=== PATIENT | male | born 1950 | race Caucasian/White ===

== ENCOUNTER 2019-06-27 20:15 | Observation (INO) ==
--- OUTSIDE RECORDS SUMMARY | 2019-06-27 20:16 | External Medical Summary | Continuity of Care Document ---
:1950 Author Name Vance Sotelo Address Unavailable Unavailable , Care Team Providers Name Role Phone Unavailable Unavailable Unavailable Liz Sotelo Unavailable [email or web address] Juice REYNOLDS Unavailable Unavailable Unavailable Unavailable Unavailable Problems COPD, moderate (496) (J44.9) Chronic coronary artery disease (414.00) (I25.10) Pulmonary nodules (793.19) (R91.8) Dyspnea on effort (786.09) (R06.09) Dyslipidemia (272.4) (E78.5) Vitamin D deficiency (268.9) (E55.9) Allergies and Adverse Reactions Iodinated Contrast Media (Allergy) lisinopril (Allergy) Medications Calcium 600+D 600-400 MG-UNIT Oral Tablet; Take 1 tablet twi ce daily , M.D. Refills: 0 Aspirin 81 MG TABS; TAKE 1 TABLET DAILY. , M.D. Refills: 0 Vitamin D 400 UNIT TABS; Take 1 tablet daily , M.D. Refills: 0 One-A-Day Mens Oral Tablet; TAKE 1 TABLET DAILY. , M.D. Refills: 0 Vikas Back & Body Pain Ex St 500-32.5 MG Oral Tablet; Take a s needed , M.D. Refills: 0 Nitrostat 0.4 MG Sublingual Tablet Sublingual , M.D. Refills: 0 Zetia 10 MG Oral Tablet; TAKE 1 TABLET DAILY. , M.D. Refills: 0 Losartan Potassium 50 MG Oral Tablet; TAKE 1 TABLET DAILY. , M.D. Refills: 0 Crestor 40 MG Oral Tablet; TAKE 1 TABLET DAILY. , M.D. Refills: 0 predniSONE 20 MG Oral Tablet; TAKE 2 TABLETS NEEDED , M.D . Refills: 0 Symbicort 160-4.5 MCG/ACT Inhalation Aer osol; INHALE 2 PUFFS TWICE DAILY. RINSE MOUTH AFTER USE. Deepak Hill Start: 24-Feb-2016 Quantity: 1 10.2 GM Inhaler Refills: 3 Metoprolol Succinate ER 50 MG Oral Table t Extended Release 24 Hour; TAKE 1 TABLET DAILY. , M.D. Refills: 0 ProAir HFA 108 (90 Base) MCG/ACT Inhalat ion Aerosol Solution; INHALE 2 PUFFS EVERY 4 HOURS NEEDED , M.D. Refills: 0 Fluticasone Propionate 50 MCG/ACT Nasal Suspension; INSTILL 2 SPRAYS INTO NOSTRIL DAILY , M.D. Refills: 0 Omeprazole 20 MG Oral Capsule Delayed Release; TAKE 1 CAPSUL E Daily , M.D. Refills: 0 EpiPen 0.3 MG/0.3ML FER , M.D. Refills: 0 Benadryl Allergy 25 MG Oral Tablet; TAKE 1 TABLET EVER Y 4 TO 6 HOURS NEEDED. , M.D. Refills: 0 Procedures Procedures not documented Immunizations Immunizations not documented Family History Unknown Family Member Family history of malignant neoplasm of Status: Active Comments: Family History prostate (V16.42) (Z80.42) Father Family history of malignant neoplasm of prostate (V16. 42) (Z80.42) Status: Active Grandfather Family history of malignant neoplasm of prostate (V16. 42) (Z80.42) Status: Active Social History - Smoking Status Former smoker Plan of Treatment Planned Observations Planned Goals not documented Results No Known Results Results not documented
--- OUTSIDE RECORDS SUMMARY | 2019-06-27 20:17 | External Medical Summary | Continuity of Care Document ---
:1950 Author Name Vance Sotelo Address Unavailable Unavailable , Care Team Providers Name Role Phone Unavailable Unavailable Unavailable Liz Sotelo Unavailable [email or web address] Juice REYNOLDS Unavailable Unavailable Unavailable Unavailable Unavailable Problems Vitamin D deficiency (268.9) (E55.9) Dyslipidemia (272.4) (E78.5) Dyspnea on effort (786.09) (R06.09) Pulmonary nodules (793.19) (R91.8) Chronic coronary artery disease (414.00) (I25.10) COPD, moderate (496) (J44.9) Allergies and Adverse Reactions Iodinated Contrast Media (Allergy) lisinopril (Allergy) Medications Metoprolol Succinate ER 50 MG Oral Table [...] 6 HOURS NEEDED. , M.D. Refills: 0 predniSONE 20 MG Oral Tablet; TAKE 2 TABLETS NEEDED , M.D . Refills: 0 Crestor 40 MG Oral Tablet; TAKE 1 TABLET DAILY. , M.D. Refills: 0 Losartan Potassium 50 MG Oral Tablet; TAKE 1 TABLET DAILY. , M.D. Refills: 0 Zetia 10 MG Oral Tablet; TAKE 1 TABLET DAILY. , M.D. Refills: 0 Nitrostat 0.4 MG Sublingual Tablet Sublingual , M.D. Refills: 0 Vikas Back & Body Pain Ex St 500-32.5 MG Oral Tablet; Take a s needed , M.D. Refills: 0 One-A-Day Mens Oral Tablet; TAKE 1 TABLET DAILY. , M.D. Refills: 0 Vitamin D 400 UNIT TABS; Take 1 tablet daily , M.D. Refills: 0 Aspirin 81 MG TABS; TAKE 1 TABLET DAILY. , M.D. Refills: 0 Calcium 600+D 600-400 MG-UNIT Oral Tablet; Take 1 tablet twi ce daily , M.D. Refills: 0 Symbicort 160-4.5 MCG/ACT Inhalation Aer osol; INHALE 2 PUFFS TWICE DAILY. RINSE MOUTH AFTER USE. Deepak Hill Start: 24-Feb-2016 Quantity: 1 10.2 GM Inhaler Refills: 3 Procedures Procedures not documented Immunizations Immunizations not [...]
[2019-06-27] MEDS ORDERED: ALBUT/IPRATROP 3MG/0.5MG NEB 3 ML VIAL INH STA (20:49)
[2019-06-27] MEDS ORDERED: methylPREDNISolone 125 MG/2 ML VIAL IV STA (20:49)
[2019-06-27] MEDS ORDERED: OXYCODONE HCL IR 5 MG TAB (IMMEDIATE RELEASE) PO STA (20:49)
[2019-06-27] MEDS ORDERED: SODIUM CHLORIDE 0.9% 500 ML IV SCH (21:00)
--- NOTE | 2019-06-27 21:04 | Emergency Department Note ---
Entered by Florence Sim acting as a scribe for History of Present Illness General Chief complaint: Shortness of Breath/Dyspnea Stated complaint: COUGH,BACK PAIN,SOB Time Seen by Provider: 06/27/19 20:25 Source: patient and family () History of Present Illness Onset (ago): week(s) 1 Location: chest (SOB/dyspnea) Severity: similar to prior episodes (last year) Pain Consistency: + constant Maximum Pain Intensity: 8 Exacerbated By: + other (laying down) Associated symptoms: + denies other symptoms (leg pain, hemoptysis), + cough (productive with clear sputum), + shortness of breath (dyspnea) and + other (rhinorrhea, bilateral hip pain, lower back pain) The patient is a 69 year old male on Metoprolol with a history of COPD, DE, angio-edema, HTN, and herniated disks who presents to the Emergency Room with complaints of shortness of breath/dyspnea. The patient states that 1 week ago he began to experience a productive cough with clear sputum associated with shortness of breath. He was seen by his PCP for his symptoms and placed on doxycycline, prednisone, and an albuterol inhaler. Since onset, his SOB has worsened and the patient is now experiencing dyspnea. He states that laying flat exacerbates his SOB but he admits that he does not experience difficulty breathing when walking up stairs. The patient reports that his cough worsened last night and is associated with rhinorrhea. He has been taking OTC Mucinex DM for relief. He includes that he experienced similar symptoms last year. His notes that she is not experiencing similar symptoms and that the patient has not experienced a fever since last week. The patient also complains of bilateral hip pain and lower back pain. However, he did not take any OTC medications for r elief. Of note, the patient is not on oxygen at home and does not have a history of having low O2 sats. He denies leg pain, hemoptysis, and offers no further concerns at this time. Home Medications Home Medications Medication Instructions Recorded Confirmed Type Ergocalciferol (Vitamin D) 400 inter.unit PO BID #0 tab 09/06/15 History Ezetimibe (Zetia) 10 mg PO QAM #0 tab 09/06/15 History ROSUVASTATIN CALCIUM (CRESTOR) 40 mg PO QAM #0 tab 09/06/15 History ASPIRIN (ASPIRIN EC) 81 mg PO QAM #0 03/30/16 History Fluticasone Propionate (Nasal) 2 spray ISAIAS BID PRN #0 03/30/16 History (Flonase Allergy Relief) LOSARTAN POTASSIUM (COZAAR) 50 mg PO PRN #0 tab 03/30/16 History Metoprolol Succ (Toprol Xl) 50 mg PO QAM #30 tab 03/30/16 History (Toprol-Xl) Multivitamin 1 tab PO QAM #0 tab 03/30/16 History Nitroglycerin (Nitrostat) 0.4 mg UT PRN #0 btl 03/30/16 History OMEPRAZOLE (PRILOSEC) 20 mg PO QAM #0 cap 03/30/16 History Prednisone 2 tab PO PRN #5 tab 03/30/16 History Allergies Allergy/AdvReac Type Severity Reaction Status Date / Time Iodinated Contrast Media Allergy Unknown HIVES WITH Verified 06/27/19 23:20 IV DYE FOR CARDIAC CATH lisinopril Allergy Unknown ANGIOEDEMA Verified 06/27/19 23:20 Past Med/Surg History Medical History COPD (chronic obstructive pulmonary disease) Herniated disc Myocardial infarction Surgical History No pertinent past surgical history Social History Feels Safe at Home: Yes Smoking Status: Former smoker Review of Systems See HPI for pertinent positives & negatives. and A total of 10 systems reviewed and were otherwise negative Physical Exam Vital Signs Vital Signs - 24 hr 06/27/19 20:19 06/27/19 20:31 06/27/19 20:34 Temperature 37.3 C Temperature Source Oral Pulse Rate 95 H 87 Pulse Rate [Apical] Pulse Rate from SpO2 Sensor 87 Pulse Rhythm Respiratory Rate 18 19 Respiratory Effort / Characteristics Non-Labored Spontaneous Non-Labored Spontaneous Respiratory Depth Normal Normal Blood Pressure 129/79 151/120 H Blood Pressure Mean 95 139 Pulse Oximetry 88 L 95 94 Oxygen Delivery Method Room Air Nasal Cannula Nasal Cannula Oxygen Flow Rate 2 2 Sepsis Recent Fever Within 48 Hours No Sepsis Action Taken by Nursing No Action Required 06/27/19 20:55 06/27/19 21:00 06/27/19 21:03 Temperature Temperature Source Pulse Rate 95 H 82 Pulse Rate [Apical] 92 H Pulse Rate from SpO2 Sensor 83 Pulse Rhythm Regular Respiratory Rate 18 26 H 18 Respiratory Effort / Characteristics Non-Labored Spontaneous Respiratory Depth Blood Pressure 142/78 H Blood Pressure Mean 91 Pulse Oximetry 95 94 95 Oxygen Delivery Method Room Air Nasal Cannula Nasal Cannula Oxygen Flow Rate 2 2 2 Sepsis Recent Fever Within 48 Hours Sepsis Action Taken by Nursing 06/27/19 21:30 06/27/19 22:00 06/27/19 22:30 Temperature Temperature Source Pulse Rate 80 79 77 Pulse Rate [Apical] Pulse Rate from SpO2 Sensor 79 79 77 Pulse Rhythm Respiratory Rate 13 17 23 Respiratory Effort / Characteristics Respiratory Depth Blood Pressure 115/54 L 96/37 L 123/78 Blood Pressure Mean 69 66 91 Pulse Oximetry 96 94 93 Oxygen Delivery Method Nasal Cannula Nasal Cannula Nasal Cannula Oxygen Flow Rate 2 2 2 Sepsis Recent Fever Within 48 Hours Sepsis Action Taken by Nursing GENERAL: The patient is awake and alert. He is somewhat anxious appearing but overall comfortable. EYES: The conjunctivae are clear. The pupils are round and reactive. EARS, NOSE, MOUTH AND THROAT: The nose is without any evidence of any deformity. Mucous membranes are moist. Tongue is midline. NECK: The neck is nontender and supple. RESPIRATORY: Shallow respirations are noted. There is expiratory wheezing noted in both upper lung childs. There is no tachypnea or conversational dyspnea. CARDIOVASCULAR: Regular rate and rhythm noted there no murmurs rubs or gallops normal S1 normal S2. GASTROINTESTINAL: The abdomen is soft. Abdomen is nontender. BACK: Low midline tenderness was noted in the lumbar spine. Range of motion ap pears intact. There is significant muscle spasm noted. MUSCULOSKELETAL/EXTREMITIES: There is no evidence of gross deformity full range of motion is noted in the hips and shoulders. SKIN: There is no obvious evidence of any rash. There are no petechiae, pallor or cyanosis noted. NEUROLOGIC: Patient is awake alert and oriented x3 strength is symmetric patellar reflexes are 2+ bilaterally Course Course 2042: Past medical records reviewed. The patient was evaluated in room C05. A complete history and physical exam was performed. 0: I checked on the patient and updated him on test results. 3: [facility] who will further evaluate the patient. Administered Medications Ioversol (Optiray 320 125ml) 120 ml IV ONCE PRN PRN Reason: Interaction Checking Stop: 07/01/19 22:38 Last Admin: 06/27/19 22:41 Dose: 120 ml Documented by: [id number] Discontinued Medications Albuterol (Duoneb) 3 ml INH NOW STA Stop: 06/27/19 20:50 Last Admin: 06/27/19 21:07 Dose: 3 ml Documented by: [id number] Diphenhydramine HCl (Benadryl) 25 mg IV NOW STA Stop: 06/27/19 22:17 Last Admin: 06/27/19 22:30 Dose: 25 mg Documented by: [id number] Sodium Chloride (Nss) 500 mls @ 999 mls/hr IV .Q31M CHERYL Stop: 06/27/19 21:30 Last Infusion: 06/27/19 21:58 Dose: 0 mls/hr Documented by: [id number] Admin: 06/27/19 21:12 Dose: 999 mls/hr Documented by: [id number] Magnesium Sulfate/Dextrose (Magnesium Sulfate / D5w) 1 gm in 100 mls @ 100 mls/hr IV ONE ONE Stop: 06/27/19 22:37 Last Admin: 06/27/19 22:09 Dose: 100 mls/hr Documented by: [id number] Sodium Chloride (Nss 1000ml) 1,000 mls @ 999 mls/hr IV .Q1H1M ONE Stop: 06/27/19 23:16 Last Admin: 06/27/19 22:30 Dose: 999 mls/hr Documented by: [id number] Famotidine (Pepcid 20mg Iv Push) 20 mg in 5 mls @ 2.5 mls/min IV NOW STA Stop: 06/27/19 22:17 Last Admin: 06/27/19 22:30 Dose: 2.5 mls/min Documented by: [id number] Methylprednisolone (Solumedrol) 125 mg IV NOW STA Stop: 06/27/19 20:50 Last Admin: 06/27/19 21:10 Dose: 125 mg Documented by: [id number] Oseltamivir Phosphate (Tamiflu) 75 mg PO NOW STA; Protocol Stop: 06/27/19 22:00 Last Admin: 06/27/19 22:10 Dose: 75 mg Documented by: [id number] Oxycodone HCl (Roxicodone Immediate Rel) 5 mg PO NOW STA Stop: 06/27/19 20:50 Last Admin: 06/27/19 21:09 Dose: 5 mg Documented by: [id number] Medical Decision Making Differential Diagnosis Differential diagnoses includes but is not limited to pneumonia, bronchitis, COPD/Asthma exacerbation, pneumothorax, pulmonary embolism, congestive heart failure, acute coronary syndrome Medical Records Attestation: I reviewed the patient's medical records. Home Medications Current Medication List: was personally reviewed by me Laboratory Data Attestation: I reviewed the patient's lab results. Result diagrams: 06/27/19 21:07 06/27/19 21:07 Lab Results 06/27/19 06/27/19 06/27/19 Range/Units 21:00 21:06 21:07 WBC 6.38 (4.8-10.8) K/uL RBC 4.53 L (4.7-6.1) M/uL Hgb 14.4 (14.0-18.0) g/dL Hct 42.3 (42-52) % MCV 93.4 (80-100) fL MCH 31.8 (25-34) pg MCHC 34.0 (32-36) g/dL RDW Std Deviation 48.6 H (36.4-46.3) fL RDW Coeff of [place] 14.1 (11.5-14.5) % Plt Count 119 L (130-400) K/uL MPV 9.2 (7.4-10.4) fL Immature Gran % (Auto) 0.5 % Neut % (Auto) 69.6 % Lymph % (Auto) 9.6 % [place] % (Auto) 17.1 % Eos % (Auto) 3.0 % Baso % (Auto) 0.2 % Immature Gran # (Auto) 0.03 H (0.00-0.02) K/uL Neut # (Auto) 4.45 (1.4-6.5) K/uL Lymph # (Auto) 0.61 L (1.2-3.4) K/uL [place] # (Auto) 1.09 H (0.11-0.59) K/uL Eos # (Auto) 0.19 (0-0.5) K/uL Baso # (Auto) 0.01 (0-0.2) K/uL PT (9.0-12.0) Seconds INR (0.9-1.1) APTT (21.0-31.0) Seconds PTT Ratio D-Dimer (0-500) ug/L FEU VBG pH 7.53 H (7.36-7.41) VBG pCO2 29 L (38-50) mmHg VBG pO2 54 mmHg VBG HCO3 23 mmol/L VBG O2 Saturation 91.8 % VBG Base Excess 1.8 mEq/L Barometric Pressure 738.2 mm/Hg Sodium (136-145) mmol/L Potassium (3.5-5.1) mmol/L Chloride (98-107) mmol/L Carbon Dioxide (21-32) mmol/L Anion Gap (3-11) BUN (7-18) mg/dl Creatinine (0.6-1.4) mg/dl Est Cr Clr Drug Dosing ml/min Est GFR ( Amer) Est GFR (Non-Af Amer) BUN/Creatinine Ratio (10-20) Glucose (70-99) mg/dl Calcium (8.5-10.1) mg/dl Magnesium (1.8-2.4) mg/dl Total Bilirubin (0.2-1) mg/dl AST (15-37) U/L ALT (12-78) U/L Alkaline Phosphatase (45-117) U/L Troponin I (0-0.045) ng/ml Total Protein (6.4-8.2) gm/dl Albumin (3.4-5.0) gm/dl Globulin (2.5-4.0) gm/dl Albumin/Globulin Ratio (0.9-2) Influenza Type A (PCR) Pos for Influ A A* (Neg) Influenza Type B (PCR) Neg for Influ B (Neg) 06/27/19 06/27/19 06/27/19 Range/Units 21:07 21:07 21:07 WBC (4.8-10.8) K/uL RBC (4.7-6.1) M/uL Hgb (14.0-18.0) g/dL Hct (42-52) % MCV (80-100) fL MCH (25-34) pg MCHC (32-36) g/dL RDW Std Deviation (36.4-46.3) fL RDW Coeff of [place] (11.5-14.5) % Plt Count (130-400) K/uL MPV (7.4-10.4) fL Immature Gran % (Auto) % Neut % (Auto) % Lymph % (Auto) % [place] % (Auto) % Eos % (Auto) % Baso % (Auto) % Immature Gran # (Auto) (0.00-0.02) K/uL Neut # (Auto) (1.4-6.5) K/uL Lymph # (Auto) (1.2-3.4) K/uL [place] # (Auto) (0.11-0.59) K/uL Eos # (Auto) (0-0.5) K/uL Baso # (Auto) (0-0.2) K/uL PT 11.4 (9.0-12.0) Seconds INR 1.1 (0.9-1.1) APTT 24.5 (21.0-31.0) Seconds PTT Ratio 0.9 D-Dimer 760 H* (0-500) ug/L FEU VBG pH (7.36-7.41) VBG pCO2 (38-50) mmHg VBG pO2 mmHg VBG HCO3 mmol/L VBG O2 Saturation % VBG Base Excess mEq/L Barometric Pressure mm/Hg Sodium 135 L (136-145) mmol/L Potassium 4.1 (3.5-5.1) mmol/L Chloride 104 (98-107) mmol/L Carbon Dioxide 24 (21-32) mmol/L Anion Gap 7.0 (3-11) BUN 15 (7-18) mg/dl Creatinine 0.99 (0.6-1.4) mg/dl Est Cr Clr Drug Dosing 86.9 ml/min Est GFR ( Amer) 91.0 Est GFR (Non-Af Amer) 78.5 BUN/Creatinine Ratio 15.1 (10-20) Glucose 96 (70-99) mg/dl Calcium 8.8 (8.5-10.1) mg/dl Magnesium 1.7 L (1.8-2.4) mg/dl Total Bilirubin 1.1 H (0.2-1) mg/dl AST 32 (15-37) U/L ALT 66 (12-78) U/L Alkaline Phosphatase 44 L (45-117) U/L Troponin I < 0.015 (0-0.045) ng/ml Total Protein 6.6 (6.4-8.2) gm/dl Albumin 3.3 L (3.4-5.0) gm/dl Globulin 3.3 (2.5-4.0) gm/dl Albumin/Globulin Ratio 1.0 (0.9-2) Influenza Type A (PCR) (Neg) Influenza Type B (PCR) (Neg) Imaging Data Radiologist's Impression: Radiology results as stated below per my review and the radiologist's interpretation: XR chest 1V portable CLINICAL HISTORY: 69 years-old Male presenting with Dyspnea. TECHNIQUE: Portable upright AP view of the chest was obtained. COMPARISON: 09/06/2015. FINDINGS: Atherosclerosis of the aortic arch. Cardiac silhouette normal in size. Minimal bibasilar opacities. No large effusion or pneumothorax. Osseous structures normal. Upper abdomen normal. IMPRESSION: 1. Minimal basilar opacities likely atelectasis or scarring. No convincing evidence of acute cardiopulmonary disease. ACT 112: Negative or not required by law. Electronically signed by: Rosalio Madrid M.D. 06/27/2019 9:[address] angio chest PE protocol CLINICAL HISTORY: 69 years-old Male presenting with shortness of breath, cough, clinical concern for pulmonary embolus. TECHNIQUE: Multidetector CT angiography of the chest was performed after administration of intravenous contrast. 3-D volumetric and/or maximum intensity projection (MIP) images were subsequently reconstructed for review. IV contrast: 120 mL of Optiray 320. One or more dose lowering techniques were used consistent with the principles of ALARA (as low as reasonably achievable), including automatic exposure control, mA or kV adjustment to individual patient size, and/or use of iterative reconstruction. COMPARISON: Chest x-ray from earlier today. CT DOSE (mGy.cm): The estimated cumulative dose is 682.00 mGy.cm. 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 Pulmonary vasculature: The study is suboptimal for the assessment of the pulmonary vascular tree secondary to timing of the contrast bolus. No filling defect within the pulmonary arteries to suggest embolus. Main pulmonary artery is not enlarged. No flattening of the interventricular septum. No intracardiac filling defect. No reflux of contrast into the hepatic veins. Remaining chest: Soft tissues: Normal thyroid and thoracic inlet. No axillary, supraclavicular, mediastinal, or hilar lymphadenopathy. Atherosclerosis of the aorta. Normal heart size. Coronary artery and aortic valve calcification. No pericardial or pleural effusion. Upper abdomen normal. Lungs and airways: No pneumothorax. Diffuse bronchial wall thickening with a lower lobe predominance. Central airways patent. Pulmonary arteries are not significantly enlarged relative to adjacent bronchi. No interlobular septal thickening. Trace centrilobular emphysema. Minimal bibasilar opacities likely atelectasis. Musculoskeletal: Degenerative changes of the spine. Solid polygonal 6 mm nodule in the medial segment of the right middle lobe (series 4 image 74). Solid peripheral 5 mm nodule in the anterior segment of the right upper lobe (series 4 image 155). No other focal nodule or infiltrate. IMPRESSION: 1. No evidence of pulmonary embolus. No acute intrathoracic pathology. 2. 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 3. Multiple solid pulmonary nodules measuring up to 6 mm. Follow-up per Fleischner Society 2017 criteria below. Summary of Fleischner Society 2017 Recommendations (H Leroy et al. Guidelines for management of incidental pulmonary nodules detected on CT images: From the Fleischner Society 2017. Radiology 2017; 284: 228-243.) SOLID NODULES Single nodule; size < 6 mm * Low risk patients: No routine follow-up * High risk patients: Optional CT at 12 months Single nodule; size 6-8 mm * Low risk patients: CT at 6-12 months, then consider CT at 18-24 months * High risk patients: CT at 6-12 months, then at 18-24 months Single nodule; size > 8 mm * Either low or high risk patients: Consider CT at 3 months, PET/CT, or tissue sampling Multiple nodules; size < 6 mm * Low risk patients: No routine follow up * High risk patients: Optional CT at 12 months Multiple nodules; size 6-8 mm * Low risk patients: CT at 3-6 months, then consider CT at 18-24 months * High risk patients: CT at 3-6 months, then at 18-24 months Multiple nodules; size > 8 mm * Low risk patients: CT at 3-6 months, then consider at 18-24 months * High risk patients: CT at 3-6 months, then at 18-24 months SUBSOLID NODULES Single ground-glass nodule * Nodule size < 6 mm: No routine follow-up * Nodule size > or = 6 mm: CT at 6-12 months to confirm persistence, then CT every 2 years until 5 years Single part-solid nodule * Nodule size < 6 mm: No routine follow-up * Nodules size > or = 6 mm: CT at 3-6 months to confirm persistence. If unchanged and solid component remains < 6 mm, annual CT should be performed for 5 years Multiple nodules * Nodule size < 6 mm: CT at 3-6 months. If stable, consider CT at 2 and 4 years. * Nodules size > or = 6 mm: CT at 3-6 months. Subsequent management based on the most suspicious nodule(s) NOTE: 1) These guidelines apply to incidental nodules. These guidelines do NOT apply to patients younger than 35 years, immunocompromised patients, or patients with cancer. 2) Risk categories: * Low risk patients: Minimal or absent history of smoking and/or other known risk factors * High risk patients: History of smoking, exposure to other carcinogens, emphysema, fibrosis, upper lobe location, family history of lung cancer, etc. 3) If a nodule up to 8 mm is partly solid or is ground glass, further follow-up is required after 24 months to exclude possible slow growing adenocarcinoma. ACT 112: Negative or not required by law. Electronically signed by: Rosalio Madrid M.D. 06/27/2019 10:57 PM ECG Data Attestation: I personally reviewed and interpreted this ECG as follows: Indication: + SOB/dyspnea Rate (beats per minute): 89 Rhythm: + normal sinus ECG Findings: + Other (no acute ST segments); no PACs and no PVCs Comparison ECG Date: from (09/06/15) Change: no significant change Blood Pressure Blood Pressure Findings: Normal blood pressure Blood Pressure Disposition: further management by hospitalist ITALO Orellana The patient is a 69-year-old male who presented to the emergency department for an evaluation of shortness of breath. The patient has a history of COPD. He was seen by his primary care physician about a week ago for similar complaints. At that time he was started on doxycycline as well as a steroid. The patient continues to have very severe symptoms which became worse over the last 24 hours. The patient was found to have hypoxia but he was placed on supplemental oxygen with significant improvement in his oxygen saturation. I discussed the patient's laboratory and radiographic studies with him. He was also treated with IV magnesium replacement. He was treated with IV steroids. He was given bronchodilator therapy. The patient was somewhat improved on reevaluation but still had an oxygen requirement. For this reason I discussed his case with the on-call [facility] hospitalist group. They have agreed to evaluate the patient in the emergency department for further management and disposition. Impression & Plan COPD exacerbation, Hypoxia, Influenza A, Hypomagnesemia Discharge Plan Visit Data Chief Complaint: Shortness of Breath/Dyspnea Stated Complaint: COUGH,BACK PAIN,SOB ED Provider: Kevin Mcarthur Discharge Problem: COPD exacerbation, Hypoxia, Influenza A, Hypomagnesemia Patient Disposition: Being Evaluated by Hospitalist Forms Stand Alone Forms: My [facility] Prescriptions Prescriptions: No Action Ergocalciferol (Vitamin D) 400 INTER.UNIT tablet 400 inter.unit PO BID Qty: 0 RF: 0 Ezetimibe (Zetia) 10 MG tablet 10 mg PO QAM Qty: 0 RF: 0 ROSUVASTATIN CALCIUM (CRESTOR) 40 MG tablet 40 mg PO QAM Qty: 0 RF: 0 Fluticasone Propionate (Nasal) (Flonase Allergy Relief) 50 MCG/ACT SPR 2 spray ISAIAS BID PRN (Reason: RN) Qty: 0 RF: 0 Metoprolol Succ (Toprol Xl) (Toprol-Xl) 50 MG [id number]-[id number]-AOP 50 mg PO QAM Qty: 30 RF: 0 OMEPRAZOLE (PRILOSEC) 20 MG CONTR REL CAP 20 mg PO QAM Qty: 0 RF: 0 LOSARTAN POTASSIUM (COZAAR) 50 MG tablet 50 mg PO PRN (Reason: AM) Qty: 0 RF: 0 Prednisone 20 MG tablet 2 tab PO PRN Qty: 5 RF: 0 ASPIRIN (ASPIRIN EC) 81 MG tablet 81 mg PO QAM Qty: 0 RF: 0 Multivitamin tablet 1 tab PO QAM Qty: 0 RF: 0 Nitroglycerin (Nitrostat) 0.4 MG tablet 0.4 mg UT PRN Qty: 0 RF: 0 Referrals Referrals: Fabiola Briscoe DO [Primary Care Provider] - The scribe's documentation has been prepared under my direction and personally reviewed by me in its entirety. I confirm that the note above accurately reflects all work, treatment, procedures, and medical decision making performed by me.
[2019-06-27 21:16] LABS: Basophils # (auto) 0.01 K/uL (0-0.2); Basophils % (auto) 0.2 %; Eosinophils # (auto) 0.19 K/uL (0-0.5); Hematocrit (blood only) 42.3 % (42-52); Hemoglobin 14.4 g/dL (14.0-18.0); Immature Granulocytes # (auto) 0.03 K/uL (0.00-0.02); Immature Granulocytes % (auto) 0.5 %; Lymphocytes # (auto) 0.61 K/uL (1.2-3.4); Lymphocytes % (auto) 9.6 %; Mean Corpuscular Hemoglobin 31.8 pg (25-34); Mean Corpuscular Volume 93.4 fL (80-100); Mean Platelet Volume 9.2 fL (7.4-10.4); Monocytes # (auto) 1.09 K/uL (0.11-0.59); Monocytes % (auto) 17.1 %; Neutrophils # (auto) 4.45 K/uL (1.4-6.5); Neutrophils % (auto) 69.6 %; Platelet Count 119 K/uL (130-400); RDW Coefficient of Variation 14.1 % (11.5-14.5); RDW Standard Deviation 48.6 fL (36.4-46.3); Red Blood Count 4.53 M/uL (4.7-6.1); White Blood Count 6.38 K/uL (4.8-10.8)
[2019-06-27 21:24] LABS: Base Excess VBG 1.8 mEq/L; Oxygen Saturation VBG 91.8 %; pH VBG 7.53 (7.36-7.41)
--- NOTE | 2019-06-27 21:27 | XRay Report ---
XR chest 1V portable CLINICAL HISTORY: 69 years-old Male presenting with Dyspnea. TECHNIQUE: Portable upright AP view of the chest was obtained. COMPARISON: 09/06/2015. FINDINGS: Atherosclerosis of the aortic arch. Cardiac silhouette normal in size. Minimal bibasilar opacities. N o large effusion or pneumothorax. Osseous structures normal. Upper abdomen normal. IMPRESSION: 1. Minimal basilar opacities likely atelectasis or scarring. No convincing evidence of acute cardiop ulmonary disease. ACT 112: Negative or not required by law. Electronically signed by: Rosalio Madrid M.D. 06/27/2019 9:26 PM
[2019-06-27 21:31] LABS: INR 1.1 (0.9-1.1); Partial Thromboplastin Ratio 0.9; Partial Thromboplastin Time 24.5 Seconds (21.0-31.0); Prothrombin Time 11.4 Seconds (9.0-12.0)
[2019-06-27 21:33] LABS: Alanine Aminotransferase 66 U/L (12-78); Albumin Level 3.3 gm/dl (3.4-5.0); Aspartate Aminotransferase 32 U/L (15-37); BUN Creatinine Ratio 15.1 (10-20); Blood Urea Nitrogen 15 mg/dl (7-18); Calcium 8.8 mg/dl (8.5-10.1); Carbon Dioxide 24 mmol/L (21-32); Chloride 104 mmol/L (98-107); Creatinine Clr Calc Pharmacy 86.9 ml/min; Est GFR (Non-African American) 78.5; Glucose 96 mg/dl (70-99); Magnesium 1.7 mg/dl (1.8-2.4); Potassium 4.1 mmol/L (3.5-5.1); Sodium 135 mmol/L (136-145)
[2019-06-27 21:37] LABS: Alkaline Phosphatase 44 U/L (45-117); Bilirubin,Total 1.1 mg/dl (0.2-1); Globulin 3.3 gm/dl (2.5-4.0); Total Protein 6.6 gm/dl (6.4-8.2); Troponin I < 0.015 ng/ml (0-0.045)
[2019-06-27] MEDS ORDERED: MAGNESIUM SULFATE / D5W 1 GM/100 ML BAG IV ONE (21:38)
[2019-06-27 21:41] LABS: Influenza B virus by PCR Neg for Influ B (Neg)
[2019-06-27] MEDS ORDERED: OSELTAMIVIR PHOSPHATE 75 MG CAP PO STA (21:59)
[2019-06-27 22:14] LABS: D Dimer 760 ug/L FEU (0-500)
[2019-06-27] MEDS ORDERED: SODIUM CHLORIDE 0.9% 1000ML 1,000 ML IV ONE (22:16)
[2019-06-27] MEDS ORDERED: FAMOTIDINE 20MG IV PUSH 20 MG/5 ML SYR IV STA (22:16)
[2019-06-27] MEDS ORDERED: DiphenhydrAMINE HCL 50 MG/ML VIAL IV STA (22:16)
[2019-06-27] MEDS ORDERED: OPTIRAY 320 125ml IV PRN (22:39)
--- NOTE | 2019-06-27 22:58 | CT Scan Report ---
CT angio chest PE protocol CLINICAL HISTORY: 69 years-old Male presenting with shortness of breath, cough, clinical concern for pulmonary embolus. TECHNIQUE: Multidetector CT angiography of the chest was performed after administration of intravenou s contrast. 3-D volumetric and/or maximum intensity projection (MIP) images were subsequently reconst ructed for review. IV contrast: 120 mL of Optiray 320. One or more dose lowering techniques were used consistent with the principles of ALARA (as low as reasonably achievable), including automatic expos ure control, mA or kV adjustment to individual patient size, and/or use of iterative reconstruction. COMPARISON: Chest x-ray from earlier today. CT DOSE (mGy.cm): The estimated cumulative dose is 682.00 mGy.cm. FINDINGS: Assignment Manager topogram: Unremarkable. Pulmonary vasculature: The study is suboptimal for the assessment of the pulmonary vascular tree secondary to timing of the contrast bolus. No filling defect within the pulmonary arteries to suggest embolus. Main pulmonary ar joseluis is not enlarged. No flattening of the interventricular septum. No intracardiac filling defect. N o reflux of contrast into the hepatic veins. Remaining chest: Soft tissues: Normal thyroid and thoracic inlet. No axillary, supraclavicular, mediastinal, or hilar lymphadenopathy. Atherosclerosis of the aorta. Normal heart size. Coronary artery and aortic valve ca lcification. No pericardial or pleural effusion. Upper abdomen normal. Lungs and airways: No pneumothorax. Diffuse bronchial wall thickening with a lower lobe predominance. Central airways patent. Pulmonary arteries are not significantly enlarged relative to adjacent bronc hi. No interlobular septal thickening. Trace centrilobular emphysema. Minimal bibasilar opacities lik marlo atelectasis. Musculoskeletal: Degenerative changes of the spine. Solid polygonal 6 mm nodule in the medial segment of the right middle lobe (series 4 image 74). Solid peripheral 5 mm nodule in the anterior segment o f the right upper lobe (series 4 image 155). No other focal nodule or infiltrate. IMPRESSION: 1. No evidence of pulmonary embolus. No acute intrathoracic pathology. 2. 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 3. Multiple solid pulmonary nodules measuring up to 6 mm. Follow-up per Fleischner Society 2017 crit eria below. Summary of Fleischner Society 2017 Recommendations (H Leroy et al. Guidelines for management of i ncidental pulmonary nodules detected on CT images: From the Fleischner Society 2017. Radiology 2017; 284: 228-243.) SOLID NODULES Single nodule; size < 6 mm * Low risk patients: No routine follow-up * High risk patients: Optional CT at 12 months Single nodule; size 6-8 mm * Low risk patients: CT at 6-12 months, then consider CT at 18-24 months * High risk patients: CT at 6-12 months, then at 18-24 months Single nodule; size > 8 mm * Either low or high risk patients: Consider CT at 3 months, PET/CT, or tissue sampling Multiple nodules; size < 6 mm * Low risk patients: No routine follow up * High risk patients: Optional CT at 12 months Multiple nodules; size 6-8 mm * Low risk patients: CT at 3-6 months, then consider CT at 18-24 months * High risk patients: CT at 3-6 months, then at 18-24 months Multiple nodules; size > 8 mm * Low risk patients: CT at 3-6 months, then consider at 18-24 months * High risk patients: CT at 3-6 months, then at 18-24 months SUBSOLID NODULES Single ground-glass nodule * Nodule size < 6 mm: No routine follow-up * Nodule size > or = 6 mm: CT at 6-12 months to confirm persistence, then CT every 2 years until 5 y ears Single part-solid nodule * Nodule size < 6 mm: No routine follow-up * Nodules size > or = 6 mm: CT at 3-6 months to confirm persistence. If unchanged and solid componen t remains < 6 mm, annual CT should be performed for 5 years Multiple nodules * Nodule size < 6 mm: CT at 3-6 months. If stable, consider CT at 2 and 4 years. * Nodules size > or = 6 mm: CT at 3-6 months. Subsequent management based on the most suspicious nod ule(s) NOTE: 1) These guidelines apply to incidental nodules. These guidelines do NOT apply to patients younger th an 35 years, immunocompromised patients, or patients with cancer. 2) Risk categories: * Low risk patients: Minimal or absent history of smoking and/or other known risk factors * High risk patients: History of smoking, exposure to other carcinogens, emphysema, fibrosis, upper lobe location, family history of lung cancer, etc. 3) If a nodule up to 8 mm is partly solid or is ground glass, further follow-up is required after 24 months to exclude possible slow growing adenocarcinoma. ACT 112: Negative or not required by law. Electronically signed by: Rosalio Madrid M.D. 06/27/2019 10:57 PM
[2019-06-28] MEDS ORDERED: ONDANSETRON INJ 2 MG/ML 2 ML VIAL IV PRN (02:21)
[2019-06-28] MEDS ORDERED: ACETAMINOPHEN 325 MG TAB PO PRN (02:21)
[2019-06-28] MEDS ORDERED: POLYETHYLENE (MIRALAX) 17 GM PACK PO PRN (02:21)
[2019-06-28] MEDS ORDERED: NITROGLYCERIN SL 0.4 MG/TAB TAB SL PRN (02:21)
--- NOTE | 2019-06-28 03:02 | History and Physical Report ---
DATE OF ADMISSION: 06/28/2019 CHIEF COMPLAINT: Shortness of breath and cough. HISTORY OF PRESENT ILLNESS: This is a 69-year-old male with past medical history significant for hyperlipidemia, COPD, central lung nodule, history of [place], hypertension, history of lumbar disc disease with myelopathy, history of angioedema, who lives with , ambulates fine. Comes with cough going for 1 week. He saw PCP and was prescribed doxycycline, prednisone taper on 06/19/2019 for 10-day course. Initially seemed to be improved, but again his cough got worse last night, bringing whitish phlegm sometimes, and has low-grade fever. He has COPD and he also has some shortness of breath, but he can walk 1 mile without stopping and his shortness of breath seems same, but because his cough got worse and he has low-grade fever, he came to the ER and tested positive for influenza A. Oxygen sats 88% on room air in ER. D-dimer was slightly elevated, but CT chest shows no PE, no obvious infiltrates. Received steroids and nebs in the ER. Currently, resting comfortably and hemodynamically stable. Denies any chest pain, no nausea, no vomiting, no diarrhea, no constipation, no blood in stools or black stools. No burning micturition or hematuria. Normal bladder movements. No rash. Has some headaches and has some dizziness, some blurred visions, no earache. Has some runny nose, no sore throat. Appetite is okay. ALLERGIES: IODINATED DIAGNOSTIC AGENTS, LISINOPRIL. PAST MEDICAL HISTORY: As mentioned above. PAST SURGICAL HISTORY: Cardiac catheterization, left laryngoscopy, colonoscopy. MEDICATIONS: The patient is on doxycycline 100 mg p.o. b.i.d. started on 06/19/2019 for 10-day course, prednisone tapering course, Zetia 10 mg p.o. daily, losartan 50 mg p.o. daily, Toprol-XL 50 mg p.o. daily, Crestor 40 mg p.o. daily, omeprazole 20 mg p.o. daily, nitroglycerin 0.4 mg sublingual p.r.n., albuterol 2 puffs every 4 hours p.r.n., Advair Diskus 250/50 mcg 1 puff b.i.d., Benadryl p.r.n., vitamin E 400 units daily, aspirin 81 mg p.o. daily, calcium 600 plus D 1 tablet b.i.d. FAMILY HISTORY: Significant for father had arthritis, prostate cancer, musculoskeletal disorder. Mother had multiple sclerosis, had cancer. Paternal grandfather had prostate cancer. SOCIAL HISTORY: and lives with his . Former smoker, quit in 2014, prior to that smoked 1.5 pack a day for 50 years. Alcohol, 1 glass daily as per records. No drug use. REVIEW OF SYSTEMS: As per HPI. Rest of the review of systems negative. PHYSICAL EXAMINATION: GENERAL: The patient is of moderate build, not in acute distress. VITAL SIGNS: Temperature 37.3, pulse 68, respiratory rate 18, blood pressure 126/69, oxygen 96% on room air. HEENT: No pallor, no icterus. Pupils equal, round, and reactive to light. NECK: No JVD, no neck masses, no carotid bruits. CARDIOVASCULAR: S1, S2 heard, regular rate and rhythm, no murmur, no gallop. RESPIRATORY SYSTEM: Normal AP diameter. No accessory muscle use. No wheezing, no crackles. ABDOMEN: Soft, bowel sounds present, nontender. No distention. CENTRAL NERVOUS SYSTEM: Cranial nerves II-XII grossly intact, nonfocal. EXTREMITIES: Trace pedal edema, no erythema seen. LABORATORY DATA: WBC 6.3, hemoglobin 14.4, hematocrit 42.3, platelets 119. PT 11.4, INR 1.1, APTT 24.5. D-dimer 760. Venous blood gas, pH of 7.53, pCO2 of 29, pO2 of 54, bicarbonate 23, oxygen 91%. Sodium 135, potassium 4.1, chloride 104, CO2 of 24, BUN 15, creatinine 0.9, serum glucose 96, calcium 8.8, magnesium 1.7, total bilirubin 1.1, AST 32, ALT 66, alkaline phosphatase 44. Troponin I less than 0.015. Influenza A PCR positive. IMAGING DATA: Chest x-ray, no evidence of acute cardiopulmonary disease. CTA of the chest, no PE, pulmonary nodule measuring up to 6 mm, emphysema. EKG: Normal sinus rhythm at rate of 89, no significant change was found. ASSESSMENT AND PLAN: This is a 69-year-old male who presents with ongoing cough and shortness of breath and found to be influenza A positive. 1. Hypoxia. Oxygen 88% on room air. Cough going on for more than about a week. Started on doxycycline on 06/19/2019 with prednisone taper. Initially improved but then again cough increased last night. In the ER, he was saturating 88% on room air. CTA of the chest, no PE, no infiltrates, flu A positive. We will treat with Tamiflu, IV fluids, and monitor the response. 2. Chronic obstructive pulmonary disease. There is no wheezing on exam, but the patient received DuoNebs and Solu-Medrol in the ER and also prednisone taper at home. Will complete the doxycycline course and because of his influenza A, will continue with prednisone 40 mg and taper it down quickly. Nebs around the clock and p.r.n., home Advair Diskus inhaler p.r.n. 3. History of coronary artery disease with inferior ST elevated [place] and bare metal stent x2 to RCA in 2008, currently stable on aspirin, Zetia, Toprol-XL, and Crestor. 4. Hyperlipidemia, on Zetia and Crestor. 5. Hypertension. Toprol-XL, losartan. We will monitor the blood pressure. 6. Gastroesophageal reflux disease, On PPI. 7. Pulmonary nodules, needs followup . 8. Deep venous thrombosis prophylaxis, sequential compression devices for now. 9. Disposition: Admit to medical floor. Expect to discharge home and follow with family doctor. Level 1 full code. MTDD
[2019-06-28] MEDS ORDERED: INFLUENZA Vaccine HIGH DOSE 65+yrs 0.5 mL Syr IM ONE (04:00)
--- NOTE | 2019-06-28 07:19 | Hospitalist Progress Note ---
Date of Service June 28, 2019 Assessment & Plan (1) COPD exacerbation: (2) Hypoxia: (3) Influenza A: (4) Hypomagnesemia: ASSESSMENT AND PLAN: This is a 69-year-old male who presents with ongoing cough and subjective shortness of breath and found to be influenza A positive. 1. Hypoxia. Oxygen 88% on room air. Cough going on for more than about a week. Started on doxycycline on 06/19/2019 with prednisone taper. In the ER, he was saturating 88% on room air. CT of the chest, no PE, no infiltrates, flu A positive. We will treat with Tamiflu, IV fluids, and monitor the response. 2. Chronic obstructive pulmonary disease. There is no wheezing on exam, but the patient received DuoNebs and Solu-Medrol in the ER and also prednisone taper at home. Will complete the doxycycline course and because of his influenza A, will continue with prednisone 40 mg and taper it down quickly. Nebs around the clock and p.r.n., home Advair Diskus inhaler p.r.n. 3. History of coronary artery disease with inferior ST elevated [place] and bare metal stent x2 to RCA in 2008, currently stable on aspirin, Zetia, Toprol-XL, and Crestor. 4. Hyperlipidemia, on Zetia and Crestor. 5. Hypertension. Toprol-XL, losartan. We will monitor the blood pressure. 6. Gastroesophageal reflux disease, On PPI. 7. Pulmonary nodules. 8. Deep venous thrombosis prophylaxis, sequential compression devices for now. Labs checked Home when O2 weaned off ROS-No Headache, No Visual Changes, No Nausea, No Vomiting, No Fever, No Chills, No Neck Pain or Stiffness, No Chest Pain, No Palpitations, + SOB, No ELIZABETH, + Cough, No Sputum, + Wheezing, No Abdominal Pain, No Diarrhea, No Hematemesis, No Hemoptysis, No Unexpected Weight Loss, No Flank pain, No Melena, No Hematochezia, No Frequency, No Urgency, No Burning, No Hematuria, No Rashes, No Diaphoresis. Appetite is Normal Physical Exam Gen-AAO x 3, NAD, Afebrile Head-NCAT, EOMI, PERRLA, Anicteric Sclera, No Posterior Pharyngeal Erythema Neck-Supple, No JVD, No Thyromegaly, No Masses, No LAD, No Bruits Lungs-Clear to Auscultation Bilaterally, No Rales, No Rhonchi, No Wheezing, No Crepitus Chest-No S4, +S1, +S2, No S3, No Murmurs, No Rubs, No Gallops, No Ectopy Abdomen-Soft, Bowel Sounds Present, Non Tender, Non Distended, No Hepatomegaly, No Splenomegaly, No Palpable Masses, No Rebound, No Rigidity, No Guarding Musculoskeletal-Full Range of Motion Bilaterally, No CVAT Extremities-No Cyanosis, No Clubbing, No Edema Nuero-Cranial Nerves II-XII grossly intact, Motor WNL, DTRs WNL, Strength WNL, Non Focal Psych-Normal Mood Results & Data ([facility]) Vital Signs (Past 12 Hours) Vital Signs Temp Pulse Pulse Resp BP BP Pulse Ox 06/28/19 02:15 36.7 C 74 20 141/78 H 93 06/28/19 01:35 66 18 143/91 H 96 06/27/19 23:36 68 18 126/69 96 06/27/19 22:30 77 23 123/78 93 06/27/19 22:00 79 17 96/37 L 94 06/27/19 21:30 80 13 115/54 L 96 06/27/19 21:03 92 H 18 95 06/27/19 21:00 82 26 H 142/78 H 94 06/27/19 20:55 95 H 18 95 06/27/19 20:34 87 19 151/120 H 94 06/27/19 20:31 95 06/27/19 20:19 37.3 C 95 H 18 129/79 88 L
[2019-06-28] MEDS: IPRATROPIUM BROMIDE NEB SOLN 0.02% 2.5 ML VIAL INH SCH ×3 (07:22→19:22)
[2019-06-28] MEDS: LEVALBUTEROL 1.25MG/0.5ML NEB INH SCH ×3 (07:22→19:22)
[2019-06-28] MEDS: PANTOprazole 40 MG TAB PO SCH (07:50)
[2019-06-28] MEDS: ASPIRIN 81 MG ECTAB PO SCH (07:50)
[2019-06-28] MEDS: DOXYCYCLINE HYCLATE 100 MG CAP PO SCH ×2 (07:50→20:04)
[2019-06-28] MEDS: MULTIVITAMIN TAB PO SCH (07:50)
[2019-06-28] MEDS: predniSONE 20 MG TAB PO SCH (07:50)
[2019-06-28] MEDS: OSELTAMIVIR PHOSPHATE 75 MG CAP PO SCH ×2 (07:50→20:03)
[2019-06-28] MEDS: FLUTICASONE PROPIONATE NA SPR 16 GM BTL SCH (07:50)
[2019-06-28] MEDS: EZETIMIBE 10 MG TABLET PO SCH (07:50)
[2019-06-28] MEDS: LOSARTAN POTASSIUM 50 MG TAB PO SCH (07:50)
[2019-06-28] MEDS: CHOLECALCIFEROL (VITAMIN D) 400 UNITS TABLET PO SCH (07:50)
[2019-06-28] MEDS: ROSUVASTATIN CALCIUM 20 MG TAB PO SCH (07:50)
[2019-06-28] MEDS: METOPROLOL SUCC 50MG EXT REL TAB PO SCH (07:50)
--- NOTE | 2019-06-28 08:01 | Electrocardiogram Report ---
Test Reason : Blood Pressure : / mmHG Vent. Rate : 089 BPM Atrial Rate : 089 BPM P-R Int : 160 ms QRS Dur : 092 ms QT Int : 358 ms P-R-T Axes : 048 016 060 degrees QTc Int : 435 ms Normal sinus rhythm Normal ECG When compared with ECG of 06-SEP-2015 14:54, No significant change was found Confirmed by Beni Dickey ([id number]) on 06/28/2019 8:00:40 AM Referred By: REFERRED SELF Confirmed By:Beni Dickey
[2019-06-28] MEDS ORDERED: XOPENEX/ATROVENT 1.25mg/0.5MG NEB COMBO NEB SCH (09:00)
[2019-06-29 06:12] LABS: Eosinophils # (auto) 0.01 K/uL (0-0.5); Eosinophils % (auto) 0.1 %; Hematocrit (blood only) 43.4 % (42-52); Immature Granulocytes # (auto) 0.01 K/uL (0.00-0.02); Immature Granulocytes % (auto) 0.1 %; Lymphocytes # (auto) 0.78 K/uL (1.2-3.4); Lymphocytes % (auto) 10.8 %; Mean Corpuscular Hemoglobin 32.3 pg (25-34); Mean Corpuscular Hgb Conc 34.6 g/dL (32-36); Mean Corpuscular Volume 93.5 fL (80-100); Monocytes # (auto) 1.31 K/uL (0.11-0.59); Monocytes % (auto) 18.2 %; Neutrophils % (auto) 70.8 %; Platelet Count 144 K/uL (130-400); RDW Coefficient of Variation 14.4 % (11.5-14.5); Red Blood Count 4.64 M/uL (4.7-6.1); White Blood Count 7.21 K/uL (4.8-10.8)
[2019-06-29 06:39] LABS: BUN Creatinine Ratio 20.5 (10-20); Creatinine Clr Calc Pharmacy 78.2 ml/min; Est GFR (African American) 79.2; Est GFR (Non-African American) 68.3; Magnesium 2.4 mg/dl (1.8-2.4); Potassium 4.1 mmol/L (3.5-5.1)
[2019-06-29] MEDS: LEVALBUTEROL 1.25MG/0.5ML NEB INH SCH (07:22)
[2019-06-29] MEDS: IPRATROPIUM BROMIDE NEB SOLN 0.02% 2.5 ML VIAL INH SCH (07:22)
--- NOTE | 2019-06-29 07:28 | Discharge Summary ---
Date of Service June 29, 2019 Admission HPI Per Admitting Provider This is a 69-year-old male with past medical history significant for hyperlipidemia, COPD, central lung nodule, history of [place], hypertension, history of lumbar disc disease with myelopathy, history of angioedema, who lives with , ambulates fine. Comes with cough going for 1 week. He saw PCP and was prescribed doxycycline, prednisone taper on 06/19/2019 for 10-day course. Initially seemed to be improved, but again his cough got worse last night, bringing whitish phlegm sometimes, and has low-grade fever. He has COPD and he also has some shortness of breath, but he can walk 1 mile without stopping and his shortness of breath seems same, but because his cough got worse and he has low-grade fever, he came to the ER and tested positive for influenza A. Oxygen sats 88% on room air in ER. D-dimer was slightly elevated, but CT chest shows no PE, no obvious infiltrates. Received steroids and nebs in the ER. Currently, resting comfortably and hemodynamically stable. Denies any chest pain, no nausea, no vomiting, no diarrhea, no constipation, no blood in stools or black stools. No burning micturition or hematuria. Normal bladder movements. No rash. Has some headaches and has some dizziness, some blurred visions, no earache. Has some runny nose, no sore throat. Appetite is okay. Admission Exam Per Admitting Provider GENERAL: The patient is of moderate build, not in acute distress. VITAL SIGNS: Temperature 37.3, pulse 68, respiratory rate 18, blood pressure 126/69, oxygen 96% on room air. HEENT: No pallor, no icterus. Pupils equal, round, and reactive to light. NECK: No JVD, no neck masses, no carotid bruits. CARDIOVASCULAR: S1, S2 heard, regular rate and rhythm, no murmur, no gallop. RESPIRATORY SYSTEM: Normal AP diameter. No accessory muscle use. No wheezing, no crackles. ABDOMEN: Soft, bowel sounds present, nontender. No distention. CENTRAL NERVOUS SYSTEM: Cranial nerves II-XII grossly intact, nonfocal. EXTREMITIES: Trace pedal edema, no erythema seen. Principal Diagnosis Influenza Hypoxia COPD Discharge Exam Physical Exam Gen-AAO x 3, NAD, Afebrile Head-NCAT, EOMI, PERRLA, Anicteric Sclera, No Posterior Pharyngeal Erythema Neck-Supple, No JVD, No Thyromegaly, No Masses, No LAD, No Bruits Lungs-Scattered Wheezing, No Rales, No Rhonchi, No Crepitus Chest-No S4, +S1, +S2, No S3, No Murmurs, No Rubs, No Gallops, No Ectopy Abdomen-Soft, Bowel Sounds Present, Non Tender, Non Distended, No Hepatomegaly, No Splenomegaly, No Palpable Masses, No Rebound, No Rigidity, No Guarding Musculoskeletal-Full Range of Motion Bilaterally, No CVAT Extremities-No Cyanosis, No Clubbing, No Edema Nuero-Cranial Nerves II-XII grossly intact, Motor WNL, DTRs WNL, Strength WNL, Non Focal Psych-Normal Mood Discharge Data Allergies Allergy/AdvReac Type Severity Reaction Status Date / Time Iodinated Contrast Media Allergy Unknown HIVES WITH Verified 06/27/19 23:20 IV DYE FOR CARDIAC CATH lisinopril Allergy Unknown ANGIOEDEMA Verified 06/27/19 23:20 Consultations 06/27/19 23:12 ED Decision to Admit Stat 06/28/19 02:21 Consult Case Management - Discharge Planning Routine Ordered Studies 06/27/19 22:16 CT angio chest PE protocol Stat Current Diagnoses Hypomagnesemia (06/28/19) Influenza due to other identified influenza virus with other respiratory manifestations (06/28/19) Chronic obstructive pulmonary disease with (acute) exacerbation (06/28/19) Hypoxemia (06/28/19) Allergies Iodinated Contrast Media Allergy (Unknown, Verified 06/27/19 23:20) HIVES WITH IV DYE FOR CARDIAC CATH lisinopril Allergy (Unknown, Verified 06/27/19 23:20) ANGIOEDEMA Height/Weight/Isolation Height 5 ft 9 in Weight 108.1 kg Isolation Type Droplet Precautions Chemistry 06/27/19 06/29/19 21:07 05:48 Sodium 135 L 139 Potassium 4.1 4.1 Chloride 104 107 Carbon Dioxide 24 27 Anion Gap 7.0 5.0 BUN 15 23 H D Creatinine 0.99 1.11 Glucose 96 95 Hospital Course (1) COPD exacerbation: (2) Hypoxia: (3) Influenza A: (4) Hypomagnesemia: ASSESSMENT AND PLAN: This is a 69-year-old male who presents with ongoing cough and subjective shortness of breath and found to be influenza A positive. 1. Hypoxia. Oxygen 88% on room air. Cough going on for more than about a week. Started on doxycycline on 06/19/2019 with prednisone taper. In the ER, he was saturating 88% on room air. CT of the chest, no PE, no infiltrates, flu A positive. We will treat with Tamiflu, IV fluids, and monitor the response. 2. Chronic obstructive pulmonary disease. There is no wheezing on exam, but the patient received DuoNebs and Solu-Medrol in the ER and also prednisone taper at home. Will complete the doxycycline course and because of his influenza A, will continue with prednisone 40 mg and taper it down quickly. Nebs around the clock and p.r.n., home Advair Diskus inhaler p.r.n. 3. History of coronary artery disease with inferior ST elevated [place] and bare metal stent x2 to RCA in 2008, currently stable on aspirin, Zetia, Toprol-XL, and Crestor. 4. Hyperlipidemia, on Zetia and Crestor. 5. Hypertension. Toprol-XL, losartan. We will monitor the blood pressure. 6. Gastroesophageal reflux disease, On PPI. 7. Pulmonary nodules. 8. Deep venous thrombosis prophylaxis, sequential compression devices for now. Labs checked Home today if passes 2 step else tomorrow. Tamiflu, Mucinex, INH, and steroids on DC ROS-No Headache, No Visual Changes, No Nausea, No Vomiting, No Fever, No Chills, No Neck Pain or Stiffness, No Chest Pain, No Palpitations, Less SOB, No ELIZABETH, + Cough, No Sputum, Less Wheezing, No Abdominal Pain, No Diarrhea, No Hematemesis, No Hemoptysis, No Unexpected Weight Loss, No Flank pain, No Melena, No [place] tochezia, No Frequency, No Urgency, No Burning, No Hematuria, No Rashes, No Diaphoresis. Appetite is Normal Physical Exam Gen-AAO x 3, NAD, Afebrile, Obese Head-NCAT, EOMI, PERRLA, Anicteric Sclera, No Posterior Pharyngeal Erythema Neck-Supple, No JVD, No Thyromegaly, No Masses, No LAD, No Bruits Lungs-Clear to Auscultation Bilaterally, No Rales, No Rhonchi, No Wheezing, No Crepitus Chest-No S4, +S1, +S2, No S3, No Murmurs, No Rubs, No Gallops, No Ectopy Abdomen-Soft, Bowel Sounds Present, Non Tender, Non Distended, No Hepatomegaly, No Splenomegaly, No Palpable Masses, No Rebound, No Rigidity, No Guarding Musculoskeletal-Full Range of Motion Bilaterally, No CVAT Extremities-No Cyanosis, No Clubbing, No Edema Nuero-Cranial Nerves II-XII grossly intact, Motor WNL, DTRs WNL, Strength WNL, Non Focal Psych-Normal Mood Total Time Total Time Spent Total Time Spent (In Minutes): 45 mins Total Time Includes: Examination of the Patient, Discharge Planning and Medication Reconciliation Discharge Plan Discharge Items Patient Disposition: Home - Self-Care Reason For Visit: SOB / COUGH Discharge Diagnosis: Influenza Hypoxia COPD Condition on Discharge: Good Activity: Resume your previous activity Lifting: Gradually increase as tolerated Bathing: No limitations Sexual Activity: When tolerated Driving/Machine Use: No limitations Weightbearing: Full weightbearing Non-emergency contact: Primary Care Provider Call non-emergency contact if: you have any medication questions Follow-up/Referrals: Fabiola Briscoe DO [Primary Care Provider] - Diet: Heart Healthy Addtl Attending Provider Instructions: None Pending Studies at Discharge: Yes Studies:: 2 step, if no Home O2 required, can DC home Stand-Alone Forms: My [facility] Enpirion, Smoking Cessation Medications and DC Order Prescriptions: New acetaminophen [Mapap (acetaminophen)] 325 mg Tablet 650 mg PO Q4H PRN (Reason: fever or pain) Qty: 30 RF: 0 prednisone 20 mg Tablet 40 mg PO DAILY Qty: 5 RF: 0 oseltamivir [Tamiflu] 75 mg Capsule 75 mg PO BID Qty: 6 RF: 0 dextromethorphan-guaifenesin [Mucinex DM] 60-1,200 mg tablet extended release 12 hr 1 tab PO HS PRN (Reason: cold symptoms) Qty: 10 RF: 0 pseudoephedrine-guaifenesin [Mucinex D] 60-600 mg tablet extended release 12 hr 1 tab PO QAM Qty: 10 RF: 0 Continued losartan 50 mg tablet 50 mg PO DAILY RF: 0 ezetimibe 10 mg tablet 10 mg PO DAILY RF: 0 rosuvastatin 40 mg tablet 40 mg PO DAILY RF: 0 multivitamin Tablet 1 tab PO DAILY RF: 0 prednisone 10 mg tablet 10 mg PO UD RF: 0 metoprolol succinate 50 mg tablet extended release 24 hr 50 mg PO DAILY RF: 0 aspirin 81 mg Tablet,Delayed Release (Dr/Ec) 81 mg PO DAILY RF: 0 nitroglycerin 0.4 mg tablet, sublingual 0.4 mg sublingual UD PRN (Reason: Chest Pain) RF: 0 omeprazole 20 mg capsule,delayed release(DR/EC) 20 mg PO DAILY RF: 0 fluticasone propionate [Flonase Allergy Relief] 50 mcg/actuation [place],Suspension 2 spray INTRANASAL DAILY RF: 0 cholecalciferol (vitamin D3) [Vitamin D3] 400 unit Capsule 400 unit PO DAILY RF: 0 fluticasone propion-salmeterol [Advair Diskus] 250-50 mcg/dose blister with device 1 ea INHALATION BID RF: 0 albuterol sulfate 90 mcg/actuation HFA aerosol inhaler 2 puff INHALATION Q4H PRN (Reason: Shortness Of Breath Or Wheezing) RF: 0 Discontinued doxycycline hyclate 100 mg capsule 100 mg PO BID RF: 0 Discharge Orders: Discharge Order (Routine); Ordered 06/29/19 Ordered By: Mau Irizarry Admission Data Admit Date/Time: 06/28/19 00:27 Attending Provider: Mau Irizarry Admit Provider: Aleksandar Romero Primary Care Provider: Fabiola Briscoe Other Providers: Aleksandar Romero
[2019-06-29] MEDS: ROSUVASTATIN CALCIUM 20 MG TAB PO SCH (07:39)
[2019-06-29] MEDS: FLUTICASONE PROPIONATE NA SPR 16 GM BTL SCH (07:39)
[2019-06-29] MEDS: ASPIRIN 81 MG ECTAB PO SCH (07:39)
[2019-06-29] MEDS: LOSARTAN POTASSIUM 50 MG TAB PO SCH (07:39)
[2019-06-29] MEDS: METOPROLOL SUCC 50MG EXT REL TAB PO SCH (07:40)
[2019-06-29] MEDS: OSELTAMIVIR PHOSPHATE 75 MG CAP PO SCH (07:40)
[2019-06-29] MEDS: DOXYCYCLINE HYCLATE 100 MG CAP PO SCH (07:40)
[2019-06-29] MEDS: PANTOprazole 40 MG TAB PO SCH (07:40)
[2019-06-29] MEDS: MULTIVITAMIN TAB PO SCH (07:40)
[2019-06-29] MEDS: EZETIMIBE 10 MG TABLET PO SCH (07:40)
[2019-06-29] MEDS: predniSONE 20 MG TAB PO SCH (07:40)
[2019-06-29] MEDS: CHOLECALCIFEROL (VITAMIN D) 400 UNITS TABLET PO SCH (07:41)
== END 2019-06-29 09:08 | disposition home or self-care (01) | DRG 192 ==
LOC: ED 20:15 → INTOOBSV 06-28 00:27 → 4W 06-28 00:27

== ENCOUNTER 2019-09-23 04:00 | Observation (INO) ==
[2019-09-23] MEDS ORDERED: ALBUT/IPRATROP 3MG/0.5MG NEB 3 ML VIAL NEB ONE (04:10)
[2019-09-23] MEDS ORDERED: DEXAMETHASONE **PF** INJ 10 MG/ML VIAL IV ONE (04:10)
--- NOTE | 2019-09-23 04:13 | Emergency Department Note ---
Impression & Plan Acute exacerbation of chronic obstructive pulmonary disease, Failure of outpatient treatment, Syncope, Closed head injury ED Provider Note Name: CLAUDY HULL Age: 69 Sex: M Arrives Via: Ambulance Informant: Patient, EMS ED Provider: Octaviano Cullen MD Chief Complaint: Shortness of breath Impression: Acute exacerbation of chronic obstructive pulmonary disease Failure of outpatient treatment Syncope Medical Decision Makin yr old male with COPD who recently finished zpack and prednisone with n though just a few days later significantly worsening shortness of breath. On exam appearing ill with significant respiratory difficulty and wheezing. Given IV steroids and hour neb. He has had several syncopal events due to being unable to breath over last 12 hours and did strike head with headache/neck pain thus ct imaging head/cspine done. Breathing more comfortably but still diffuse wheezing. No fevers, no infiltrates, and wbc OK thus will just use Doxy IV and defer further management to hospitalist. Given respiratory issues will use airb orne precautions and covid testing was sent. Patient does not have evidence PE/Dissection and this seems less likely acs. There is no evidence sepsis currently. Patient agrees with plan Prior Medical Record and Triage/Nursing Notes reviewed by Me Additional history obtained from Chart Differentials:Reactive airway disease, pneumonia, pneumothorax, COPD, CHF, infections, cardiac ischemia, pulmonary embolism, musculoskeletal, gastrointestinal, as well as other pathologies. Vital Signs: reviewed and remarkable for no significant abnormalities Interventions: saline lock, decadron 10mg IV, duoneb 12ml neb, doxy 100mg IV Labs:Reviewed and remarkable for no significant abnormalities Imaging:X ray results are stated below per my interpretation: Chest: 1 view: No infiltrate, no effusion, normal cardiac border. [facility] Radiologist interpretation reviewed by me: CT head negative. Radiologist interpretation reviewed by me: CT cervical spine negative. CT chest wo con negative. EKG:Per My Interpretation: Indication SHOB: NSR 71 bpm, qtc 434. No Ectopy. No Ischemia. Compared to EKG 06/27/19, no significant changes. Cardiac/Tele Monitoring: Cardiac Monitoring: An Order was placed for continuous cardiac monitoring. The monitor shows a rate of 70 with a normal sinus rhythm. Consults:Dr Flores Plan: Disposition:Hospitalization. Condition: Fair Blood pressure:Normal.No Referral necessary Prescriptions:none History of Present Illness:69 M arrives for evaluation of shortness of breath. History of COPD with admision for influenza 3 months ago along with HTN, CAD, Hypomag. notes 3 weeks ago worsening cough/sob treated with zpack and steroids. Initially improved but over last 5 days rapidly worsening shortness of breath and cough. Feeling weak and chills. No fevers. Notes coughing today worsened. Has passed out several times this evening and admits hitting his head with headache of top of head. Notes neck is sore. No weakness, no paresthesias. Not using any medications at home for this. Nothing makes better nor worse. COVID testing 3 weeks ago reportedly negative. Denies chest pain, fevers, abdominal pain, back pain, leg swelling, calf pain, rashes, nasuea, vomiting, nor other symptoms. ROS: See above HPI for pertinent positives & negatives. A total of 10 systems reviewed and were otherwise negative. Past Medical History:COPD, HTN, CAD, Hypomag Past Surgical History:left knee, cardiac stenting Family History:Non contributory Social History:non smoker, semi retired, lives with , no drugs/tobacco, 1 shot etoh nightly Home Medications:See Below Allergies:iv dye, lisinopril Vitals:Blood Pressure: 114/79, Pulse 77, RR 21, T 36.7C, O2 94% on RA Physical Exam: GENERAL: Patient is unwell appearing appearing and in moderate distress. EYES: No scleral icterus, unremarkable pupils. ENT: Mucous membranes moist, no nasal congestion. NECK: No masses appreciated, nomeningismus, trachea is midline. RESPIRATORY: Dyspnea/tachypnea, diffuse tight lung sounds with diffuse wheezing CARDIOVASCULAR: Regular rate and rhythm.No murmurs, rubs, gallops appreciated. GASTROINTESTINAL: Abdomen soft, non-tender, no peritonitis.Bowel sounds positive.No masses appreciated. BACK: No midline tenderness, no CVA tenderness EXTREMITIES: Normal motion all extremities, no cyanosis, no edema. NEUROLOGIC: Alert and oriented, no acute motor or sensory deficits, no focal weakness, cranial nerves grossly intact. SKIN: No rash, no jaundice, no diaphoresis. PSYCH: Appropriate GCS: 15 ED Course: Times/Reassessments: improved post neb though still with significant wheezing Octaviano Cullen MD Past Med/Surg History Medical History COPD (chronic obstructive pulmonary disease) Heart disease Herniated disc Hypertension Myocardial infarction Surgical History H/O cardiac catheterization Social History (Updated 09/23/19 @ 09:38 by Lolly Rey DO) Preferred Language: Uzbek Communication Ability: Effective Teller Manager Required: No Beliefs That Will Affect Care: None marital status: Current Living Situation: Spouse Feels Safe at Home: Yes Safety Concerns: Feels Safe At This Time Smoking Status: Former smoker Hx Alcohol Use: Yes Alcohol type: hard liquor Alcohol Intake Frequency: Daily Hx Substance Use: No Allergies Allergies Allergy/AdvReac Type Severity Reaction Status Date / Time Iodinated Contrast Media Allergy Unknown HIVES WITH Verified 09/23/19 04:53 IV DYE FOR CARDIAC CATH lisinopril Allergy Unknown ANGIOEDEMA Verified 09/23/19 04:53 Home Meds Home Medications Medication Instructions Recorded Confirmed aspirin 81 mg PO DAILY 06/27/19 09/23/19 cholecalciferol (vitamin D3) 400 unit PO DAILY 06/27/19 09/23/19 [Vitamin D3] ezetimibe 10 mg PO DAILY 06/27/19 09/23/19 losartan 50 mg PO DAILY 06/27/19 09/23/19 metoprolol succinate 50 mg PO DAILY 06/27/19 09/23/19 multivitamin 1 tab PO DAILY 06/27/19 09/23/19 nitroglycerin 0.4 mg SUBLINGUAL UD PRN 06/27/19 09/23/19 omeprazole 20 mg PO DAILY PRN 06/27/19 09/23/19 rosuvastatin 40 mg PO DAILY 06/27/19 09/23/19 albuterol sulfate 2 puff INHALATION Q4H PRN 06/28/19 09/23/19 fluticasone propion-salmeterol 1 ea INHALATION BID PRN 06/28/19 09/23/19 [Advair Diskus] Previous Rx's Medication Instructions Recorded albuterol sulfate 2.5 mg INH Q8H PRN #90 ml 09/24/19 codeine-guaifenesin 10 ml PO Q6H PRN #120 ml 09/24/19 doxycycline hyclate 100 mg PO Q12H #10 cap 09/24/19 prednisone 40 mg PO DAILY #10 tab 09/24/19 Results & Data (ED) Vital Signs Vital Signs - 24 hr 09/23/19 04:14 09/23/19 04:30 09/23/19 04:34 Temperature 36.7 C Temperature Source Oral Pulse Rate 69 75 73 Pulse Rate [Right Finger] Pulse Rate from SpO2 Sensor 69 75 Pulse Rhythm Regular Pulse Strength Normal Respiratory Rate 16 17 20 Respiratory Effort / Characteristics Non-Labored Spontaneous Respiratory Depth Normal Respiratory Pattern Regular Blood Pressure 113/79 128/79 113/79 Blood Pressure Mean 87 93 90 Blood Pressure Position Lying Pulse Oximetry 94 93 94 Oxygen Delivery Method Room Air Sepsis Recent Fever Within 48 Hours No Sepsis New/Unexplained Change in Mental Status No Sepsis Action Taken by Nursing No Action Required 09/23/19 04:43 09/23/19 04:45 09/23/19 05:00 Temperature Temperature Source Pulse Rate 73 66 Pulse Rate [Right Finger] 71 Pulse Rate from SpO2 Sensor 66 Pulse Rhythm Pulse Strength Respiratory Rate 14 20 17 Respiratory Effort / Characteristics Non-Labored Spontaneous Respiratory Depth Respiratory Pattern Blood Pressure 134/91 Blood Pressure Mean 100 Blood Pressure Position Pulse Oximetry 93 93 100 Oxygen Delivery Method Room Air Room Air Sepsis Recent Fever Within 48 Hours Sepsis New/Unexplained Change in Mental Status Sepsis Action Taken by Nursing 09/23/19 05:30 09/23/19 06:22 09/23/19 06:23 Temperature Temperature Source Pulse Rate 71 74 81 Pulse Rate [Right Finger] Pulse Rate from SpO2 Sensor 71 72 82 Pulse Rhythm Pulse Strength Respiratory Rate 20 15 12 Respiratory Effort / Characteristics Respiratory Depth Respiratory Pattern Blood Pressure 134/89 125/72 Blood Pressure Mean 113 82 Blood Pressure Position Pulse Oximetry 100 92 94 Oxygen Delivery Method Sepsis Recent Fever Within 48 Hours Sepsis New/Unexplained Change in Mental Status Sepsis Action Taken by Nursing 09/23/19 06:30 Temperature Temperature Source Pulse Rate 77 Pulse Rate [Right Finger] Pulse Rate from SpO2 Sensor 77 Pulse Rhythm Pulse Strength Respiratory Rate 21 Respiratory Effort / Characteristics Respiratory Depth Respiratory Pattern Blood Pressure 114/79 Blood Pressure Mean 94 Blood Pressure Position Pulse Oximetry 94 Oxygen Delivery Method Sepsis Recent Fever Within 48 Hours Sepsis New/Unexplained Change in Mental Status Sepsis Action Taken by Nursing Laboratory Data Result diagrams: 09/24/19 06:29 09/24/19 06:29 Lab Results 09/23/19 09/23/19 09/23/19 Range/Units 03:40 03:40 03:40 WBC 5.94 (4.8-10.8) K/uL RBC 4.74 (4.7-6.1) M/uL Hgb 15.4 (14.0-18.0) g/dL Hct 44.1 (42-52) % MCV 93.0 (80-100) fL MCH 32.5 (25-34) pg MCHC 34.9 (32-36) g/dL RDW Std Deviation 47.7 H (36.4-46.3) fL RDW Coeff of Jasper 14.0 (11.5-14.5) % Plt Count 183 (130-400) K/uL MPV 9.4 (7.4-10.4) fL Immature Gran % (Auto) 0.2 % Neut % (Auto) 34.6 % Lymph % (Auto) 39.7 % [place] % (Auto) 9.8 % Eos % (Auto) 15.2 % Baso % (Auto) 0.5 % Immature Gran # (Auto) 0.01 (0.00-0.02) K/uL Neut # (Auto) 2.06 (1.4-6.5) K/uL Lymph # (Auto) 2.36 (1.2-3.4) K/uL [place] # (Auto) 0.58 (0.11-0.59) K/uL Eos # (Auto) 0.90 H (0-0.5) K/uL Baso # (Auto) 0.03 (0-0.2) K/uL PT 10.7 (9.0-12.0) Seconds INR 1.0 (0.9-1.1) Sodium 142 (136-145) mmol/L Potassium 3.9 (3.5-5.1) mmol/L Chloride 109 H (98-107) mmol/L Carbon Dioxide 28 (21-32) mmol/L Anion Gap 5.0 (3-11) BUN 12 (7-18) mg/dl Creatinine 1.13 (0.6-1.4) mg/dl Est Cr Clr Drug Dosing 74.9 ml/min Est GFR ( Amer) 77.5 Est GFR (Non-Af Amer) 66.9 BUN/Creatinine Ratio 10.7 (10-20) Glucose 92 (70-99) mg/dl Calcium 9.2 (8.5-10.1) mg/dl Magnesium 2.1 (1.8-2.4) mg/dl Total Bilirubin 0.7 (0.2-1) mg/dl Direct Bilirubin 0.2 (0-0.2) mg/dl AST 23 (15-37) U/L ALT 34 (12-78) U/L Alkaline Phosphatase 54 (45-117) U/L Troponin I < 0.015 (0-0.045) ng/ml Total Protein 7.5 (6.4-8.2) gm/dl Albumin 3.7 (3.4-5.0) gm/dl COVID-19 PCR (Negative) SARS-CoV-2 RNA (RT-PCR) 09/23/19 09/23/19 Range/Units 06:06 06:34 WBC (4.8-10.8) K/uL RBC (4.7-6.1) M/uL Hgb (14.0-18.0) g/dL Hct (42-52) % MCV (80-100) fL MCH (25-34) pg MCHC (32-36) g/dL RDW Std Deviation (36.4-46.3) fL RDW Coeff of Jasper (11.5-14.5) % Plt Count (130-400) K/uL MPV (7.4-10.4) fL Immature Gran % (Auto) % Neut % (Auto) % Lymph % (Auto) % [place] % (Auto) % Eos % (Auto) % Baso % (Auto) % Immature Gran # (Auto) (0.00-0.02) K/uL Neut # (Auto) (1.4-6.5) K/uL Lymph # (Auto) (1.2-3.4) K/uL [place] # (Auto) (0.11-0.59) K/uL Eos # (Auto) (0-0.5) K/uL Baso # (Auto) (0-0.2) K/uL PT (9.0-12.0) Seconds INR (0.9-1.1) Sodium (136-145) mmol/L Potassium (3.5-5.1) mmol/L Chloride (98-107) mmol/L Carbon Dioxide (21-32) mmol/L Anion Gap (3-11) BUN (7-18) mg/dl Creatinine (0.6-1.4) mg/dl Est Cr Clr Drug Dosing ml/min Est GFR ( Amer) Est GFR (Non-Af Amer) BUN/Creatinine Ratio (10-20) Glucose (70-99) mg/dl Calcium (8.5-10.1) mg/dl Magnesium (1.8-2.4) mg/dl Total Bilirubin (0.2-1) mg/dl Direct Bilirubin (0-0.2) mg/dl AST (15-37) U/L ALT (12-78) U/L Alkaline Phosphatase (45-117) U/L Troponin I (0-0.045) ng/ml Total Protein (6.4-8.2) gm/dl Albumin (3.4-5.0) gm/dl COVID-19 PCR NEGATIVE (Negative) SARS-CoV-2 RNA (RT-PCR) Cancelled Administered Medications Discontinued Medications Albuterol (Duoneb) 12 ml NEB ONE ONE Stop: 09/23/19 04:11 Last Admin: 09/23/19 04:41 Dose: 12 ml Documented by: [id number] Albuterol (Duoneb) 3 ml NEB QIDR [facility] Stop: 10/23/19 14:59 Last Admin: 09/24/19 15:07 Dose: 3 ml Documented by: [id number] Admin: 09/24/19 11:38 Dose: 3 ml Documented by: [id number] Admin: 09/24/19 07:49 Dose: 3 ml Documented by: [id number] Admin: 09/23/19 19:15 Dose: 3 ml Documented by: [id number] Admin: 09/23/19 16:13 Dose: 3 ml Documented by: [id number] Aspirin (Ecotrin Ectab) 81 mg PO DAILY@0800 [facility] Stop: 10/24/19 07:59 Last Admin: 09/24/19 08:21 Dose: 81 mg Documented by: [id number] Dexamethasone Sodium Phosphate (Decadron Pf) 10 mg IV NOW ONE Stop: 09/23/19 04:11 Last Admin: 09/23/19 04:31 Dose: 10 mg Documented by: [id number] Doxycycline Hyclate (Vibramycin) 100 mg PO Q12H [facility]; Protocol Stop: 09/30/19 18:59 Last Admin: 09/24/19 08:21 Dose: 100 mg Documented by: [id number] Admin: 09/23/19 20:11 Dose: 100 mg Documented by: [id number] Ezetimibe (Zetia) 10 mg PO DAILY@0800 [facility] Stop: 10/24/19 07:59 Last Admin: 09/24/19 08:21 Dose: 10 mg Documented by: [id number] Enoxaparin Sodium (Lovenox) 40 mg SQ Q24H [facility] Stop: 10/23/19 11:59 Last Admin: 09/24/19 12:30 Dose: 40 mg Documented by: [id number] Admin: 09/23/19 11:28 Dose: 40 mg Documented by: [id number] Guaifenesin/Codeine Phosphate (Robitussin-Ac Sugar Free) 10 ml PO Q6H PRN PRN Reason: Cough Stop: 10/23/19 10:01 Last Admin: 09/24/19 08:28 Dose: 10 ml Documented by: [id number] Admin: 09/24/19 02:10 Dose: 10 ml Documented by: [id number] Admin: 09/23/19 20:10 Dose: 10 ml Documented by: [id number] Admin: 09/23/19 13:16 Dose: 10 ml Documented by: [id number] Doxycycline Hyclate 100 mg/ (Dextrose) 110 mls @ 50 mls/hr IV NOW STA Stop: 09/23/19 08:17 Last Infusion: 09/23/19 08:39 Dose: 0 mls/hr Documented by: [id number] Admin: 09/23/19 06:33 Dose: 50 mls/hr Documented by: [id number] Methylprednisolone 40 mg/ (Syringe) 0.64 mls @ 1.5 mls/min IV Q8H [facility] Stop: 10/23/19 11:59 Last Admin: 09/24/19 12:31 Dose: 1.5 mls/min Documented by: [id number] Admin: 09/24/19 04:49 Dose: 1.5 mls/min Documented by: [id number] Admin: 09/23/19 20:10 Dose: 1.5 mls/min Documented by: [id number] Admin: 09/23/19 13:10 Dose: 1.5 mls/min Documented by: [id number] Losartan Potassium (Cozaar) 50 mg PO DAILY@0800 [facility] Stop: 10/23/19 10:29 Last Admin: 09/24/19 08:20 Dose: 50 mg Documented by: [id number] Admin: 09/23/19 11:27 Dose: 50 mg Documented by: [id number] Menthol (Nice) Confirm Administered Dose 24 dilshad BUCCAL .STK-MED ONE Stop: 09/23/19 13:15 Last Admin: 09/23/19 13:17 Dose: 24 dilshad Documented by: [id number] Metoprolol Succinate (Toprol Xl) 50 mg PO DAILY@0800 [facility] Stop: 10/23/19 10:29 Last Admin: 09/24/19 08:21 Dose: 50 mg Documented by: [id number] Admin: 09/23/19 11:27 Dose: 50 mg Documented by: [id number] Pantoprazole Sodium (Protonix) 40 mg PO DAILY@0800 [facility]; Protocol Stop: 10/24/19 07:59 Last Admin: 09/24/19 08:21 Dose: 40 mg Documented by: [id number] Rosuvastatin Calcium (Crestor) 40 mg PO DAILY [facility] Stop: 10/23/19 10:29 Last Admin: 09/24/19 08:21 Dose: 40 mg Documented by: [id number] Admin: 09/23/19 11:27 Dose: 40 mg Documented by: [id number] Vitamin D (Vitamin D3) 400 units PO DAILY@0800 [facility] Stop: 10/24/19 07:59 Last Admin: 09/24/19 08:21 Dose: 400 units Documented by: [id number] Discharge Plan Visit Data *Final* Discharge Date/Time: 09/23/19 09:30 Chief Complaint: Respiratory Problems Stated Complaint: BREATHING DIFFICULTY ED Provider: Octaviano Cullen Discharge Problem: Acute exacerbation of chronic obstructive pulmonary disease, Failure of outpatient treatment, Syncope, Closed head injury Patient Disposition: Admitted As Inpatient Condition: Good Discharge Instructions Interventions: ED Discharge Assessment Last Done: 09/23/19 09:30 Discharge Problem: Syncope Qualifiers: Syncope type: unspecified Qualified Code(s): R55 - Syncope and collapse Closed head injury Qualifiers: Encounter type: initial encounter Qualified Code(s): S09.90XA - Unspecified injury of head, initial encounter
[2019-09-23 04:35] LABS: Basophils # (auto) 0.03 K/uL (0-0.2); Basophils % (auto) 0.5 %; Eosinophils % (auto) 15.2 %; Hematocrit (blood only) 44.1 % (42-52); Hemoglobin 15.4 g/dL (14.0-18.0); Immature Granulocytes # (auto) 0.01 K/uL (0.00-0.02); Immature Granulocytes % (auto) 0.2 %; Lymphocytes # (auto) 2.36 K/uL (1.2-3.4); Lymphocytes % (auto) 39.7 %; Mean Corpuscular Hemoglobin 32.5 pg (25-34); Mean Corpuscular Hgb Conc 34.9 g/dL (32-36); Mean Platelet Volume 9.4 fL (7.4-10.4); Monocytes # (auto) 0.58 K/uL (0.11-0.59); Monocytes % (auto) 9.8 %; Neutrophils # (auto) 2.06 K/uL (1.4-6.5); Neutrophils % (auto) 34.6 %; Platelet Count 183 K/uL (130-400); RDW Standard Deviation 47.7 fL (36.4-46.3); Red Blood Count 4.74 M/uL (4.7-6.1); White Blood Count 5.94 K/uL (4.8-10.8)
[2019-09-23 04:46] LABS: Prothrombin Time 10.7 Seconds (9.0-12.0)
[2019-09-23 04:53] LABS: Alanine Aminotransferase 34 U/L (12-78); Albumin Level 3.7 gm/dl (3.4-5.0); Aspartate Aminotransferase 23 U/L (15-37); BUN Creatinine Ratio 10.7 (10-20); Bilirubin Direct 0.2 mg/dl (0-0.2); Blood Urea Nitrogen 12 mg/dl (7-18); Calcium 9.2 mg/dl (8.5-10.1); Carbon Dioxide 28 mmol/L (21-32); Chloride 109 mmol/L (98-107); Creatinine Clr Calc Pharmacy 74.9 ml/min; Est GFR (African American) 77.5; Est GFR (Non-African American) 66.9; Glucose 92 mg/dl (70-99); Magnesium 2.1 mg/dl (1.8-2.4); Potassium 3.9 mmol/L (3.5-5.1); Sodium 142 mmol/L (136-145)
[2019-09-23 04:58] LABS: Alkaline Phosphatase 54 U/L (45-117); Bilirubin,Total 0.7 mg/dl (0.2-1); Total Protein 7.5 gm/dl (6.4-8.2); Troponin I < 0.015 ng/ml (0-0.045)
[2019-09-23] MEDS ORDERED: DOXYCYCLINE HYCLATE 100 MG in DEXTROSE 5% 100 ML IV STA (06:06)
--- NOTE | 2019-09-23 07:14 | CT Scan Report ---
CT head/brain wo con CLINICAL HISTORY: 69 years-old Male presenting with syncope, head injury, headache. Covid risks. TECHNIQUE: Multidetector CT imaging of the head was performed without the use of intravenous contrast . IV contrast: None. One or more dose lowering techniques were used consistent with the principles of ALARA (as low as reasonably achievable), including automatic exposure control, mA or kV adjustment t o individual patient size, and/or use of iterative reconstruction. COMPARISON: None. CT DOSE (mGy.cm): The estimated cumulative dose is 729.78 mGycm. FINDINGS: Yeast Culture Developer topogram: Unremarkable. Ventricles and sulci normal in size. No hemorrhage. Brain parenchyma normal in appearance with preser alexandra hsu-white differentiation. No acute territorial infarct. No mass effect or midline shift. No ext ra-axial fluid collection. Paranasal sinuses and mastoid air cells clear. Calvarium intact. IMPRESSION: 1. No acute intracranial abnormality. ACT 112: Negative or not required by law. Electronically signed by: Rosalio Madrid M.D. 09/23/2019 7:12 AM
--- NOTE | 2019-09-23 07:19 | CT Scan Report ---
CT cervical spine wo con CLINICAL HISTORY: 69 years-old Male presenting with fall, head trauma, neck sore. TECHNIQUE: Multidetector CT of the cervical spine was performed without the use of intravenous contra st. IV contrast: None. One or more dose lowering techniques were used consistent with the principles of ALARA (as low as reasonably achievable), including automatic exposure control, mA or kV adjustment to individual patient size, and/or use of iterative reconstruction. COMPARISON: None. CT DOSE (mGy.cm): The estimated cumulative dose is 446.00 mGycm. FINDINGS: Veterinary Medical Officer topogram: Unremarkable. Slight straightening of normal cervical lordosis. Grade 1 anterolisthesis of C7 on T1. Vertebral bodi es otherwise maintain normal height and alignment. Significant intervertebral disc height loss at sev eral levels, severe at C5-6 and C6-7. Disc osteophyte complexes noted to varying degrees throughout t he cervical spine. Overall mild posterior spondylitic spurring at C3-4, C5-6, C6-7. Limited evaluatio n of the soft tissues of the spinal canal for further effacement given image quality. Mild degenerati ve changes of the atlantodental articulation. Incidental note made of a right ponticulus posticus. Mu ltilevel facet arthropathy and uncovertebral hypertrophy results in varying degrees of osseous neural foraminal narrowing. No acute fracture or subluxation. Skull base intact. Paraspinal soft tissues within normal limits. Atherosclerosis. Lung apices clear. IMPRESSION: 1. No acute osseous injury of the cervical spine. 2. Multilevel degenerative changes with multilevel osseous spinal canal and neural foraminal narrowi ng. 3. Grade 1 anterolisthesis of C7 on T1 is presumably degenerative in etiology. ACT 112: Negative or not required by law. Electronically signed by: Rosalio Madrid M.D. 09/23/2019 7:18 AM
--- NOTE | 2019-09-23 07:27 | CT Scan Report ---
CT chest wo con CLINICAL HISTORY: 69 years-old Male presenting with cough, shortness of breath. TECHNIQUE: Multidetector CT imaging of the chest was performed without the use of intravenous contras t. IV contrast: None. One or more dose lowering techniques were used consistent with the principles o f ALARA (as low as reasonably achievable), including automatic exposure control, mA or kV adjustment to individual patient size, and/or use of iterative reconstruction. COMPARISON: CTA chest from 06/27/2019. CT DOSE (mGy.cm): The estimated cumulative dose is 574.94 mGycm. FINDINGS: Seismology Technical Officer topogram: Unremarkable. Soft tissues: Normal thyroid and thoracic inlet. No axillary, supraclavicular, or mediastinal lymphad enopathy. Evaluation of the juan j limited without intravenous contrast. Atherosclerosis of the aorta. Normal heart size. Coronary artery and aortic valve calcification. No pericardial or pleural effusion . Upper abdomen normal. Lungs and airways: No pneumothorax. Central airways patent. Moderate diffuse bronchial wall thickenin g as on prior exam. Mild upper lobe predominant centrilobular and paraseptal emphysema. Pulmonary art eries are not significantly enlarged relative to adjacent bronchi. No interlobular septal thickening. Redemonstration of the few solid pulmonary nodules in the right lung measuring up to 6 mm, which are unchanged and noted in the right upper and middle lobes marked on the images. Limited basilar atelec tasis or scarring in the left lower lobe. No other new nodule or focal consolidation. Musculoskeletal: Degenerative changes of the spine. IMPRESSION: 1. Redemonstration of smoking related lung injury with emphysema and bronchitis. No new focal infilt rate to suggest pneumonia. 2. Stable multiple solid pulmonary nodules measuring up to 6 mm. Please use 06/27/2019 as the initial start date for follow-up as mentioned on prior exam and refer to Fleischner Society 2017 criteria [place]. No new nodule. Summary of Fleischner Society 2017 Recommendations (H Leroy et al. Guidelines for management of i ncidental pulmonary nodules detected on CT images: From the Fleischner Society 2017. Radiology 2017; 284: 228-243.) SOLID NODULES Single nodule; size < 6 mm * Low risk patients: No routine follow-up * High risk patients: Optional CT at 12 months Single nodule; size 6-8 mm * Low risk patients: CT at 6-12 months, then consider CT at 18-24 months * High risk patients: CT at 6-12 months, then at 18-24 months Single nodule; size > 8 mm * Either low or high risk patients: Consider CT at 3 months, PET/CT, or tissue sampling Multiple nodules; size < 6 mm * Low risk patients: No routine follow up * High risk patients: Optional CT at 12 months Multiple nodules; size 6-8 mm * Low risk patients: CT at 3-6 months, then consider CT at 18-24 months * High risk patients: CT at 3-6 months, then at 18-24 months Multiple nodules; size > 8 mm * Low risk patients: CT at 3-6 months, then consider at 18-24 months * High risk patients: CT at 3-6 months, then at 18-24 months SUBSOLID NODULES Single ground-glass nodule * Nodule size < 6 mm: No routine follow-up * Nodule size > or = 6 mm: CT at 6-12 months to confirm persistence, then CT every 2 years until 5 y ears Single part-solid nodule * Nodule size < 6 mm: No routine follow-up * Nodules size > or = 6 mm: CT at 3-6 months to confirm persistence. If unchanged and solid componen t remains < 6 mm, annual CT should be performed for 5 years Multiple nodules * Nodule size < 6 mm: CT at 3-6 months. If stable, consider CT at 2 and 4 years. * Nodules size > or = 6 mm: CT at 3-6 months. Subsequent management based on the most suspicious nod ule(s) NOTE: 1) These guidelines apply to incidental nodules. These guidelines do NOT apply to patients younger th an 35 years, immunocompromised patients, or patients with cancer. 2) Risk categories: * Low risk patients: Minimal or absent history of smoking and/or other known risk factors * High risk patients: History of smoking, exposure to other carcinogens, emphysema, fibrosis, upper lobe location, family history of lung cancer, etc. 3) If a nodule up to 8 mm is partly solid or is ground glass, further follow-up is required after 24 months to exclude possible slow growing adenocarcinoma. ACT 112: Negative or not required by law. Electronically signed by: Rosalio Madrid M.D. 09/23/2019 7:25 AM
--- NOTE | 2019-09-23 07:29 | XRay Report ---
XR chest 1V portable CLINICAL HISTORY: Shortness of breath COMPARISON STUDY: Chest CT June 27, 2019. FINDINGS: Lung volumes are normal. Minimal left basilar opacity favors atelectasis. There is no pneum othorax or pleural effusion. Cardiac size is normal. Mediastinal contours are normal. There is no jose dence for pulmonary edema. There is underlying emphysema. IMPRESSION: No acute cardiopulmonary findings. ACT 112: Negative or not required by law. Electronically signed by: Adis Forrester M.D. 09/23/2019 7:27 AM
--- NOTE | 2019-09-23 08:07 | History & Physical Report ---
Date of Service September 23, 2019 Assessment & Plan (1) Acute exacerbation of chronic obstructive pulmonary disease: worsening dyspnea, increased cough and sputum production. Decadron 10mg IV given in ER. Cont with Solumedrol for now. Scheduled bronchodilators with PRN as needed. Cont with doxycycline (recently had two courses of azithromycin as outpatient). Manpreetitusjohn AC for symptom management. The patient is a prior smoker who quit 5 years ago. No evidence of pneumonia on imaging. COVID-19 screening test performed one month ago and was negative. Pt reports self home quarantine since that time but has a friend who is a physical therapist come to visit. Also goes to the grocery store. not ill. Repeat COVID-19 test pending. Reports at least two COPD exacerbations per year. (2) Syncope: Post-tussive syncope. No concerning findings on EKG. Monitor on telemetry overnight. Check orthostatic vital signs. (3) Hypertension: At goal. Cont home medications. (4) Heart disease: stable, chronic, asymptomatic. Cont medical management per home medications. (5) DVT prophylaxis: Lovenox Full code Dispo-likely to home in next 1-2 days. Lolly Rey DO [facility] Hospitalist Admission and Anticipated Discharge Date Admission Date: 09/23/2019 Anticipated date of discharge: 09/25/19 History of Present Illness Chief Complaint: SOB Primary Care Provider: Fabiola Briscoe DO 69 yo M with COPD presented to the ER with increasing SOB. He was recently a dmitted to the hospital 06/28-06/29/2019 for influenza and was sent home on a course of Tamiflu and prednisone. He was seen in the clinic on 07/19 and reported persistent coughing, so was given a Zpak and benzonatate to treat post-viral coughing. He was seen on 07/24 for followup in the clinic and reportedly felt better. Then on 08/19 he called FP clinic reporting a return of his cough. He was triaged via telephone and given a Zpak and prednisone taper and COVID-19 testing was performed and negative. Since that time he had been feeling well until about one month ago. He started to have a dry cough, which resulting in severe coughing fits followed by dyspnea. He reports dyspnea that has been progressively worse over the past week. Sputum changes present per patient. Driving factor to the ER this morning was a severe coughing fit while in bed that caused him to pass out and fall out of bed onto the floor. He woke up within seconds and was oriented. No loss of bladder or bowel. Witnessed by who assisted patient. Patient ambulated with assistance to ambulance and reported some lightheadedness. Has a h/o CAD and denies any chest pain. Denies abd pain, fevers, chills, nausea, vomiting, changes in stool, hematochezia, urinary symptoms. He did hit his head on the nightstand and has a frontal headache as a result. A small scratch is present on his left forehead that is superficial. There is no raised area or bruising present. He quit smoking 5 years ago. He drinks one shot of bourbon per night. Allergies Allergy/AdvReac Type Severity Reaction Status Date / Time Iodinated Contrast Media Allergy Unknown HIVES WITH Verified 09/23/19 04:53 IV DYE FOR CARDIAC CATH lisinopril Allergy Unknown ANGIOEDEMA Verified 09/23/19 04:53 Home Medications Home Medications Medication Instructions Recorded Confirmed Type aspirin 81 mg PO DAILY 06/27/19 09/23/19 History cholecalciferol (vitamin D3) 400 unit PO DAILY 06/27/19 09/23/19 History [Vitamin D3] ezetimibe 10 mg PO DAILY 06/27/19 09/23/19 History losartan 50 mg PO DAILY 06/27/19 09/23/19 History metoprolol succinate 50 mg PO DAILY 06/27/19 09/23/19 History multivitamin 1 tab PO DAILY 06/27/19 09/23/19 History nitroglycerin 0.4 mg SUBLINGUAL UD PRN 06/27/19 09/23/19 History omeprazole 20 mg PO DAILY PRN 06/27/19 09/23/19 History rosuvastatin 40 mg PO DAILY 06/27/19 09/23/19 History albuterol sulfate 2 puff INHALATION Q4H PRN 06/28/19 09/23/19 History fluticasone propion-salmeterol 1 ea INHALATION BID PRN 06/28/19 09/23/19 History [Advair Diskus] Past Med/Surg History Medical History COPD (chronic obstructive pulmonary disease) Heart disease Herniated disc Hypertension Myocardial infarction Surgical History H/O cardiac catheterization Social History (Updated 09/23/19 @ 09:38 by Lolly Rey DO) Preferred Language: Hebrew Communication Ability: Effective Rn Bsn Required: No Beliefs That Will Affect Care: None marital status: Current Living Situation: Spouse Feels Safe at Home: Yes Safety Concerns: Feels Safe At This Time Smoking Status: Former smoker Hx Alcohol Use: Yes Alcohol type: hard liquor Alcohol Intake Frequency: Daily Hx Substance Use: No Review of Systems Review of Systems: All systems reviewed & are unremarkable except as noted in Subjective Physical Exam Physical Exam: CONSTITUTIONAL: WNWD, vitals as above, generally well-appear ing EYES: EOMI bilaterally, PERRL, normal conjunctivae, no scleral icterus ENT: external ear and nose normal, oropharynx clear, no maxillary or ethmoid sinus tenderness NECK: trachea midline, no lymphadenopathy RESPIRATORY: clear to auscultation bilaterally with diminished breath sounds throughout posterior lung childs, clear to auscultation with improved airflow on anterior lung childs, no crackles, rales or wheezes, normal respiratory effort. Dry cough noted duringn exam. CARDIOVASCULAR: regular rate and rhythm, S1 and 2 heard without murmurs, gallops or rubs, no JVD, no peripheral edema CHEST: inspection of chest was normal GASTROINTESTINAL: normal bowel sounds, soft, nontender, nondistended MUSCULOSKELETAL: strength 5/5 throughout, head is normocephalic, neck supple, normal palpation of chest wall without tenderness SKIN: warm and dry, small scratch on left forehead without raised area or ecchymosis, small scratch on left anterior knee. NEUROLOGIC: No facial palsy, no dysarthria. CN 2-12 grossly intact, no sensory deficit, normal cognition, normal speech, no tremor, no gross focal deficits. PSYCHIATRIC: alert cooperative and oriented to person, place and time. Results & Data Results & Data ([facility]) Vital Signs (Past 12 Hours) Vital Signs Temp Pulse Pulse Resp BP Pulse Ox 09/23/19 06:30 77 21 114/79 94 09/23/19 06:23 81 12 94 09/23/19 06:22 74 15 125/72 92 09/23/19 05:30 71 20 134/89 100 09/23/19 05:00 66 17 134/91 100 09/23/19 04:45 73 20 93 09/23/19 04:43 71 14 93 09/23/19 04:34 36.7 C 73 20 113/79 94 09/23/19 04:30 75 17 128/79 93 09/23/19 04:14 69 16 113/79 94 Laboratory Results Short CBC 09/23/19 Range/Units 03:40 WBC 5.94 (4.8-10.8) K/uL Hgb 15.4 (14.0-18.0) g/dL Hct 44.1 (42-52) % Plt Count 183 (130-400) K/uL BMP 09/23/19 03:40 Sodium 142 Potassium 3.9 Chloride 109 H Carbon Dioxide 28 BUN 12 Creatinine 1.13 Glucose 92 Calcium 9.2 Cardiac Enzymes 09/23/19 Range/Units 03:40 Troponin I < 0.015 (0-0.045) ng/ml Liver Function 09/23/19 Range/Units 03:40 Total Bilirubin 0.7 (0.2-1) mg/dl Direct Bilirubin 0.2 (0-0.2) mg/dl AST 23 (15-37) U/L ALT 34 (12-78) U/L Alkaline Phosphatase 54 (45-117) U/L Albumin 3.7 (3.4-5.0) gm/dl Diagnostic Findings CT chest wo con FINDINGS: Crane Manager topogram: Unremarkable. Soft tissues: Normal thyroid and thoracic inlet. No axillary, supraclavicular, or mediastinal lymphadenopathy. Evaluation of the juan j limited without intravenous contrast. Atherosclerosis of the aorta. Normal heart size. Coronary artery and aortic valve calcification. No pericardial or pleural effusion. Upper abdomen normal. Lungs and airways: No pneumothorax. Central airways patent. Moderate diffuse bronchial wall thickening as on prior exam. Mild upper lobe predominant centrilobular and paraseptal emphysema. Pulmonary arteries are not significantly enlarged relative to adjacent bronchi. No interlobular septal thickening. Redemonstration of the few solid pulmonary nodules in the right lung measuring up to 6 mm, which are unchanged and noted in the right upper and middle lobes marked on the images. Limited basilar atelectasis or scarring in the left lower lobe. No other new nodule or focal consolidation. Musculoskeletal: Degenerative changes of the spine. IMPRESSION: 1. Redemonstration of smoking related lung injury with emphysema and bronchitis. No new focal infiltrate to suggest pneumonia. 2. Stable multiple solid pulmonary nodules measuring up to 6 mm. Please use 06/27/2019 as the initial start date for follow-up as mentioned on prior exam and refer to Fleischner Society 2017 criteria below. No new nodule. CT cervical spine wo con CLINICAL HISTORY: 69 years-old Male presenting with fall, head trauma, neck sore. FINDINGS: Crane Manager topogram: Unremarkable. Slight straightening of normal cervical lordosis. Grade 1 anterolisthesis of C7 on T1. Vertebral bodies otherwise maintain normal height and alignment. Significant intervertebral disc height loss at several levels, severe at C5-6 and C6-7. Disc osteophyte complexes noted to varying degrees throughout the cervical spine. Overall mild posterior spondylitic spurring at C3-4, C5-6, C6-7. Limited evaluation of the soft tissues of the spinal canal for further effacement given image quality. Mild degenerative changes of the atlantodental articulation. Incidental note made of a right ponticulus posticus. Multilevel facet arthropathy and uncovertebral hypertrophy results in varying degrees of osseous neural foraminal narrowing. No acute fracture or subluxation. Skull base intact. Paraspinal soft tissues within normal limits. Atherosclerosis. Lung apices clear. IMPRESSION: 1. No acute osseous injury of the cervical spine. 2. Multilevel degenerative changes with multilevel osseous spinal canal and neural foraminal narrowing. 3. Grade 1 anterolisthesis of C7 on T1 is presumably degenerative in etiology. CT head/brain wo con FINDINGS: Crane Manager topogram: Unremarkable. Ventricles and sulci normal in size. No hemorrhage. Brain parenchyma normal in appearance with preserved hsu-white differentiation. No acute territorial infarct. No mass effect or midline shift. No extra-axial fluid collection. Paranasal sinuses and mastoid air cells clear. Calvarium intact. IMPRESSION: 1. No acute intracranial abnormality. XR chest 1V portable CLINICAL HISTORY: Shortness of breath FINDINGS: Lung volumes are normal. Minimal left basilar opacity favors atelectasis. There is no pneumothorax or pleural effusion. Cardiac size is normal. Mediastinal contours are normal. There is no evidence for pulmonary edema. There is underlying emphysema. IMPRESSION: No acute cardiopulmonary findings. Medications Administered Doxy 100mg IV Decadron 10 IV ECG Additional Comments: SR, Normal QTc Code Status & VTE Plan Code Status FULL CODE VTE Prophylaxis Plan VTE Prophylaxis will be ordered: Yes (1) Syncope Syncope type: unspecified Qualified Code(s): R55 - Syncope and collapse
--- NOTE | 2019-09-23 09:32 | Electrocardiogram Report ---
Test Reason : Blood Pressure : / mmHG Vent. Rate : 071 BPM Atrial Rate : 071 BPM P-R Int : 178 ms QRS Dur : 092 ms QT Int : 400 ms P-R-T Axes : 071 025 064 degrees QTc Int : 434 ms Normal sinus rhythm Normal ECG When compared with ECG of 27-JUN-2019 20:31, No significant change was found Confirmed by Beni Dickey ([id number]) on 09/23/2019 9:32:08 AM Referred By: REFERRED SELF Confirmed By:Beni Dickey
[2019-09-23] MEDS ORDERED: NITROGLYCERIN SL 0.4 MG/TAB TAB SL PRN (09:34)
[2019-09-23] MEDS ORDERED: ALBUTEROL HFA 8 GM INHALER INH PRN ×2 (09:34→11:00)
[2019-09-23] MEDS ORDERED: FLUTICASONE/VILANTEROL 100/25MCG 14 PUFFS/INHALER INH PRN (10:01)
[2019-09-23] MEDS ORDERED: ONDANSETRON INJ 2 MG/ML 2 ML VIAL IV PRN (10:02)
[2019-09-23] MEDS ORDERED: POLYETHYLENE (MIRALAX) 17 GM PACK PO PRN (10:02)
[2019-09-23] MEDS ORDERED: IPRATROPIUM BROMIDE/ALBUTEROL respimat INH INH SCH (10:02)
[2019-09-23] MEDS ORDERED: ACETAMINOPHEN 325 MG TAB PO PRN (10:02)
[2019-09-23] MEDS ORDERED: LOSARTAN POTASSIUM 50 MG TAB PO SCH (10:30)
[2019-09-23] MEDS ORDERED: METOPROLOL SUCC 50MG EXT REL TAB PO SCH (10:30)
[2019-09-23] MEDS ORDERED: IPRATROPIUM BROMIDE HFA INHALER INH SCH (11:00)
[2019-09-23] MEDS ORDERED: IPRATROPIUM BROMIDE HFA INHALER INH PRN (11:00)
[2019-09-23] MEDS: LOSARTAN POTASSIUM 50 MG TAB PO SCH (11:27)
[2019-09-23] MEDS: METOPROLOL SUCC 50MG EXT REL TAB PO SCH (11:27)
[2019-09-23] MEDS: ROSUVASTATIN CALCIUM 20 MG TAB PO SCH (11:27)
[2019-09-23] MEDS: ENOXAPARIN INJ 40 MG/0.4 ML SYR SQ SCH (11:28)
[2019-09-23] MEDS ORDERED: ENOXAPARIN INJ 40 MG/0.4 ML SYR SQ SCH (13:00)
[2019-09-23] MEDS ORDERED: methylPREDNISolone 40 MG in SYRINGE 0 ML IV SCH (13:00)
[2019-09-23] MEDS: methylPREDNISolone 40 MG in SYRINGE 0 ML IV SCH ×2 (13:10→20:10)
[2019-09-23] MEDS ORDERED: COUGH DROP (SUGAR FREE) LOZ 24 LOZ/1 BOX BUCCAL ONE (13:14)
[2019-09-23] MEDS: GUAIFENESIN/CODEINE 200MG/20MG 10ML UDC PO PRN ×2 (13:16→20:10)
[2019-09-23] MEDS: ALBUT/IPRATROP 3MG/0.5MG NEB 3 ML VIAL NEB SCH ×2 (16:13→19:15)
[2019-09-23] MEDS: DOXYCYCLINE HYCLATE 100 MG CAP PO SCH (20:11)
[2019-09-24] MEDS: GUAIFENESIN/CODEINE 200MG/20MG 10ML UDC PO PRN ×2 (02:10→08:28)
[2019-09-24] MEDS: methylPREDNISolone 40 MG in SYRINGE 0 ML IV SCH ×2 (04:49→12:31)
[2019-09-24 06:40] LABS: Hematocrit (blood only) 42.5 % (42-52); Hemoglobin 14.8 g/dL (14.0-18.0); Mean Corpuscular Hemoglobin 32.7 pg (25-34); Mean Corpuscular Hgb Conc 34.8 g/dL (32-36); Platelet Count 191 K/uL (130-400); RDW Standard Deviation 48.6 fL (36.4-46.3); Red Blood Count 4.52 M/uL (4.7-6.1); White Blood Count 10.64 K/uL (4.8-10.8)
[2019-09-24 07:12] LABS: BUN Creatinine Ratio 17.6 (10-20); Calcium 9.3 mg/dl (8.5-10.1); Creatinine Clr Calc Pharmacy 86.9 ml/min; Est GFR (African American) 93.2; Est GFR (Non-African American) 80.5; Potassium 4.8 mmol/L (3.5-5.1)
[2019-09-24] MEDS: ALBUT/IPRATROP 3MG/0.5MG NEB 3 ML VIAL NEB SCH ×3 (07:49→15:07)
[2019-09-24] MEDS ORDERED: ASPIRIN 81 MG ECTAB PO SCH ×2 (08:00→09:00)
[2019-09-24] MEDS ORDERED: CHOLECALCIFEROL (VITAMIN D) 400 UNITS TABLET PO SCH ×2 (08:00→09:00)
[2019-09-24] MEDS ORDERED: PANTOprazole 40 MG TAB PO SCH ×2 (08:00→09:00)
[2019-09-24] MEDS ORDERED: EZETIMIBE 10 MG TABLET PO SCH ×2 (08:00→09:00)
[2019-09-24] MEDS: LOSARTAN POTASSIUM 50 MG TAB PO SCH (08:20)
[2019-09-24] MEDS: DOXYCYCLINE HYCLATE 100 MG CAP PO SCH (08:21)
[2019-09-24] MEDS: METOPROLOL SUCC 50MG EXT REL TAB PO SCH (08:21)
[2019-09-24] MEDS: ROSUVASTATIN CALCIUM 20 MG TAB PO SCH (08:21)
[2019-09-24] MEDS: ENOXAPARIN INJ 40 MG/0.4 ML SYR SQ SCH (12:30)
--- NOTE | 2019-09-24 17:15 | Discharge Summary ---
Date of Service September 24, 2019 Admission HPI Per Admitting Provider 69 yo M with COPD presented to the ER with increasing SOB. He was recently admitted to the hospital 06/28-06/29/2019 for influenza and was sent home on a course of Tamiflu and prednisone. He was seen in the clinic on 07/19 and reported persistent coughing, so was given a Zpak and benzonatate to treat post-viral coughing. He was seen on 07/24 for followup in the clinic and reportedly felt better. Then on 08/19 he called FP clinic reporting a return of his cough. He was triaged via telephone and given a Zpak and prednisone taper and COVID-19 testing was performed and negative. Since that time he had been feeling well until about one month ago. He started to have a dry cough, which resulting in severe coughing fits followed by dyspnea. He reports dyspnea that has been progressively worse over the past week. Sputum changes present per patient. Driving factor to the ER this morning was a severe coughing fit while in bed that caused him to pass out and fall out of bed onto the floor. He woke up within seconds and was oriented. No loss of bladder or bowel. Witnessed by who assisted patient. Patient ambulated with assistance to ambulance and reported some lightheadedness. Has a h/o CAD and denies any chest pain. Denies abd pain, fevers, chills, nausea, vomiting, changes in stool, hematochezia, urinary symptoms. He did hit his head on the nightstand and has a frontal headache as a result. A small scratch is present on his left forehead that is superficial. There is no raised area or bruising present. He quit smoking 5 years ago. He drinks one shot of bourbon per night. Admission Exam Per Admitting Provider CONSTITUTIONAL: WNWD, vitals as above, generally well-appearing EYES: EOMI bilaterally, PERRL, normal conjunctivae, no scleral icterus ENT: external ear and nose normal, oropharynx clear, no maxillary or ethmoid sinus tenderness NECK: trachea midline, no lymphadenopathy RESPIRATORY: clear to auscultation bilaterally with diminished breath sounds throughout posterior lung childs, clear to auscultation with improved airflow on anterior lung childs, no crackles, rales or wheezes, normal respiratory effort. Dry cough noted duringn exam. CARDIOVASCULAR: regular rate and rhythm, S1 and 2 heard without murmurs, gallops or rubs, no JVD, no peripheral edema CHEST: inspection of chest was normal GASTROINTESTINAL: normal bowel sounds, soft, nontender, nondistended MUSCULOSKELETAL: strength 5/5 throughout, head is normocephalic, neck supple, normal palpation of chest wall without tenderness SKIN: warm and dry, small scratch on left forehead without raised area or ecchymosis, small scratch on left anterior knee. NEUROLOGIC: No facial palsy, no dysarthria. CN 2-12 grossly intact, no sensory deficit, normal cognition, normal speech, no tremor, no gross focal deficits. PSYCHIATRIC: alert cooperative and oriented to person, place and time. Principal Diagnosis COPD exacerbation Discharge Exam CONSTITUTIONAL: WNWD, vitals as above, generally well-appearing EYES: normal conjunctivae, no scleral icterus ENT: external ear and nose normal, oropharynx clear NECK: trachea midline RESPIRATORY: clear to auscultation bilaterally good airflow on anterior lung childs, no crackles, rales or wheezes, normal respiratory effort. CARDIOVASCULAR: regular rate and rhythm, S1 and 2 heard without murmurs, gallops or rubs, no JVD, no peripheral edema CHEST: inspection of chest was normal GASTROINTESTINAL: normal bowel sounds, soft, nontender, nondistended MUSCULOSKELETAL: strength 5/5 throughout, head is normocephalic NEUROLOGIC: No facial palsy, no dysarthria. CN 2-12 grossly intact, no sensory deficit, normal cognition, normal speech, no tremor, no gross focal deficits. PSYCHIATRIC: alert cooperative and oriented to person, place and time. Discharge Data Allergies Allergy/AdvReac Type Severity Reaction Status Date / Time Iodinated Contrast Media Allergy Unknown HIVES WITH Verified 09/23/19 04:53 IV DYE FOR CARDIAC CATH lisinopril Allergy Unknown ANGIOEDEMA Verified 09/23/19 04:53 Consultations 09/23/19 07:11 ED Decision to Admit Stat Ordered Studies 09/23/19 04:10 CT head/brain wo con Urgent 09/23/19 04:13 CT cervical spine wo con Urgent 09/23/19 05:56 CT chest wo con Urgent Hospital Course (1) Acute exacerbation of chronic obstructive pulmonary disease: (2) Syncope: (3) Hypertension: (4) Heart disease: 69-year-old man with known COPD presented to the hospital with worsening dyspnea cough and sputum production despite 2 courses of azithromycin as outpatient and one course of a prednisone taper. He was admitted to the telemetry service and given Solu-Medrol intravenously, doxycycline and he was placed on scheduled nebulizer therapy. COVID-19 was ruled out. Robitussin-AC was given for cough suppression. 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 Medical therapy improved him overnight and the following day he felt well enough to go home. Coughing had improved and he denied any further shortness of breath. Close follow-up with primary care doctor was recommended. Patient was given an albuterol nebulizer to use at home as needed. He was discharged in stable condition. Total Time Total Time Spent Total Time Spent (In Minutes): 60 Total Time Includes: Examination of the Patient, Discharge Planning, Medication Reconciliation and Communication With Other Providers Discharge Plan Discharge Items Patient Disposition: Home - Self-Care Reason For Visit: COPD EXACERBATION Discharge Diagnosis: COPD exacerbation Condition on Discharge: Good Activity: Resume your previous activity Non-emergency contact: Primary Care Provider Call non-emergency contact if: you have any medication questions, your symptoms worsen, your pain is not controlled, your pain is worsening, your pain is unusual for you, your pain is concerning for you and you have a fever Follow-up/Referrals: Fabiola Briscoe DO [Primary Care Provider] - Diet: Low Sodium (2gm) Addtl Attending Provider Instructions: Please take all medications as instructed on discharge list below. It is recommended that you follow-up with your primary care doctor within 1 week of discharge. You are being placed on a 5-day course of prednisone to start on 09/25/2019. You are being given albuterol nebulized solution to take as needed for severe shortness of breath or wheezing. You are being given a prescription for a nebulizer machine which can be purchased at any medical supply store or pharmacy. You are being given Robitussin with codeine to use as a cough suppressant, for severe coughing fits. Lastly, you are being given a short course of doxycycline, which is an antibiotic. It was a pleasure taking care of you! Please call if you have any questions or problems. You can reach a [facility] hospitalist on duty at [facility] 24 hours a day by calling [phone]. Take care of yourself. Lolly Rey DO [facility] Hospitalist Pending Studies at Discharge: No Stand-Alone Forms: [facility], Work/School Release (Inpt), Smoking Cessation Medications and DC Order Prescriptions: New doxycycline hyclate 100 mg Capsule 100 mg PO Q12H Qty: 10 RF: 0 albuterol sulfate 2.5 mg /3 mL (0.083 %) solution for nebulization 2.5 mg INH Q8H PRN (Reason: shortness of breath or wheezing) Qty: 90 RF: 1 codeine-guaifenesin 10-100 mg/5 mL Liquid 10 ml PO Q6H PRN (Reason: cough) Qty: 120 RF: 0 prednisone 20 mg tablet 40 mg PO DAILY Qty: 10 RF: 0 Continued losartan 50 mg tablet 50 mg PO DAILY RF: 0 ezetimibe 10 mg tablet 10 mg PO DAILY RF: 0 rosuvastatin 40 mg tablet 40 mg PO DAILY RF: 0 multivitamin Tablet 1 tab PO DAILY RF: 0 metoprolol succinate 50 mg tablet extended release 24 hr 50 mg PO DAILY RF: 0 aspirin 81 mg Tablet,Delayed Release (Dr/Ec) 81 mg PO DAILY RF: 0 nitroglycerin 0.4 mg tablet, sublingual 0.4 mg sublingual UD PRN (Reason: Chest Pain) RF: 0 omeprazole 20 mg capsule,delayed release(DR/EC) 20 mg PO DAILY PRN (Reason: Heartburn) RF: 0 cholecalciferol (vitamin D3) [Vitamin D3] 400 unit Capsule 400 unit PO DAILY RF: 0 fluticasone propion-salmeterol [Advair Diskus] 250-50 mcg/dose blister with device 1 ea INHALATION BID PRN (Reason: Shortness Of Breath) RF: 0 albuterol sulfate 90 mcg/actuation HFA aerosol inhaler 2 puff INHALATION Q4H PRN (Reason: Shortness Of Breath Or Wheezing) RF: 0 Discharge Orders: Discharge Order (Routine); Ordered 09/24/19 Ordered By: Lolly Rey Admission Data Admit Date/Time: 09/23/19 08:03 Attending Provider: Lolly Rey Admit Provider: Lolly Rey Primary Care Provider: Fabiola Briscoe Other Providers: Aleksandar Romero
== END 2019-09-24 19:40 | disposition home or self-care (01) ==
LOC: ED 04:00 → 2S 08:03 → INTOOBSV 08:03 → 2S 09:30 → 2W 11:49

== ENCOUNTER 2022-10-05 05:02 | Observation (INO) ==
--- NOTE | 2022-08-28 11:57 | PAT Medication Instructions ---
Medication Instructions Date of Service August 28, 2022 Home Medications Medication Instructions Recorded albuterol sulfate 2.5 mg/3 mL 2.5 mg (3 mL) inhalation Q8H PRN 09/24/19 (0.083 %) solution for nebulization shortness of breath or wheezing #90 mL aspirin 81 mg tablet,delayed release 81 mg PO QAM ezetimibe 10 mg tablet 10 mg PO QAM losartan 50 mg tablet 50 mg PO QAM nitroglycerin 0.4 mg sublingual tablet 0.4 mg sublingual UD PRN Chest Pain omeprazole 20 mg capsule,delayed release 20 mg PO Q OTHER DAY rosuvastatin 40 mg tablet 40 mg PO QAM albuterol sulfate 90 mcg/actuation aerosol inhaler 2 puff inhalation Q4H PRN Shortness Of Breath Or Wheezing albuterol sulfate 2.5 mg/3 mL (0.083 %) solution for nebulization 2.5 mg (3 mL) inhalation Q8H PRN shortness of breath or wheezing diphenhydramine HCl 25 mg tablet 25 mg PO Q4H PRN Angioedema Prevagen 1 tab PO QAM fluticasone fur. 100 mcg-umeclid 62.5 mcg-vilant 25 mcg inhalat.powder (Trelegy Ellipta) 1 inh inhalation QAM geriatric multivitamin-min 1 tab PO QAM metoprolol succinate 25 mg tablet,extended release 24 hr 25 mg PO QAM Continue as directed nitroglycerin 0.4 mg sublingual tablet 0.4 mg sublingual UD PRN Chest Pain (if needed) omeprazole 20 mg capsule,delayed release 20 mg PO Q OTHER DAY diphenhydramine HCl 25 mg tablet 25 mg PO Q4H PRN Angioedema (if needed) STOP taking 2 weeks before surgery Prevagen 1 tab PO QAM DO NOT take the morning of surgery losartan 50 mg tablet 50 mg PO QAM geriatric multivitamin-min 1 tab PO QAM Take morning of surgery With a small sip of water, OTHERWISE NOTHING TO EAT OR DRINK AFTER MIDNIGHT: aspirin 81 mg tablet,delayed release 81 mg PO QAM (unless surgeon directed otherwise) ezetimibe 10 mg tablet 10 mg PO QAM rosuvastatin 40 mg tablet 40 mg PO QAM albuterol sulfate 90 mcg/actuation aerosol inhaler 2 puff inhalation Q4H PRN Shortness Of Breath Or Wheezing (use if needed; please bring with you to hospital day of surgery if possible) albuterol sulfate 2.5 mg/3 mL (0.083 %) solution for nebulization 2.5 mg (3 mL) inhalation Q8H PRN shortness of breath or wheezing (if needed) fluticasone fur. 100 mcg-umeclid 62.5 mcg-vilant 25 mcg inhalat.powder (Trelegy Ellipta) 1 inh inhalation QAM metoprolol succinate 25 mg tablet,extended release 24 hr 25 mg PO QAM Take evening before surgery albuterol sulfate 90 mcg/actuation aerosol inhaler 2 puff inhalation Q4H PRN Shortness Of Breath Or Wheezing (if needed) albuterol sulfate 2.5 mg/3 mL (0.083 %) solution for nebulization 2.5 mg (3 mL) inhalation Q8H PRN shortness of breath or wheezing (if needed) Other Notes If you have any questions please call us at [phone] or [phone] or [phone] or [phone]
--- NOTE | 2022-08-28 11:59 | PAT Medication Instructions ---
Medication Instructions Date of Service August 28, 2022 Home Medications Medication Instructions Recorded albuterol sulfate 2.5 mg/3 mL 2.5 mg (3 mL) inhalation Q8H PRN 09/24/19 (0.083 %) solution for nebulization shortness of breath or wheezing #90 mL aspirin 81 mg tablet,delayed release 81 mg PO QAM ezetimibe 10 mg tablet 10 mg PO QAM losartan 50 mg tablet 50 mg PO QAM nitroglycerin 0.4 mg sublingual tablet 0.4 mg sublingual UD PRN Chest Pain omeprazole 20 mg capsule,delayed release 20 mg PO Q OTHER DAY rosuvastatin 40 mg tablet 40 mg PO QAM albuterol sulfate 90 mcg/actuation aerosol inhaler 2 puff inhalation Q4H PRN Shortness Of Breath Or Wheezing albuterol sulfate 2.5 mg/3 mL (0.083 %) solution for nebulization 2.5 mg (3 mL) inhalation Q8H PRN shortness of breath or wheezing diphenhydramine HCl 25 mg tablet 25 mg PO Q4H PRN Angioedema Prevagen 1 tab PO QAM fluticasone fur. 100 mcg-umeclid 62.5 mcg-vilant 25 mcg inhalat.powder (Trelegy Ellipta) 1 inh inhalation QAM geriatric multivitamin-min 1 tab PO QAM metoprolol succinate 25 mg tablet,extended release 24 hr 25 mg PO QAM Continue as directed nitroglycerin 0.4 mg sublingual tablet 0.4 mg sublingual UD PRN Chest Pain (if needed) diphenhydramine HCl 25 mg tablet 25 mg PO Q4H PRN Angioedema (if needed) omeprazole 20 mg capsule,delayed release 20 mg PO Q OTHER DAY STOP taking 2 weeks before surgery (or as soon as possible if surgery is within 2 weeks) Prevagen 1 tab PO QAM DO NOT take the morning of surgery losartan 50 mg tablet 50 mg PO QAM geriatric multivitamin-min 1 tab PO QAM Take morning of surgery With a small sip of water, OTHERWISE NOTHING TO EAT OR DRINK AFTER MIDNIGHT: aspirin 81 mg tablet,delayed release 81 mg PO QAM (continue as normal unless told otherwise by surgeon) ezetimibe 10 mg tablet 10 mg PO QAM rosuvastatin 40 mg tablet 40 mg PO QAM albuterol sulfate 90 mcg/actuation aerosol inhaler 2 puff inhalation Q4H PRN Shortness Of Breath Or Wheezing (use if needed; please bring rescue inhaler with you to hospital day of surgery if possible) albuterol sulfate 2.5 mg/3 mL (0.083 %) solution for nebulization 2.5 mg (3 mL) inhalation Q8H PRN shortness of breath or wheezing (if needed) fluticasone fur. 100 mcg-umeclid 62.5 mcg-vilant 25 mcg inhalat.powder (Trelegy Ellipta) 1 inh inhalation QAM metoprolol succinate 25 mg tablet,extended release 24 hr 25 mg PO QAM Take evening before surgery albuterol sulfate 90 mcg/actuation aerosol inhaler 2 puff inhalation Q4H PRN Shortness Of Breath Or Wheezing (if needed) albuterol sulfate 2.5 mg/3 mL (0.083 %) solution for nebulization 2.5 mg (3 mL) inhalation Q8H PRN shortness of breath or wheezing (if needed) Other Notes If you have any questions please call us at [phone] or [phone] or [phone] or [phone]
--- NOTE | 2022-08-31 12:58 | Anesthesiology Consultation ---
Date of Service August 31, 2022 Assessment & Plan (1) Encounter for pre-operative examination: - awaiting cardiology clearance. - Case discussed in detail with Dr. Luna. He advised nothing additional needed from PCP/pulmonary standpoint, but that patient will need cardiology clearance prior to surgery. Surgeon's office made aware. LVM for patient [facility]. - PCP 06/29/22 [facility]: "...COPD...walk test today with no desaturation...overall improvement with Trelegy...Consider repeat PFT vs pulm referral..." - cardiology 08/22/21 [facility]: "...CAD s/p PMS x 2 RCA with history of inferior CT 12/2008. Chronic ELIZABETH, functional capacity stable, NYHA class 2. Dobutamine stress echo negative for inducible ischemia 11/2015...feeling well...stable, no angina...return in about 1 year..." F/U scheduled after above planned surgery. - Outpatient joint assessment: Patient is currently scheduled for inpatient pathway. If re-evaluated pending system levels during current pandemic/surgeon requests outpatient pathway, patient is not acceptable candidate for outpatient joint program from anesthesia standpoint. Chart Review Chart Review: Pending: Refer to Additional Notes / Consult section and Patient seen in Pre Admission Testing Teaching & Discussion Pre-Anesthesia Teaching/Discussion Notes: Instructed NPO after midnight before surgery, except medications with 15 cc of water. Medication instructions provided according to the PAT guidelines. History Surgery Operation Date: 09/07/22 08:50 Proposed Procedures p Left Total Hip Arthroplasty - Garett Saenz MD Height/Weight Height: 5 ft 10 in Weight: 108.862 kg Allergies Allergy/AdvReac Type Severity Reaction Status Date / Time Iodinated Contrast Media Allergy Intermediate HIVES WITH Verified 08/28/22 10:40 IV DYE FOR CARDIAC CATH lisinopril Allergy Intermediate ANGIOEDEMA Verified 08/28/22 10:40 Medications Home Medications Medication Instructions Recorded Confirmed Last Taken aspirin 81 mg tablet,delayed 81 mg PO QAM 06/27/19 08/28/22 06/27/19 release ezetimibe 10 mg tablet 10 mg PO QAM 06/27/19 08/28/22 06/27/19 losartan 50 mg tablet 50 mg PO QAM 06/27/19 08/28/22 06/27/19 nitroglycerin 0.4 mg sublingual 0.4 mg sublingual UD PRN Chest Pain 06/27/19 08/28/22 Unknown tablet omeprazole 20 mg capsule,delayed 20 mg PO Q OTHER DAY 06/27/19 08/28/22 06/27/19 release rosuvastatin 40 mg tablet 40 mg PO QAM 06/27/19 08/28/22 06/27/19 albuterol sulfate 90 mcg/actuation 2 puff inhalation Q4H PRN 06/28/19 08/28/22 Unknown aerosol inhaler Shortness Of Breath Or Wheezing albuterol sulfate 2.5 mg/3 mL 2.5 mg (3 mL) inhalation Q8H PRN 09/24/19 08/28/22 Unknown (0.083 %) solution for nebulization shortness of breath or wheezing #90 mL diphenhydramine HCl 25 mg tablet 25 mg PO Q4H PRN Angioedema 12/30/19 08/28/22 Unknown Prevagen 1 tab PO QAM 08/28/22 08/28/22 Unknown fluticasone fur. 100 mcg-umeclid 1 inh inhalation QAM 08/28/22 08/28/22 Unknown 62.5 mcg-vilant 25 mcg inhalat.powder (Trelegy Ellipta) geriatric multivitamin-min 1 tab PO QAM 08/28/22 08/28/22 Unknown metoprolol succinate 25 mg 25 mg PO QAM 08/28/22 08/28/22 Unknown tablet,extended release 24 hr Past Medical History Medical History (Updated 08/31/22 @ 13:06 by Vikki Alejandro PA-C) CAD (coronary artery disease) s/p 2 stents 2008, follows with [facility] COPD (chronic obstructive pulmonary disease) inhaler daily/prn, nebulizer used daily Degenerative disc disease GERD (gastroesophageal reflux disease) controlled, stable per pt Herniated disc History of COVID-19 07/03/22 via HOME TEST--body aches, fever, fatigue was on paxlovid--no symptoms now Hyperlipidemia Hypertension controlled, stable per pt Myocardial infarction 2009--had heart cath with 2 stents placed--follows with Dr. Camilo Pulmonary nodule Patient denies h/o stroke, seizures, heart failure, DM, blood clots or blood transfusions. Exercise / Class Metabolic Activity III < 4 Walking/Shop/Light housework (denies chest discomfort or shortness of breath with usual activities, ambulates with cane) Past Family History Family History Other No family history of adverse response to anesthesia Past Surgical History Surgical History (Updated 08/31/22 @ 13:05 by Vikki Alejandro PA-C) H/O cardiac catheterization 2009--with 2 stents done at [facility] [place] History of arthroscopy of left knee x2 History of bilateral cataract extraction History of colonoscopy History of left knee surgery ligament surgery > 50 yrs ago per pt History of tooth extraction all teeth removed Past Anesthesia History No Hx of Anesthesia Complications and No Family Hx of Anesthesia Complications History of PONV No Hx of PONV and No Hx of Motion Sickness Social History Smoking Status: Former smoker Do You Dip or Chew Tobacco: No Smoking End Date: quit 7 yrs ago Hx Alcohol Use: Yes ("1-2 shots a night") Alcohol type: hard liquor alcohol intake frequency: 0-2 drinks per day Hx Substance Use: No substance use type: does not use Review of Systems Snoring, denies witnessed apneas. Patient denies chest pain, fever, chills, cough, wheezing, or palpitations. Physical Exam Vital Signs Vitals BP 130/85 P 82 TEMP 98.6 SP02 95% on RA RESP 18 Physical Full cervical extension range of motion without pain TMD 3.5 finger breadths Mallampati Score 3 Dentition: edentulous, full upper and lower dentures Lungs: normal respiratory effort. Clear throughout to auscultation, no adventitious breath sounds Cardiac: regular rate and rhythm, no murmurs noted Carotid arteries: negative bruit bilat Lab Results Anesthesia Preop Results Results Anesthesia Widget: WBC 6.94 K/ul (4.8-10.8) 08/31/22 Hgb 15.8 g/dl (14.0-18.0) 08/31/22 Hct 46.0 % (42.0-52.0) 08/31/22 Plt 159 K/uL (130-400) 08/31/22 Na 141 mmol/L (136-145) 08/31/22 K 4.9 mmol/L (3.5-5.1) 08/31/22 Cl 105 mmol/L (98-107) 08/31/22 CO2 29 mmol/L (21-32) 08/31/22 BUN 23 mg/dl (6-23) 08/31/22 Creat 1.16 mg/dl (0.6-1.4) 08/31/22 Glucose Level 101 mg/dl (70-99(Fasting)) H 08/31/22 PT 10.9 Seconds (9.0-12.0) 08/31/22 PTT 25.0 Seconds (21.0-31.0) 08/31/22 INR 1.0 (0.9-1.1) 08/31/22 Blood Type A Positive 08/31/22 Antibody Screen NEGATIVE 08/31/22 Testing Electrocardiogram Date: 08/31/22 NSR, rate 74 bpm Chest X-Ray Date: 08/31/22 The cardiomediastinal silhouette is unremarkable noting atherosclerotic calcification of the thoracic aorta. Emphysema and chronic interstitial thickening similar to previous. There is mild bibasilar scarring/atelectasis. No airspace consolidation or pleural effusion is identified. There is no pneu mothorax. The skeletal structures are osteopenic. The bony thorax appears intact. Degenerative change is noted in the thoracic spine. IMPRESSION: Emphysematous change with no active disease in the chest. Echocardiogram Date: 02/23/21 EF 55-59% Mild cLVH Grade I diastolic dysfunction Mild aortic valve sclerosis COVID-19 Risk Screen Screening Information COVID-19 Screen Date: 08/31/22 Exposure 21 Days Family/Household +COVID Last 21 Days: No Exposure 10 Days Any COVID Exposure Last 10 Days: No Symptoms Last 10 Days Experienced COVID Sx Last 10 Days: No + COVID 0-90 Days COVID + in Last 0-90 Days: Yes + COVID Test 0-10 Day: No + COVID Test 11-90 Day: Yes +Covid 0-90 Day Pathway: Validate type of COVID-19 test (must secure test results for patient chart) * The patients test result MUST be a NAAT (i.e., molecular test not an antigen test). * NO other COVID-19 testing needed pre-op or day of surgery inside the 90 day window if prior positive test is acceptable per hospital Policy. Note: Home tests or antigen tests are NOT accepted per hospital policy. Provider to place an order for a ALLISON (i.e., molecular test not an antigen test). Then proceed to the appropriate pathway based on the testing results. Elective Case +COVID-19 in the last 0-10 Days * Cancel/reschedule using Policy 1096. * Reschedule procedure 11 days if asymptomatic. * Reschedule procedure 15 days if mild symptoms. * Reschedule procedure 21 days if moderate to severe symptoms. Elective Case +COVID-19 in the last 11-90 Days * Proceed with procedure according to Policy 1096 * Reschedule procedure 11 days if asymptomatic. * Reschedule procedure 15 days if mild symptoms. * Reschedule procedure 21 days if moderate to severe symptoms. Urgent or Emergent Case * Provider will provide medical necessity statement in the H&P and patient will be scheduled on the (+) COVID/PUI pathway per hospital policy. Policies and Procedures Refer to Policy and Procedure 1096 for Initiation & Discontinuation of Transmission-Based Precautions for Confirmed and Suspected SARS-CoV-2 Infection which can be found on the Intranet in the Clinical Resources Manual by clicking on the link below: [email or web address] [email or web address]#search=discontinuation%[email or web address]
--- NOTE | 2022-09-29 19:45 | History and Physical Report ---
DATE OF ADMISSION: 10/05/2022 CHIEF COMPLAINT: Left hip pain. HISTORY OF PRESENT ILLNESS: This is a 72-year-old gentleman who presents for surgical treatment of h is left hip. He has about a year to year and half history of gradually progressive increased left hi p pain and discomfort, which has got more unmanageable over time. He has been forced to use a walker due to his hip along with some chronic back problems. He has got groin pain, thigh pain, which is i ncreased with weightbearing. He has difficulty going without the walker. He would like to have his hip replaced. The patient does have significant cardiac history and he has been seen by [facility] and cl eared for surgery with moderate risk. He wants to proceed with that risk. PAST MEDICAL HISTORY: Significant for: 1. Coronary artery disease/heart disease, status post stent placement x2 without current symptoms. 2. Elevated cholesterol. 3. COPD. 4. Hypertension. 5. Elevated cholesterol. PAST SURGICAL HISTORY: Include: 1. Left knee arthroscopy. 2. Cataract surgery. 3. Oral surgery. 4. Cardiac stent placement. ALLERGIES: LISINOPRIL AND IODINE CONTRAST. CURRENT MEDICATIONS: Include: 1. Albuterol. 2. Aspirin. 3. Benadryl. 4. Ezetimibe. 5. . 6. Multivitamin. 7. Losartan. 8. Metoprolol. 9. Nitroglycerin. 10. Omeprazole. 11. Provigil. 12. Rosuvastatin. SOCIAL HISTORY: A 72-year-old male. He is . One drink per day. [id number] history of smo coredll. FAMILY HISTORY: Significant for heart disease. REVIEW OF SYSTEMS: Significant for coronary artery disease, status post stent placement. No current chest pain or shortness of breath. No history of DVT. No known bleeding problems. PHYSICAL EXAMINATION: GENERAL: Shows a pleasant and elderly male. Looks to be in reasonably good health. HEENT: Benign. NECK: Supple. No lymphadenopathy. LUNGS: Clear to auscultation. HEART: Has a regular rate and rhythm. ABDOMEN: Soft, nontender, nondistended. EXTREMITIES: Grossly neurovascularly intact except as follows: Examination of the left hip reveals the patient walks with use of a walker. Leg lengths appear pretty equal. He has got stiffness with any type of hip motion. He can internally rotate to neutral at best. Negative straight leg raise. X-RAYS: X-rays of the left hip were reviewed. It shows evidence of moderately advanced left hip art hritis. He has got flattening of the superior aspect of the femoral head and what looks to be a subc hondral fracture. MRI from [facility] was reviewed. It shows advanced left hip arthritis. He has got subchondral fract ure of the femoral head. There is edema in the weightbearing femoral head. ASSESSMENT: A 72-year-old male with multiple medical comorbidities who has significant coronary alan ry disease status post stent placement with a recent normal echo with advanced hip arthritis, complic ated by a subchondral fracture. He is markedly limited by this pain and would like to have his hip f ixed. PLAN: We will get him taken to the operating room and do left total hip replacement. The risks and benefits of this procedure were explained to the patient and include but not limited to DVT, PE, deat h, infection, neurological injury, vascular injury, bleeding problem, pain, limited range of motion, stiffness, failure to relieve his symptoms, incomplete relief of symptoms, etc. The patient understa nds and desires to proceed. Informed consent was obtained. He is fully aware that this is not going to fix his back problems. As far as medicines, take metoprolol and omeprazole in the morning of surgery. Hold the Lisinopril. He is planning to be discharged to home with [facility] and his 's assistance. We milagro n have cardiology follow him in the hospital if needed. Job ID: [id number]
[2022-10-05] MEDS ORDERED: ACETAMINOPHEN 500 MG TAB PO SCH (06:00)
[2022-10-05] MEDS ORDERED: BUPIVACAINE LIPOSOME/PF 266 MG, BUPIVACAINE/EPINEPHRINE 50 ML, SODIUM CHLORIDE 0.9% PF ... INFIL SCH (06:00)
[2022-10-05] MEDS ORDERED: CeleBREX 200 MG CAP PO SCH (06:00)
[2022-10-05] MEDS ORDERED: FAMOTIDINE 20 MG TAB PO SCH (06:00)
[2022-10-05] MEDS ORDERED: LACTATED RINGER'S 1,000 ML IV SCH (06:00)
[2022-10-05] MEDS ORDERED: TRANEXAMIC ACID 1,000 MG **IV Pre-op IV SCH (06:00)
[2022-10-05] MEDS ORDERED: dexAMETHasone**PF** 10 MG/ML VIAL IV SCH (06:00)
[2022-10-05] MEDS ORDERED: LR 60ML/HR IV SCH (06:00)
[2022-10-05] MEDS ORDERED: METOCLOPRAMIDE HCL 10 MG TABLET PO SCH (06:00)
[2022-10-05] MEDS ORDERED: ceFAZolin 2000MG 2,000 MG/15 ML SYR IV SCH (06:00)
[2022-10-05] MEDS ORDERED: LR 500ML BOLUS, THEN 15ML/HR IV SCH (06:00)
[2022-10-05] MEDS ORDERED: CIPROFLOXACIN / D5W 400 MG/200 ML BAG IV SCH (06:00)
[2022-10-05] MEDS ORDERED: BUPIVACAINE 0.5 % 5 MG/1 ML PF 10ML VIAL ONE (06:23)
[2022-10-05] MEDS ORDERED: fentaNYL citrate PF 100 MCG/2 ML VIAL ONE (06:29)
[2022-10-05] MEDS ORDERED: MIDAZOLAM HCL 1 MG/ML 2ML VIAL ONE (06:29)
[2022-10-05] MEDS ORDERED: PROPOFOL IV EMULSION 10 MG/ML 20 ML VIAL IV ONE (06:30)
[2022-10-05] MEDS ORDERED: BUPIVACAINE/EPINEPHRINE 0.25% 1:200,000 30 ML VIAL ONE (06:44)
[2022-10-05] MEDS ORDERED: SODIUM CHLORIDE 0.9% PF 50 ML VIAL ONE (06:44)
[2022-10-05] MEDS ORDERED: BUPIVACAINE LIPOSOME 1.3% 266 MG/20 ML VIAL ONE (06:44)
[2022-10-05] MEDS ORDERED: BUPIVACAINE/EPINEPHRINE 0.5% MPF 1:200,000 30 ML VIAL ONE (06:47)
--- NOTE | 2022-10-05 06:48 | History & Physical Bridge Note ---
Date of Service October 05, 2022 History & Physical Bridge Note I have examined the patient, reviewed the History & Physical and in the interval since the performance of the History & Physical I have noted the following changes of clinical significance: no changes noted
[2022-10-05] MEDS ORDERED: fentaNYL citrate PF 100 MCG/2 ML VIAL IV PRN (06:52)
[2022-10-05] MEDS ORDERED: ONDANSETRON INJ 2 MG/ML 2 ML VIAL IV PRN ×2 (06:52→10:03)
[2022-10-05] MEDS ORDERED: ePHEDrine sulfate 50 MG/ML AMP IV PRN (06:52)
[2022-10-05] MEDS ORDERED: ATROPINE SULFATE 0.1 MG/ML 10ML SYR IV PRN (06:52)
[2022-10-05] MEDS ORDERED: Nursing to Pharmacy Communication SCH (07:00)
[2022-10-05] MEDS ORDERED: KETAMINE 50 MG/5 ML SYRINGE ONE (07:21)
[2022-10-05] MEDS ORDERED: PHENYLEPHRINE HCL 10 MG/ML VIAL ONE (07:27)
[2022-10-05] MEDS ORDERED: ePHEDrine sulfate 50 MG/ML AMP ONE (07:41)
--- NOTE | 2022-10-05 08:34 | Operative Report ---
PG Post Operative Report Pre & Post Diagnosis Operation Date: 10/05/22 07:00 Pre-Op Diagnosis: Left Hip Degenerative Joint Disease Post-Op Diagnosis: Left Hip Degenerative Joint Disease I identified the patient and participated in the time-out.: Yes Procedure Operation Date: 10/05/22 07:00 Actual Procedures p Left Total Hip Arthroplasty(Left) - Garett Saenz MD Surgeon Garett Saenz MD Data Warehouse Administrator Sanjeev Joyner PA-C Estimated Blood Loss 200 Findings Consistent with Post-Op Diagnosis Operative findings were advanced to the left hip DJD. He did have what appeared to be a subchondral fracture of the femoral head. He had a moderate-sized joint effusion. Some secondary arthritic changes. Minimal osteophyte formation. Fluids 1000 cc Specimens Left femoral head sent for pathology Anesthesia Type Spinal MAC Complications none Disposition Accompanied Patient To Recovery: No Indications Patient 72-year-old gentleman whose had a but a year history of significant increasing left hip pain discomfort got significant worse over the past 6 months. X-rays show progressive loss of his joint space. He had an MRI which showed a subchondral fracture of the femoral head. He failed conservative measures. His pain was debilitating. He elected to a total hip arthroplasty. Description of Procedure Operative implants consist of: 1 Biomet G7 size 56 mm acetabular shell. 2. 6.5 cancellous acetabular screws 1 of 35 mm length 1 of 30 mm length. 3. Jerusalem hole eliminator. 4. Highly cross-linked polyethylene liner with a 56 mm outer diameter, 36 mm inner diam with a em placed inferior and posterior. 5. DePuy Karaya I size 15 KLA femoral stem. 6. +8.5/36 mm ceramic articular ball. The patient was taken to the operating, identified, placed on the operating table supine position protectors were properly padded. IV antibiotics tried by anesthesia team. A spinal anesthetic and been implemented holding area. Juarez catheter was placed in sterile fashion. The patient then placed in the right lateral decubitus position. An axillary roll was placed. Stulberg hip positioner was used for positioning. Left hip and leg were then prepped and draped in usual sterile fashion. A posterolateral approach to the left hip was then performed through a curvilinear incision centered over the greater trochanter. Sharp dissection Through subcutaneous tissue down to level the IT band gluteal fascia the IT band gluteal fascia were incised longitudinally in line with skin incision. The underlying greater bursa was excised. The piriformis and external rotators along with the posterior hip capsule were then released from the posterior aspect hip as a single layer. Great care was taken throughout the procedure to protect the sciatic nerve at all times. Hip was internally rotated and dislocated. Femoral neck osteotomy cut was made with a Final Cut about 15 mm above the lesser trochanter. Femoral head was removed and sent for pathology. The femur was retracted anteriorly. Attention drawn the acetabulum. The acetabular labrum was excised. The pulmonary fat was excised. Sequential reaming the acetabular was then performed again with a size 47 progressing up to 55. I reamed a little bit with a 56 reamer and then placed a 56 mm Biomet G7 acetabular shell in about 40 degrees lateral opening and 20 degrees of anteversion. It was fixed with two 6.5 cancellous acetabular screws. A trial liner was placed. Attention drawn the femur. The proximal femur was then with a Superprotonic cutter followed by canal finder. Then broached begin the size 8 and progressing up to a 15. We got excellent fit of 15. I trialed the hip and the hip was stable but the soft tissue tension was little bit lax so we elected to place a +8.5 neck length ball. The hip was fully stable full extension and external rotation and flexion to 90 degrees internal Tatian over 50 degrees. I did elect to place a em inferior and posterior to maximize his stability in flexion. We elect to place these implants. Nupathe all trial implants were removed. An apex hole luminary was placed. Highly cross-linked polyethylene liner was placed. A size 15 KLA femoral stem was impacted in position. A +8.5/36 mm ceramic articular ball was placed. Hip was located and once again found to be stable. Attention drawn to closing. The wounds irrigated cosigns pulsatile lavage solution. We did inject locally with 60 cc of half percent Marcaine with epinephrine. The posterior capsule and external rotators were repaired through drill holes in the posterior trochanter as a single layer with #2 Tycron suture. The IT band gluteal fascia then closed in 1 PDS suture running fashion. Subcutaneous tissues then closed with 2 layers of deep layer #1 Vicryl suture in the subcutaneous tissues with 2-0 Dexon suture in a buried interrupted fashion. Skin was closed skin herbert. Leg was then cleaned and dried and sterile dressed with Xeroform, 4 fours, sterile ABD pad, foam tape, was applied. The patient then transferred to the recovery room in stable condition. Patient tolerated procedure well and there were no com plications. Sanjeev Joyner, my physician yard assistant, was present for the entire procedure. His assistance was essential and required for appropriate patient positioning, prepping and draping, surgical exposure, performing the technical details of the operation, placement the implants, closure of the wound, and placement of the sterile bandage. I attest to the content of the Intraoperative Record and any orders documented therein. Any exceptions are noted below.
--- NOTE | 2022-10-05 09:11 | XRay Report ---
AP PELVIS, CROSSTABLE LATERAL LEFT HIP History: Left total hip arthroplasty. Degenerative arthritis. Postop. FINDINGS: The patient is status post a left total hip arthroplasty. The hardware is intact. No fractu re or dislocation. Skin herbert are in place. IMPRESSION: Left total hip arthroplasty. No evidence for hardware complication. ACT 112: Negative or not required by law. Electronically signed by: Víctor Bush M.D. 10/05/2022 9:10 AM
--- NOTE | 2022-10-05 09:13 | Anesthesiology Progress Note ---
Date of Service October 05, 2022 Anesthesia Post Procedure Vital Signs Vital Signs: Temp Pulse Pulse Resp BP BP Pulse Ox 10/05/22 09:05 92 H 14 118/72 93 10/05/22 08:55 95 H 14 96/68 L 95 10/05/22 08:45 93 H 16 99/57 L 98 10/05/22 08:35 96 H 19 79/46 L 98 10/05/22 08:26 97.7 F 96 H 16 94/49 L 99 10/05/22 05:51 10/05/22 05:45 98.6 F 105 H 20 144/92 H 95 O2 Del Method O2 Flow Rate 10/05/22 09:05 Room Air 10/05/22 08:55 Room Air 10/05/22 08:45 Room Air 10/05/22 08:35 Room Air 10/05/22 08:26 Oxymask 6 10/05/22 05:51 Room Air 10/05/22 05:45 Room Air Transfer of Care Handoff Completed per policy Notes Mental Status: alert / awake / arousable and participated in evaluation Patient Amnestic to Procedure: Yes Nausea / Vomiting: adequately controlled Pain: adequately controlled Airway Patency, RR, SpO2: stable & adequate BP & HR: stable & adequate Hydration State: stable & adequate Neuraxial Anesthesia: was administered and sensory block is resolving Anesthetic Complications: no major complications apparent and Pt Satisfied with anesthetic care
[2022-10-05] MEDS ORDERED: ALBUTEROL HFA 8 GM INHALER INH PRN (10:03)
[2022-10-05] MEDS ORDERED: MULTIVITAMIN TAB PO SCH (10:03)
[2022-10-05] MEDS ORDERED: NALOXONE HCL 0.4 MG/1 ML VIAL/CARP IV PRN (10:03)
[2022-10-05] MEDS ORDERED: NON-FORMULARY MEDICATION (Prevagen 1 TAB) PO SCH (10:03)
[2022-10-05] MEDS ORDERED: ALBUTEROL 0.083% NEBU SOLN 3 ML VIAL INH PRN (10:03)
[2022-10-05] MEDS ORDERED: MAGNESIUM HYDROXIDE SUSP 30 ML UDC PO PRN (10:03)
[2022-10-05] MEDS ORDERED: traMADol HCL 50 MG TABLET PO PRN (10:03)
[2022-10-05] MEDS ORDERED: bisacodyL 10 MG SUPP PR PRN (10:03)
[2022-10-05] MEDS ORDERED: METOCLOPRAMIDE HCL INJ 5 MG/ML 2 ML VIAL IV PRN (10:03)
[2022-10-05] MEDS ORDERED: NON-FORMULARY MEDICATION (Fluticasone-Umeclidin-Vilanter [Trelegy Ellipta] 100-62.5-25 mcg INH SCH (10:03)
[2022-10-05] MEDS ORDERED: NITROGLYCERIN SL 0.4 MG/TAB TAB SL PRN (10:03)
[2022-10-05] MEDS ORDERED: ALUMINUM/MAGNESIUM SUSP 30 ML UDC PO PRN (10:03)
[2022-10-05] MEDS ORDERED: HYDROmorphone INJ 0.5 MG/0.5 ML SYR IV PRN (10:03)
[2022-10-05] MEDS ORDERED: diphenhydrAMINE Capsule 25 MG CAP PO PRN (10:09)
[2022-10-05] MEDS: ASPIRIN 81 MG ECTAB PO SCH ×2 (10:33→20:47)
[2022-10-05] MEDS: EZETIMIBE 10 MG TABLET PO SCH (10:33)
[2022-10-05] MEDS: METOPROLOL SUCC 25MG EXT REL TAB PO SCH (10:33)
[2022-10-05] MEDS: TAMSULOSIN HCL 0.4 MG CAP PO SCH (10:48)
[2022-10-05] MEDS: SENNA 8.6 MG TAB PO SCH ×2 (10:48→20:46)
[2022-10-05] MEDS: CEROVITE ADV FORMULA TAB PO SCH (10:48)
[2022-10-05] MEDS: SODIUM CHLORIDE 0.9% 1000ML 1,000 ML IV SCH ×2 (10:48→20:45)
[2022-10-05] MEDS: KETOROLAC TROMETHAMINE 15 MG/ML VIAL IV SCH ×3 (10:49→23:56)
[2022-10-05] MEDS: DOCUSATE SODIUM 100 MG CAP PO SCH ×2 (10:49→20:46)
[2022-10-05] MEDS: LOSARTAN POTASSIUM 50 MG TAB PO SCH (10:49)
[2022-10-05] MEDS: ACETAMINOPHEN 500 MG TAB PO SCH ×2 (13:10→21:57)
[2022-10-05] MEDS: ceFAZolin 2000MG 2,000 MG/15 ML SYR IV SCH ×2 (13:10→21:58)
[2022-10-05] MEDS ORDERED: TRANEXAMIC ACID / 0.7% NACL 1,000 MG/100 ML BAG IV SCH (14:30)
[2022-10-05] MEDS: ASCORBIC ACID 500 MG TAB PO SCH (17:33)
[2022-10-05] MEDS ORDERED: ROSUVASTATIN CALCIUM 20 MG TAB PO SCH (21:00)
[2022-10-05] MEDS ORDERED: SENNA 8.6 MG TAB PO SCH (21:00)
[2022-10-06] MEDS: ACETAMINOPHEN 500 MG TAB PO SCH (05:10)
[2022-10-06] MEDS: KETOROLAC TROMETHAMINE 15 MG/ML VIAL IV SCH (05:10)
[2022-10-06 05:59] LABS: Basophils # (auto) 0.01 K/uL (0-0.2); Basophils % (auto) 0.1 %; Hematocrit (blood only) 35.1 % (42.0-52.0); Hemoglobin 12.2 g/dl (14.0-18.0); Immature Granulocytes # (auto) 0.06 K/uL (0.01-0.20); Immature Granulocytes % (auto) 0.6 %; Lymphocytes # (auto) 0.62 K/uL (1.2-3.4); Lymphocytes % (auto) 6.3 %; Mean Corpuscular Hemoglobin 31.9 pg (25.0-34.0); Mean Corpuscular Hgb Conc 34.8 g/dL (32.0-36.0); Mean Corpuscular Volume 91.9 fL (80.0-100.0); Mean Platelet Volume 9.1 fL (9.4-12.4); Monocytes # (auto) 0.94 K/uL (0.11-0.59); Monocytes % (auto) 9.5 %; Neutrophils # (auto) 8.22 K/uL (1.40-6.50); Neutrophils % (auto) 83.5 %; Platelet Count 122 K/uL (130-400); RDW Standard Deviation 46.4 fL (36.4-46.3); Red Blood Count 3.82 M/uL (4.70-6.10); White Blood Count 9.85 K/ul (4.8-10.8)
[2022-10-06 06:16] LABS: BUN Creatinine Ratio 16.3 (10-20); Calcium 8.4 mg/dl (8.6-10.3); Creatinine Clr Calc Pharmacy 63.2 ml/min; Est GFR (African American) 61.2 ml/min; Est GFR (Non-African American) 52.8 ml/min
[2022-10-06] MEDS ORDERED: dexAMETHasone 10 MG in SYRINGE 0 ML IV SCH (08:00)
--- NOTE | 2022-10-06 08:03 | Progress Notes ---
DATE OF SERVICE: 10/06/2022. SUBJECTIVE: A 72-year-old gentleman, postoperative day 1 from a left hip replacement. He had a pret ty good night. He rates his pain as a 2. No chest pain or shortness of breath. Not feeling dizzy o r lightheaded. OBJECTIVE: VITAL SIGNS: Temperature is 36.7. Vital signs are stable. GENERAL: Shows a pleasant, elderly male. Lying on bed this morning. Looks comfortable. LUNGS: Clear to auscultation. HEART: Regular rate and rhythm. ABDOMEN: Soft, nontender, nondistended. EXTREMITIES: Grossly neurovascularly intact except as follows. Examination of the left hip reveals the dressing to be clean, dry and intact. Leg lengths are equal. Hip is located. He is neurologically intact. LABORATORY DATA: Hemoglobin 12.2. Hematocrit 35.1. Electrolytes are stable. ASSESSMENT: A 72-year-old gentleman, postoperative day 1 from a left hip replacement, doing pretty w ell. Pain is controlled. Hip is located. He is neurologically intact. PLAN: 1. DVT prophylaxis includes thigh-high TEDs, SCDs and back on his Eliquis. We had a prophylactic do se today and back to his therapeutic dose tomorrow. 2. PT/OT, weightbear as tolerated. Left total hip protocol. 3. Pain control, doing okay with current pain regimen. 4. Disposition: Plan is to discharge him to home with some home health if he does okay in therapy t marisabel. Job ID: [id number]
[2022-10-06] MEDS: METOPROLOL SUCC 25MG EXT REL TAB PO SCH (08:19)
[2022-10-06] MEDS: EZETIMIBE 10 MG TABLET PO SCH (08:19)
[2022-10-06] MEDS: CEROVITE ADV FORMULA TAB PO SCH (08:19)
[2022-10-06] MEDS: ASCORBIC ACID 500 MG TAB PO SCH (08:19)
[2022-10-06] MEDS: TAMSULOSIN HCL 0.4 MG CAP PO SCH (08:19)
[2022-10-06] MEDS: LOSARTAN POTASSIUM 50 MG TAB PO SCH (08:19)
[2022-10-06] MEDS: ASPIRIN 81 MG ECTAB PO SCH (08:19)
[2022-10-06] MEDS: SENNA 8.6 MG TAB PO SCH (08:20)
[2022-10-06] MEDS: DOCUSATE SODIUM 100 MG CAP PO SCH (08:20)
[2022-10-06] MEDS ORDERED: FLUTICASONE FUROATE 100MCG 14 PUFFS/INHALER INH SCH (09:00)
[2022-10-06] MEDS ORDERED: PANTOprazole 40 MG TAB PO SCH (09:00)
[2022-10-06] MEDS ORDERED: UMECLIDINIUM/VILANTEROL 62.5/25MCG 7 PUFFS/INHALER INH SCH (09:00)
--- NOTE | 2022-10-09 15:03 | Discharge Summary ---
Date of Service October 09, 2022 Discharge Data Procedures Performed Operation Date: 10/05/22 07:00 Actual Procedures p Left Total Hip Arthroplasty(Left) - Garett Saenz MD Hospital Course (1) S/P total left hip arthroplasty: This is a 72 year old patient admitted on 10/05/22 and underwent total hip arthroplasty. He tolerated the procedure well and there were no complications. Transferred to the PACU post op and later to the orthopedic floor for further care. He was given ancef for antibiotic prophylaxis. He was also given ROMANA stockings, SCDs, and eliquis for DVT prophylaxis. Hemoglobin, hematocrit, and vital signs were monitored during his hospital stay and remained stable. Did not require any blood transfusions. There were no complications during his hospital stay. By post op day #1 the patient was tolerating a regular diet, pain was reasonably controlled with oral pain medicine, and he was participating in physical therapy. On post op day #1 the patient was discharged home and set up with home health care. He was given printed discharge instructions including prescriptions for extra strength tylenol, aspirin, ketorolac, zofran, senokot, flomax, and tramadol. Continue hip precautions. Continue physical therapy, weight bearing as tolerated. Continue ROMANA stockings. Follow up approximately 2 weeks post op or sooner if there are problems or concerns. Coding Level of Care Code None Diagnoses S/P total left hip arthroplasty Z96.642
== END 2022-10-06 11:37 | disposition home health service (06) ==
LOC: ASU 05:02 → 3E 05:02

== ENCOUNTER 2024-02-09 18:39 | Observation (INO) ==
--- OUTSIDE RECORDS SUMMARY | 2024-02-09 18:46 | External Medical Summary | Summary of Care ---
Author Name Unknown Organization [facility] Address [address] [place] [address] Phone [phone] Care Team Providers Care Union Laborer Name Role Phone Tova Muniz DO Primary Care Provider Reason for Visit * Reason Onset Date Comments Appointment 01/22/2024 Colonoscopy Encounter Details Date Type Department Care Team (Late st Contact Info) Description 01/22/2024 Telephone Family Practice [address], [place] [address] [place] [phone] Tova Muniz DO [address] [place], [place] [phone] Appointment (Colonoscopy) Allergies Active Allergy Reactions Criticality Noted Date Comments Iodinated Contrast Media Hives High 01/20/2009 HIVES with cath dye Lisinopril Edema airway High 12/27/2015 documented as of this encounter (statuses as of 01/23/2024) Medications Medication Sig Dispensed Refills Start Date End Date Status ONE-A-DAY MENS PO TABS Take 1 Tablet by mouth in the morning. Active Gabapentin 100 MG Oral Capsule (Neurontin)Indicatio ns:Acute left-sided low back pain with left-sided sciatica,Displacemen t of lumbar intervertebral disc without myelopathy take 1 capsule by mouth every morning and AT NOON and BEFORE BEDTIME 90 Capsule 3 07/23/2022 Active Additional Information Patient taking differently: 100 mg Oral PRN, Reported on 10/17/2022 predniSONE 20 MG Oral Tablet (Deltasone)Indicatio ns:COPD, group C, by GOLD 2017 classification ([facility]) Take 4 tabs daily for 2 days, 3 tabs daily for 2 days, 2 tabs daily for 2 days, 1 tab daily for 2 days 20 Tablet 02/05/2023 Active Betamethasone Dipropionate 0.05 % External Cream (Diprosone)Indicatio ns:Rash and nonspecific skin eruption Apply topically to affected area 2 times a day. To affected area. 60 g 1 02/05/2023 Active Aspirin 81 MG Oral Tablet Delayed ReleaseIndications:C oronary artery disease involving [place] coronary artery of [place] heart without angina pectoris,HTN, goal below 140/90,Dyslipidemia, goal LDL below 70 Take 1 Tablet by mouth in the morning. 30 Tablet 11 04/23/2023 Active Probiotic Oral Packet Take 1 Capsule by mouth in the morning. Active Rosuvastatin Calcium 40 MG Oral Tablet (Crestor)Indications :Coronary artery disease involving [place] coronary artery of [place] heart without angina pectoris,HTN, goal below 140/90,Dyslipidemia, goal LDL below 70 Take 1 Tablet by mouth daily with dinner. 100 Tablet 3 09/23/2023 Active Metoprolol Succinate ER 25 MG Oral Tablet Extended Release 24 Hour (toPROL XL) Take 1 Tablet by mouth in the morning. 100 Tablet 1 09/24/2023 Active Losartan Potassium 50 MG Oral Tablet (Cozaar)Indications: HTN, goal below 140/90,Coronary artery disease involving [place] coronary artery of [place] heart without angina pectoris,Dyslipidemi a, goal LDL below 70 take 1 tablet by mouth IN THE MORNING 90 Tablet 2 09/23/2023 Active Omeprazole 20 MG Oral Capsule Delayed Release (PriLOSEC)Indication s:Heartburn Take 1 Capsule by mouth in the morning. Every morning.. 90 Capsule 09/23/2023 Active Albuterol Sulfate HFA 108 (90 Base) MCG/ACT Inhalation Aerosol SolutionIndications: COPD, moderate ([facility]) Inhale 2 Puffs by mouth every 4 hours as needed for Cough. 54 g 1 09/23/2023 Active Ipratropium-Albutero l 0.5-2.5 (3) MG/3ML Inhalation Solution (Duoneb)Indications: COPD, group C, by GOLD 2017 classification ([facility]) Inhale 3 mL via nebulizer in the morning and 3 mL at noon and 3 mL in the evening and 3 mL before bedtime. 1080 mL 09/23/2023 Active Ezetimibe 10 MG Oral Tablet (Zetia)Indications:C hronic coronary artery disease Take 1 Tablet by mouth in the morning. 90 Tablet 2 09/23/2023 Active Mucinex DM Maximum Strength 60-1200 MG Oral Tablet Extended Release 12 Hour Take 1 Tablet by mouth in the morning. Active Breztri Aerosphere 160-9-4.8 MCG/ACT Inhalation Aerosol (Budeson-Glycopyrrol -Formoterol) Inhale 2 Puffs by mouth 2 times a day. 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 Active documented as of this encounter (statuses as of 01/23/2024) Active Problems Problem Noted Date Diagnosed Date COPD, group C, by GOLD 2017 classification 07/26 Overview: Per COPD GOLD Classification [place] (myocardial infarction) 07/20/2019 Gastroesophageal reflux disease with esophagitis 07/20/2019 HTN, goal below 140/90 01/28/2017 Coronary artery disease invo lving [place] coronary artery of [place] heart without angina pectoris 11/21/2010 Dyslipidemia, goal LDL below 70 04/28/2009 Overview: Per Lipid Taxonomy. Displacement of lumbar inter vertebral disc without myelopathy 07/07/1999 documented as of this encounter (statuses as of 01/23/2024) Resolved Problems Problem Noted Date Diagnosed Date Resolved Date Stage 3a chronic kidney disease 01/24/2021 06/29/2022 Family history of prostate cancer 02/05/2019 07/20/2019 Incidental lung nodule, > 3mm and < 8mm 02/25/2018 08/22/2023 COPD, moderate 07/27/2016 07/30/2019 Overview: Per COPD GOLD Classification History of angioedema 12/27/20152019 SOB (shortness of breath) 09/27/2014 Acute sinusitis 01/24/2012 09/12/2012 Acute laryngitis 01/24/2012 07/27/2016 Overview: ICD-10 update of inactive term Spasm of muscle 09/14/2009 01/28/2017 s/p MYOCARDIAL INFARCTION 01/20/2009 Vitamin D deficiency 08/27/2008 017 Dyslipidemia, goal LDL below 160 05/21/2007 04/28/2009 Overview: Per Lipid Taxonomy. FAMILY HX MALIG.NEOPLASM PRO STATE- father; p. grandfather 05/21/2007 01/28/2017 Tobacco use disorder 09/25/2004 017 documented as of this encounter (statuses as of 01/23/2024) Immunizations Name Administration Dates Next Due COVID-19 mRNA, LNP-s, No Pre serve, 2-Dose Series (Moderna) 07/22/2020,06/24/2020 COVID-19, mRNA, LNP-s, PF, B ooster, 100mcg/0.5mg (Moderna) 04/03/2021 Pneumococcal Conjugate Vacc, 13 Valent (Prevnar) 02/12/2017 Pneumococcal Polysaccharide PPV23 (Pneumovax) 02/05/2019,01/20/2009 RSV Vac., Bivalent, Perfusio n F, Pf,0.5 Ml (Abrysvo) 06/21/2023 Seasonal Influenza, High Dos e, Trivalent, PF, IM (Fluzone HD) 01/22/2024 Seasonal Influenza, PF, 6 M & above, IM , (FluLaval or Fluzone) 02/10/2020,07/03/2019,03/22/2018,02/12 Seasonal Influenza, Quadriva lent Hd (Fluzone Hd) 01/23/2023,02/14/2022 Seasonal Influenza, Quadriva lent Hd, 65+ Yrs 02/09/2021 Seasonal Influenza, Quadriva lent, No Preserve, IM 02/13/2016 Seasonal Influenza, Trivalen t, (IIV3), with Preserv, (Fluzone) 03/02/2014,03/17/2013,05/26/2012,02/02,03/31/2010,01/20/2009,04/14/2007 ,04/30/2006 TDAP (age 10 and older)(Boostrix) 02/05/2019 TDAP, Age 7 and older, IM (Adacel) 08/27/2008 Varicella Zoster Vaccine (Adult) 09/24/2012 Zoster Vaccine Recombinant (Shingrix) 09/17/2019 ,04/24/2019 documented as of this encounter Social History Tobacco Use Types Packs/Day Years Used Date Smoking Tobacco: Former Cigarettes 1.5 50 1 06/14/1964 - 04/14/2015 Passive Smoke Exposure: Past Smokeless Tobacco: Never Alcohol Use Standard Drinks/Week Comments Yes 0 (1 standard drink = 0.6 oz pur e alcohol) 1-2 shots of whiskey a day PHQ-2 Answer Date Recorded PHQ Adult Total Score 0 10/01/2023 Hunger Vital Sign Answer Date Recorded Within the past 12 months, y ou worried that your food would run out before you got the money to buy more. Never true 01/22/20 24 Within the past 12 months, t he food you bought just didn't last and you didn't have money to get more. Never true 01/22/2024 Childcare Answer Date Recorded Do you feel overwhelmed with taking care of a child, family member or friend? No 01/22/2024 Does your family need help f inding childcare? (Household - for ages 0-17 years) Not on file 01/22/2024 Clothing Answer Date Recorded Have you been unable to get clothing when it was really needed? No 01/22/2024 Is your family able to get c lothes or diapers when needed? (Household - for ages 0-17 years) Not on file 01/22/2024 Personal Safety Answer Date Recorded Do you feel unsafe or have concerns for your saf ety? No 01/22/2024 Do you have concerns for you r family's safety? (Household - for ages 0-17 years) Not on file 01/22/2024 Utilities Answer Date Recorded Do you have trouble paying y our heating, water, or electric bill? No 01/22/2024 Is your family able to pay t he heat, water, or electric bill? (Household - for ages 0-17 years) Not on file 01/22/2024 Does your family have access to good internet? (Household - for ages 0-17 years) Not on file 01/22/2024 Employment Status Answer Date Recorded Are you unemployed or without regular income? No 01/22/2024 Does the household have a re gular source of income? (Household - for ages 0-17 years) Not on file 01/22/2024 Social Connections Answer Date Recorded How often do you feel lonely or isolated from th ose around you? Never 01/22/2024 Financial Resource Strain Answer Date R ecorded Do you have any trouble payi ng for your medications, or do you think you might in the future? No 01/22/2024 Does your family have troubl e paying for medicine? (Household - for ages 0-17 years) Not on file 01/22/2024 Transportation Needs Answer Date Record ed READ ONLY Do you have troubl e getting a ride to medical visits or work? Never True 01/22/2024 Does your family have a hard time getting a ride to doctors visits? (Household - for ages 0-17 years) Not on file 01/22/2024 Has lack of transportation k ept you from medical appointments, meetings, work, or from getting things needed for daily living? Check all that apply. No 01/22/2024 Do you (or your family) have trouble finding or paying for a ride (transportation)? (Household - for ages 0-17 years) Not on file 01/22/2024 Housing Stability Answer Date Recorded Do you currently live in a s helter or have no steady place to sleep at night? Yes 01/22/2024 READ ONLY Do you think you a re at risk of becoming homeless? No 01/22/2024 Does your family worry about paying for your home or becoming homeless? (Household - for ages 0-17 years) Not on file 0 01/22/2024 Are you homeless or worried that you might be in the future? No 01/22/2024 Are you (or your family) bairon eless or worried that you might be in the future? (Household - for ages 0-17 years) Not on file Food Insecurity Answer Date Recorded Do you need food for this week? No 01/22/2024 Are you able to get enough f ood for your family? (Household - for ages 0-17 years) Not on file 01/22/2024 Does your family need food t his week? (Household - for ages 0-17 years) Not on file 01/22/2024 Do you always have enough fo od for your family? (Household - for ages 0-17 years) Not on file 01/22/2024 Sex and Gender Information Value Date Recorded Sex Assigned at Male 09/06/2021 2:11 PM EDT Gender Identity Male 09/06/2021 2:11 PM EDT Sexual Orientation Straight 10/01/2019 12 :14 PM EDT Job Start Date Occupation Industry Not on file Not on file Not on file documented as of this encounter Miscellaneous Notes * Telephone Encounter - Lanny Rivero OSA - 01/23/2024 3:32 PM EDT Scheduled PINO Paulino 01/23/2024 3:32 PM * Telephone Encounter - Debra Shook OSA - 01/22/2024 11:51 AM EDT Needs colonoscopy Special screening for malignant neoplasms, colon [Z12.11] Answer to all questions is no Has seen arias in past Please call with date and time documented in this encounter Plan of Treatment Upcoming Encounters Date Type Department Care Team (Latest Contact Info) Description 05/28/2024 11:20 AM EST Office Visit Family Practice [address] [place] [address], [place] [address] [facility] [place] [address] Tova Muniz, DO [address] [facility] [place] [address] 06/29/2024 1:30 PM EST Office Visit Cardiology, [facility] [address] [facility] [place] [address] Jalen Camilo, DO [address] [facility] [place] [phone] 07/20/2024 9:30 AM EST Hospital Encounter ENDO [facility], Endoscopy Room [facility] [address] [place], [place] [phone] Rossy Arias, DO [address] [place], [place] [address] 07/20/2024 9:30 AM EST - 07/20/2024 10:00 AM EST Surgery ENDO [facility], Endoscopy Room [facility] [address] [place] [phone] Rossy Arias, DO [address] [place] [address] COLONOSCOPY FLEXIBLE PROXIMAL DIAGNOSTIC 10/06/2024 11:00 AM EDT Nurse Only Ancillary [address] [facility] [address] [facility] [place] [address] College, Nurse Annual Wellness Visit [address] [place] [address] Scheduled Procedures Name Priority Associated Diagnoses Date/Ti me COLONOSCOPY FLEXIBLE PROXIMAL DIAGNOSTIC Recall History of colon polyps 07/20/2024 9:30 AM EST Health Maintenance Due Date Last Done Comments Alpha-1 Antitrypsin 01/17/1970 Cologuard 01/17/1997 Fecal Occult Blood Test 01/17/1997 Sigmoidoscopy 01/17/1997 *ADVANCE DIRECTIVE NOT ON FILE 08/02/2019 COVID-19 Vaccine ( season) 2024 04/03/2021, 07/22/2020, 06/24/2020 Postponed from 01/19/2024 (Unavailable) GFR 03/28/2024 03/28/2023, 08/18, 08/22/2021, Additional history exists Colonoscopy 04/08/2024 04/08/2019, 03/21, 04/03/2016, Additional history exists Colorectal Cancer Screening 04/08/2024 Adult Wellness Visit 09/30/2024 10/01/2023, 09/25/2022, 09/06/2021 Depression Screening 09/30/2024 10/01/2023 O2 ASSESSMENT COMPLETED IN PAST YEAR FOR COPD 01/21/2025 01/22/2024 Albumin/Creatinine Ratio 09/26/2025 09/26/2022, 07/3 05/2017 DTap/Tdap Vaccines (3 - Td or Tdap) 02/05/2029 02/05/2019, 08/27/2008, 02/17/1999 AAA Screening Completed 02/12/2017 Pneumococcal Vaccine: 65+ Years Completed 02/05/2019, 02/12/2017, 01/20/2009 RETIRED - COLONOSCOPY-EVERY 5 YRS AGES 18-100 Discontinued 04/08/2019, 04/08/2019, 04/03/2016, Additional history exists Zoster Vaccines Completed 09/17/2019, 1210/2018, 09/24/2012 Lung Cancer Screening Completed 03/03/2020 , 09/23/2019, 02/25/2019, Additional history exists Influenza Vaccine (FLU shot) Completed 01/22/2024, 01/23/2023, 02/14/2022, Additional history exists HPV (Gardasil) Vaccine Aged Out No lo nger eligible based on patient's age to complete this topic Hepatitis B Vaccine Aged Out No longe r eligible based on patient's age to complete this topic MENINGOCOCCAL (MENACTRA/MENVEO) Aged Out No longer eligible based on patient's age to complete this topic documented as of this encounter Medical Devices Implanted Type Area Electrical 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 Device Identifier Shelf Expiration Date Model / Serial / Lot Lens Intraoc 14.0 - [id number] - [id number] Implanted:Qty: 1 on 07/25/2021 by Amado Nayak MD at [facility] [employer] 02/16/2026 [id number] / [id number] / [id number] Lens Intraoc 13.5 - [id number] - [id number] Implanted:Qty: 1 on 08/08/2021 by Amado Nayak MD at [facility] Right: Eye [employer] 02/16/2026 [id number] / [id number] / documented as of this encounter Care Teams Union Laborer Relationship Specialty Start Date End Date Tova Muniz DO [address] [place] [address] PCP - General Family Medicine 01/19/24 documented as of this encounter
--- OUTSIDE RECORDS SUMMARY | 2024-02-09 18:47 | External Medical Summary | Summary of Care ---
Author Name Unknown Organization [facility] Address [address] [place] [address] Phone [phone] Care Team Providers Care Lamp Developer Name Role Phone Tova Muniz DO Primary Care Provider Reason for Referral * Evaluate & Treat - Unlimited Visits (Within 10 days (routine)) - Authorized Specialty Diagnoses / Procedures Referred By Naomi russell Referred To Contact CARDIAC REHAB / Cardiology Diagnoses Hx of heart artery stent Anjel Saenz DO [address] [place] [address] Referral ID Status Reason Start Date Expiration Date Visits Requested Visits Authorized [id number] Authorized Specialty Services Required 12/06/[phone] Question Answer Referral Priority Within 10 days (routine) Where should this appointment be scheduled? [facility] Cardiac Rehabilitation Modality Virtual Based Cardiac Rehab Only Encounter Details Date Type Department Care Team (Late st Contact Info) Description 12/06/2023 Orders Only Cardiac Rehab Advanced, Virtual [address] [place] [address] Anjel Saenz DO [address] [place] [address] Hx of heart artery stent* Allergies Active Allergy Reactions Criticality Noted Date Comments Iodinated Contrast Media Hives High 01/20/2009 HIVES with cath dye Lisinopril Edema airway High 12/27/2015 documented as of this encounter (statuses as of 12/06/2023) Medications Medication Sig Dispensed Refills Start Date [...] C, by GOLD 2017 classification ([facility]) Take 4 tabs daily for [...] Tablet Delayed ReleaseIndications:C oronary artery disease involving nightmute coronary artery of nightmute heart without angina pectoris,HTN, goal below 140/90,Dyslipidemia, goal LDL below 70 Take 1 Tablet by mouth in the morning. 30 Tablet 11 04/23/2023 Active Probiotic Oral Packet Take 1 Capsule by mouth in the morning. Active Rosuvastatin Calcium 40 MG Oral Tablet (Crestor)Indications :Coronary artery disease involving nightm[place] coronary artery of [place] heart without angina pectoris,HTN, goal below 140/90,Dyslipidemia, [...] HTN, goal below 140/90,Coronary artery disease involving nightm[place] coronary artery of nightm[place] heart without angina pectoris,Dyslipidemi a, goal LDL below 70 take 1 tablet by mouth IN THE MORNING 90 Tablet 2 09/23/2023 Active Omeprazole 20 MG Oral Capsule Delayed Release (PriLOSEC)Indication s:Heartburn Take 1 Capsule by mouth in the morning. Every morning.. 90 Capsule 09/23/2023 Active Albuterol Sulfate HFA 108 (90 Base) MCG/ACT Inhalation Aerosol SolutionIndications: COPD, moderate (HCC) Inhale 2 Puffs by mouth every 4 hours as needed for Cough. 54 g 1 09/23/2023 Active Ipratropium-Albutero l 0.5-2.5 (3) MG/3ML Inhalation Solution (Duoneb)Indications: COPD, group C, by GOLD 2017 classification (HCC) Inhale 3 mL via nebulizer in the morning and 3 mL at noon and 3 mL in the evening and 3 mL before bedtime. 1080 mL 09/23/2023 Active Ezetimibe 10 MG Oral Tablet (Zetia)Indications:C hronic coronary artery disease Take 1 Tablet by mouth in the morning. In the morning.. 90 Tablet 2 09/23/2023 Active Mucinex DM Maximum Strength 60-1200 MG Oral Tablet Extended Release 12 Hour Take 1 Tablet by mouth in the morning. Active Breztri Aerosphere 160-9-4.8 MCG/ACT Inhalation Aerosol (Budeson-Glycopyrrol -Formoterol) Inhale 2 Puffs by mouth 2 times a day. 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 Displacement of lumbar inter vertebral disc without myelopathy 07/07/1999 documented as of this encounter (statuses as of 12/06/2023) Resolved Problems Problem Noted Date Diagnosed Date [...] as of this encounter (statuses as of 12/06/2023) Immunizations Name Administration Dates Next Due COVID-19 mRNA, LNP-s, No Pre serve, 2-Dose Series (Moderna) 07/22/2020,06/24/2020 COVID-19, mRNA, LNP-s, PF, B ooster, 100mcg/0.5mg (Moderna) 04/03/2021 Pneumococcal Conjugate Vacc, 13 Valent (Prevnar) 02/12/2017 Pneumococcal Polysaccharide PPV23 (Pneumovax) 02/05/2019,01/20/2009 RSV Vac., Bivalent, Perfusio n F, Pf,0.5 Ml (Abrysvo) 06/21/2023 Seasonal Influenza, PF, 6 M & above, IM , (FluLaval or Fluzone) 02/10/2020,07/03/2019,03/22/2018,02/12 Seasonal Influenza, Quadriva lent Hd (Fluzone Hd) 01/23/2023,02/14/2022 Seasonal Influenza, Quadriva lent Hd, 65+ Yrs 02/09/2021 Seasonal Influenza, Quadriva lent, No Preserve, IM 02/13/2016 Seasonal Influenza, Split, I IV3, With Preserve, Inj 03/02/2014,03/17/2013,05/26/2012,02/02,03/31/2010,01/20/2009,04/14/2007 ,04/30/2006 TDAP (age 10 and older)(Boostrix) [...] the money to buy more. Never true 04/25/20 23 Within the past 12 months, t he food you bought just didn't last and you didn't have money to get more. Never true 04/25/2023 Childcare Answer Date Recorded Do you feel overwhelmed with taking care of a child, family member or friend? No 04/25/2023 Does your family need help f inding childcare? (Household - for ages 0-17 years) Not on file 04/25/2023 Clothing Answer Date Recorded Have you been unable to get clothing when it was really needed? No 04/25/2023 Is your family able to get c lothes or diapers when needed? (Household - for ages 0-17 years) Not on file 04/25/2023 Personal Safety Answer Date Recorded Do you feel unsafe or have concerns for your saf ety? No 04/25/2023 Do you have concerns for you r family's safety? (Household - for ages 0-17 years) Not on file 04/25/2023 Utilities Answer Date Recorded Do you have trouble paying y our heating, water, or electric bill? No 04/25/2023 Is your family able to pay t he heat, water, or electric bill? (Household - for ages 0-17 years) Not on file 04/25/2023 Does your family have access to good internet? (Household - for ages 0-17 years) Not on file 04/25/2023 Employment Status Answer Date Recorded Are you unemployed or without regular income? No 04/25/2023 Does the household have a re gular source of income? (Household - for ages 0-17 years) Not on file 04/25/2023 Social Connections Answer Date Recorded How often do you feel lonely or isolated from th ose around you? Never 04/25/2023 Financial Resource Strain Answer Date R ecorded Do you have any trouble payi ng for your medications, or do you think you might in the future? No 04/25/2023 Does your family have troubl e paying for medicine? (Household - for ages 0-17 years) Not on file 04/25/2023 Transportation Needs Answer Date Record ed READ ONLY Do you have troubl e getting a ride to medical visits or work? Never True 04/25/2023 Does your family have a hard time getting a ride to doctors visits? (Household - for ages 0-17 years) Not on file 04/25/2023 Has lack of transportation k ept you from medical appointments, meetings, work, or from getting things needed for daily living? Check all that apply. (Adult - for ages 18 years and over) Not on file 04/25/2023 Do you (or your family) have trouble finding or paying for a ride (transportation)? (Household - for ages 0-17 years) Not on file 04/25/2023 Housing Stability Answer Date Recorded Do you currently live in a s helter or have no steady place to sleep at night? Yes 04/25/2023 READ ONLY Do you think you a re at risk of becoming homeless? No 04/25/2023 Does your family worry about paying for your home or becoming homeless? (Household - for ages 0-17 years) Not on file 1 06/26/2022 Are you homeless or worried that you might be in the future? (Adult - for ages 18 years and over) Not on file 3 Are you (or your family) bairon eless or worried that you might be in the future? (Household - for ages 0-17 years) Not on file Food Insecurity Answer Date Recorded Do you need food for this week? No 04/25/2023 Are you able to get enough f ood for your family? (Household - for ages 0-17 years) Not on file 04/25/2023 Does your family need food t his week? (Household - for ages 0-17 years) Not on file 04/25/2023 Do you always have enough fo od for your family? (Household - for ages 0-17 years) Not on file 04/25/2023 Sex and Gender Information Value Date Recorded Sex Assigned at Male 09/06/2021 2:11 PM EDT Gender Identity Male 09/06/2021 2:11 PM EDT Sexual Orientation Straight 10/01/2019 12 :14 PM EDT Job Start Date Occupation Industry Not on file Not on file Not on file documented as of this encounter Progress Notes * Rupert Pederson EPC - 12/06/2023 3:46 PM EDT We would like to let you know that your patient has chosen to participate in [facility] Virtual [facility]iac Rehab program in partnership with [employer]. [employer] is a specialized company that specializes in providing cardiac rehab service. Our program is supervised by [facility] clinicians and includes all the herbert of our in-person rehab programs, such as exercise training and heart healthy education. During the 12-week program, patients meet with an livestock inspector over video to work on their recovery 2-3 times per week to help support them and strengthen their heart. To begin the process of enrollment, Dr. Anjel Saenz, [facility] [employer] has placed an outpatient cardiac rehabilitation referral for your patient to participate in our virtual program with [employer]. If you have any questions or concerns about this program, please contact Fifi Lazo [facility], [email or web address]. Thank you, Cardiac Rehabilitation Staff [facility] [address] [place] [address] [email or web address] documented in this encounter Plan of Treatment Upcoming Encounters Date Type Department Care Team (Late st Contact Info) Description 01/22/2024 11:20 AM EDT Office Visit Family Practice [address] [facility] [address] [place] [address] Tova Muniz, DO [address] [place] [address] 02/24/2024 8:00 AM EDT Office Visit Cardiology, [facility] [address] [place] [address] Jalen Camilo, DO [address] [facility] [place] [address] 10/06/2024 11:00 AM EDT Nurse Only Ancillary [address] [facility] [address] [place] [address] College, Nurse Annual Wellness Visit [address] [place] [address] Scheduled Procedures Name Priority Associated Diagnoses Date/Ti me COLONOSCOPY FLEXIBLE PROXIMAL DIAGNOSTIC Recall History of colon polyps Scheduled Referrals Name Type Priority Associated Diagnoses Orde r Schedule CARDIAC REHAB REFERRAL OP Referral Within 10 days (routine) Hx of heart artery stent Ordered: 12/06/2023 Health Maintenance Due Date Last Done Comments Alpha-1 Antitrypsin 01/17/1970 Cologuard 01/17/1997 Fecal Occult Blood Test 01/17/1997 Sigmoidoscopy 01/17/1997 *ADVANCE DIRECTIVE NOT ON FILE 08/02/2019 COVID-19 Vaccine ( season) 2023 04/03/2021, 07/22/2020, 06/24/2020 *CXR OR CT FOR COPD EVER 12/01/2023 Influenza Vaccine (FLU shot) (#1) 2024 01/23/2023, 02/14/2022, 02/09/2021, Additional history exists GFR 03/28/2024 03/28/2023, 08/18, 08/22/2021, Additional history exists Colonoscopy 04/08/2024 04/08/2019, 03/21, 04/03/2016, Additional history exists Colorectal Cancer Screening 04/08/2024 Depression Screening 09/30/2024 10/01/2023 O2 ASSESSMENT COMPLETED IN PAST YEAR FOR COPD 09/30/2024 10/01/2023 Albumin/Creatinine Ratio 09/26/2025 09/26/2022, 11/19 DTaP,Tdap,and Td Vaccines (3 - Td or Tdap) 02/05/2029 02/05/2019, 08/27/2008, 02/17/1999 AAA Screening Completed 02/12/2017 Pneumococcal Vaccine: 65+ Years Completed 02/05/2019, 02/12/2017, 01/20/2009 RETIRED - COLONOSCOPY-EVERY 5 YRS AGES 18-100 Discontinued 04/08/2019, 04/08/2019, 04/03/2016, Additional history exists Zoster Vaccines Completed 09/17/2019, 10/2018, 09/24/2012 Lung Cancer Screening Completed 03/03/2020 , 09/23/2019, 02/25/2019, Additional history exists *BASELINE EKG FOR HTN Completed 08/22/2021 , 07/11/2020, 12/30/2017, Additional history exists HPV (Gardasil) Vaccine Aged Out No lo nger eligible based on patient's age to complete this topic Hepatitis B Vaccine Aged Out No longe r eligible based on patient's age to complete this topic MENINGOCOCCAL (MENACTRA/MENVEO) Aged Out No longer eligible based on patient's age to complete this topic documented as of this encounter Medical Devices Implanted Type Area Intelligent Systems Engineer Device Identifier Shelf Expiration Date Model / Serial / Lot Lens Intraoc 14.0 - [id number] - [id number] Implanted:Qty: 1 on 07/25/2021 by Amado Nayak MD at OR [facility] [employer] 02/16/2026 [id number] / [id number] / [id number] Lens Intraoc 13.5 - [id number] - [id number] Implanted:Qty: 1 on 08/08/2021 by Amado Nayak MD at [facility] Right: Eye [employer] 02/16/2026 [id number] / [id number] / documented as of this encounter Visit Diagnoses Diagnosis Hx of heart artery stent- Primary Postsurgical percutaneous transluminal coronary angioplasty status documented in this encounter Care Teams Lamp Developer Relationship Specialty Start Date End Date Tova Muniz DO PCP - General Family Medicine 06/29/22 documented as of this encounter
--- OUTSIDE RECORDS SUMMARY | 2024-02-09 18:47 | External Medical Summary | Summary of Care ---
Author Name Unknown Organization [facility] Address [address] [place] [address] Phone [phone] Care Team Providers Care Learning And Development Intern Name Role Phone Tova Muniz Primary Care Provider Reason for Visit * Reason Onset Date Comments Patient Assistance Program 11/01/2023 Encounter Details Date Type Department Care Team (Late st Contact Info) Description 11/01/2023 Telephone Family Practice [address] [place] [address] [place] [address] Mala Barrett, [facility] [address] [place] [address] Patient Assistance Program Allergies Active Allergy Reactions Criticality Noted Date Comments Iodinated Contrast Media Hives High 01/20/2009 HIVES with cath dye Lisinopril Edema airway High 12/27/2015 documented as of this encounter (statuses as of 11/08/2023) Medications Medication Sig Dispensed Refills Start Date End Date Status ONE-A-DAY MENS PO TABS Take 1 Tablet by mouth in the morning. Active Gabapentin 100 MG Oral Capsule (Neurontin)Indicati ons:Acute left-sided low back pain with left-sided sciatica,Displaceme nt of lumbar intervertebral disc without myelopathy take 1 capsule by mouth every morning and AT NOON and BEFORE BEDTIME 90 Capsule 3 07/23/2022 Active Additional Information Patient taking differently: 100 mg Oral PRN, Reported on 10/17/2022 predniSONE 20 MG Oral Tablet (Deltasone)Indicati ons:COPD, group C, by GOLD 2017 classification ([facility]) Take 4 tabs daily for 2 days, 3 tabs daily for 2 days, 2 tabs daily for 2 days, 1 tab daily for 2 days 20 Tablet 02/05/2023 Active Betamethasone Dipropionate 0.05 % External Cream (Diprosone)Indicati ons:Rash and nonspecific skin eruption Apply topically to affected area 2 times a day. To affected area. 60 g 1 02/05/2023 Active Aspirin 81 MG Oral Tablet Delayed ReleaseIndications: Coronary artery disease involving [place] coronary artery of [place] heart without angina pectoris,HTN, goal below 140/90,Dyslipidemia , goal LDL below 70 Take 1 Tablet by mouth in the morning. 30 Tablet 11 04/23/2023 Active Probiotic Oral Packet Take 1 Capsule by mouth in the morning. Active Rosuvastatin Calcium 40 MG Oral Tablet (Crestor)Indication s:Coronary artery disease involving [place] coronary artery of [place] heart without angina pectoris,HTN, goal below 140/90,Dyslipidemia , goal LDL below 70 Take 1 Tablet by mouth daily with dinner. 100 Tablet 3 09/23/2023 Active Metoprolol Succinate ER 25 MG Oral Tablet Extended Release 24 Hour (toPROL XL) Take 1 Tablet by mouth in the morning. 100 Tablet 1 09/24/2023 Active Losartan Potassium 50 MG Oral Tablet (Cozaar)Indications :HTN, goal below 140/90,Coronary artery disease involving [place] coronary artery of [place] heart without angina pectoris,Dyslipidem ia, goal LDL below 70 take 1 tablet by mouth IN THE MORNING 90 Tablet 2 09/23/2023 Active Omeprazole 20 MG Oral Capsule Delayed Release (PriLOSEC)Indicatio ns:Heartburn Take 1 Capsule by mouth in the morning. Every morning.. 90 Capsule 09/23/2023 Active Albuterol Sulfate HFA 108 (90 Base) MCG/ACT Inhalation Aerosol SolutionIndications :COPD, moderate ([facility]) Inhale 2 Puffs by mouth every 4 hours as needed for Cough. 54 g 1 09/23/2023 Active Ipratropium-Albuter ol 0.5-2.5 (3) MG/3ML Inhalation Solution (Duoneb)Indications :COPD, group C, by GOLD 2017 classification ([facility]) Inhale 3 mL via nebulizer in the morning and 3 mL at noon and 3 mL in the evening and 3 mL before bedtime. 1080 mL 09/23/2023 Active Ezetimibe 10 MG Oral Tablet (Zetia)Indications: Chronic coronary artery disease Take 1 Tablet by mouth in the morning. In the morning.. 90 Tablet 2 09/23/2023 Active Mucinex DM Maximum Strength 60-1200 MG Oral Tablet Extended Release 12 Hour Take 1 Tablet by mouth in the morning. Active Breztri Aerosphere 160-9-4.8 MCG/ACT Inhalation Aerosol (Budeson-Glycopyrro l-Formoterol) Inhale 2 Puffs by mouth 2 times a day. 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) 11/06/2023 Active Trelegy Ellipta 100-62.5-25 MCG/ACT Aerosol Powder Breath Activated (Fluticasone-Umecli dinium-Vilanterol)I ndications:COPD, group C, by GOLD 2017 classification ([facility]) inhale 1 puff by mouth IN THE MORNING 180 Blister Dosing Unit 1 09/24/2023 11/06/19 24 Discontinu ed(Medicat ion/Dose Changed) documented as of this encounter (statuses as of 11/08/2023) Active Problems Problem Noted Date Diagnosed Date COPD, group C, by GOLD 2017 classification 07/26 Overview: Per COPD GOLD Classification Old [place] (myocardial infarction) 07/20/2019 Gastroesophageal reflux disease with esophagitis 07/20/2019 HTN, goal below 140/90 01/28/2017 Coronary artery disease invo lving [place] coronary artery of [place] heart without angina pectoris 11/21/2010 Dyslipidemia, goal LDL below 70 04/28/2009 Overview: Per Lipid Taxonomy. 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 No answer, lmom for him to call back. Faxed signed rx from Dr. Muniz to pharmacy reimbursement. Mala Corona, Pharm D, BCACP Clinical Pharmacist [address] [facility] 11/06/2023, 1:43 PM Ph. [phone] * Telephone Encounter - Mala Barrett RPh - 11/01/2023 11:31 AM EDT Patient reported during a CMR that his Trelegy is in the donut hole and he cannot afford it. Pleaseassess for patient assistance for Trelegy or therapeutic alternative (Breztri). He reports income is above PACE threshold. If nothing available, please send back and we will have to change patient's medication. Thanks! Mala documented in this encounter Plan of Treatment Upcoming Encounters Date Type Department Care Team (Late st Contact Info) Description 12/25/2023 11:20 AM EDT Office Visit Family Practice 65 [facility] [address] [place] [address] Tova Muniz, DO [address] [place] [address] 02/24/2024 8:00 AM EDT Office Visit Cardiology, [facility] [address] [facility] [place] [address] Jalen Camilo, DO [address] [facility] [place] [address] 10/06/2024 11:00 AM EDT Nurse Only Ancillary 65 [facility] [address] [place] [address] College, Nurse Annual Wellness Visit [address] [place] [address] Scheduled Procedures Name Priority Associated Diagnoses Date/Ti me COLONOSCOPY FLEXIBLE PROXIMAL DIAGNOSTIC Recall History of colon polyps Health Maintenance Due Date Last Done Comments Alpha-1 Antitrypsin 01/17/1970 Cologuard 01/17/1997 Fecal Occult Blood Test 01/17/1997 Sigmoidoscopy 01/17/1997 *ADVANCE DIRECTIVE NOT ON FILE 08/02/2019 COVID-19 Vaccine ( season) 2023 04/03/2021, 07/22/2020, 06/24/2020 GFR 03/28/2024 03/28/2023, 08/18, 08/22/2021, Additional history [...] history exists Influenza Vaccine (FLU shot) Completed 01/23/2023, 02/14/2022, 02/09/2021, Additional history exists GARDASIL-HPV IMMUNIZATION SERIES Aged Out No longer eligible based on patient's age to complete this topic Hepatitis B Aged Out No longer eligi ble based on patient's age to complete this topic MENINGOCOCCAL (MENACTRA/MENVEO) Aged Out No longer eligible based on patient's age to complete this topic documented as of this encounter Medical Devices Implanted Type Area Vp Of Marketing Device Identifier Shelf Expiration Date Model / Serial / Lot Lens Intraoc 14.0 - [id number] - [id number] Implanted:Qty: 1 on 07/25/2021 by Amado Nayak MD at OR [facility] [employer] 02/16/2026 [id number] / [id number] / [id number] Lens Intraoc 13.5 - [id number] - [id number] Implanted:Qty: 1 on 08/08/2021 by Amado Nayak MD at OR [facility] Right: Eye [employer] 02/16/2026 [id number] / [id number] / documented as of this encounter Care Teams Learning And Development Intern Relationship Specialty Start Date End Date Tova Muniz DO PCP - General Family Medicine 06/29/22 documented as of this encounter
--- OUTSIDE RECORDS SUMMARY | 2024-02-09 18:47 | External Medical Summary | Summary of Care ---
Author Name Unknown Organization [facility] Address [address] [place] [address] Phone [phone] Care Team Providers Care Key Sander Name Role Phone Tova Muniz Primary Care Provider Encounter Details Date Type Department Care Team (Latest Contact Info) Description 11/24/2023 Medication Management [place] [facility] [address] [place] [address] Kay Mas, [facility] [address] [place] [address] Referred for medication therapy management* Allergies Active Allergy Reactions Criticality Noted Date Comments Iodinated Contrast Media Hives High 01/20/2009 HIVES with cath dye Lisinopril Edema airway High 12/27/2015 documented as of this encounter (statuses as of 11/24/2023) Medications Medication Sig Dispensed Refills Start Date [...] ns:COPD, group C, by GOLD 2017 classification ([facility]) Take 4 tabs daily for [...] Tablet Delayed ReleaseIndications:C oronary artery disease involving redding coronary artery of redding heart without angina pectoris,HTN, goal below 140/90,Dyslipidemia, goal LDL below 70 Take 1 Tablet by mouth in the morning. 30 Tablet 11 04/23/2023 Active Probiotic Oral Packet Take 1 Capsule by mouth in the morning. Active Rosuvastatin Calcium 40 MG Oral Tablet (Crestor)Indications :Coronary artery disease involving redding coronary artery of redding heart without angina pectoris,HTN, goal below 140/90,Dyslipidemia, [...] HTN, goal below 140/90,Coronary artery disease involving redding coronary artery of redding heart without angina pectoris,Dyslipidemi a, goal LDL below 70 take 1 tablet by mouth IN THE MORNING 90 Tablet 2 09/23/2023 Active Omeprazole 20 MG Oral Capsule Delayed Release (PriLOSEC)Indication s:Heartburn Take 1 Capsule by mouth in the morning. Every morning.. 90 Capsule 09/23/2023 Active Albuterol Sulfate HFA 108 (90 Base) MCG/ACT Inhalation Aerosol SolutionIndications: COPD, moderate ([facility]) Inhale 2 Puffs by mouth every 4 hours as needed for Cough. 54 g 1 09/23/2023 Active Ipratropium-Albutero l 0.5-2.5 (3) MG/3ML Inhalation Solution (Duoneb)Indications: COPD, group C, by GOLD 2017 classification ([facility]) Inhale 3 mL via nebulizer [...] by mouth 2 times a day. (From parts facilitator) 11/06/2023 Active documented as of this encounter (statuses as of 11/24/2023) Active Problems Problem Noted Date Diagnosed Date COPD, group C, by GOLD 2017 classification 07/26 Overview: Per COPD GOLD Classification Old [place] (myocardial infarction) 07/20/2019 Gastroesophageal reflux disease with esophagitis 07/20/2019 HTN, goal below 140/90 01/28/2017 Coronary artery disease invo lving redding coronary artery of redding heart without angina pectoris 11/21/2010 Dyslipidemia, goal LDL below 70 04/28/2009 Overview: Per Lipid Taxonomy. Displacement of lumbar inter vertebral disc without myelopathy 07/07/1999 documented as of this encounter (statuses as of 11/24/2023) Resolved Problems Problem Noted Date Diagnosed Date [...] as of this encounter (statuses as of 11/24/2023) Immunizations Name Administration Dates Next Due COVID-19 [...] as of this encounter Progress Notes * Katja Navarro saddle mechanic - 11/24/2023 7:17 PM EDT Ed Marks is a 73 year old male. TMR Interventions TMR Adherence - Maintenance Medications: TRELEGY AER 100MCG Incomplete Encounter MTPs No medication therapy recommendations to display Complete Encounter MTPs Referred for medication therapy management Rationale: Patient Education - Adherence - Adherence Recommendation: Provide Education Status: Patient Agreed Note: TMR for maintenance medications Assessment & Plan Indication, effectiveness, safety and convenience of his medications were reviewed today. The patient's medical conditions were assessed, evaluated, and deemed meeting goals of drug therapy, with thefollowing exceptions. DAISY Hoskins Tech 11/24/2023, 7:17 PM documented in this encounter Plan of Treatment Upcoming Encounters Date Type Department Care Team (Late st Contact Info) Description 01/22/2024 11:20 AM EDT Office Visit Family Practice 65 [facility] [address] [place] [address] Tova Muniz DO 293 [place] [address] 02/24/2024 8:00 AM EDT Office Visit Cardiology, [facility] 132 [facility] [place] [address] Jalen Camilo, DO [address] [place] [address] 10/06/2024 11:00 AM EDT Nurse Only Ancillary 65 [facility] 293 [facility], [place] [address] College, Nurse Annual Wellness Visit [address] [facility] [address] [facility] [place] [address] Scheduled Procedures Name Priority Associated Diagnoses Date/Ti me COLONOSCOPY FLEXIBLE PROXIMAL DIAGNOSTIC Recall History of colon polyps Health Maintenance Due Date Last Done Comments Alpha-1 Antitrypsin 01/17/1970 Cologuard 01/17/1997 Fecal Occult Blood Test 01/17/1997 Sigmoidoscopy 01/17/1997 *ADVANCE DIRECTIVE NOT ON FILE 08/02/2019 COVID-19 Vaccine ( season) 2023 04/03/2021, 07/22/2020, 06/24/2020 Influenza Vaccine (FLU shot) (#1) 2024 01/23/2023, [...] 03/03/2020 , 09/23/2019, 02/25/2019, Additional history exists HPV (Gardasil) Vaccine Aged Out No lo nger eligible based on patient's age to complete this topic Hepatitis B Vaccine Aged Out No longe r eligible based on patient's age to complete this topic MENINGOCOCCAL (MENACTRA/MENVEO) Aged Out No longer eligible based on patient's age to complete this topic documented as of this encounter Medical Devices Implanted Type Area Business Analyst Ecommerce Device Identifier Shelf Expiration Date Model / Serial / Lot Lens Intraoc 14.0 - [id number] - [id number] Implanted:Qty: 1 on 07/25/2021 by Amado Nayak MD at OR [facility] [employer] 02/16/2026 [id number] / [id number] / [id number] Lens Intraoc 13.5 - [id number] - [id number] Implanted:Qty: 1 on 08/08/2021 by Amado Nayak MD at OR [facility] Right: Eye [employer] 02/16/2026 [id number] / [id number] / documented as of this encounter Visit Diagnoses Diagnosis Referred for medication therapy management- Primary Encounter for long-term (current) use of other medications documented in this encounter Care Teams Key Sander Relationship Specialty Start Date End Date Tova Muniz DO PCP - General Family Medicine 06/29/22 documented as of this encounter
--- OUTSIDE RECORDS SUMMARY | 2024-02-09 18:47 | External Medical Summary | Summary of Care ---
Author Name Unknown Organization [facility] Address [address] [place] [address] Phone [phone] Care Team Providers Care Japanese Professor Name Role Phone Tova Muniz Primary Care Provider [phone] Reason for Visit * Reason Comments Medication Management Encounter Details Date Type Department Care Team (Late st Contact Info) Description 10/28/2023 11:20 AM EDT Telemedicine Family Practice [address] [address] College, Pharmacist [address] [address] Medication management* Allergies Active Allergy Reactions Criticality Noted Date Comments Iodinated Contrast Media Hives High 01/20/2009 HIVES with cath dye Lisinopril Edema airway High 12/27/2015 documented as of this encounter (statuses as of 10/28/2023) Medications Medication Sig Dispensed Refills Start Date [...] ns:COPD, group C, by GOLD 2017 classification ([facility]) Take 4 tabs daily for [...] Tablet Delayed ReleaseIndications:C oronary artery disease involving [place] coronary artery of [place] heart without angina pectoris,HTN, goal below 140/90,Dyslipidemia, goal LDL below 70 Take 1 Tablet by mouth in the morning. 30 Tablet 11 04/23/2023 Active Probiotic Oral Packet Take by mouth. Active Rosuvastatin Calcium 40 MG Oral Tablet (Crestor)Indications :Coronary artery disease involving [place] coronary artery of [place] heart without angina pectoris,HTN, goal below 140/90,Dyslipidemia, goal LDL below 70 Take 1 Tablet by mouth daily with dinner. 100 Tablet 3 09/23/2023 Active Metoprolol Succinate ER 25 MG Oral Tablet Extended Release 24 Hour (toPROL XL) Take 1 Tablet by mouth in the morning. 100 Tablet 1 09/24/2023 Active Trelegy Ellipta 100-62.5-25 MCG/ACT Aerosol Powder Breath Activated (Fluticasone-Umeclid inium-Vilanterol)Ind ications:COPD, group C, by GOLD 2017 classification ([facility]) inhale 1 puff by mouth IN THE MORNING 180 Blister Dosing Unit 1 09/24/2023 Active Additional Information Patient not taking.Reported on 10/28/2023 Losartan Potassium 50 MG Oral Tablet (Cozaar)Indications: HTN, goal below 140/90,Coronary artery disease involving [place] coronary artery of [place] heart without angina pectoris,Dyslipidemi a, goal LDL [...] Tablet by mouth in the morning. Active documented as of this encounter (statuses as of 10/28/2023) Active Problems Problem Noted Date Diagnosed Date COPD, group C, by GOLD 2017 classification 07/26 Overview: Per COPD GOLD Classification Old [place] (myocardial infarction) 07/20/2019 Gastroesophageal reflux disease with esophagitis 07/20/2019 HTN, goal below 140/90 01/28/2017 Coronary artery disease invo lving [place] coronary artery of [place] heart without angina pectoris 11/21/2010 Dyslipidemia, goal LDL below 70 04/28/2009 Overview: Per Lipid Taxonomy. Displacement of lumbar inter vertebral disc without myelopathy 07/07/1999 documented as of this encounter (statuses as of 10/28/2023) Resolved Problems Problem Noted Date Diagnosed Date [...] as of this encounter (statuses as of 10/28/2023) Immunizations Name Administration Dates Next Due COVID-19 [...] money to get more. Never true 04/25/2023 Sex and Gender Information Value Date Recorded Sex Assigned at Male 09/06/2021 2:11 PM EDT Gender Identity Male 09/06/2021 2:11 PM EDT Sexual Orientation Straight 10/01/2019 12 :14 PM EDT Job Start Date Occupation Industry Not on file Not on file Not on file documented as of this encounter Progress Notes * Mala Barrett RPh - 10/28/2023 1:56 PM EDT CMR completed today in Medication Management encounter (10/28/23). documented in this encounter Plan of Treatment Upcoming Encounters Date Type Department Care Team (Late st Contact Info) Description 12/25/2023 11:20 AM EDT Office Visit Family Practice 65 [facility] [place] [address] [place] [address] Tova Muniz DO 293 [place] [address] 02/24/2024 8:00 AM EDT Office Visit Cardiology, Health system [address] [facility] [place] [address] Jalen Camilo, [address] [place] [address] 10/06/2024 11:00 AM EDT Nurse Only Ancillary 65 [facility] 293 [facility], [place] [address] College, Nurse Annual Wellness Visit 65 [facility] [address] [facility], [place] [address] Scheduled Procedures Name Priority Associated Diagnoses Date/Ti [...] COPD 09/30/2024 10/01/2023 Albumin/Creatinine Ratio 09/26/2025 09/26/2022, 0705/2017 DTaP,Tdap,and Td Vaccines (3 - Td or Tdap) 02/05/2029 02/05/2019, 08/27/2008, 02/17/1999 AAA Screening Completed 02/12/2017 Pneumococcal Vaccine: 65+ Years Completed 02/05/2019, 02/12/2017, 01/20/2009 RETIRED - COLONOSCOPY-EVERY 5 YRS AGES 18-100 Discontinued 04/08/2019, 04/08/2019, 04/03/2016, Additional history exists Zoster Vaccines Completed 09/17/2019, 12/0 10/2018, 09/24/2012 Lung Cancer Screening Completed 03/03/2020 [...] this encounter Medical Devices Implanted Type Area Tire Sorter Device Identifier Shelf Expiration Date Model / Serial / Lot Lens Intraoc 14.0 - [id number] - [id number] Implanted:Qty: 1 on 07/25/2021 by Amado Nayak MD at OR [facility] [employer] 02/16/2026 [id number] / [id number] / [id number] Lens Intraoc 13.5 - [id number] - [id number] Implanted:Qty: 1 on 08/08/2021 by Amado Nayak MD at OR [facility] Right: Eye [employer] 02/16/2026 [id number] / [id number] / documented as of this encounter Visit Diagnoses Diagnosis Medication management- Primary Encounter for long-term (current) use of other medications documented in this encounter Care Teams Japanese Professor Relationship Specialty Start Date End Date Tova Muniz DO [address] [place] [address] PCP - General Family Medicine 06/29/22 documented as of this encounter
--- OUTSIDE RECORDS SUMMARY | 2024-02-09 18:47 | External Medical Summary | Summary of Care ---
Author Name Unknown Organization [facility] Address [address] [place] [address] Phone [phone] Care Team Providers Care Manager Bank Name Role Phone Tova Muniz Primary Care Provider [phone] Encounter Details Date Type Department Care Team (Late st Contact Info) Description 12/10/2023 Population Health External Data Unspecified Department Allergies Active Allergy Reactions Criticality Noted Date Comments Iodinated Contrast Media Hives High 01/20/2009 HIVES with cath dye Lisinopril Edema airway High 12/27/2015 documented as of this encounter (statuses as of 12/13/2023) Medications Medication Sig Dispensed Refills Start Date [...] ns:COPD, group C, by GOLD 2017 classification ([facility] [...] Tablet Delayed ReleaseIndications:C oronary artery disease involving [place] coronary artery of [place] heart without angina pectoris,HTN, goal below 140/90,Dyslipidemia, goal LDL below 70 Take 1 Tablet by mouth in the morning. 30 Tablet 11 04/23/2023 Active Probiotic Oral Packet Take 1 Capsule by mouth in the morning. Active Rosuvastatin Calcium 40 MG Oral Tablet (Crestor)Indications :Coronary artery disease involving [place] coronary artery of [place] heart without angina pectoris,HTN, goal below 140/90,Dyslipidemia, [...] HTN, goal below 140/90,Coronary artery disease involving [place] coronary artery of [place] heart without angina pectoris,Dyslipidemi a, goal LDL below 70 take 1 tablet by mouth IN THE MORNING 90 Tablet 2 09/23/2023 Active Omeprazole 20 MG Oral Capsule Delayed Release (PriLOSEC)Indication s:Heartburn Take 1 Capsule by mouth in the morning. Every morning.. 90 Capsule 09/23/2023 Active Albuterol Sulfate HFA 108 (90 Base) MCG/ACT Inhalation Aerosol SolutionIndications: COPD, moderate ([facility]) Inhale 2 Puffs by mouth every 4 hours as needed for Cough. 54 g 1 09/23/2023 Active Ipratropium-Albutero l 0.5-2.5 (3) MG/3ML Inhalation Solution (Duoneb)Indications: COPD, group C, by GOLD 2017 classification ([facility] [...] by mouth 2 times a day. (From religious healer) 11/06/2023 Active documented as of this encounter (statuses as of 12/13/2023) Active Problems Problem Noted Date Diagnosed Date COPD, group C, by GOLD 2017 classification 07/26 Overview: Per COPD GOLD Classification Old [place] (myocardial infarction) 07/20/2019 Gastroesophageal reflux disease with esophagitis 07/20/2019 HTN, goal below 140/90 01/28/2017 Coronary artery disease invo lving [place] coronary artery of [place] heart without angina pectoris 11/21/2010 Dyslipidemia, goal LDL below 70 04/28/2009 Overview: Per Lipid Taxonomy. Displacement of lumbar inter vertebral disc without myelopathy 07/07/1999 documented as of this encounter (statuses as of 12/13/2023) Resolved Problems Problem Noted Date Diagnosed Date [...] as of this encounter (statuses as of 12/13/2023) Immunizations Name Administration Dates Next Due COVID-19 [...] on file documented as of this encounter Plan of Treatment Upcoming Encounters Date Type Department Care Team (Late st Contact Info) Description 01/22/2024 11:20 AM EDT Office Visit Family Practice 65 [facility] 293 [place] [address] Tova Muniz, DO 293 [place] [address] 06/29/2024 1:30 PM EST Office Visit Cardiology, [facility] 132 [facility] [place] [address] Jalen Camilo, DO [facility] [place] [address] 10/06/2024 11:00 AM EDT Nurse Only Ancillary 65 [facility] 293 [place] [address] College, Nurse Annual Wellness Visit [address] [address] Scheduled Procedures Name Priority Associated Diagnoses Date/Ti [...] encounter Medical Devices Implanted Type Area Tire Center Supervisor Device Identifier Shelf Expiration Date Model / Serial / Lot Lens Intraoc 14.0 - [id number] - [id number] Implanted:Qty: 1 on 07/25/2021 by Amado Nayak MD at OR [facility] [employer] 02/16/2026 [id number] / [id number] / [id number] Lens Intraoc 13.5 - [id number] - [id number] Implanted:Qty: 1 on 08/08/2021 by Amado Nayak MD at OR [facility] Right: Eye [employer] 02/16/2026 [id number] / [id number] / documented as of this encounter Care Teams Manager Bank Relationship Specialty Start Date End Date Tova Muniz DO PCP - General Family Medicine 06/29/22 documented as of this encounter
--- OUTSIDE RECORDS SUMMARY | 2024-02-09 18:47 | External Medical Summary | Summary of Care ---
Author Name Unknown Organization [facility] Address [address] [place] [address] Phone [phone] Care Team Providers Care Insurance Loss Adjuster Name Role Phone Tova Muniz Primary Care Provider Encounter Details Date Type Department Care Team (Late st Contact Info) Description 11/11/2023 Population Health External Data Unspecified Department Allergies Active Allergy Reactions Criticality Noted Date Comments Iodinated Contrast Media Hives High 01/20/2009 HIVES with cath dye Lisinopril Edema airway High 12/27/2015 documented as of this encounter (statuses as of 11/12/2023) Medications Medication Sig Dispensed Refills Start Date [...] ns:COPD, group C, by GOLD 2017 classification ([facility]) Take 4 tabs daily for [...] Tablet Delayed ReleaseIndications:C oronary artery disease involving [place] coronary artery of [place] heart without angina pectoris,HTN, goal below 140/90,Dyslipidemia, goal LDL below 70 Take 1 Tablet by mouth in the morning. 30 Tablet 11 04/23/2023 Active Probiotic Oral Packet Take 1 Capsule by mouth in the morning. Active Rosuvastatin Calcium 40 MG Oral Tablet (Crestor)Indications :Coronary artery disease involving [place] coronary artery of [place] heart without angina pectoris,HTN, goal below 140/90,Dyslipidemia, [...] HTN, goal below 140/90,Coronary artery disease involving [place] coronary artery of [place] heart without angina pectoris,Dyslipidemi a, goal LDL below 70 take 1 tablet by mouth IN THE MORNING 90 Tablet 2 09/23/2023 Active Omeprazole 20 MG Oral Capsule Delayed Release (PriLOSEC)Indication s:Heartburn Take 1 Capsule by mouth in the morning. Every morning.. 90 Capsule 09/23/2023 Active Albuterol Sulfate HFA 108 (90 Base) MCG/ACT Inhalation Aerosol SolutionIndications: COPD, moderate ([facility]) Inhale 2 Puffs by mouth every 4 hours as needed for Cough. 54 g 1 09/23/2023 Active Ipratropium-Albutero l 0.5-2.5 (3) MG/3ML Inhalation Solution (Duoneb)Indications: COPD, group C, by GOLD 2017 classification ([facility]) Inhale 3 mL via nebulizer [...] by mouth 2 times a day. (From trauma surgeon) 11/06/2023 Active documented as of this encounter (statuses as of 11/12/2023) Active Problems Problem Noted Date Diagnosed Date COPD, group C, by GOLD 2017 classification 07/26 Overview: Per COPD GOLD Classification Old [place] (myocardial infarction) 07/20/2019 Gastroesophageal reflux disease with esophagitis 07/20/2019 HTN, goal below 140/90 01/28/2017 Coronary artery disease invo lving [place] coronary artery of [place] heart without angina pectoris 11/21/2010 Dyslipidemia, goal LDL below 70 04/28/2009 Overview: Per Lipid Taxonomy. Displacement of lumbar inter vertebral disc without myelopathy 07/07/1999 documented as of this encounter (statuses as of 11/12/2023) Resolved Problems Problem Noted Date Diagnosed Date [...] as of this encounter (statuses as of 11/12/2023) Immunizations Name Administration Dates Next Due COVID-19 [...] EDT Office Visit Family Practice 65 [facility] [address] [place] [address] Tova Muniz, DO 293 [place] [address] 02/24/2024 8:00 AM EDT Office Visit Cardiology, [facility] 132 [place] [address] Jalen Camilo, DO [facility] [place] [address] 10/06/2024 11:00 AM EDT Nurse Only Ancillary 65 [facility] 293 [place] [address] College, Nurse Annual Wellness Visit [address] [address] Scheduled Procedures Name Priority Associated Diagnoses Date/Ti [...] this encounter Medical Devices Implanted Type Area Manager Treasury Device Identifier Shelf Expiration Date Model / Serial / Lot Lens Intraoc 14.0 - [id number] - [id number] Implanted:Qty: 1 on 07/25/2021 by Amado Nayak MD at OR [facility] [employer] 02/16/2026 [id number] / [id number] / [id number] Lens Intraoc 13.5 - [id number] - [id number] Implanted:Qty: 1 on 08/08/2021 by Amado Nayak MD at OR [facility] Right: Eye [employer] 02/16/2026 [id number] / [id number] / documented as of this encounter Care Teams Insurance Loss Adjuster Relationship Specialty Start Date End Date Tova Muniz DO PCP - General Family Medicine 06/29/22 documented as of this encounter
--- OUTSIDE RECORDS SUMMARY | 2024-02-09 18:47 | External Medical Summary | Summary of Care ---
Author Name Unknown Organization [facility] Address [address] [place] [address] Phone [phone] Care Team Providers Care Tube Heater Name Role Phone Tova Muniz DO Primary Care Provider Reason for Referral * Ancillary Services (Within 30 days (routine)) - Authorized Specialty Diagnoses / Procedures Referred By Naomi russell Referred To Contact Gastroenterology Diagnoses Special screening for malignant neoplasms, colon Tova Muniz DO [address] [place] [address] Referral ID Status Reason Start Date Expiration Date Visits Requested Visits Authorized [id number] Authorized Ancillary Services Required 01/22/2024 999 [id number] Question Answer Referral Priority Within 30 days (routine) Where should this appointment be scheduled? [facility] Comments ALERT: Do not order for pediatric patients (18 years or younger). Cancel off screen and order PEDS GASTROENTEROLOGY CONSULT (Type: 1 visit only-Evaluate and Treat) The following Pt. Instructions are available: - Gastro Colonoscopy Prep Instructions [[id number]] - Gastro Colonoscopy Prep Instructions (Yemeni Version) [[id number]] Go to the Pt. Instructions section within the Visit Navigator to access. Colonoscopy ASGE Guidelines: Average risk screening (begin at age 50, 10 year intervals) ADDITIONAL INFORMATION 1. Is the patient on Coumadin? No 2. Is the patient on Pradaxa? No * (Within 10 days (routine)) - Authorized Specialty Diagnoses / Procedures Referred By Naomi russell Referred To Contact Radiology Diagnoses History of tobacco abuse Procedures LUNG CANCER SCREENING PROGRAM REFERRAL Tova Muniz DO [address] [place] [address] Referral ID Status Reason Start Date Expiration Date V isits Requested Visits Authorized [id number] Authorized 01/22/[phone] Reason for Visit * Reason Onset Date Comments Follow Up Medication Administration 01/22/2024 Flu an d/or Pneumo Inj Encounter Details Date Type Department Care Team (Latest Contact Info) Description 01/22/2024 11:20 AM EDT Office Visit Family Practice [address] [place] [address] [place] [address] Tova Muniz DO [address] [place], [place] [id number] Coronary artery disease involving [place] coronary artery of [place] heart without angina pectoris*; [place] (myocardial infarction); COPD, group C, by GOLD 2017 classification ([facility]); HTN, goal below 140/90; History of tobacco abuse; Special screening for malignant neoplasms, colon; Need for prophylactic vaccination and inoculation against influenza Allergies Active Allergy Reactions Criticality Noted Date Comments Iodinated Contrast Media Hives High 01/20/2009 HIVES with cath dye Lisinopril Edema airway High 12/27/2015 documented as of this encounter (statuses as of 01/22/2024) Medications Medication Sig Dispensed Refills Start Date [...] ReleaseIndications:C oronary artery disease involving [place] coronary artery of [place] heart without angina pectoris,HTN, goal below 140/90,Dyslipidemia, goal LDL below 70 Take 1 Tablet by mouth in the morning. 30 Tablet 11 04/23/2023 Active Probiotic Oral Packet Take 1 Capsule by mouth in the morning. Active Rosuvastatin Calcium 40 MG Oral Tablet (Crestor)Indications :Coronary artery disease involving [place] coronary artery of [place] heart without angina pectoris,HTN, goal below 140/90,Dyslipidemia, [...] below 140/90,Coronary artery disease involving [place] coronary artery of [place] heart without angina pectoris,Dyslipidemi a, goal LDL [...] by mouth 2 times a day. (From finger buffs assembler) 11/06/2023 Active Prevagen 10 MG Oral Capsule (Apoaequorin) Take by mouth daily. Active documented as of this encounter (statuses as of 01/22/2024) Active Problems Problem Noted Date Diagnosed Date COPD, group C, by GOLD 2017 classification 07/26 Overview: Per COPD GOLD Classification [place] (myocardial infarction) 07/20/2019 Gastroesophageal reflux disease with esophagitis 07/20/2019 HTN, goal below 140/90 01/28/2017 Coronary artery disease invo lving [place] coronary artery of [place] heart without angina pectoris 11/21/2010 Dyslipidemia, goal LDL below 70 04/28/2009 Overview: Per Lipid Taxonomy. Displacement of lumbar inter vertebral disc without myelopathy 07/07/1999 documented as of this encounter (statuses as of 01/22/2024) Resolved Problems Problem Noted Date Diagnosed Date [...] as of this encounter (statuses as of 01/22/2024) Immunizations Name Administration Dates Next Due COVID-19 [...] Passive Smoke Exposure: Past Smokeless Tobacco: Never Tobacco Cessation:Counseling Given: Yes Alcohol Use Standard Drinks/Week Comments Yes 0 [...] on file documented as of this encounter Last Filed Vital Signs Vital Sign Reading Time Taken Comments Blood Pressure 132/74 01/22/2024 11:10 AM EDT Pulse 90 01/22/2024 11:10 AM EDT Temperature 36.6 C (97.8 F) 01/22/2024 11:10 AM E DT Respiratory Rate 14 01/22/2024 11:10 AM EDT Oxygen Saturation 95% 01/22/2024 11:10 AM EDT Inhaled Oxygen Concentration - - Weight 110.7 kg (244 lb) 01/22/2024 11:10 AM EDT Height 177.8 cm (5' 10") 01/22/2024 11:10 AM EDT Body Mass Index 35.01 01/22/2024 11:10 AM EDT documented in this encounter Patient Instructions * Patient Instructions* Tova Muniz, - 01/22/2024 11:10 AM EDT ~~PATIENT INSTRUCTIONS FOR FLU SHOT~~ Possible side effects of influenza vaccine, (flu shot), are usually mild and include: 1. Soreness or redness at injection site 2. Low grade fever 3. Body aches You may use Tylenol/Acetaminophen as needed for these symptoms. LET YOUR DOCTOR KNOW IMMEDIATELY IF YOU HAVE DIFFICULTY BREATHING OR SWALLOWING, EXPERIENCE ITCHINGOF FEET OR HANDS, HAVE SWELLING OF EYES, FACE OR INSIDE OF NOSE. Ed Marks [id number] Benefits of Quitting Smoking Why should I quit smoking? Smoking is bad for you and bad for others around you. Smoking causes cancer, heart attacks, hardening of the arteries, bronchitis, emphysema, cough, shortness of breath, wrinkles, and premature aging. It stains teeth and fingers, irritates the eyes, furs the tongue, and causes bad breath. People are living longer today than their parents did, so it makes sense to work on staying healthy and independent. One of the best ways to do this is to quit smoking. Benefits of quitting smoking It takes time to reverse many years' worth of smoking damage to your body, but some benefits of quitting smoking begin immediately. For example, you're financially better off on day one. Your health starts to improve right away, too, because you remove a former constant source of irritation from your lungs. People may comment that you no longer cough. Your blood circulation is likely to improve, so your hands and feet may feel warmer. Your teeth, breath, and fingers are no longer a turn-off. Benefits that you're less aware of also begin to occur. These include better resistance to colds and respiratory infections, less likelihood of major heart and circulation problems, less risk of high blood pressure or stroke, and less risk of developing cancer. The following arguments are often presented by smokers as justifications for their continuing to smoke: "I have to sometime, so I might as well enjoy life until then." True, but as a smoker you're much more likely to of a heart attack or cancer - neither of whichare very pleasant ways to go. "I'm only hurting myself." True, if you don't count the heartache and grief you may cause your loved ones by your early or permanent disability, or the damage of your smoke to others. "Lots of people who smoke live to ripe old ages in perfect health." True, but this is rare. Nearly all smokers have significant health problems. "Smoking is one of my pleasures. I don't want to quit." Smoking is associated with pleasure because the nicotine in tobacco is an addictive drug. Your bodywill continue to crave a regular supply until you can overcome the habit. Smoking is always a disadvantage to your health and that of your loved ones. "It's my choice and I choose to smoke." True. It is your choice. In a survey of older former smokers, more than 90% quit on their own because they decided to do so. The main reasons they gave for quitting were wanting to stay healthy, following health care provider's advice, regaining control of their lives, and making a loved one happy . [facility] Quit Line [employer] Free Quitline [phone] QUIT NOW ( ) Your insurance company may also have more information and helpful programs to help you quit. Some may even help cover some of the costs. For example, [facility] members can call to find out about their smoking cessation program and medication coverage. Developed by Frieda Alonso MD, for [employer]. Published by [employer]. Last modified: 2005-09-28 Last reviewed: 2005-07-18 This content is reviewed periodically and is subject to change as new health information becomes available. The information is intended to inform and educate and is not a replacement for medical evaluation, advice, diagnosis or treatment by a healthcare professional. Adult Health Advisor 2006.4 Index Adult Health Advisor 2006.4 Credits Copyright 2006 [employer] and/or one of its subsidiaries. All Rights Reserved. documented in this encounter Progress Notes * Anjali Collins LPN - 01/22/2024 11:10 AM EDT PRE - ADMINISTRATION DOCUMENTATION Are you experiencing any cold symptoms or fever? No Have you had Guillain-[place] Syndrome (an illness that causes paralysis) within the last 6 weeks? No Have you had the flu shot in the past? YES Have you ever had a reaction to the flu shot? No Anjali Collins LPN, 01/22/2024 11:10 AM Immunization Administration Documentation Time Out Procedure Performed: Yes Patient Identified (Ask Name/Date of ): Yes Does the patient have a fever greater than 101 degrees today? No Patient allergic to latex? No VFC Stock: No Immunization(s) verified: Yes, Immunization Name: Flu, VIS Sheet(s) given: Yes Verified Side and Site: Yes Verified Shot(s) with Parent(s)/Patient: Yes * Tova Muniz DO - 01/22/2024 11:02 AM EDT SUBJECTIVE: Chief Complaint Patient presents with Follow Up Medication Administration Flu and/or Pneumo Inj HPI: Ed Marks is a 74 year old male who presents today for regular return. Pt notes that things are going well. He does follow with his chiropractor. He notes that this helps. Pt has cardiology f/u in June. Reports no complaints. PHM: Patient Active Problem List Diagnosis Displacement of lumbar intervertebral disc without myelopathy Dyslipidemia, goal LDL below 70 Coronary artery disease involving [place] coronary artery of [place] heart without angina pectoris HTN, goal below 140/90 [place] (myocardial infarction) Gastroesophageal reflux disease with esophagitis COPD, group C, by GOLD 2017 classification ([facility]) Current Outpatient Medications Medication Sig Dispense Refill ONE-A-DAY MENS PO TABS Take 1 Tablet by mouth in the morning. Gabapentin 100 MG Oral Capsule (Neurontin) take 1 capsule by mouth every morning and AT NOON and BEFORE BEDTIME (Patient taking differently: Take 1 Capsule by mouth as needed.) 90 Capsule 3 predniSONE 20 MG Oral Tablet (Deltasone) Take 4 tabs daily for 2 days, 3 tabs daily for 2 days, 2 tabs daily for 2 days, 1 tab daily for 2 days 20 Tablet 0 Betamethasone Dipropionate 0.05 % External Cream (Diprosone) Apply topically to affected area 2 times a day. To affected area. 60 g 1 Aspirin 81 MG Oral Tablet Delayed Release Take 1 Tablet by mouth in the morning. 30 Tablet 11 Probiotic Oral Packet Take 1 Capsule by mouth in the morning. Rosuvastatin Calcium 40 MG Oral Tablet (Crestor) Take 1 Tablet by mouth daily with dinner. 100 Tablet 3 Metoprolol Succinate ER 25 MG Oral Tablet Extended Release 24 Hour (toPROL XL) Take 1 Tablet by mouth in the morning. 100 Tablet 1 Losartan Potassium 50 MG Oral Tablet (Cozaar) take 1 tablet by mouth IN THE MORNING 90 Tablet 2 Omeprazole 20 MG Oral Capsule Delayed Release (PriLOSEC) Take 1 Capsule by mouth in the morning. Every morning.. 90 Capsule 0 Albuterol Sulfate HFA 108 (90 Base) MCG/ACT Inhalation Aerosol Solution Inhale 2 Puffs by mouth every 4 hours as needed for Cough. 54 g 1 Ipratropium-Albuterol 0.5-2.5 (3) MG/3ML Inhalation Solution (Duoneb) Inhale 3 mL via nebulizer in the morning and 3 mL at noon and 3 mL in the evening and 3 mL before bedtime. 1080 mL 0 Ezetimibe 10 MG Oral Tablet (Zetia) Take 1 Tablet by mouth in the morning. 90 Tablet 2 Breztri Aerosphere 160-9-4.8 MCG/ACT Inhalation Aerosol ([place]uk-Wkojfdqjqsh-Zihrzvoeix) Inhale 2 Puffs by mouth 2 times a day. (From finger buffs assembler) Prevagen 10 MG Oral Capsule (Apoaequorin) Take by mouth daily. Mucinex DM Maximum Strength 60-1200 MG Oral Tablet Extended Release 12 Hour Take 1 Tablet by mouth in the morning. (Patient not taking: Reported on 01/22/2024) No current facility-administered medications for this visit. Past Medical History: Diagnosis Date Acute inferior myocardial infarction (HCC) Benign neoplasm of colon 03/26/2011 polyps--hyperplastic and adenomtous tissu Chronic coronary artery disease stentx2 to RCA (BMS) Dyslipidemia 04/28/2009 Per Lipid Taxonomy. Dyslipidemia, goal to be determined Family history of prostate cancer 02/05/2019 Gastroesophageal reflux disease with esophagitis 07/20/2019 History of angioedema 12/27/2015 History of tobacco use Incidental lung nodule, > 3mm and < 8mm Influenza 06/2015 Influenza Leukoplakia of larynx LUMBAR DISC DISPLACEMENT 07/07/1999 Stage 3a chronic kidney disease (HCC) 01/24/2021 Tobacco use disorder 09/25/2004 VITAMIN D DEFICIENCY NOS 08/27/2008 Past Surgical History: Procedure Laterality Date COLONOSCOPY W/ BIOPSY (RECTUM) 03/26/2011 polyps--hyperplastic and adenomtous tissue--repeat in 5 yrs COLONOSCOPY, DIAGNOSTIC (RECTUM) 04/03/2016 adenomatous polyp, diverticulosis, repeat 3 yrs/COLONOSCOPY FLEXIBLE PROXIMAL DIAGNOSTIC performed by Rossy Arias DO at [facility] COLONOSCOPY, DIAGNOSTIC (RECTUM) 04/08/2019 adenomatous polyp and inflammatory tissue on bx, diverticulosis, repeat 5 yrs/COLONOSCOPY FLEXIBLE PROXIMAL DIAGNOSTIC performed by Rossy Arias DO at [facility] COLORECTAL CANCER SCREEN; COLON 04/2002 Colonoscopy notable only for hemorrhoids. INFORMATION Pt notes that he has had several arthroscopic surgeries on L knee OPERATIVE LARYNGOSCOPY/REMOVE TUMOR 03/13/2012 Dr. Whelan [facility] OPERATIVE LARYNGOSCOPY/REMOVE TUMOR 613/13 Dr. Whelan [facility] OTHER cardiac cath with stent x 2 REMOVE CATARACT, INSERT LENS PROSTH Left 07/25/2021 Left EXTRACAPSULAR CATARACT REMOVAL WITH INTRAOCULAR LENS performed by Amado Nayak MD at OR [facility] REMOVE CATARACT, INSERT LENS PROSTH Right 08/08/2021 Right EXTRACAPSULAR CATARACT REMOVAL WITH INTRAOCULAR LENS performed by Amado Nayak MD at OR [facility] Review of patient's allergies indicates: Allergen Reactions Iodinated Contrast Media Hives HIVES with cath dye Lisinopril Edema airway Family History Problem Relation Name Age of Onset Neurological Disorder Mother Juana Marks age 65- multiple sclerosis; uncertain chest nodules Cancer Mother Juana Marks lung Heart Disorder Father Los Marks Hx coronary art. dx- age 80 Cancer Father Los Marks prostate cancer Arthritis Father Los Marks Musculo-skeletal Disorder Father Los Marks back issues No Past Hx Sister age 57 No Past Hx Sister age 47 Cancer Grandfather (Paternal) Luis Marks prostate cancer No Past Hx Daughter Arthritis Daughter back issues Other (Other) Son Hep C Family Status Relation Status Mo (Not Specified) Fa (Not Specified) Sis (Not Specified) Sis (Not Specified) PGFA (Not Specified) Saundra (Not Specified) Saundra (Not Specified) Son (Not Specified) Social History Tobacco Use Smoking status: Former Current packs/day: 0.00 Average packs/day: 1.5 packs/day for 50.0 years (75.0 ttl pk-yrs) Types: Cigarettes Start date: 04/14/1965 Quit date: 04/14/2015 Years since quittin.7 Passive exposure: Past Smokeless tobacco: Never Substance Use Topics Alcohol use: Yes Comment: 1-2 shots of whiskey a day Vaping/E-Cigarette Use Vaping/E-Cigarette Use Never User Vaping/E-Cigarette Substances Vaping/E-Cigarette Devices REVIEW OF SYSTEMS: Review of Systems Constitutional: Negative for chills, fatigue, fever and unexpected weight change. Respiratory: Negative for cough, chest tightness, shortness of breath and wheezing. Cardiovascular: Negative for chest pain, palpitations and leg swelling. Gastrointestinal: Negative for abdominal pain, constipation, diarrhea, nausea and vomiting. Musculoskeletal: Negative for arthralgias, gait problem and joint swelling. Skin: Negative for color change, pallor and rash. OBJECTIVE: BP 132/74 (BP Site: Left Arm, BP Position: Sitting, BP Cuff Size: Large) | Pulse 90 | Temp 36.6 C(97.8 F) (Tympanic) | Resp 14 | Ht 1.778 m (5' 10") | Wt 110.7 kg (244 lb) | SpO2 95% | BMI 35.01kg/m | BSA 2.34 m PHYSICAL EXAM: Physical Exam Constitutional: General: He is not in acute distress. Appearance: He is well-developed. Cardiovascular: Rate and Rhythm: Normal rate and regular rhythm. Heart sounds: Normal heart sounds. No murmur heard. No friction rub. No gallop. Pulmonary: Effort: Pulmonary effort is normal. No respiratory distress. Breath sounds: Normal breath sounds. No wheezing or rales. Abdominal: General: Bowel sounds are normal. There is no distension. Palpations: Abdomen is soft. Tenderness: There is no abdominal tenderness. There is no guarding. Musculoskeletal: General: No tenderness or deformity. Normal range of motion. Skin: General: Skin is warm and dry. Coloration: Skin is not pale. Findings: No erythema or rash. Neurological: Mental Status: He is alert and oriented to person, place, and time. ASSESSMENT/PLAN: (I25.10) Coronary artery disease involving [place] coronary artery of [place] heart without angina pectoris (primary encounter diagnosis) (I25.2) [place] (myocardial infarction) Plan: Pt doing well. No acute cardio complaints. He will continue on current regimen. No changes for now. (J44.9) COPD, group C, by GOLD 2017 classification (HCC) Plan: Pt will remain on current regimen. Working well. No complaints. (I10) HTN, goal below 140/90 Plan: BP controlled. No changes. (Z87.891) History of tobacco abuse Plan: LUNG CANCER SCREENING PROGRAM REFERRAL Pt would like to consider lung cancer screening. Appears he did not schedule previously due to cost. He would like to see cost this time around. The following information was reviewed/discussed with the patient: Benefits & harms of screening Potential indications for follow-up testing, if/when necessary Risk of over-diagnosis, false positive findings, and radiation exposure Importance of cigarette smoking abstinence, if applicable Annual adherence to lung cancer screening Impact of comorbidities and ability or willingness to undergo diagnostic testing and/or treatment if something concerning is identified during screening. (Z12.11) Special screening for malignant neoplasms, colon Plan: COLONOSCOPY, GI REFERRAL OP Pt will complete colonoscopy. Due in March. (Z23) Need for prophylactic vaccination and inoculation against influenza Plan: INFLUENZA VAC., TRIVALENT, HD, PF, 65 AND ABOVE, 0.5 ML IM (FLUZONE HD) Vaccine given. See admin record. Follow-up: 4 months Total time today including reviewing chart before the visit, pertinent labs, imaging reports, face to face time, and documentation time was 31 minutes. Tova Muniz DO documented in this encounter Nursing Notes * Anjali Collins LPN - 01/22/2024 11:07 AM EDT Patient here for routine follow up visit. Pt asking about CT scan for lungs; states it showed up onhis MyChart. Reports allergy symptoms. documented in this encounter Plan of Treatment Upcoming Encounters Date Type Department Care Team (Late st Contact Info) Description 05/28/2024 11:20 AM EST Office Visit Family Practice [address] [facility] [address] [place] [address] Tova Muniz DO [address] [place] [address] 06/29/2024 1:30 PM EST Office Visit Cardiology, [facility] [address] [facility] [place] [address] Jalen Camilo, DO [address] [facility] [place] [id number] 10/06/2024 11:00 AM EDT Nurse Only Ancillary [address] [facility] [address] [facility], [place] [address] College, Nurse [address] Wellness Visit [address] [address] Scheduled Orders Name Type Priority Associated Diagnoses Orde r Schedule LUNG CANCER SCREENING PROGRAM REFERRAL Medical Imaging Routine History of tobacco abuse Expected: 01/22/2024, Expires: 01/21/2026 Scheduled Procedures Name Priority Associated Diagnoses Date/Ti me COLONOSCOPY FLEXIBLE PROXIMAL DIAGNOSTIC Recall History of colon polyps Scheduled Referrals Name Type Priority Associated Diagnoses Orde r Schedule COLONOSCOPY, GI REFERRAL OP Referral Within 30 days (routine) Special screening for malignant neoplasms, colon Ordered: 01/22/2024 Health Maintenance Due Date Last Done Comments Alpha-1 Antitrypsin 01/17/1970 Cologuard 01/17/1997 Fecal Occult Blood Test 01/17/1997 Sigmoidoscopy 01/17/1997 *ADVANCE DIRECTIVE NOT ON FILE 08/02/2019 COVID-19 Vaccine () 01/23/2024 04/03/2021, 07/22/2020, 06/24/2020 Postponed from 01/19/2024 (Unavailable) [...] this encounter Medical Devices Implanted Type Area Corrugator Helper Device Identifier Shelf Expiration Date Model / Serial / Lot Lens Intraoc 14.0 - [id number] - [id number] Implanted:Qty: 1 on 07/25/2021 by Amado Nayak MD at OR [facility] [employer] 02/16/2026 [id number] / [id number] / [id number] Lens Intraoc 13.5 - [id number] - [id number] Implanted:Qty: 1 on 08/08/2021 by Amado Nayak MD at OR [facility] Right: Eye [employer] 02/16/2026 [id number] / [id number] / documented as of this encounter Visit Diagnoses Diagnosis Coronary artery disease involving [place] coronary artery of [place] heart without angina pectoris- Primary [place] (myocardial infarction) Old myocardial infarction COPD, group C, by GOLD 2017 classification (HCC) HTN, goal below 140/90 Unspecified essential hypertension History of tobacco abuse Personal history of tobacco use, presenting hazards to health Special screening for malignant neoplasms, colon Need for prophylactic vaccination and inoculation against influenza documented in this encounter Care Teams Tube Heater Relationship Specialty Start Date End Date Tova Muniz DO [address] [place] [address], [place] [address] PCP - General Family Medicine 01/19/24 documented as of this encounter
--- OUTSIDE RECORDS SUMMARY | 2024-02-09 18:47 | External Medical Summary | Summary of Care ---
Author Name Unknown Organization [facility] Address [address] [place] [address] Phone [phone] Care Team Providers Care Hairspring Studder Name Role Phone Tova Muniz DO Primary Care Provider Reason for Referral * Precert (Within 10 days (routine)) - Pending Review Specialty Diagnoses / Procedures Referred By Naomi russell Referred To Contact Radiology Diagnoses History of tobacco abuse Procedures CT CHEST LOW DOSE SCAN LUNG CANCER SCREEN 1 YEAR FOLLOW UP LUNG CANCER SCREENING PROGRAM REFERRAL Tova Muniz DO [address] [place] [address] Referral ID Status Reason Start Date Expiration Date V isits Requested Visits Authorized [id number] Pending Review 01/22/2024 999 999 * Ancillary Services (Within 30 days (routine)) - Authorized Specialty Diagnoses / Procedures Referred By Naomi russell Referred To Contact Gastroenterology Diagnoses Special screening for malignant neoplasms, colon Tova Muniz DO [address] [place] [address] Referral ID Status Reason Start Date Expiration Date Visits Requested Visits Authorized [id number] Authorized Ancillary Services Required 01/22/2024 999 999 Question Answer Referral Priority Within 30 days (routine) Where should this appointment be scheduled? [facility] Comments ALERT: Do not order for pediatric patients (18 years or younger). Cancel off screen and order PEDS GASTROENTEROLOGY CONSULT (Type: 1 visit only-Evaluate and Treat) The following Pt. Instructions are available: - Gastro Colonoscopy Prep Instructions [[id number]] - Gastro Colonoscopy Prep Instructions (Tajik Version) [[id number]] Go to the Pt. Instructions section within the Visit Navigator to access. Colonoscopy ASGE Guidelines: Average risk screening (begin at age 50, 10 year intervals) ADDITIONAL INFORMATION 1. Is the patient on Coumadin? No 2. Is the patient on Pradaxa? No Reason for Visit * Reason Onset Date Comments Follow Up Medication Administration 01/22/2024 Flu an d/or Pneumo Inj Encounter Details Date Type Department Care Team (Latest Contact Info) Description 01/22/2024 11:20 AM EDT Office Visit Family Practice [address] [place] [id number] Tova Muniz DO [address] [place] [address] Coronary artery disease involving rapp[place]ock coronary artery of [place] heart without angina pectoris*; Old MS (myocardial infarction); COPD, group C, by GOLD 2017 classification (HCC); HTN, goal below 140/90; History of tobacco [...] C, by GOLD 2017 classification ([facility]) Take 4 tabs daily for 2 days, [...] Tablet Delayed ReleaseIndications:C oronary artery disease involving [place] coronary artery of [place] heart without angina pectoris,HTN, goal below 140/90,Dyslipidemia, goal LDL below 70 Take 1 Tablet by mouth in the morning. 30 Tablet 11 04/23/2023 Active Probiotic Oral Packet Take 1 Capsule by mouth in the morning. Active Rosuvastatin Calcium 40 MG Oral Tablet (Crestor)Indications :Coronary artery disease involving [place] coronary artery of [place] heart without angina pectoris,HTN, goal below 140/90,Dyslipidemia, [...] HTN, goal below 140/90,Coronary artery disease involving [place] coronary artery of [place] heart without angina pectoris,Dyslipidemi a, goal LDL below 70 take 1 tablet by mouth IN THE MORNING 90 Tablet 2 09/23/2023 Active Omeprazole 20 MG Oral Capsule Delayed Release (PriLOSEC)Indication s:Heartburn Take 1 Capsule by mouth in the morning. Every morning.. 90 Capsule 09/23/2023 Active Albuterol Sulfate HFA 108 (90 Base) MCG/ACT Inhalation Aerosol SolutionIndications: COPD, moderate ([facility]) Inhale 2 Puffs by mouth every 4 hours as needed for Cough. 54 g 1 09/23/2023 Active Ipratropium-Albutero l 0.5-2.5 (3) MG/3ML Inhalation Solution (Duoneb)Indications: COPD, group C, by GOLD 2017 classification ([facility]) Inhale 3 mL via nebulizer in the [...] by mouth 2 times a day. 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 Active documented as of this encounter (statuses as of 01/23/2024) Active Problems Problem Noted Date Diagnosed Date COPD, group C, by GOLD 2017 classification 07/26 Overview: Per COPD GOLD Classification Old MS (myocardial infarction) 07/20/2019 Gastroesophageal reflux disease with esophagitis 07/20/2019 HTN, goal below 140/90 01/28/2017 Coronary artery disease invo lving [place]ock coronary artery of [place] heart without angina pectoris 11/21/2010 Dyslipidemia, goal [...] FACE OR INSIDE OF NOSE. Ed Marks [id number] Benefits of Quitting Smoking Why should I [...] and making a loved one happy . [facility] Department of Health Quit Line ercan [employer] Free Quitline [phone] QUIT NOW ( ) Your insurance company may also have more information and helpful programs to help you quit. Some may even help cover some of the costs. For example, [facility] members can call to find out about their smoking cessation program and medication coverage. Developed by Frieda Alonso MD, for [employer]. Published by [employer]. Last modified: 2005-09-28 Last reviewed: 2005-07-18 This content is reviewed periodically and is subject to change as new health information becomes available. The information is intended to inform and educate and is not a replacement for medical evaluation, advice, diagnosis or treatment by a healthcare professional. Adult Health Advisor 2006.4 Index Adult Health Advisor 2006.4 Credits Copyright 2006 [employer] and/or one of its subsidiaries. All Rights Reserved. documented in this encounter Progress Notes * Anjali Collins LPN - 01/22/2024 11:10 AM EDT PRE - ADMINISTRATION DOCUMENTATION Are you experiencing any cold symptoms or fever? No Have you had Guillain-Pritchett Syndrome (an illness that causes paralysis) within [...] today? No Patient allergic to latex? No C Stock: No Immunization(s) verified: Yes, Immunization Name: [...] LDL below 70 Coronary artery disease involving [place] coronary artery of [place] heart without angina pectoris HTN, goal below 140/90 Old MS (myocardial infarction) Gastroesophageal reflux disease with esophagitis COPD, group C, by GOLD 2017 classification ([facility]) Current Outpatient Medications Medication Sig Dispense Refill [...] 2 Breztri Aerosphere 160-9-4.8 MCG/ACT Inhalation Aerosol (Wkdddjh-Xtaegjfnvww-Gmnobppxeq) Inhale 2 Puffs by mouth 2 times a day. (From clipper machine operator) Prevagen 10 MG Oral Capsule (Apoaequorin) Take [...] performed by Rossy Arias DO at [facility] COLONOSCOPY, DIAGNOSTIC (RECTUM) 04/08/2019 adenomatous polyp and inflammatory tissue on bx, diverticulosis, repeat 5 yrs/COLONOSCOPY FLEXIBLE PROXIMAL DIAGNOSTIC performed by Rossy Arias DO at [facility] COLORECTAL CANCER SCREEN; COLON 04/2002 Colonoscopy notable only for hemorrhoids. INFORMATION Pt notes that he has had several arthroscopic surgeries on L knee OPERATIVE LARYNGOSCOPY/REMOVE TUMOR 03/13/2012 Dr. Whelan [facility] OPERATIVE LARYNGOSCOPY/REMOVE TUMOR Dr. Whelan [facility] OTHER cardiac cath with stent x 2 REMOVE CATARACT, INSERT LENS PROSTH Left 07/25/2021 Left EXTRACAPSULAR CATARACT REMOVAL WITH INTRAOCULAR LENS performed by Amado Nayak MD at OR [facility] REMOVE CATARACT, INSERT LENS PROSTH Right 08/08/2021 Right EXTRACAPSULAR CATARACT REMOVAL WITH INTRAOCULAR LENS performed by Amado Nayak MD at OR [facility] Review of patient's allergies indicates: Allergen Reactions [...] time. ASSESSMENT/PLAN: (I25.10) Coronary artery disease involving [place] coronary artery of rappahannock heart without angina pectoris (primary encounter diagnosis) (I25.2) Old MS (myocardial infarction) Plan: Pt doing well. No [...] AM EST Office Visit Family Practice [address] [facility] [address] [place] [address] Tova Muniz DO [address] [place] [address] 06/29/2024 1:30 PM EST Office Visit Cardiology, [facility] [address] [facility] [place] [address] Jalen Camilo DO [address] [facility] [place] [address] 10/06/2024 11:00 AM EDT Nurse Only Ancillary [facility] [address] [place] [address] College, Nurse Annual Wellness Visit [address] [place] [id number] Scheduled Orders Name Type Priority Associated Diagnoses Orde r Schedule CT CHEST LOW DOSE SCAN LUNG CANCER SCREEN 1 YEAR FOLLOW UP Medical Imaging Routine History of tobacco abuse [...] COPD 01/21/2025 01/22/2024 Albumin/Creatinine Ratio 09/26/2025 09/26/2022, 0705/2017 DTap/Tdap Vaccines (3 - Td or Tdap) [...] this encounter Medical Devices Implanted Type Area Personnel Records Clerk Device Identifier Shelf Expiration Date Model / Serial / Lot Lens Intraoc 14.0 - [id number] - [id number] Implanted:Qty: 1 on 07/25/2021 by Amado Nayak MD at OR [facility] [employer] 02/16/2026 [id number] / [id number] / [id number] Lens Intraoc 13.5 - [id number] - [id number] Implanted:Qty: 1 on 08/08/2021 by Amado Nayak MD at OR [facility] Right: Eye [employer] 02/16/2026 [id number] / [id number] / documented as of this encounter Visit Diagnoses Diagnosis Coronary artery disease involving [place] coronary artery of [place] heart without angina pectoris- Primary Old MS (myocardial infarction) Old myocardial infarction COPD, group C, by GOLD 2017 classification (HCC) HTN, goal below 140/90 Unspecified essential hypertension History of tobacco abuse Personal history of tobacco use, presenting hazards to health Special screening for malignant neoplasms, colon Need for prophylactic vaccination and inoculation against influenza documented in this encounter Care Teams Hairspring Studder Relationship Specialty Start Date End Date Tova Muniz DO [address] [place] [facility] [place] [address] PCP - General Family Medicine 01/19/24 documented as of this encounter
--- OUTSIDE RECORDS SUMMARY | 2024-02-09 18:47 | External Medical Summary | Summary of Care ---
Author Name Unknown Organization [facility] Address [address] [place] [address] Phone [phone] Care Team Providers Care Manager Business Information Name Role Phone Tova Muniz Primary Care Provider Encounter Details Date Type Department Care Team (Late st Contact Info) Description 10/28/2023 Orders Only Outcomes Research Department [address] [place] [address] Susana Foote CHRA [employer] Other*[id number] Allergies Active Allergy Reactions Criticality Noted Date [...] ns:COPD, group C, by GOLD 2017 classification (HCC) Take 4 tabs daily for 2 days, [...] Tablet Delayed ReleaseIndications:C oronary artery disease involving [place] coronary artery of [place]daag[place] heart without angina pectoris,HTN, goal below 140/90,Dyslipidemia, goal LDL below 70 Take 1 Tablet by mouth in the morning. 30 Tablet 11 04/23/2023 Active Probiotic Oral Packet Take by mouth. Active Rosuvastatin Calcium 40 MG Oral Tablet (Crestor)Indications :Coronary artery disease involving [place] coronary artery of agda[place] heart without angina pectoris,HTN, goal below 140/90,Dyslipidemia, [...] ications:COPD, group C, by GOLD 2017 classification ([facility]) inhale 1 puff by mouth IN THE MORNING 180 Blister Dosing Unit 1 09/24/2023 Active Losartan Potassium 50 MG Oral Tablet (Cozaar)Indications: HTN, goal below 140/90,Coronary artery disease involving [place]da[place] coronary artery of [place] heart without angina pectoris,Dyslipidemi a, goal LDL [...] the morning.. 90 Tablet 2 09/23/2023 Active documented as of this encounter (statuses as of 10/28/2023) Active Problems Problem Noted Date Diagnosed Date COPD, group C, by GOLD 2017 classification 07/26 Overview: Per COPD GOLD Classification Old [place] (myocardial infarction) 07/20/2019 Gastroesophageal reflux disease with esophagitis 07/20/2019 HTN, goal below 140/90 01/28/2017 Coronary artery disease invo lving agdaagux coronary artery of agdaag[place] heart without angina pectoris 11/21/2010 Dyslipidemia, goal [...] AM EDT Office Visit Family Practice [address] [facility] [address] [place] [address] Tova Muniz DO [address] [place] [address] 02/24/2024 8:00 AM EDT Office Visit Cardiology, [facility] 132 [facility] [place] [address] Jalen Camilo DO 132 [facility] [place] [address] 10/06/2024 11:00 AM EDT Nurse Only Ancillary [facility] [address] [place] [address] College, Nurse Annual Wellness Visit [address] [place] [address] Scheduled Orders Name Type Priority Associated Diagnoses Orde r Schedule MYCODE SUBSEQUENT ADULT Lab Routine [employer] Other*[id number] Every 6 Months for 2 Occurrences starting 10/28/2023 until 11/16/2024 Scheduled Procedures Name Priority Associated Diagnoses Date/Ti [...] this encounter Medical Devices Implanted Type Area Coal Tram Driver Device Identifier Shelf Expiration Date Model / Serial / Lot Lens Intraoc 14.0 - [id number] - [id number] Implanted:Qty: 1 on 07/25/2021 by Amado Nayak MD at OR [facility] [employer] 02/16/2026 [id number] / [id number] / [id number] Lens Intraoc 13.5 - [id number] - [id number] Implanted:Qty: 1 on 08/08/2021 by Amado Nayak MD at OR [facility] Right: Eye [employer] 02/16/2026 [id number] / [id number] / documented as of this encounter Visit Diagnoses Diagnosis [employer] Other*[id number] documented in this encounter Care Teams Manager Business Information Relationship Specialty Start Date End Date Tova Muniz DO [address] [place] [address] PCP - General Family Medicine 06/29/22 documented as of this encounter
--- OUTSIDE RECORDS SUMMARY | 2024-02-09 18:47 | External Medical Summary | Summary of Care ---
Author Name Unknown Organization [facility] Address [address] [place] [address] Phone [phone] Care Team Providers Care Porcelain Enamel Repairer Name Role Phone Tova Muniz Primary Care Provider Encounter Details Date Type Department Care Team (Late st Contact Info) Description 10/08/2023 Population Health External Data Unspecified Department Allergies Active Allergy Reactions Criticality Noted Date Comments Iodinated Contrast Media Hives High 01/20/2009 HIVES with cath dye Lisinopril Edema airway High 12/27/2015 documented as of this encounter (statuses as of 10/09/2023) Medications Medication Sig Dispensed Refills Start Date [...] 2017 classification ([facility]) Take 4 tabs daily for 2 days, [...] Tablet Delayed ReleaseIndications:C oronary artery disease involving [place] coronary artery of [place] heart without angina pectoris,HTN, goal below 140/90,Dyslipidemia, goal LDL below 70 Take 1 Tablet by mouth in the morning. 30 Tablet 11 04/23/2023 Active Probiotic Oral Packet Take by mouth. Active Rosuvastatin Calcium 40 MG Oral Tablet (Crestor)Indications :Coronary artery disease involving [place] coronary artery of [place] heart without angina pectoris,HTN, goal below 140/90,Dyslipidemia, [...] 2017 classification ([facility]) inhale 1 puff by mouth IN THE MORNING 180 Blister Dosing Unit 1 09/24/2023 Active Losartan Potassium 50 MG Oral Tablet (Cozaar)Indications: HTN, goal below 140/90,Coronary artery disease involving [place] coronary artery of [place] heart without angina pectoris,Dyslipidemi a, goal LDL below 70 take 1 tablet by mouth IN THE MORNING 90 Tablet 2 09/23/2023 Active Omeprazole 20 MG Oral Capsule Delayed Release (PriLOSEC)Indication s:Heartburn Take 1 Capsule by mouth in the morning. Every morning.. 90 Capsule 09/23/2023 Active Albuterol Sulfate HFA 108 (90 Base) MCG/ACT Inhalation Aerosol SolutionIndications: COPD, moderate ([facility]) Inhale 2 Puffs by mouth every 4 hours as needed for Cough. 54 g 1 09/23/2023 Active Ipratropium-Albutero l 0.5-2.5 (3) MG/3ML Inhalation Solution (Duoneb)Indications: COPD, group C, by GOLD 2017 classification ([facility]) Inhale 3 mL via nebulizer in the morning and 3 mL at noon and 3 mL in the evening and 3 mL before bedtime. 1080 mL 09/23/2023 Active Ezetimibe 10 MG Oral Tablet (Zetia)Indications:C hronic coronary artery disease Take 1 Tablet by mouth in the morning. In the morning.. 90 Tablet 2 09/23/2023 Active documented as of this encounter (statuses as of 10/09/2023) Active Problems Problem Noted Date Diagnosed Date COPD, group C, by GOLD 2017 classification 07/26 Overview: Per COPD GOLD Classification Old MD (myocardial infarction) 07/20/2019 Gastroesophageal reflux disease with esophagitis 07/20/2019 HTN, goal below 140/90 01/28/2017 Coronary artery disease invo lving [place] coronary artery of [place] heart without angina pectoris 11/21/2010 Dyslipidemia, goal LDL below 70 04/28/2009 Overview: Per Lipid Taxonomy. Displacement of lumbar inter vertebral disc without myelopathy 07/07/1999 documented as of this encounter (statuses as of 10/09/2023) Resolved Problems Problem Noted Date Diagnosed Date [...] as of this encounter (statuses as of 10/09/2023) Immunizations Name Administration Dates Next Due COVID-19 [...] ,04/30/2006 TDAP (age 10 and older)(Boostrix) 02/05/2019 TDAP (age 11 and older)(Adacel) 08/27/2008 Varicella Zoster Vaccine (Adult) 09/24/2012 Zoster [...] AM EDT Office Visit Family Practice [address] [address] Tova Muniz DO [address] [place] [address] 02/24/2024 8:00 AM EDT Office Visit Cardiology, [facility] [address] [place] [address] Jalen Camilo, [address] [place] [address] 10/06/2024 11:00 AM EDT Nurse Only Ancillary 65 [facility] [address] [place] [address] [facility] Nurse Annual Wellness Visit [address] [address] Scheduled Procedures Name Priority Associated Diagnoses Date/Ti me COLONOSCOPY FLEXIBLE PROXIMAL DIAGNOSTIC Recall History of colon polyps Health Maintenance Due Date Last Done Comments Alpha-1 Antitrypsin 01/17/1970 Cologuard 01/17/1997 Fecal Occult Blood Test 01/17/1997 Sigmoidoscopy 01/17/1997 *ADVANCE DIRECTIVE NOT ON FILE 08/02/2019 COVID-19 Vaccine ( season) 2023 04/03/2021, 07/22/2020, 06/24/2020 Postponed from 2023 (Patient Declined After Education) GFR 03/28/2024 03/28/2023, 08/18, 08/22/2021, Additional history [...] this encounter Medical Devices Implanted Type Area Security Attendant Device Identifier Shelf Expiration Date Model / Serial / Lot Lens Intraoc 14.0 - [id number] - [id number] Implanted:Qty: 1 on 07/25/2021 by Amado Nayak MD at OR [facility] [employer] 02/16/2026 [id number] / [id number] / [id number] Lens Intraoc 13.5 - [id number] - [id number] Implanted:Qty: 1 on 08/08/2021 by Amado Nayak MD at [facility] Right: Eye [employer] 02/16/2026 [id number] / [id number] / documented as of this encounter Care Teams Porcelain Enamel Repairer Relationship Specialty Start Date End Date Tova Muniz DO [address] [place] [address], [place] [address] PCP - General Family Medicine 06/29/22 documented as of this encounter
--- OUTSIDE RECORDS SUMMARY | 2024-02-09 18:47 | External Medical Summary | Summary of Care ---
Author Name Unknown Organization [facility] Address [address] [place] [address] Phone [phone] Care Team Providers Care Net Developer Architect Name Role Phone Tova Muniz Primary Care Provider Encounter Details Date Type Department Care Team (Latest Contact Info) Description 10/28/2023 Medication Management [facility] [address] [place] [address] Mala Barrett, [facility] 200 [facility] [place] [address] Referred for management of medication therapy* Allergies Active Allergy Reactions Criticality Noted Date Comments Iodinated Contrast Media Hives High 01/20/2009 HIVES with cath dye Lisinopril Edema airway High 12/27/2015 documented as of this encounter (statuses as of 11/01/2023) Medications Medication Sig Dispensed Refills Start Date [...] Tablet Delayed ReleaseIndications:C oronary artery disease involving benton coronary artery of benton heart without angina pectoris,HTN, goal below 140/90,Dyslipidemia, goal LDL below 70 Take 1 Tablet by mouth in the morning. 30 Tablet 11 04/23/2023 Active Probiotic Oral Packet Take 1 Capsule by mouth in the morning. Active Rosuvastatin Calcium 40 MG Oral Tablet (Crestor)Indications :Coronary artery disease involving benton coronary artery of benton heart without angina pectoris,HTN, goal below 140/90,Dyslipidemia, [...] HTN, goal below 140/90,Coronary artery disease involving benton coronary artery of benton heart without angina pectoris,Dyslipidemi a, goal LDL [...] as of this encounter (statuses as of 11/01/2023) Active Problems Problem Noted Date Diagnosed Date COPD, group C, by GOLD 2017 classification 07/26 Overview: Per COPD GOLD Classification Old PR (myocardial infarction) 07/20/2019 Gastroesophageal reflux disease with esophagitis 07/20/2019 HTN, goal below 140/90 01/28/2017 Coronary artery disease invo lving benton coronary artery of benton heart without angina pectoris 11/21/2010 Dyslipidemia, goal LDL below 70 04/28/2009 Overview: Per Lipid Taxonomy. 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 Objective: Review of patient's allergies indicates: Allergen Reactions Iodinated Contrast Media Hives HIVES with cath dye Lisinopril Edema airway Current Outpatient Medications - WARNING: List may be incomplete due to filtering Medication Sig Dispense Refill Mucinex DM Maximum Strength 60-1200 MG Oral Tablet Extended Release 12 Hour Take 1 Tablet by mouth in the morning. Metoprolol Succinate ER 25 MG Oral Tablet Extended Release 24 Hour (toPROL XL) Take 1 Tablet by mouth in the morning. 100 Tablet 1 Trelegy Ellipta 100-62.5-25 MCG/ACT Aerosol Powder Breath Activated (Bcmpjyrjnas-Veuoxvnlhiti-Bduagkiujz) inhale 1 puff by mouth IN THE MORNING (Patient not taking: Reported on 10/28/2023) 180 BlisterDosing Unit 1 Albuterol Sulfate HFA 108 (90 Base) MCG/ACT Inhalation Aerosol Solution Inhale 2 Puffs by mouth every 4 hours as needed for Cough. 54 g 1 Ezetimibe 10 MG Oral Tablet (Zetia) Take 1 Tablet by mouth in the morning. In the morning.. 90 Tablet 2 Ipratropium-Albuterol 0.5-2.5 (3) MG/3ML Inhalation Solution (Duoneb) Inhale 3 mL via nebulizer in the morning and 3 mL at noon and 3 mL in the evening and 3 mL before bedtime. 1080 mL 0 Losartan Potassium 50 MG Oral Tablet (Cozaar) take 1 tablet by mouth IN THE MORNING 90 Tablet 2 Omeprazole 20 MG Oral Capsule Delayed Release (PriLOSEC) Take 1 Capsule by mouth in the morning. Every morning.. 90 Capsule 0 Rosuvastatin Calcium 40 MG Oral Tablet (Crestor) Take 1 Tablet by mouth daily with dinner. 100 Tablet 3 Probiotic Oral Packet Take 1 Capsule by mouth in the morning. Aspirin 81 MG Oral Tablet Delayed Release Take 1 Tablet by mouth in the morning. 30 Tablet 11 Betamethasone Dipropionate 0.05 % External Cream (Diprosone) Apply topically to affected area 2 times a day. To affected area. 60 g 1 predniSONE 20 MG Oral Tablet (Deltasone) Take 4 tabs daily for 2 days, 3 tabs daily for 2 days, 2 tabs daily for 2 days, 1 tab daily for 2 days 20 Tablet 0 Gabapentin 100 MG Oral Capsule (Neurontin) take 1 capsule by mouth every morning and AT NOON and BEFORE BEDTIME (Patient taking differently: Take 1 Capsule by mouth as needed.) 90 Capsule 3 ONE-A-DAY MENS PO TABS Take 1 Tablet by mouth in the morning. Immunization History Administered Date(s) Administered COVID-19 mRNA, LNP-s, No Preserve, 2-Dose Series (Moderna) 06/24/2020, 07/22/2020 COVID-19, mRNA, LNP-s, PF, Booster, 100mcg/0.5mg (Moderna) 04/03/2021 Pneumococcal Conjugate Vacc, 13 Valent (Prevnar) 02/12/2017 Pneumococcal Polysaccharide PPV23 (Pneumovax) 01/20/2009, 02/05/2019 RSV Vac., Bivalent, Perfusion F, Pf,0.5 Ml (Abrysvo) 06/21/2023 Seasonal Influenza, PF, 6 M & above, IM , (FluLaval or Fluzone) 02/12/2017, 03/22/2018, 07/03/2019, 02/10/2020 Seasonal Influenza, Quadrivalent Hd (Fluzone Hd) 02/14/2022, 01/23/2023 Seasonal Influenza, Quadrivalent Hd, 65+ Yrs 02/09/2021 Seasonal Influenza, Quadrivalent, No Preserve, IM 02/13/2016 Seasonal Influenza, Split, IIV3, With Preserve, Inj 04/30/2006, 04/14/2007, 01/20/2009, 03/31/2010,02/02/2011, 05/26/2012, 03/17/2013, 03/02/2014 TD - Tetanus/Diptheria (ADULT) 02/17/1999 TDAP (age 10 and older)(Boostrix) 02/05/2019 TDAP, Age 7 and older, IM (Adacel) 08/27/2008 Varicella Zoster Vaccine (Adult) 09/24/2012 Zoster Vaccine Recombinant (Shingrix) 04/24/2019, 09/17/2019 TMR Interventions TMR Medication Assessment - Maintenance Inhaler Technique: TRELEGY AER 100MCG;TRELEGY ELLIPTA,100-62.5-25 MCG,EA Incomplete Encounter MTPs No medication therapy recommendations to display Complete Encounter MTPs Referred for management of medication therapy Current Medication: Trelegy Ellipta 100-62.5-25 MCG/ACT Aerosol Powder Breath Activated (Wmmuhkwiagw-Selhbzduobqh-Gbtknwjsii) Rationale: Cannot afford medication product - Cost - Adherence Recommendation: Referral to Service Status: Accepted - no CPA Needed Note: Patient unable to afford Trelegy but appears to be over PACE threshold. will forward to pharmacy reimbursement. Current Medication: Trelegy Ellipta 100-62.5-25 MCG/ACT Aerosol Powder Breath Activated (Mjamsfsslud-Misjaqbmecui-Tolzaxalcf) Rationale: Patient Education - Needs Education - Effectiveness Recommendation: Provide Education Note: Discussed proper technique and rinsing mouth out after use. Assessment & Plan Indication, effectiveness, safety and convenience of his medications were reviewed today. The patient's medical conditions were assessed, evaluated, and deemed meeting goals of drug therapy, with thefollowing exceptions. Additional Notes: Forwarded to pharmacy reimbursement for help with Trelegy. Otherwise may pursue Advair prescriptionwith patient's duonebs. Summary Time Spent: 16-30 min Supervising pharmacist who provided the service: Nicholas Henson Information Who was the recipient of the CMR service: beneficiary Language Template for the Patient Takeaway: Polish I attest that I have reviewed and updated the patient's conditions, allergies, and medications to the best of my ability. Patient provided medication list gathered by: Kadie Mcneal, pharmacy messenger Mala Beltre [facility] 11/01/2023, 9:07 AM documented in this encounter Miscellaneous Notes * MTM Personal Medication List - Mala Barrett [facility] - 11/01/2023 9:11 AM EDT Medication How I take it Why I use it Prescriber Albuterol Sulfate HFA 108 (90 Base) MCG/ACT Inhalation Aerosol Solution Inhale 2 Puffs by mouth every 4 hours as needed for Cough. COPD, as needed Tova Muniz, DO Aspirin 81 MG Oral Tablet Delayed Release Take 1 Tablet by mouth in the morning. Heart protection LLOYD Aguayo Betamethasone Dipropionate 0.05 % External Cream (Diprosone) Apply topically to affected area 2 times a day as needed Skin rash Tova Muniz, DO Ezetimibe 10 MG Oral Tablet (Zetia) Take 1 Tablet by mouth in the morning Cholesterol Jalen Camilo, DO Gabapentin 100 MG Oral Capsule (Neurontin) take 1 capsule by mouth every morning and AT NOON and BEFORE BEDTIME as needed Back pain Tova Muniz, DO Ipratropium-Albuterol 0.5-2.5 (3) MG/3ML Inhalation Solution (Duoneb) Inhale 3 mL via nebulizer in the morning and 3 mL at noon and 3 mL in the evening and 3 mL before bedtime. COPD, as needed Tova Muniz, DO Losartan Potassium 50 MG Oral Tablet (Cozaar) take 1 tablet by mouth IN THE MORNING High blood pressure LLOYD Aguayo Metoprolol Succinate ER 25 MG Oral Tablet Extended Release 24 Hour (toPROL XL) Take 1 Tablet by mouth in the morning. High blood pressure and heart protection Tova Muniz DO Mucinex DM Maximum Strength 60-1200 MG Oral Tablet Extended Release 12 Hour Take 1 Tablet by mouth in the morning. Cough/chest congestion Self Omeprazole 20 MG Oral Capsule Delayed Release (PriLOSEC) Take 1 Capsule by mouth in the morning. Heartburn Self ONE-A-DAY MENS PO TABS Take 1 Tablet by mouth in the morning. General health Self predniSONE 20 MG Oral Tablet (Deltasone) Take 4 tabs daily for 2 days, 3 tabs daily for 2 days, 2 tabs daily for 2 days, 1 tab daily for 2 days COPD - rescue pack Tova Muniz DO Probiotic Oral Packet Take 1 Capsule by mouth in the morning. General health Self Rosuvastatin Calcium 40 MG Oral Tablet (Crestor) Take 1 Tablet by mouth daily with dinner. Cholesterol, heart disease Jalen Camilo DO Trelegy Ellipta 100-62.5-25 MCG/ACT Aerosol Powder Breath Activated (Ybacrawzuip-Jsmdnglfturl-Nrzyozjoao) inhale 1 puff by mouth IN THE MORNING COPD Tova Muniz DO * MTM To-Do-List - Mala Barrett RPh - 11/01/2023 9:08 AM EDT Images from the original note were not included. What we talked about: What I should do: The importance of taking your medication as prescribed Your medicine works best when taken as prescribed. It can be hard to remember to take daily medications. Consider making it a part of your daily routine. Pair taking your medication with something you do every day, like brushing your teeth or eating a meal. Consider setting daily alarms to help remind yourself when it is time to take your medicine. Using a pill box can also help you organize your medicines. Pill boxes allow you to fill each day slot with your daily medicine and help you track when your next dose is due. What we talked about: What I should do: You mentioned that your Trelegy is in the coverage gap and too expensive. We forwarded your information to pharmacy reimbursement to see if there are any other options to help with cost. Otherwise, we will talk to Dr. Muniz about adjusting your medications to a generic inhaler that will be more affordable. What we talked about: What I should do: We discussed that the Trelegy is for use daily to prevent breathing problems but can cause an infection in your mouth from the steroid. The Trelegy should be used daily and make sure to rinse your mouth out after each use. documented in this encounter Plan of Treatment Upcoming Encounters Date Type Department Care Team (Late st Contact Info) Description 12/25/2023 11:20 AM EDT Office Visit Family Practice 65 [facility] [address] [place] [address] Tova Muniz, DO [address] [place] [address] 02/24/2024 8:00 AM EDT Office Visit Cardiology, [facility] [place] [address] Jalen Camilo, DO [facility] [address] 10/06/2024 11:00 AM EDT Nurse Only Ancillary 65 [facility] 293 [facility] [address] [place], Nurse Annual Wellness Visit [address] [place] [address] Scheduled Procedures Name Priority Associated Diagnoses Date/Ti me COLONOSCOPY FLEXIBLE PROXIMAL DIAGNOSTIC Recall History of colon polyps Health Maintenance Due Date Last Done Comments Alpha-1 Antitrypsin 01/17/1970 Cologuard 01/17/1997 Fecal Occult Blood Test 01/17/1997 Sigmoidoscopy 01/17/1997 *ADVANCE DIRECTIVE NOT ON FILE 08/02/2019 COVID-19 Vaccine (4 - 2023-24 season) 2023 04/03/2021, 07/22/2020, 06/24/2020 GFR 03/28/2024 [...] this encounter Medical Devices Implanted Type Area Utility Bag Assembler Device Identifier Shelf Expiration Date Model / Serial / Lot Lens Intraoc 14.0 - [id number] - [id number] Implanted:Qty: 1 on 07/25/2021 by Amado Nayak MD at OR [facility] [employer] 02/16/2026 [id number] / [id number] / [id number] Lens Intraoc 13.5 - [id number] - [id number] Implanted:Qty: 1 on 08/08/2021 by Amado Nayak MD at [facility] Right: Eye [employer] 02/16/2026 [id number] / [id number] / documented as of this encounter Visit Diagnoses Diagnosis Referred for management of medication therapy- Primary Encounter for long-term (current) use of other medications documented in this encounter Care Teams Net Developer Architect Relationship Specialty Start Date End Date Tova Muniz DO PCP - General Family Medicine 06/29/22 documented as of this encounter
--- OUTSIDE RECORDS SUMMARY | 2024-02-09 18:47 | External Medical Summary | Summary of Care ---
Author Name Unknown Organization [facility] Address [address] [place] [address] Phone [phone] Care Team Providers Care Ear Nose Throat Physician Name Role Phone Tova Muniz Primary Care Provider Encounter Details Date Type Department Care Team (Latest Contact Info) Description 11/18/2023 Medication Management [facility] [address] [place] [address] Christine Reyna CPhT Referred for management of medication therapy* Allergies Active Allergy Reactions Criticality Noted Date Comments Iodinated Contrast Media Hives High 01/20/2009 HIVES with cath dye Lisinopril Edema airway High 12/27/2015 documented as of this encounter (statuses as of 11/25/2023) Medications Medication Sig Dispensed Refills Start Date [...] Tablet Delayed ReleaseIndications:C oronary artery disease involving [place] coronary artery of [place] heart without angina pectoris,HTN, goal below 140/90,Dyslipidemia, goal LDL below 70 Take 1 Tablet by mouth in the morning. 30 Tablet 11 04/23/2023 Active Probiotic Oral Packet Take 1 Capsule by mouth in the morning. Active Rosuvastatin Calcium 40 MG Oral Tablet (Crestor)Indications :Coronary artery disease involving [place] coronary artery of [place] heart without angina pectoris,HTN, goal below 140/90,Dyslipidemia, [...] HTN, goal below 140/90,Coronary artery disease involving ewi[place]ay[place] coronary artery of ewiiaapaayp heart without angina pectoris,Dyslipidemi a, goal LDL [...] by mouth 2 times a day. 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 Displacement of lumbar inter vertebral disc without myelopathy 07/07/1999 documented as of this encounter (statuses as of 11/25/2023) Resolved Problems Problem Noted Date Diagnosed Date [...] as of this encounter (statuses as of 11/25/2023) Immunizations Name Administration Dates Next Due COVID-19 [...] as of this encounter Progress Notes * Christine Reyna CPhT - 11/25/2023 4:38 PM EDT Encounter opened in error documented in this encounter Plan of Treatment Upcoming Encounters Date Type Department Care Team (Late st Contact Info) Description 01/22/2024 11:20 AM EDT Office Visit Family Practice 65 [facility] 293 [place] [address] Tova Muniz, 293 [place] [address] 02/24/2024 8:00 AM EDT Office Visit Cardiology, [facility] 132 [place] [address] Jalen Camilo, 132 [place] [address] 10/06/2024 11:00 AM EDT Nurse Only Ancillary [address] [place] [address] [employer], Nurse Annual Wellness Visit [address] [place] [address] Scheduled Procedures Name Priority Associated Diagnoses Date/Ti [...] this encounter Medical Devices Implanted Type Area Health And Human Performance Professor Device Identifier Shelf Expiration Date Model / Serial / Lot Lens Intraoc 14.0 - [id number] - [id number] Implanted:Qty: 1 on 07/25/2021 by Amado Nayak MD at OR [facility] [employer] 02/16/2026 [id number] / [id number] / [id number] Lens Intraoc 13.5 - [id number] - [id number] Implanted:Qty: 1 on 08/08/2021 by Amado Nayak MD at [facility] Right: Eye [employer] 02/16/2026 [id number] / [id number] / documented as of this encounter Visit Diagnoses Diagnosis Referred for management of medication therapy- Primary Encounter for long-term (current) use of other medications documented in this encounter Care Teams Ear Nose Throat Physician Relationship Specialty Start Date End Date Tova Muniz DO PCP - General Family Medicine 06/29/22 documented as of this encounter
--- OUTSIDE RECORDS SUMMARY | 2024-02-09 18:47 | External Medical Summary | Summary of Care ---
Author Name Unknown Organization [facility] Address [address] [place] [address] Phone [phone] Care Team Providers Care Rubber Stamp Maker Name Role Phone Tova Muniz Primary Care Provider Encounter Details Date Type Department Care Team (Latest Contact Info) Description 10/28/2023 Medication Management [facility] [address] [place] [address] Mala Barrett, LT[facility], located [facility] 200 [facility] [place] [address] Referred for management of medication therapy* Allergies [...] ns:COPD, group C, by GOLD 2017 classification ([facility]) Take 4 tabs daily for 2 days, [...] Tablet Delayed ReleaseIndications:C oronary artery disease involving [place] coronary artery of [place] heart without angina pectoris,HTN, goal below 140/90,Dyslipidemia, goal LDL below 70 Take 1 Tablet by mouth in the morning. 30 Tablet 11 04/23/2023 Active Probiotic Oral Packet Take 1 Capsule by mouth in the morning. Active Rosuvastatin Calcium 40 MG Oral Tablet (Crestor)Indications :Coronary artery disease involving [place] coronary artery of [place] heart without angina pectoris,HTN, goal below 140/90,Dyslipidemia, [...] ications:COPD, group C, by GOLD 2017 classification ([facility]) inhale 1 puff by mouth IN THE MORNING 180 Blister Dosing Unit 1 09/24/2023 Active Additional Information Patient not taking.Reported on 10/28/2023 Losartan Potassium 50 MG Oral Tablet (Cozaar)Indications: HTN, goal below 140/90,Coronary artery disease involving [place] coronary artery of [place] heart without angina pectoris,Dyslipidemi a, goal LDL below 70 take 1 tablet by mouth IN THE MORNING 90 Tablet 2 09/23/2023 Active Omeprazole 20 MG Oral Capsule Delayed Release (PriLOSEC)Indication s:Heartburn Take 1 Capsule by mouth in the morning. Every morning.. 90 Capsule 09/23/2023 Active Albuterol Sulfate HFA 108 (90 Base) MCG/ACT Inhalation Aerosol SolutionIndications: COPD, moderate ([facility]) Inhale 2 Puffs by mouth every 4 [...] 140/90 01/28/2017 Coronary artery disease invo lving [place] coronary artery of [place] heart without angina pectoris 11/21/2010 Dyslipidemia, goal [...] Progress Notes * Francheska Corona, Mala Gonzalez, [facility] - 11/01/2023 9:07 AM EDT Ed Marks [...] Ellipta 100-62.5-25 MCG/ACT Aerosol Powder Breath Activated (Cipcmgufvvx-Zeidrhxrqaat-Emjdxdmrvk) inhale 1 puff by mouth IN THE [...] Ellipta 100-62.5-25 MCG/ACT Aerosol Powder Breath Activated (Wgxobgwvsek-Dgkcpqshynjm-Jrugbrrgcn) Rationale: Cannot afford medication product - Cost - Adherence Recommendation: Referral to Service Status: Accepted - no CPA Needed Note: Patient unable to afford Trelegy but appears to be over PACE threshold. will forward to pharmacy reimbursement. Current Medication: Trelegy Ellipta 100-62.5-25 MCG/ACT Aerosol Powder Breath Activated (Xgdqegrrhgo-Ytyurkrnsyqs-Jetpvrmslh) Rationale: Patient Education - Needs Education - [...] beneficiary Language Template for the Patient Takeaway: Tu[place] I attest that I have reviewed and updated the patient's conditions, allergies, and medications to the best of my ability. Patient provided medication list gathered by: Kadie Mcneal, accredited pharmacy technician Mala Beltre [facility], [facility] 11/01/2023, 9:07 AM Electronically signed by Mala Barrett [facility], located [facility] at 11/01/2023 9:32 AM EDT documented in this encounter Miscellaneous Notes * MTM Personal Medication List - Mala Barrett [facility] - 11/01/2023 9:11 AM EDT Medication How [...] mouth IN THE MORNING High blood pressure LLYOD Aguayo Metoprolol Succinate ER 25 MG Oral [...] Ellipta 100-62.5-25 MCG/ACT Aerosol Powder Breath Activated (Hopadggdoet-Unmscftmctfl-Wzruhaszsl) inhale 1 puff by mouth IN THE [...] rinse your mouth out after each use. Electronically signed by Mala Barrett [facility] at 11/01/2023 9:32 AM EDT documented in this encounter Plan of Treatment Upcoming Encounters Date Type Department Care Team (Late st Contact Info) Description 12/25/2023 11:20 AM EDT Office Visit Family Practice 65 [facility] [address] [place] [address] Tova Muniz, DO [address] [place] [address] 02/24/2024 8:00 AM EDT Office Visit Cardiology, [facility] [place] [address] Jalen Camilo, DO 132 [facility] [address] 10/06/2024 11:00 AM EDT Nurse Only Ancillary 65 [facility] 293 [facility] [address] [place], Nurse Annual Wellness Visit [address] [place] [address] Scheduled Procedures Name Priority Associated Diagnoses Date/Ti [...] this encounter Medical Devices Implanted Type Area Survey Operations Director Device Identifier Shelf Expiration Date Model / Serial / Lot Lens Intraoc 14.0 - [id number] - [id number] Implanted:Qty: 1 on 07/25/2021 by Amado Nayak MD at OR [facility] [employer] 02/16/2026 [id number] / [id number] / [id number] Lens Intraoc 13.5 - [id number] - [id number] Implanted:Qty: 1 on 08/08/2021 by Amado Nayak MD at [facility] Right: Eye [employer] 02/16/2026 [id number] / [id number] / documented as of this encounter Visit Diagnoses Diagnosis Referred for management of medication therapy- Primary Encounter for long-term (current) use of other medications documented in this encounter Care Teams Rubber Stamp Maker Relationship Specialty Start Date End Date Tova Muniz DO PCP - General Family Medicine 06/29/22 documented as of this encounter
--- OUTSIDE RECORDS SUMMARY | 2024-02-09 18:47 | External Medical Summary | Summary of Care ---
Author Name Unknown Organization [facility] Address [address] [place] [address] Phone [phone] Care Team Providers Care Accounting Professional Name Role Phone Tova Muniz Primary Care Provider Encounter Details Date Type Department Care Team (Late st Contact Info) Description 10/04/2023 Population Health External Data Unspecified Department Allergies [...] ns:COPD, group C, by GOLD 2017 classification ([facility]) Take 4 tabs daily for 2 days, [...] Tablet Delayed ReleaseIndications:C oronary artery disease involving hoopa coronary artery of hoopa heart without angina pectoris,HTN, goal below 140/90,Dyslipidemia, goal LDL below 70 Take 1 Tablet by mouth in the morning. 30 Tablet 11 04/23/2023 Active Probiotic Oral Packet Take by mouth. Active Rosuvastatin Calcium 40 MG Oral Tablet (Crestor)Indications :Coronary artery disease involving hoopa coronary artery of hoopa heart without angina pectoris,HTN, goal below 140/90,Dyslipidemia, [...] ications:COPD, group C, by GOLD 2017 classification ([facility]) inhale 1 puff by mouth IN THE MORNING 180 Blister Dosing Unit 1 09/24/2023 Active Losartan Potassium 50 MG Oral Tablet (Cozaar)Indications: HTN, goal below 140/90,Coronary artery disease involving hoopa coronary artery of hoopa heart without angina pectoris,Dyslipidemi a, goal LDL below 70 take 1 tablet by mouth IN THE MORNING 90 Tablet 2 09/23/2023 Active Omeprazole 20 MG Oral Capsule Delayed Release (PriLOSEC)Indication s:Heartburn Take 1 Capsule by mouth in the morning. Every morning.. 90 Capsule 09/23/2023 Active Albuterol Sulfate HFA 108 (90 Base) MCG/ACT Inhalation Aerosol SolutionIndications: COPD, moderate ([facility]) Inhale 2 Puffs by mouth every 4 hours as needed for Cough. 54 g 1 09/23/2023 Active Ipratropium-Albutero l 0.5-2.5 (3) MG/3ML Inhalation Solution (Duoneb)Indications: COPD, group C, by GOLD 2017 classification ([facility]) Inhale 3 mL via nebulizer in the [...] 07/26 Overview: Per COPD GOLD Classification Old [place] (myocardial infarction) 07/20/2019 Gastroesophageal reflux disease with esophagitis 07/20/2019 HTN, goal below 140/90 01/28/2017 Coronary artery disease invo lving hoopa coronary artery of hoopa heart without angina pectoris 11/21/2010 Dyslipidemia, goal [...] AM EDT Office Visit Family Practice [address] [address] Tova Muniz DO [address] [place] [address] 02/24/2024 8:00 AM EDT Office Visit Cardiology, [facility] 132 [facility] [place] [address] Jalen Camilo, 132 [place] [address] 10/06/2024 11:00 AM EDT Nurse Only Ancillary 65 [facility] [address] [place] [address] [facility] Nurse Annual Wellness Visit [address] [address] Scheduled Procedures Name Priority Associated Diagnoses Date/Ti [...] this encounter Medical Devices Implanted Type Area Press Operator Heavy Duty Device Identifier Shelf Expiration Date Model / Serial / Lot Lens Intraoc 14.0 - [id number] - [id number] Implanted:Qty: 1 on 07/25/2021 by Amado Nayak MD at OR [facility] [employer] 02/16/2026 [id number] / [id number] / [id number] Lens Intraoc 13.5 - [id number] - [id number] Implanted:Qty: 1 on 08/08/2021 by Amado Nayak MD at [facility] Right: Eye [employer] 02/16/2026 [id number] / [id number] / documented as of this encounter Care Teams Accounting Professional Relationship Specialty Start Date End Date Tova Muniz DO [address] [place] [address], [place] [address] PCP - General Family Medicine 06/29/22 documented as of this encounter
--- OUTSIDE RECORDS SUMMARY | 2024-02-09 18:48 | External Medical Summary | Summary of Care ---
Author Name Unknown Organization [facility] Address [address] [place] [address] Phone [phone] Care Team Providers Care Bus Person Dishwasher Name Role Phone OpalTova santos Baldo BARBOSA Primary Care Provider [phone] Reason for Visit * Reason Onset Date Comments Medication Question 09/23/2023 Encounter Details Date Type Department Care Team (Late st Contact Info) Description 09/23/2023 Telephone Family Practice [facility] [address] [facility] [place] [address] Fabiola Briscoe DO [address] [facility] [address] Medication Question Allergies Active Allergy Reactions Criticality Noted Date Comments Iodinated Contrast Media Hives High 01/20/2009 HIVES with cath dye Lisinopril Edema airway High 12/27/2015 documented as of this encounter (statuses as of 09/23/2023) Medications Medication Sig Dispensed Refills Start Date End Date Status ONE-A-DAY MENS PO TABS Take 1 Tablet by mouth in the morning. 0 Active Coenzyme Q-10 100 MG Oral Capsule Take 1 Capsule by mouth in the morning. 0 Active Gabapentin 100 MG Oral Capsule (Neurontin)Indicati [...] ons:COPD, group C, by GOLD 2017 classification ([facility]) Take 4 tabs daily for 2 days, 3 tabs daily for 2 days, 2 tabs daily for 2 days, 1 tab daily for 2 days 20 Tablet 0 02/05/2023 Active Betamethasone Dipropionate 0.05 % External Cream (Diprosone)Indicati ons:Rash and nonspecific skin eruption Apply topically to affected area 2 times a day. To affected area. 60 g 1 02/05/2023 Active Metoprolol Succinate ER 25 MG Oral Tablet Extended Release 24 Hour (toPROL XL) Take 1 Tablet by mouth in the morning. 90 Tablet 1 02/27/2023 Active Trelegy Ellipta 100-62.5-25 MCG/ACT Aerosol Powder Breath Activated (Fluticasone-Umecli dinium-Vilanterol)I ndications:COPD, group C, by GOLD 2017 classification ([facility]) inhale 1 puff by mouth IN THE MORNING 60 Blister Dosing Unit 11 04/22/2023 Active Aspirin 81 MG Oral Tablet Delayed ReleaseIndications: Coronary artery disease involving [place] coronary artery of [place] heart without angina pectoris,HTN, goal below 140/90,Dyslipidemia , goal LDL below 70 Take 1 Tablet by mouth in the morning. 30 Tablet 11 04/23/2023 Active Rosuvastatin Calcium 40 MG Oral Tablet (Crestor)Indication s:Coronary artery disease involving [place] coronary artery of [place] heart without angina pectoris,HTN, goal below 140/90,Dyslipidemia , goal LDL below 70 Take 1 Tablet by mouth daily with dinner. 90 Tablet 3 04/23/2023 Active Probiotic Oral Packet Take by mouth. 0 Active Losartan Potassium 50 MG Oral Tablet (Cozaar)Indications :HTN, goal below 140/90,Coronary artery disease involving [place] coronary artery of [place] heart without angina pectoris,Dyslipidem ia, goal LDL below 70 take 1 tablet by mouth IN THE MORNING 90 Tablet 2 09/23/2023 Active Omeprazole 20 MG Oral Capsule Delayed Release (PriLOSEC)Indicatio ns:Heartburn Take 1 Capsule by mouth in the morning. Every morning.. 90 Capsule 0 09/23/2023 Active Albuterol Sulfate HFA 108 (90 Base) MCG/ACT Inhalation Aerosol SolutionIndications :COPD, moderate (HCC) Inhale 2 Puffs by mouth every 4 hours as needed for Cough. 25.5 g 3 05/25/2023 09/23/19 24 Discontinu ed(Refill) Omeprazole 20 MG Oral Capsule Delayed Release (PriLOSEC)Indicatio ns:Heartburn take 1 capsule by mouth every morning 90 Capsule 1 06/22/2023 09/23/19 24 Discontinu ed(Refill) Ezetimibe 10 MG Oral Tablet (Zetia)Indications: Chronic coronary artery disease take 1 tablet by mouth every morning 90 Tablet 3 07/09/2023 09/23/19 24 Discontinu ed(Refill) Ipratropium-Albuter ol 0.5-2.5 (3) MG/3ML Inhalation Solution (Duoneb)Indications :COPD, group C, by GOLD 2017 classification (HCC) Inhale 3 mL via nebulizer in the morning and 3 mL at noon and 3 mL in the evening and 3 mL before bedtime. 360 mL 5 07/17/2023 09/23/19 24 Discontinu ed(Refill) documented as of this encounter (statuses as of 09/23/2023) Active Problems Problem Noted Date Diagnosed Date COPD, group C, by GOLD 2017 classification 07/26 Overview: Per COPD GOLD Classification Old [place] (myocardial infarction) 07/20/2019 Gastroesophageal reflux disease with esophagitis 07/20/2019 HTN, goal below 140/90 01/28/2017 Coronary artery disease invo lving [place] coronary artery of [place] heart without angina pectoris 11/21/2010 Dyslipidemia, goal LDL below 70 04/28/2009 Overview: Per Lipid Taxonomy. Displacement of lumbar inter vertebral disc without myelopathy 07/07/1999 documented as of this encounter (statuses as of 09/23/2023) Resolved Problems Problem Noted Date Diagnosed Date [...] as of this encounter (statuses as of 09/23/2023) Immunizations Name Administration Dates Next Due COVID-19 [...] Date Recorded PHQ Adult Total Score 0 04/25/2023 Hunger Vital Sign Answer Date Recorded Within [...] encounter Miscellaneous Notes * Telephone Encounter - Deepa Miranda [facility] - 09/23/2023 2:20 PM EDT Please reroute Rx to [facility]. Pending Prescriptions: Disp Refills Omeprazole 20 MG Oral Capsule Delayed Rel*90 Cap*1 Sig: Take 1 Capsule by mouth in the morning. Every morning.. Last Visit: 02/14/2022 (in office), 11/06/2019 (telemedicine) Visit date not found If no future appointments scheduled, and last appointment is greater than a year ago, please schedule patient for a follow-up appointment Last date the medication was ordered: 06/22/23 Patient Phone Numbers Labs: Lab Results Component Value Date/Time CREAT 1.3 (H) 03/28/2023 09:02 AM CREAT 1.16 08/31/2022 12:00 AM CREAT 1.1 01/30/2020 07:57 AM POTASSIUM 4.8 03/28/2023 09:02 AM POTASSIUM 4.9 08/31/2022 12:00 AM POTASSIUM 4.3 01/30/2020 07:57 AM TSH 2.16 09/08/2011 08:01 AM LDLCALC 62 02/07/2019 08:02 AM LDLDIRECT 69 03/28/2023 09:02 AM LDLDIRECT 63 01/30/2020 07:57 AM ALT 32 03/28/2023 09:02 AM ALT 44 01/30/2020 07:57 AM documented in this encounter Plan of Treatment Upcoming Encounters Date Type Department Care Team (Late st Contact Info) Description 10/01/2023 11:00 AM EDT Nurse Only Ancillary 65 [facility] 293 [place] [address] College, Nurse Annual Wellness Visit [address] [address] 12/25/2023 11:20 AM EDT Office Visit Family Practice 65 [facility] 293 [place] [address] Tova Muniz DO 293 [place] [address] 02/24/2024 8:00 AM EDT Office Visit Cardiology, [facility] 132 [facility] [address] [facility] [place] [address] Jalen Camilo, 132 [facility] [place] [address] Scheduled Procedures Name Priority Associated Diagnoses Date/Ti [...] exists Colorectal Cancer Screening 04/08/2024 Depression Screening 04/25/2024 04/25/2023 O2 ASSESSMENT COMPLETED IN PAST YEAR FOR COPD 08/28/2024 08/29/2023 Albumin/Creatinine Ratio 09/26/2025 09/26/2022, 11/19 DTaP,Tdap,and Td [...] this encounter Medical Devices Implanted Type Area Lighting Fixtures Decorator Device Identifier Shelf Expiration Date Model / Serial / Lot Lens Intraoc 14.0 - [id number] - [id number] Implanted:Qty: 1 on 07/25/2021 by Amado Nayak MD at OR [facility] [employer] 02/16/2026 [id number] / [id number] / [id number] Lens Intraoc 13.5 - [id number] - [id number] Implanted:Qty: 1 on 08/08/2021 by Amado Nayak MD at OR [facility] Right: Eye [employer] 02/16/2026 [id number] / [id number] / documented as of this encounter Visit Diagnoses Diagnosis Heartburn documented in this encounter Care Teams Bus Person Dishwasher Relationship Specialty Start Date End Date Tova Muniz DO 293 [place] [address] PCP - General Family Medicine 06/29/22 documented as of this encounter
--- OUTSIDE RECORDS SUMMARY | 2024-02-09 18:48 | External Medical Summary | Summary of Care ---
Author Name Unknown Organization [facility] Address [address] [place] [address] Phone [phone] Care Team Providers Care Wood Router Name Role Phone Tova Barrera DO Primary Care Provider [phone] Reason for Visit * Reason Comments Medication Refill Encounter Details Date Type Department Care Team (Late st Contact Info) Description 09/23/2023 Refill Family Practice [address] [place] [address] [place] [address] Tova Barrera DO [address] [place] [address] Allergies Active Allergy Reactions Criticality Noted Date Comments Iodinated Contrast Media Hives High 01/20/2009 HIVES with cath dye Lisinopril Edema airway High 12/27/2015 documented as of this encounter (statuses as of 09/24/2023) Medications Medication Sig Dispensed Refills Start Date [...] ons:COPD, group C, by GOLD 2017 classification ([facility]) Take 4 tabs daily for 2 days, 3 tabs daily for 2 days, 2 tabs daily for 2 days, 1 tab daily for 2 days 20 Tablet 0 02/05/2023 Active Betamethasone Dipropionate 0.05 % External Cream (Diprosone)Indicati ons:Rash and nonspecific skin eruption Apply topically to affected area 2 times a day. To affected area. 60 g 1 02/05/2023 Active Trelegy Ellipta 100-62.5-25 MCG/ACT Aerosol Powder Breath Activated (Fluticasone-Umecli dinium-Vilanterol)I ndications:COPD, group C, by GOLD 2017 classification ([facility]) inhale 1 puff by mouth IN THE MORNING 60 Blister Dosing Unit 11 04/22/2023 Active Aspirin 81 MG Oral Tablet Delayed ReleaseIndications: Coronary artery disease involving kake coronary artery of kake heart without angina pectoris,HTN, goal below 140/90,Dyslipidemia , goal LDL below 70 Take 1 Tablet by mouth in the morning. 30 Tablet 11 04/23/2023 Active Probiotic Oral Packet Take by mouth. 0 Active Rosuvastatin Calcium 40 MG Oral Tablet (Crestor)Indication s:Coronary artery disease involving kake coronary artery of kake heart without angina pectoris,HTN, goal below 140/90,Dyslipidemia [...] :HTN, goal below 140/90,Coronary artery disease involving kake coronary artery of kake heart without angina pectoris,Dyslipidem ia, goal LDL [...] 3 mL before bedtime. 1080 mL 0 09/23/2023 Active Ezetimibe 10 MG Oral Tablet (Zetia)Indications: Chronic coronary artery disease Take 1 Tablet by mouth in the morning. In the morning.. 90 Tablet 2 09/23/2023 Active Metoprolol Succinate ER 25 MG Oral Tablet Extended Release 24 Hour (toPROL XL) Take 1 Tablet by mouth in the morning. 90 Tablet 1 02/27/2023 09/23/19 24 Discontinu ed(Refill) documented as of this encounter (statuses as of 09/24/2023) Active Problems Problem Noted Date Diagnosed Date COPD, group C, by GOLD 2017 classification 07/26 Overview: Per COPD GOLD Classification Old [place] (myocardial infarction) 07/20/2019 Gastroesophageal reflux disease with esophagitis 07/20/2019 HTN, goal below 140/90 01/28/2017 Coronary artery disease invo lving kake coronary artery of kake heart without angina pectoris 11/21/2010 Dyslipidemia, goal LDL below 70 04/28/2009 Overview: Per Lipid Taxonomy. Displacement of lumbar inter vertebral disc without myelopathy 07/07/1999 documented as of this encounter (statuses as of 09/24/2023) Resolved Problems Problem Noted Date Diagnosed Date [...] as of this encounter (statuses as of 09/24/2023) Immunizations Name Administration Dates Next Due COVID-19 [...] encounter Miscellaneous Notes * Telephone Encounter - Anna Cornell RPh - 09/24/2023 2:41 PM EDT Signed Prescriptions: Disp Refills Metoprolol Succinate ER 25 MG Oral Tablet *100 Ta*1 Sig: Take 1 Tablet by mouth in the morning.Authorizing Provider: TOVA BARRERA User: ANNA CORNELL Electronically signed by [facility] at 09/24/2023 2:41 PM EDT documented in this encounter Plan of Treatment Upcoming Encounters Date Type Department Care Team (Late st Contact Info) Description 10/01/2023 11:00 AM EDT Nurse Only Ancillary 65 [facility] 293 [place] [address] College, Nurse Annual Wellness Visit 65 [address] [facility] 293 [place] [address] 12/25/2023 11:20 AM EDT Office Visit Family Practice 65 [facility] 293 [place] [address] Tova Barrera, DO 293 [facility] [address] 02/24/2024 8:00 AM EDT Office Visit Cardiology, [facility] 132 [facility] [place] [address] Jalen Camilo, DO 132 [facility] [address] Scheduled Procedures Name Priority Associated Diagnoses Date/Ti [...] this encounter Medical Devices Implanted Type Area Packing Machine Feeder Device Identifier Shelf Expiration Date Model / Serial / Lot Lens Intraoc 14.0 - [id number] - [id number] Implanted:Qty: 1 on 07/25/2021 by Amado Nayak MD at OR [facility] [employer] 02/16/2026 [id number] / [id number] / [id number] Lens Intraoc 13.5 - [id number] - [id number] Implanted:Qty: 1 on 08/08/2021 by Amado Nayak MD at OR [facility] Right: Eye [employer] 02/16/2026 [id number] / [id number] / documented as of this encounter Care Teams Wood Router Relationship Specialty Start Date End Date Tova Barrera DO 293 [place] [address] PCP - General Family Medicine 06/29/22 documented as of this encounter
--- OUTSIDE RECORDS SUMMARY | 2024-02-09 18:48 | External Medical Summary | Summary of Care ---
Author Name Unknown Organization [facility] Address [address] [place] [address] Phone [phone] Care Team Providers Care Indigo Vat Tender Cloth Name Role Phone Tova Muniz DO Primary Care Provider [phone] Reason for Visit * Reason Onset Date Comments Medication Question 09/23/2023 Encounter Details Date Type Department Care Team (Late st Contact Info) Description 09/23/2023 Telephone Family Practice [address], [place] [address] [place] [phone] Tova Muniz [address] [place] [address] Medication Question Allergies Active Allergy Reactions Criticality [...] ons:COPD, group C, by GOLD 2017 classification ([facility]) Take 4 tabs daily for 2 [...] ndications:COPD, group C, by GOLD 2017 classification ([facility]) inhale 1 puff by mouth IN THE MORNING 60 Blister Dosing Unit 11 04/22/2023 Active Aspirin 81 MG Oral Tablet Delayed ReleaseIndications: Coronary artery disease involving koi coronary artery of koi heart without angina pectoris,HTN, goal below 140/90,Dyslipidemia , goal LDL below 70 Take 1 Tablet by mouth in the morning. 30 Tablet 11 04/23/2023 Active Rosuvastatin Calcium 40 MG Oral Tablet (Crestor)Indication s:Coronary artery disease involving koi coronary artery of koi heart without angina pectoris,HTN, goal below 140/90,Dyslipidemia , goal LDL below 70 Take 1 Tablet by mouth daily with dinner. 90 Tablet 3 04/23/2023 Active Probiotic Oral Packet Take by mouth. 0 Active Losartan Potassium 50 MG Oral Tablet (Cozaar)Indications :HTN, goal below 140/90,Coronary artery disease involving koi coronary artery of koi heart without angina pectoris,Dyslipidem ia, goal LDL [...] the morning.. 90 Tablet 2 09/23/2023 Active Albuterol Sulfate HFA 108 (90 Base) MCG/ACT Inhalation Aerosol SolutionIndications :COPD, moderate (HCC) Inhale 2 Puffs by mouth every 4 hours as needed for Cough. 25.5 g 3 05/25/2023 09/23/19 24 Discontinu ed(Refill) Ipratropium-Albuter ol 0.5-2.5 [...] 07/26 Overview: Per COPD GOLD Classification Old [place] (myocardial infarction) 07/20/2019 Gastroesophageal reflux disease with esophagitis 07/20/2019 HTN, goal below 140/90 01/28/2017 Coronary artery disease invo lving koi coronary artery of koi heart without angina pectoris 11/21/2010 Dyslipidemia, goal [...] Notes * Telephone Encounter - Deepa Miranda CPhT - 09/23/2023 2:21 PM EDT Pharmacy is requesting a 90-day supply, pre-edited RXs as such. Please review and approve if appropriate. Pending Prescriptions: Disp Refills Albuterol Sulfate HFA 108 (90 Base) MCG/A*54 g 1 Sig: Inhale 2 Puffs by mouth every 4 hours as needed for Cough. Ipratropium-Albuterol 0.5-2.5 (3) MG/3ML *1080 mL1 Sig: Inhale 3 mL via nebulizer in the morning and 3 mL at noon and 3 mL in the evening and 3 mL before bedtime. Last Visit: 08/29/2023 (in office), Visit date not found (telemedicine) 12/25/2023 If no future appointments scheduled, and last appointment is greater than a year ago, please schedule patient for an appointment Last date the medication was ordered: 07/17/23 Patient Phone Numbers Labs: Lab Results Component [...] 11:00 AM EDT Nurse Only Ancillary 65 [facility] 293 [facility] [address] [facility], Nurse Annual Wellness Visit 65 [facility] 293 [facility] [address] 12/25/2023 11:20 AM EDT Office Visit Family Practice 65 [facility] 293 [facility] [address] Tova Muniz, DO [address] [place] [address] 02/24/2024 8:00 AM EDT Office Visit Cardiology, [facility] [address] [facility] [place] [address] Jalen Camilo, DO [address] [place] [address] Scheduled Procedures Name Priority Associated Diagnoses Date/Ti [...] this encounter Medical Devices Implanted Type Area Critical Care Technician Device Identifier Shelf Expiration Date Model / Serial / Lot Lens Intraoc 14.0 - [id number] - [id number] Implanted:Qty: 1 on 07/25/2021 by Amado Nayak MD at OR [facility] [employer] 02/16/2026 [id number] / [id number] / [id number] Lens Intraoc 13.5 - [id number] - [id number] Implanted:Qty: 1 on 08/08/2021 by Amado Nayak MD at OR [facility] Right: Eye [employer] 02/16/2026 [id number] / [id number] / documented as of this encounter Visit Diagnoses Diagnosis COPD, moderate (HCC) Chronic airway obstruction, not elsewhere classified COPD, group C, by GOLD 2017 classification (HCC) documented in this encounter Care Teams Indigo Vat Tender Cloth Relationship Specialty Start Date End Date Tova Muniz DO [address] [place] [address] PCP - General Family Medicine 06/29/22 documented as of this encounter
--- OUTSIDE RECORDS SUMMARY | 2024-02-09 18:48 | External Medical Summary | Summary of Care ---
Author Name Unknown Organization [facility] Address [address] [place] [address] Phone [phone] Care Team Providers Care Assistant Account Manager Name Role Phone OpalFiorella santosradha Bland DO Primary Care Provider Reason for Visit * Reason Onset Date Comments Medication Question 09/23/2023 Encounter Details Date Type Department Care Team (Late st Contact Info) Description 09/23/2023 Telephone Cardiology, [facility] [address] [facility] [place] [address] Jalen Camilo DO [address] [place] [address] Medication Question Allergies Active Allergy Reactions Criticality [...] ons:COPD, group C, by GOLD 2017 classification ([facility]) Take 4 tabs daily for 2 [...] ndications:COPD, group C, by GOLD 2017 classification ([facility]) inhale 1 puff by mouth IN THE MORNING 60 Blister Dosing Unit 11 04/22/2023 Active Aspirin 81 MG Oral Tablet Delayed ReleaseIndications: Coronary artery disease involving sun'aq coronary artery of sun'aq heart without angina pectoris,HTN, goal below 140/90,Dyslipidemia , goal LDL below 70 Take 1 Tablet by mouth in the morning. 30 Tablet 11 04/23/2023 Active Rosuvastatin Calcium 40 MG Oral Tablet (Crestor)Indication s:Coronary artery disease involving sun'aq coronary artery of sun'aq heart without angina pectoris,HTN, goal below 140/90,Dyslipidemia , goal LDL below 70 Take 1 Tablet by mouth daily with dinner. 90 Tablet 3 04/23/2023 Active Probiotic Oral Packet Take by mouth. 0 Active Losartan Potassium 50 MG Oral Tablet (Cozaar)Indications :HTN, goal below 140/90,Coronary artery disease involving sun'aq coronary artery of sun'aq heart without angina pectoris,Dyslipidem ia, goal LDL below 70 take 1 tablet by mouth IN THE MORNING 90 Tablet 2 09/23/2023 Active Omeprazole 20 MG Oral Capsule Delayed Release (PriLOSEC)Indicatio ns:Heartburn Take 1 Capsule by mouth in the morning. Every morning.. 90 Capsule 0 09/23/2023 Active Ezetimibe 10 MG Oral Tablet (Zetia)Indications: Chronic coronary artery disease Take 1 Tablet by mouth in the morning. In the morning.. 90 Tablet 2 09/23/2023 Active Albuterol Sulfate HFA 108 (90 Base) MCG/ACT Inhalation Aerosol SolutionIndications :COPD, moderate (HCC) Inhale 2 Puffs by mouth every 4 hours as needed for Cough. 25.5 g 3 05/25/2023 09/23/19 24 Discontinu ed(Refill) Ezetimibe 10 MG [...] 07/26 Overview: Per COPD GOLD Classification Old CO (myocardial infarction) 07/20/2019 Gastroesophageal reflux disease with esophagitis 07/20/2019 HTN, goal below 140/90 01/28/2017 Coronary artery disease invo lving sun'aq coronary artery of sun'aq heart without angina pectoris 11/21/2010 Dyslipidemia, goal [...] encounter Miscellaneous Notes * Telephone Encounter - Ruben Deepa, [facility] - 09/23/2023 2:26 PM EDT Please reroute Rx to [facility]. Pending Prescriptions: Disp Refills Ezetimibe 10 MG Oral Tablet (Zetia) 90 Tab*3 Sig: Take 1 Tablet by mouth in the morning. In the morning.. Last Visit: 04/23/2023 (in office), Visit date not found (telemedicine) 02/24/2024 If no future appointments scheduled, and last appointment is greater than a year ago, please schedule patient for a follow-up appointment Last date the medication was ordered: 07/09/23 Patient Phone Numbers [place] [phone] Labs: Lab Results Component Value Date/Time CREAT [...] 11:00 AM EDT Nurse Only Ancillary [address] [facility] [address] [place] [address] College, Nurse Annual Wellness Visit [address] [address] 12/25/2023 11:20 AM EDT Office Visit Family Practice [address] [facility] [address] [place] [address] Tova Muniz DO [address] [place] [address] 02/24/2024 8:00 AM EDT Office Visit Cardiology, [facility] [address] [facility] [address] [facility] [place] [address] Jalen Camilo DO [address] [facility] [place] [address] Scheduled Procedures Name Priority Associated Diagnoses Date/Ti [...] this encounter Medical Devices Implanted Type Area Transition Specialist Device Identifier Shelf Expiration Date Model / Serial / Lot Lens Intraoc 14.0 - [id number] - [id number] Implanted:Qty: 1 on 07/25/2021 by Amado Nayak MD at OR [facility] [employer] 02/16/2026 [id number] / [id number] / [id number] Lens Intraoc 13.5 - [id number] - [id number] Implanted:Qty: 1 on 08/08/2021 by Amado Nayak MD at OR [facility] Right: Eye [employer] 02/16/2026 [id number] / [id number] / documented as of this encounter Visit Diagnoses Diagnosis Chronic coronary artery disease Coronary atherosclerosis of unspecified type of vessel, sun'aq or graft documented in this encounter Care Teams Assistant Account Manager Relationship Specialty Start Date End Date Tova Muniz DO [address] [place] [address] PCP - General Family Medicine 06/29/22 documented as of this encounter
--- OUTSIDE RECORDS SUMMARY | 2024-02-09 18:48 | External Medical Summary | Summary of Care ---
Author Name Unknown Organization [facility] Address [address] [place] [address] Phone [phone] Care Team Providers Care Claims Technician Name Role Phone Tova Muniz Primary Care Provider Reason for Visit * Reason Onset Date Comments Adult Annual Wellness Visit, Subsequent Visit Adult Annual Wellness Visit, Subsequent Visit Encounter Details Date Type Department Care Team (Late st Contact Info) Description 10/01/2023 11:00 AM EDT Nurse Only Ancillary [address] [place] [address] [place] [address] College, Nurse Annual Wellness Visit [address] [facility] [address] [place] [address] Adult Annual Wellness Visit, Subsequent Vi... Allergies Active Allergy Reactions Criticality Noted Date Comments Iodinated Contrast Media Hives High 01/20/2009 HIVES with cath dye Lisinopril Edema airway High 12/27/2015 documented as of this encounter (statuses as of 10/01/2023) Medications Medication Sig Dispensed Refills Start Date End Date Status ONE-A-DAY MENS PO TABS Take 1 Tablet by mouth in the morning. 0 Active Gabapentin 100 MG Oral Capsule (Neurontin)Indicati ons:Acute left-sided low back pain with left-sided sciatica,Displaceme nt of lumbar intervertebral disc without myelopathy take 1 capsule by mouth every morning and AT NOON and BEFORE BEDTIME 90 Capsule 3 3 Active Additional Information Patient taking differently: 100 mg Oral PRN, Reported on 10/17/2022 predniSONE 20 MG Oral Tablet (Deltasone)Indicati ons:COPD, group C, by GOLD 2017 classification ([facility]) Take 4 tabs daily for 2 days, 3 tabs daily for 2 days, 2 tabs daily for 2 days, 1 tab daily for 2 days 20 Tablet 0 3 Active Betamethasone Dipropionate 0.05 % External Cream (Diprosone)Indicati ons:Rash and nonspecific skin eruption Apply topically to affected area 2 times a day. To affected area. 60 g 1 3 Active Aspirin 81 MG Oral Tablet Delayed ReleaseIndications: Coronary artery disease involving akhiok coronary artery of akhi[place] heart without angina pectoris,HTN, goal below 140/90,Dyslipidemia , goal LDL below 70 Take 1 Tablet by mouth in the morning. 30 Tablet 11 3 Active Probiotic Oral Packet Take by mouth. 0 Active Rosuvastatin Calcium 40 MG Oral Tablet (Crestor)Indication s:Coronary artery disease involving akhiok coronary artery of akhi[place] heart without angina pectoris,HTN, goal below 140/90,Dyslipidemia , goal LDL below 70 Take 1 Tablet by mouth daily with dinner. 100 Tablet 3 4 Active Metoprolol Succinate ER 25 MG Oral Tablet Extended Release 24 Hour (toPROL XL) Take 1 Tablet by mouth in the morning. 100 Tablet 1 4 Active Trelegy Ellipta 100-62.5-25 MCG/ACT Aerosol Powder Breath Activated (Fluticasone-Umecli dinium-Vilanterol)I ndications:COPD, group C, by GOLD 2017 classification ([facility]) inhale 1 puff by mouth IN THE MORNING 180 Blister Dosing Unit 1 4 Active Losartan Potassium 50 MG Oral Tablet (Cozaar)Indications :HTN, goal below 140/90,Coronary artery disease involving akhiok coronary artery of akhiok heart without angina pectoris,Dyslipidem ia, goal LDL below 70 take 1 tablet by mouth IN THE MORNING 90 Tablet 2 4 Active Omeprazole 20 MG Oral Capsule Delayed Release (PriLOSEC)Indicatio ns:Heartburn Take 1 Capsule by mouth in the morning. Every morning.. 90 Capsule 0 4 Active Albuterol Sulfate HFA 108 (90 Base) MCG/ACT Inhalation Aerosol SolutionIndications :COPD, moderate (HCC) Inhale 2 Puffs by mouth every 4 hours as needed for Cough. 54 g 1 4 Active Ipratropium-Albuter ol 0.5-2.5 (3) MG/3ML Inhalation Solution (Duoneb)Indications :COPD, group C, by GOLD 2017 classification (HCC) Inhale 3 mL via nebulizer in the morning and 3 mL at noon and 3 mL in the evening and 3 mL before bedtime. 1080 mL 0 4 Active Ezetimibe 10 MG Oral Tablet (Zetia)Indications: Chronic coronary artery disease Take 1 Tablet by mouth in the morning. In the morning.. 90 Tablet 2 4 Active Coenzyme Q-10 100 MG Oral Capsule Take 1 Capsule by mouth in the morning. 0 10/01/19 24 Discontinued documented as of this encounter (statuses as of 10/01/2023) Active Problems Problem Noted Date Diagnosed Date COPD, group C, by GOLD 2017 classification 07/26 Overview: Per COPD GOLD Classification Old SD (myocardial infarction) 07/20/2019 Gastroesophageal reflux disease with esophagitis 07/20/2019 HTN, goal below 140/90 01/28/2017 Coronary artery disease invo lving akhiok coronary artery of akhiok heart without angina pectoris 11/21/2010 Dyslipidemia, goal LDL below 70 04/28/2009 Overview: Per Lipid Taxonomy. Displacement of lumbar inter vertebral disc without myelopathy 07/07/1999 documented as of this encounter (statuses as of 10/01/2023) Resolved Problems Problem Noted Date Diagnosed Date [...] as of this encounter (statuses as of 10/01/2023) Immunizations Name Administration Dates Next Due COVID-19 [...] Sign Reading Time Taken Comments Blood Pressure 130/70 10/01/2023 11:19 AM EDT Pulse 90 10/01/2023 11:19 AM EDT Temperature 36.7 C (98 F) 10/01/2023 11: 19 AM EDT Respiratory Rate - - Oxygen Saturation 95% 10/01/2023 11: 19 AM EDT Inhaled Oxygen Concentration - - Weight 112.6 kg (248 lb 4.8 oz) 024 11:19 AM EDT Height 177.8 cm (5' 10") 10/01/2023 11: 19 AM EDT Body Mass Index 35.63 10/01/2023 11:19 AM EDT documented in this encounter Patient Instructions * Patient Instructions* Eryn Rivas RN - 10/01/2023 11:42 AM EDT Hi Mr. Marks, As your primary care physician, I know that regular visits with my patients who have several chronic conditions can go a long way in helping you stay healthy. Many times, the clinic team and I are in touch with you and/or other care team members between office visits to adjust medications, discuss any changes in your health, and review our care plan to make sure it is still meeting your needs. I am dedicated to helping you take a more active role in your overall care. It is important that there are resources available to you, so I created a personalized plan of care with a Health Calendar for you, which is included on the next page of this letter. Below is a list that summarizes your electronic health record: Health Maintenance Due: Health Maintenance Due Topic Date Due Alpha-1 Antitrypsin Never done *ADVANCE DIRECTIVE NOT ON FILE Never done Current Medication List: (as of Visit date not found (in office), Visit date not found (telemedicine) ) Current Outpatient Medications Medication Sig Dispense Refill ONE-A-DAY MENS PO TABS Take 1 Tablet by mouth in the morning. Gabapentin 100 MG Oral Capsule (Neurontin) take 1 capsule by mouth every morning and AT NOON and BEFORE BEDTIME (Patient taking differently: Take 1 Capsule by mouth as needed.) 90 Capsule 3 Aspirin 81 MG Oral Tablet Delayed Release Take 1 Tablet by mouth in the morning. 30 Tablet 11 Probiotic Oral Packet Take by mouth. Rosuvastatin Calcium 40 MG Oral Tablet (Crestor) Take 1 Tablet by mouth daily with dinner. 100 Tablet 3 Metoprolol Succinate ER 25 MG Oral Tablet Extended Release 24 Hour (toPROL XL) Take 1 Tablet bymouth in the morning. 100 Tablet 1 Trelegy Ellipta 100-62.5-25 MCG/ACT Aerosol Powder Breath Activated (Vpvcqjkhzlw-Fghvnyqxpwpx-Jvvsgqliaw) inhale 1 puff by mouth IN THE MORNING 180 Blister Dosing Unit 1 Losartan Potassium 50 MG Oral Tablet (Cozaar) take 1 tablet by mouth IN THE MORNING 90 Tablet 2 Omeprazole 20 MG Oral Capsule Delayed Release (PriLOSEC) Take 1 Capsule by mouth in the morning. Every morning.. 90 Capsule 0 Albuterol Sulfate HFA 108 (90 Base) MCG/ACT Inhalation Aerosol Solution Inhale 2 Puffs by mouthevery 4 hours as needed for Cough. 54 g 1 Ipratropium-Albuterol 0.5-2.5 (3) MG/3ML Inhalation Solution (Duoneb) Inhale 3 mL via nebulizerin the morning and 3 mL at noon and 3 mL in the evening and 3 mL before bedtime. 1080 mL 0 Ezetimibe 10 MG Oral Tablet (Zetia) Take 1 Tablet by mouth in the morning. In the morning.. 90 Tablet 2 predniSONE 20 MG Oral Tablet (Deltasone) Take 4 tabs daily for 2 days, 3 tabs daily for 2 days,2 tabs daily for 2 days, 1 tab daily for 2 days 20 Tablet 0 Betamethasone Dipropionate 0.05 % External Cream (Diprosone) Apply topically to affected area 2times a day. To affected area. 60 g 1 No current facility-administered medications for this visit. Current List of Allergies: (as of Visit date not found (in office), Visit date not found (telemedicine) ) Review of patient's allergies indicates: Allergen Reactions Iodinated Contrast Media Hives HIVES with cath dye Lisinopril Edema airway Most Recent Lab Results: Results for orders placed or performed in visit on 03/28/23 LIPID PANEL WITH DIRECT LDL IF TG IS HIGH Result Value Ref Range Triglycerides 166 <=174 mg/dL Cholesterol 161 <200 mg/dL HDL Cholesterol 71 >39 mg/dL Non-HDL Cholesterol 90 <=159 mg/dL COMPREHENSIVE METABOLIC PANEL Result Value Ref Range BUN 18 6 - 20 mg/dL Creatinine 1.3 (H) 0.6 - 1.2 mg/dL Estimated Glomerular Filtration Rate 58 (L) >=60 mL/min Sodium 140 135 - 146 mmol/L Potassium 4.8 3.5 - 5.1 mmol/L Chloride 103 98 - 107 mmol/L CO2 27 22 - 32 mmol/L Anion Gap 10 7 - 15 mmol/L Glucose 103 70 - 120 mg/dL Albumin 4.4 3.8 - 5.0 g/dL AST 31 10 - 50 U/L Alkaline Phosphatase 65 35 - 130 U/L Bilirubin, Total 0.8 <=1.2 mg/dL Calcium 9.6 8.4 - 10.2 mg/dL Protein 6.8 6.0 - 8.3 g/dL ALT 32 10 - 50 U/L PSA Result Value Ref Range PSA 0.73 <4.10 ng/mL CBC Result Value Ref Range WBC 7.32 4.00 - 10.80 K/uL RBC 5.05 4.50 - 5.25 M/uL HGB 16.1 14.0 - 16.8 g/dL HCT 48.3 40.0 - 48.4 % MCV 95.6 82.0 - 99.5 fL MCH 31.9 27.0 - 34.0 pg MCHC 33.3 32.0 - 36.0 g/dL RDW 15.3 11.5 - 15.5 % PLT 173 140 - 400 K/uL MPV 9.6 6.6 - 11.1 fL nRBCs 0 <=0 /100 WBCs DIFFERENTIAL, AUTOMATED Result Value Ref Range WBC 7.32 4.00 - 10.80 K/uL Neutrophils % 68.6 40.0 - 75.0 % Lymphocytes % 14.9 (L) 18.0 - 42.0 % Monocytes % 10.7 1.0 - 11.0 % Eosinophils % 4.6 0.0 - 6.0 % Basophils % 0.7 0.0 - 2.0 % Immature Granulocytes % 0.5 0.0 - 2.0 % Absolute Neutrophils 5.02 1.80 - 7.70 K/uL Absolute Lymphocytes 1.09 1.00 - 4.80 K/ul Absolute Monocytes 0.78 0.00 - 1.10 K/uL Absolute Eosinophils 0.34 0.00 - 0.70 K/uL Absolute Basophils 0.05 0.00 - 0.20 K/uL Absolute Immature Granulocytes 0.04 0.00 - 0.20 K/uL LDL CHOLESTEROL (DIRECT MEASURE) Result Value Ref Range LDL Cholesterol (Direct Measure) 69 <=129 mg/dL Sincerely, Tova Muniz, DO 10/01/2023 [facility] Calendar (as of Visit date not found (in office), Visit date not found (telemedicine) ) Care needs Care needs Last completed Due next Alpha-1 Antitrypsin --- Never done Bring advance directive to doctor (no appointment needed) --- Never done COVID-19 Vaccine ( season) 2021 10/02/2023 (Originally 2023) Kidney Function Test 03/28/2023 03/28/2024 Colorectal cancer screening (colonoscopy 10 years, sigmoidoscopy 5 years, Cologuard 3 years, stool sample 1 year) 04/08/2019 04/08/2024 Yearly COPD oxygen test 10/01/2023 09/30/2024 Urine albumin/creatinine test 09/26/2022 09/26/2025 Diphtheria, tetanus & pertussis vaccines (3 - Td or Tdap) 02/05/2019 02/05/2029 As you look over the recommended services, be sure to check with your insurance company to determine what's covered. [employer] is a great tool that helps you review your medical record online, including test results, doctor notes and your health summary. You can also schedule appointments with me and other members of your care team, request prescription refills and ask for advice related to your medical conditions at [email or web address]. documented in this encounter Progress Notes * Eryn Rivas RN - 10/01/2023 11:22 AM EDT AD8 Dementia Screening Interview Person answering questions: patient Remember, "Yes, a change" indicates that there has been a change in the last several years caused by cognitive (thinking and memory) problems 1. Problems with judgement (eg: problems making decisions, bad financial decisions, problems with thinking). No (0) 2. Less interest in hobbies/activities. No (0) 3. Repeats the same things over and over (questions, stories, or statements). No (0) 4. Trouble learning how to use a tool, appliance, or gadget (eg: VCR, computer, microwave, remote control). No (0) 5. Forgets correct month or year. No (0) 6. Trouble handling complicated financial affairs (eg: balancing checkbook, income taxes, paying bills). No (0) 7. Trouble remembering appointments. No (0) 8. Daily problems with thinking and/or memory. No (0) TOTAL AD8: 0 - AD8 Dementia Screening Score The final score is a sum of the number items marked "Yes, A Change". 0 - 1: Normal cognition; 2 or greater: Cognitive impairments is likely to be present - further testing required Adult Annual Wellness Visit: Ed Marks is a 73 year old male who presents for an Adult Annual Wellness Visit. Depression Screening: Did the patient complete the screening questionnaire for Depression? Yes Is the patient's total score for Depression 15 or greater? No, no further intervention needed, unless requested by patient. Did the patient answer positively to the suicide question? No, no further intervention needed, unless requested by patient. In general, compared to other people your age, what would you say that your health is? Very Good Ht Readings from Last 1 Encounters: 10/01/23 1.778 m (5' 10") Wt Readings from Last 1 Encounters: 10/01/23 112.6 kg (248 lb 4.8 oz) Body Mass Index: BMI Greater than 30 Body mass index is 35.63 kg/m. BP Readings from Last 1 Encounters: 10/01/23 130/70 Medical/Surgical/Family History Reviewed: Yes Past Medical History: Diagnosis Date Acute inferior [...] performed by Rossy Arias DO at ENDOSCOPY [facility] COLONOSCOPY, DIAGNOSTIC (RECTUM) 04/08/2019 adenomatous polyp and inflammatory tissue on bx, diverticulosis, repeat 5 yrs/COLONOSCOPY FLEXIBLE PROXIMAL DIAGNOSTIC performed by Rossy Arias DO at ENDOSCOPY [facility] COLORECTAL CANCER SCREEN; COLON 04/2002 Colonoscopy notable only for hemorrhoids. INFORMATION Pt notes that he has had several arthroscopic surgeries on L knee OPERATIVE LARYNGOSCOPY/REMOVE TUMOR 03/13/2012 Dr. Whelan [facility] OPERATIVE LARYNGOSCOPY/REMOVE TUMOR 613/13 Dr. Whelan [facility] OTHER cardiac cath with stent x 2 REMOVE CATARACT, INSERT LENS PROSTH Left 07/25/2021 Left EXTRACAPSULAR CATARACT REMOVAL WITH INTRAOCULAR LENS performed by Amado Nayak MD at OR [facility] REMOVE CATARACT, INSERT LENS PROSTH Right 08/08/2021 Right EXTRACAPSULAR CATARACT REMOVAL WITH INTRAOCULAR LENS performed by Amado Nayak MD at OR [facility] Family History Problem Relation Age of Onset Neurological Disorder Mother age 65- multiple sclerosis; uncertain chest nodules Cancer Mother lung Heart Disorder Father Hx coronary art. dx- age 80 Cancer Father prostate cancer Arthritis Father Musculo-skeletal Disorder Father back issues No Past Hx Sister age 57 No Past Hx Sister age 47 Cancer Grandfather (Paternal) prostate cancer No Past Hx Daughter Arthritis Daughter back issues Other (Other) Son Hep C Has patient ever had cancer? No Social History Tobacco Use Smoking status: Former Current packs/day: 0.00 Average packs/day: 1.5 packs/day for 50.0 years (75.0 ttl pk-yrs) Types: Cigarettes Start date: 04/14/1965 Quit date: 04/14/2015 Years since quittin.4 Passive exposure: Past Smokeless tobacco: Never Substance Use Topics Alcohol use: Yes Comment: 1-2 shots of whiskey a day Vaping/E-Cigarette Use Vaping/E-Cigarette Use Never User Vaping/E-Cigarette Substances Vaping/E-Cigarette Devices Tobacco/Alcohol screening completed today? Yes Hospital Care: Admissions (within the last year): Not Applicable ER within 30 days: No Does the patient have an Advance Directives/Living Will? No. Does the patient want information? No.Patient declined information Last Physical Exam: Last physical exam: 08/29/2023 Does patient see primary provider regularly? Yes Does patient see other providers? Yes, Specialist Patient Care Team updated? Yes Review of patient's allergies indicates: Allergen Reactions Iodinated Contrast Media Hives HIVES with cath dye Lisinopril Edema airway Immunization History Administered Date(s) Administered COVID-19 mRNA, [...] 02/17/1999 TDAP (age 10 and older)(Boostrix) 02/05/2019 TDAP (age 11 and older)(Adacel) 08/27/2008 Varicella Zoster Vaccine (Adult) 09/24/2012 Zoster Vaccine Recombinant (Shingrix) 04/24/2019, 09/17/2019 Current Outpatient Medications Medication Sig Dispense Refill ONE-A-DAY MENS PO TABS Take 1 Tablet by mouth in the morning. Gabapentin 100 MG Oral Capsule (Neurontin) take 1 capsule by mouth every morning and AT NOON and BEFORE BEDTIME (Patient taking differently: Take 1 Capsule by mouth as needed.) 90 Capsule 3 Aspirin 81 MG Oral Tablet Delayed Release Take 1 Tablet by mouth in the morning. 30 Tablet 11 Probiotic Oral Packet Take by mouth. Rosuvastatin Calcium 40 MG Oral Tablet (Crestor) Take 1 Tablet by mouth daily with dinner. 100 Tablet 3 Metoprolol Succinate ER 25 MG Oral Tablet Extended Release 24 Hour (toPROL XL) Take 1 Tablet by mouth in the morning. 100 Tablet 1 Trelegy Ellipta 100-62.5-25 MCG/ACT Aerosol Powder Breath Activated (Lurvsrmyuxw-Cqztpowasphr-Bupeapaulq) inhale 1 puff by mouth IN THE MORNING 180 Blister Dosing Unit 1 Losartan Potassium 50 MG Oral Tablet [...] morning. In the morning.. 90 Tablet 2 predniSONE 20 MG Oral Tablet (Deltasone) Take 4 tabs daily for 2 days, 3 tabs daily for 2 days, 2 tabs daily for 2 days, 1 tab daily for 2 days 20 Tablet 0 Betamethasone Dipropionate 0.05 % External Cream (Diprosone) Apply topically to affected area 2 times a day. To affected area. 60 g 1 No current facility-administered medications for this visit. Patient Active Problem List Diagnosis Code Displacement of lumbar intervertebral disc without myelopathy M51.26 Dyslipidemia, goal LDL below 70 E78.5 Coronary artery disease involving akhiok coronary artery of akhi[place] heart without angina pectoris I25.10 HTN, goal below 140/90 I10 Old SD (myocardial infarction) I25.2 Gastroesophageal reflux disease with esophagitis K21.00 COPD, group C, by GOLD 2017 classification ([facility]) J44.9 Medication Compliance: Patient is able to obtain all of his medications? Yes Patient takes medications as prescribed? Yes Patient manages own medications: Yes Patient uses a pill box? No Dental Exam: No teeth-has dentures but doesn't wear them Eye Screening: Yes: Every year Are you having trouble with hearing? No Do you use an assistive device to help your hearing? No Exercise Screening: daily exercise walks on treadmill daily Nutrition Assessment: Eats a balanced diet and Eats three meals a day Pain Screening: Are you having any pain? No Sleep Screening Tool 'STOP': Do you snore? Yes on occasion Do you feel fatigued during the day? No Do you wake up feeling like you haven't slept? No Have you been told you stop breathing at night? No Do you gasp for air or choke while sleeping? No Have you been told you have Sleep Apnea? No Do you have high blood pressure or are on medication(s) to control high blood pressure? Yes SCORE: If you check YES to two or more questions, make a referral for Obstructive Sleep Apnea Declines need for a sleep study at this time Patient and Caregiver Support System: Patient lives with a spouse Means of Transportation: Drives. Not a concern. Patient lives in [place] Community Resources: Not Applicable Functional Status and ADL Skills: Has patient ever had an amputation? No Functional Assessment: 80- Normal activity with effort: some symptoms of disease Ambulation: Patient ambulates without assistive device. Independent Dressing: Gets clothes and dresses without any assistance: Independent Able to move freely in chair or bed including turning over: Independent Repositioning (bed or chair): Not applicable Transfers: Independent Toileting: Goes to bathroom, uses toilet, arranges clothes and returns without any assistance: Independent Toileting: continent of bladder and continent of bowel Feeding: Self Bathing: Self; shower inside of tub, has grab bars, rubber mat in tub, steps out onto a mat/rug Requires none assistance with ADLs. Instrumental ADL's: Shopping: Independent Housekeeping: Independent Handling Finances: Independent DME Vendor Name: [facility] for nebulizer supplies Fall Risk Assessment: Can the patient demonstrate that he can stand from a sitting position? Yes Has the patient had a fall within the last 6 months? No Does the patient have a problem with his gait or balance? No Does the patient take 4 or more prescription medicines? Yes Does the patient use sedatives or narcotics? No Fall Risk Factors Present: Uses more than 4 medications Older than age 70 Yao-Uk-vsj-Go Test: Time began at 11:00. Patient stood from sitting position and walked approximately 10 feet, returnedand sat down. Total time for ghy-km-cix-go test was 11.88 seconds. Owl-Zp-gxr-Go Test completed? Yes Gender Specific Preventative Plan: Health Maintenance Topic Date Due Alpha-1 Antitrypsin Never done *ADVANCE DIRECTIVE NOT ON FILE Never done COVID-19 Vaccine ( season) 2023 (Originally 2023) GFR 03/28/2024 Colorectal Cancer Screening 04/08/2024 Depression Screening 09/30/2024 O2 ASSESSMENT COMPLETED IN PAST YEAR FOR COPD 09/30/2024 Albumin/Creatinine Ratio 09/26/2025 DTaP,Tdap,and Td Vaccines (3 - Td or Tdap) 02/05/2029 Influenza Vaccine (FLU shot) Completed Lung Cancer Screening Completed AAA Screening Completed Zoster Vaccines Completed Pneumococcal Vaccine: 65+ Years Completed Hepatitis B Aged Out MENINGOCOCCAL (MENACTRA/MENVEO) Aged Out GARDASIL-HPV IMMUNIZATION SERIES Aged Out RETIRED - COLONOSCOPY-EVERY 5 YRS AGES 18-100 Discontinued Follow Up/ Referrals/Handouts: No further action needed Routine general medical examination at a health care facility (Primary) COPD, group C, by GOLD 2017 classification (HCC) Continue to monitor and with current medication. Coronary artery disease involving akhiok coronary artery of akhiok heart without angina pectoris Old SD (myocardial infarction) Continue to monitor and with current medication. Continue to follow with cardiology Displacement of lumbar intervertebral disc without myelopathy Continue to monitor and with current medication as needed. Continue to follow with chiropractor Dyslipidemia, goal LDL below 70 Lab Results Component Value Date/Time LDL CHOLESTEROL (CALCULATED) - TERESA 62 02/07/2019 08:02 AM LDL CHOLESTEROL (DIRECT MEASURE) - TERESA 69 03/28/2023 09:02 AM LDL CHOLESTEROL (DIRECT MEASURE) - TERESA 63 01/30/2020 07:57 AM Continue to monitor diet/exercise and with current medication Gastroesophageal reflux disease with esophagitis Continue to monitor and with current medication HTN, goal below 140/90 BP Readings from Last 3 Encounters: 10/01/23 130/70 08/29/23 118/72 04/25/23 122/70 Continue to monitor and with current medication Patient has been verbally educated on the need or importance of Immunizations: covid and has declined topic(s). Follow Up: Return in 1 year (on 09/30/2024) for 12 month Subsequent Adult Wellness Visit. | For: 12 month Subsequent Adult Wellness Visit | Check-out note: 12 month Subsequent Adult Wellness Visit Would patient like to schedule next AWV visit? Yes Eryn Rivas RN documented in this encounter Miscellaneous Notes * Pt Handout (on AVS) - Eryn Rivas RN - 10/01/2023 11:42 AM EDT Images from the original note were not included. [id number] Preventing Falls: Making Changes in Your Living Space Is your living space filled with hazards that could cause you to fall? Changes can make you safer. They could even save your life. Take a careful look around your home. Change what you can on your own. Hire someone or ask friends or family to help with harder tasks. Be sure to add a nonslip mat to the inside of your shower or bathtub. Always keep a nightlight on. Keep a clear path from your bed to the bathroom. Move items from higher shelves to lower ones. Remove hazards Remove things that can trip you, like throw rugs, boxes, piles of paper, or cords. Nail down rugs or carpeting if you don't want to remove them. Use slip- resistant backing. Don't store items on stairs. Keep walkways clear. Clean up spills right away. Replace glass tables with wooden ones. They're safer if you fall. Add safety devices Add handrails to both sides of stairs. Buy a raised toilet seat. Add grab bars near the toilet and in the shower. Get grabbers to help you reach things and avoid climbing. Improve lighting Add nightlights to halls, bedrooms, and bathrooms. Put light switches at the top and bottom of stairs. Be sure each room and flight of stairs has proper lighting. Use shades or curtains to cut glare from windows. Put flashlights in each room. Replace burned-out bulbs. Get glowing light switches for room entrances. Take other precautions Use nonskid floor wax. Buy a nonslip mat and a liquid soap dispenser for the shower. Put most-used items within easy reach. Add bright paint or tape on the top front edge of steps. Save big jobs, such as moving furniture or other heavy objects, for family or friends. Get professional help installing grab bars. They can be unsafe if not installed the right way. Fix riskier rooms first Don't tackle everything at once. Focus on one room at a time. The bathroom is a common spot for falls, so you may want to start there. Or start with a room you spend lots of time in, such as your bedroom. Make only a few changes at once. This will give you time to adjust to them. Outside safety You might arrange for these changes yourself, or you might need to talk to your building code administrator orDoorboteowners' association about them. Have loose boards on porches or damaged stairs repaired. Have rough edges, holes, or large cracks in sidewalks or driveways repaired. Remove hazards that could trip you, such as hoses or sourav. Use high-wattage light bulbs (100 hannah or greater) near outside doors and stairs. Add handrails to outside stairs. Have them extend beyond the bottom step. Get help in winter weather with ice or snow removal. Last Reviewed Date: 04/19/202219997755-6291 [employer]. All rights reserved. This information is not intended as a substitute for professional medical care. Always follow your healthcare professional's instructions. * Pt Handout (on AVS) - Eryn Rivas RN - 10/01/2023 11:42 AM EDT [id number] Fall Prevention Falls often take place due to slipping, tripping, or losing your balance. Millions of people fall every year and injure themselves. Among older adults in the [place] falls are the most common cause of traumatic brain injuries. Every 20 minutes, an older adult dies from a fall. Here are ways to reduceyour risk of falling again: Think about your fall. Was there anything that caused your fall that can be fixed, removed, or replaced? Make your home safe by keeping walkways clear of objects you may trip over, such as electrical cords. Use nonslip pads under rugs. Don't use area rugs or small throw rugs. Use nonslip mats in bathtubs and showers. Hang grab rails by the toilet and inside and outside the shower. Install handrails and lights on staircases. The handrails should be on both sides of the stairs. Use night lights. Don't walk in poorly lit areas. Don't stand on chairs or wobbly ladders. Use care when reaching overhead or looking up. This position can cause a loss of balance. Be sure your shoes fit well, are in good condition, and have nonslip bottoms. Wear shoes both inside and outside of your home. Don't go barefoot or wear slippers. Be cautious when going up and down stairs, curbs, and when walking on uneven sidewalks. If your balance is poor, consider using a cane or walker. Talk with your healthcare provider about having a balance assessment. If your fall was related to alcohol use, stop or limit alcohol intake. Ask your provider for help if you think you may overuse alcohol and can't stop. If your fall was related to use of sleeping medicines, talk with your provider about this. You may need to reduce your dosage at bedtime if you wake up during the night to go to the bathroom. To reduce the need for nighttime bathroom trips: o Don't drink fluids for several hours before going to bed o Empty your bladder before going to bed o Men can keep a urinal at the bedside Stay as active as you can. Balance, flexibility, strength, and endurance all come from exercise.They all play a role in preventing falls. Ask your provider which types of activity are right for you. Try to do some type of exercise every day. Get your eyes checked once a year or more often if your vision changes If you have pets, know where they are before you stand up or walk so you don't trip over them. Go over all your medicines with a pharmacist or other provider. This is to see if any of them could make you more likely to fall. Have this type of medicine review at least once every year. If your provider advises a new medicine, ask if the side effects will affect your balance. Don't move quickly from one position to another. For instance, don't stand up fast from sitting.This can cause dizziness and may lead to a fall. Sit down when putting on pants, socks, and shoes. This will make you less likely to lose your balance and fall. Always let your provider know if you have fallen since your last visit. Contact your provider right away if you're having balance problems or falling more often. Last Reviewed Date: 05/20/202119990670-9945 [employer]. All rights reserved. This information is not intended as a substitute for professional medical care. Always follow your healthcare professional's instructions. documented in this encounter Plan of Treatment Upcoming Encounters Date Type Department Care Team (Late st Contact Info) Description 12/25/2023 11:20 AM EDT Office Visit Family Practice [address] [facility] [address] [place] [address] Tova Muniz, DO [address] [place] [address] 02/24/2024 8:00 AM EDT Office Visit Cardiology, [facility] 132 [place] [address] Jalen Camilo, DO 132 [place] [address] 10/06/2024 11:00 AM EDT Nurse Only Ancillary [address] [address] College, Nurse Annual Wellness Visit [address] [address] Scheduled Procedures Name Priority Associated Diagnoses Date/Ti [...] this encounter Medical Devices Implanted Type Area Drafter Assistant Device Identifier Shelf Expiration Date Model / Serial / Lot Lens Intraoc 14.0 - [id number] - [id number] Implanted:Qty: 1 on 07/25/2021 by Amado Nayak MD at OR [facility] [employer] 02/16/2026 [id number] / [id number] / [id number] Lens Intraoc 13.5 - [id number] - [id number] Implanted:Qty: 1 on 08/08/2021 by Amado Nayak MD at OR [facility] Right: Eye [employer]OM[employer] 02/16/2026 [id number] / [id number] / documented as of this encounter Visit Diagnoses Diagnosis Routine general medical examination at a health care facility- Primary COPD, group C, by GOLD 2017 classification (HCC) Coronary artery disease involving [place] coronary artery of [place] heart without angina pectoris Displacement of lumbar intervertebral disc without myelopathy Dyslipidemia, goal LDL below 70 Other and unspecified hyperlipidemia Gastroesophageal reflux disease with esophagitis HTN, goal below 140/90 Unspecified essential hypertension Old [place] (myocardial infarction) Old myocardial infarction documented in this encounter Care Teams Claims Technician Relationship Specialty Start Date End Date Tova Muniz DO [address] [place] [address] PCP - General Family Medicine 06/29/22 documented as of this encounter
--- OUTSIDE RECORDS SUMMARY | 2024-02-09 18:48 | External Medical Summary | Summary of Care ---
Author Name Unknown Organization [facility] Address [address] [place] [address] Phone [phone] Care Team Providers Care Winding Operator Name Role Phone Tova Muniz Primary Care Provider Reason for Visit * Reason Comments Medication Refill Encounter Details Date Type Department Care Team (Late st Contact Info) Description 09/23/2023 Refill Cardiology, [facility] [address] [facility] [place] [address] Christine Law CRNP [address] [facility] [address] Coronary artery disease involving [place] coronary artery of pe[place] heart without angina pectoris; HTN, goal below 140/90; Dyslipidemia, goal LDL below 70 Allergies Active Allergy Reactions Criticality Noted Date [...] Tablet Delayed ReleaseIndications: Coronary artery disease involving [place] coronary artery of [place] heart without angina pectoris,HTN, goal below 140/90,Dyslipidemia , goal LDL below 70 Take 1 Tablet by mouth in the morning. 30 Tablet 11 04/23/2023 Active Probiotic Oral Packet Take by mouth. 0 Active Rosuvastatin Calcium 40 MG Oral Tablet (Crestor)Indication s:Coronary artery disease involving [place] coronary artery of pech[place] heart without angina pectoris,HTN, goal below 140/90,Dyslipidemia , goal LDL below 70 Take 1 Tablet by mouth daily with dinner. 100 Tablet 3 09/23/2023 Active Losartan Potassium 50 MG Oral Tablet (Cozaar)Indications :HTN, goal below 140/90,Coronary artery disease involving [place] coronary artery of pech[place] heart without angina pectoris,Dyslipidem ia, goal LDL below 70 take 1 tablet by mouth IN THE MORNING 90 Tablet 2 09/23/2023 Active Rosuvastatin Calcium 40 MG Oral Tablet (Crestor)Indication s:Coronary artery disease involving [place] coronary artery of pechanga heart without angina pectoris,HTN, goal below 140/90,Dyslipidemia , goal LDL below 70 Take 1 Tablet by mouth daily with dinner. 90 Tablet 3 04/23/2023 09/23/19 24 Discontinu ed(Refill) documented as of this encounter (statuses as of 09/23/2023) Active Problems Problem Noted Date Diagnosed Date COPD, group C, by GOLD 2017 classification 07/26 Overview: Per COPD GOLD Classification Old [place] (myocardial infarction) 07/20/2019 Gastroesophageal reflux disease with esophagitis 07/20/2019 HTN, goal below 140/90 01/28/2017 Coronary artery disease invo lving pechanga coronary artery of pechanga heart without angina pectoris 11/21/2010 Dyslipidemia, goal [...] encounter Miscellaneous Notes * Telephone Encounter - Jalen Barajas DO - 09/23/2023 3:03 PM EDTSigned Prescriptions: Disp Refills Rosuvastatin Calcium 40 MG Oral Tablet (Cr*100 Ta*3 Sig: Take 1 Tablet by mouth daily with dinner. Authorizing Provider: JALEN BARAJAS * Telephone Encounter - Mahogany Milian RN - 09/23/2023 2:24 PM EDTPending Prescriptions: Disp Refills Rosuvastatin Calcium 40 MG Oral Tablet (Cr*100 Ta*3 Sig: Take 1 Tablet by mouth daily with dinner. * Telephone Encounter - Mahogany Milian RN - 09/23/2023 2:23 PM EDT Did you pend patient's preferred pharmacy and medication before forwarding?yes Pharmacy: [facility] Pending Prescriptions: Disp Refills Rosuvastatin Calcium 40 MG Oral Tablet (C*90 Tab*3 Sig: Take 1 Tablet by mouth daily with dinner. Last Visit: 04/23/2023 (in office), Visit date not found (telemedicine) Next Visit: 02/24/2024 If no future appointments scheduled, and last appointment is greater than a year ago, please schedule patient for a follow-up appointment Last date the medication was ordered: Is this request for a controlled substance?No Urine Drug Screen:No results found for this or any previous visit. Patient Phone Numbers Labs: Lab Results Component [...] 11:00 AM EDT Nurse Only Ancillary 65 [facility] [address] [facility], Nurse Annual Wellness Visit [address] [address] 12/25/2023 11:20 AM EDT Office Visit Family Practice 65 [facility] [address] Tova Muniz [facility] 293 [facility] [address] 02/24/2024 8:00 AM EDT Office Visit Cardiology, [facility] [address] [place] [address] Jalen Barajas, [address] [place] [address] Scheduled Procedures Name Priority Associated Diagnoses Date/Ti [...] this encounter Medical Devices Implanted Type Area Tank Crewmember Device Identifier Shelf Expiration Date Model / Serial / Lot Lens Intraoc 14.0 - [id number] - [id number] Implanted:Qty: 1 on 07/25/2021 by Amado Nayak MD at OR [facility] [employer] 02/16/2026 [id number] / [id number] / [id number] Lens Intraoc 13.5 - [id number] - [id number] Implanted:Qty: 1 on 08/08/2021 by Amado Nayak MD at OR [facility] Right: Eye [employer] 02/16/2026 [id number] / [id number] / documented as of this encounter Visit Diagnoses Diagnosis Coronary artery disease involving pechanga coronary artery of pechanga heart without angina pectoris HTN, goal below 140/90 Unspecified essential hypertension Dyslipidemia, goal LDL below 70 Other and unspecified hyperlipidemia documented in this encounter Care Teams Winding Operator Relationship Specialty Start Date End Date Tova Muniz DO [address] [place] [address] PCP - General Family Medicine 06/29/22 documented as of this encounter
--- OUTSIDE RECORDS SUMMARY | 2024-02-09 18:48 | External Medical Summary | Summary of Care ---
Author Name Unknown Organization [facility] Address [address] [place] [address] Phone [phone] Care Team Providers Care Landscape Engineer Name Role Phone OpalFiorella santosradha Bland DO Primary Care Provider Reason for Visit * Reason Onset Date Comments Medication Question 09/23/2023 Encounter Details Date Type Department Care Team (Late st Contact Info) Description 09/23/2023 Telephone Cardiology, [facility] [address] [facility] [place] [address] Jalen Camilo DO [address] [place] [address] Medication Question Allergies Active Allergy Reactions Criticality [...] C, by GOLD 2017 classification ([facility]) Take 4 tabs daily for 2 [...] C, by GOLD 2017 classification ([facility]) inhale 1 puff by mouth IN THE MORNING 60 Blister Dosing Unit 11 04/22/2023 Active Aspirin 81 MG Oral Tablet Delayed ReleaseIndications: Coronary artery disease involving [place] coronary artery of [place] heart without angina pectoris,HTN, goal below 140/90,Dyslipidemia , goal LDL below 70 Take 1 Tablet by mouth in the morning. 30 Tablet 11 04/23/2023 Active Rosuvastatin Calcium 40 MG Oral Tablet (Crestor)Indication s:Coronary artery disease involving [place] coronary artery of [place] heart without angina pectoris,HTN, goal below 140/90,Dyslipidemia , goal LDL below 70 Take 1 Tablet by mouth daily with dinner. 90 Tablet 3 04/23/2023 Active Probiotic Oral Packet Take by mouth. 0 Active Losartan Potassium 50 MG Oral Tablet (Cozaar)Indications :HTN, goal below 140/90,Coronary artery disease involving [place] coronary artery of [place] heart without angina pectoris,Dyslipidem ia, goal LDL below 70 take 1 tablet by mouth IN THE MORNING 90 Tablet 2 09/23/2023 Active Albuterol Sulfate HFA 108 (90 Base) MCG/ACT Inhalation Aerosol SolutionIndications :COPD, moderate ([facility]) Inhale 2 Puffs by mouth every [...] mL 5 07/17/2023 09/23/19 24 Discontinu ed(Refill) Losartan Potassium 50 MG Oral Tablet (Cozaar)Indications :HTN, goal below 140/90,Coronary artery disease involving [place] coronary artery of [place] heart without angina pectoris,Dyslipidem ia, goal LDL below 70 take 1 tablet by mouth IN THE MORNING 90 Tablet 3 09/03/2023 09/23/19 24 Discontinu ed(Refill) documented as of this encounter (statuses as of 09/23/2023) Active Problems Problem Noted Date Diagnosed Date COPD, group C, by GOLD 2017 classification 07/26 Overview: Per COPD GOLD Classification Old [place] (myocardial infarction) 07/20/2019 Gastroesophageal reflux disease with esophagitis 07/20/2019 HTN, goal below 140/90 01/28/2017 Coronary artery disease invo lving [place] coronary artery of [place] heart without angina pectoris 11/21/2010 Dyslipidemia, goal [...] Miscellaneous Notes * Telephone Encounter - Deepa Miranda, [facility] - 09/23/2023 2:15 PM EDT [facility] Pending Prescriptions: Disp Refills Losartan Potassium 50 MG Oral Tablet (Coz*90 Tab*3 Sig: Take 1 Tablet by mouth. In the morning. Last Visit: 04/23/2023 (in office), Visit date not found (telemedicine) 02/24/2024 If no future appointments scheduled, and last appointment is greater than a year ago, please schedule patient for a follow-up appointment Last date the medication was ordered: 09/03/23 Patient Phone Numbers Labs: Lab Results Component [...] 11:00 AM EDT Nurse Only Ancillary 65 [facility] 293 [place] [address] College, Nurse Annual Wellness Visit [address] [address] 12/25/2023 11:20 AM EDT Office Visit Family Practice 65 [facility] 293 [place] [address] Tova Muniz, DO 293 [place] [address] 02/24/2024 8:00 AM EDT Office Visit Cardiology, [facility] 132 [facility] [place] [address] Jalen Camilo DO 132 [facility] [place] [address] Scheduled Procedures Name Priority Associated Diagnoses Date/Ti [...] this encounter Medical Devices Implanted Type Area Financial Planner Device Identifier Shelf Expiration Date Model / Serial / Lot Lens Intraoc 14.0 - [id number] - [id number] Implanted:Qty: 1 on 07/25/2021 by Amado Nayak MD at OR [facility] [employer] 02/16/2026 [id number] / [id number] / [id number] Lens Intraoc 13.5 - [id number] - [id number] Implanted:Qty: 1 on 08/08/2021 by Amado Nayak MD at OR [facility] Right: Eye [employer]OM[employer] 02/16/2026 [id number] / [id number] / documented as of this encounter Visit Diagnoses Diagnosis HTN, goal below 140/90 Unspecified essential hypertension Coronary artery disease involving [place] coronary artery of [place] heart without angina pectoris Dyslipidemia, goal LDL below 70 Other and unspecified hyperlipidemia documented in this encounter Care Teams Landscape Engineer Relationship Specialty Start Date End Date Tova Muniz DO [address] [place] [address] PCP - General Family Medicine 06/29/22 documented as of this encounter
--- OUTSIDE RECORDS SUMMARY | 2024-02-09 18:48 | External Medical Summary | Summary of Care ---
Author Name Unknown Organization [facility] Address [address] [place] [address] Phone [phone] Care Team Providers Care Storekeeper Steward Name Role Phone Tova Barrera DO Primary Care Provider [phone] Reason for Visit * Reason Comments Medication Refill Encounter Details Date Type Department Care Team (Late st Contact Info) Description 09/23/2023 Refill Family Practice [address] [place] 293 [place] [address] Tova Barrera DO 293 [place] [address] COPD, group C, by GOLD 2017 classification ([facility]) Allergies Active Allergy Reactions Criticality Noted Date [...] ons:COPD, group C, by GOLD 2017 classification ([facility]) Take 4 tabs daily for 2 [...] Tablet Delayed ReleaseIndications: Coronary artery disease involving circle coronary artery of circle heart without angina pectoris,HTN, goal below 140/90,Dyslipidemia , goal LDL below 70 Take 1 Tablet by mouth in the morning. 30 Tablet 11 04/23/2023 Active Probiotic Oral Packet Take by mouth. 0 Active Rosuvastatin Calcium 40 MG Oral Tablet (Crestor)Indication s:Coronary artery disease involving circle coronary artery of circle heart without angina pectoris,HTN, goal below 140/90,Dyslipidemia , goal LDL below 70 Take 1 Tablet by mouth daily with dinner. 100 Tablet 3 09/23/2023 Active Trelegy Ellipta 100-62.5-25 MCG/ACT Aerosol Powder Breath Activated (Fluticasone-Umecli dinium-Vilanterol)I ndications:COPD, group C, by GOLD 2017 classification ([facility]) inhale 1 puff by mouth IN THE MORNING 180 Blister Dosing Unit 1 09/24/2023 Active Losartan Potassium 50 MG Oral Tablet (Cozaar)Indications :HTN, goal below 140/90,Coronary artery disease involving circle coronary artery of circle heart without angina pectoris,Dyslipidem ia, goal LDL below 70 take 1 tablet by mouth IN THE MORNING 90 Tablet 2 09/23/2023 Active Omeprazole 20 MG Oral Capsule Delayed Release (PriLOSEC)Indicatio ns:Heartburn Take 1 Capsule by mouth in the morning. Every morning.. 90 Capsule 0 09/23/2023 Active Albuterol Sulfate HFA 108 (90 Base) MCG/ACT Inhalation Aerosol SolutionIndications :COPD, moderate ([facility]) Inhale 2 Puffs by mouth every 4 hours as needed for Cough. 54 g 1 09/23/2023 Active Ipratropium-Albuter ol 0.5-2.5 (3) MG/3ML Inhalation Solution (Duoneb)Indications :COPD, group C, by GOLD 2017 classification ([facility]) Inhale 3 mL via nebulizer in the morning and 3 mL at noon and 3 mL in the evening and 3 mL before bedtime. 1080 mL 0 09/23/2023 Active Ezetimibe 10 MG Oral Tablet (Zetia)Indications: Chronic coronary artery disease Take 1 Tablet by mouth in the morning. In the morning.. 90 Tablet 2 09/23/2023 Active Trelegy Ellipta 100-62.5-25 MCG/ACT Aerosol Powder Breath Activated (Fluticasone-Umecli dinium-Vilanterol)I ndications:COPD, group C, by GOLD 2017 classification ([facility]) inhale 1 puff by mouth IN THE MORNING 60 Blister Dosing Unit 11 04/22/2023 09/23/19 24 Discontinu ed(Refill) documented as of this encounter (statuses as of 09/24/2023) Active Problems Problem Noted Date Diagnosed Date COPD, group C, by GOLD 2017 classification 07/26 Overview: Per COPD GOLD Classification Old [place] (myocardial infarction) 07/20/2019 Gastroesophageal reflux disease with esophagitis 07/20/2019 HTN, goal below 140/90 01/28/2017 Coronary artery disease invo lving circle coronary artery of circle heart without angina pectoris 11/21/2010 Dyslipidemia, goal [...] Notes * Telephone Encounter - Anna [facility] - 09/24/2023 3:13 PM EDT Signed Prescriptions: Disp Refills Trelegy Ellipta 100-62.5-25 MCG/ACT Aeroso*180 Bl*1 Sig: inhale 1 puff by mouth IN THE MORNINGAuthorizing Provider: TOVA BARRERA User: ANNA CORNELL documented in this encounter Plan of Treatment Upcoming Encounters Date Type Department Care Team (Late st Contact Info) Description 10/01/2023 11:00 AM EDT Nurse Only Ancillary 65 [facility] 293 [place] [address] College, Nurse Annual Wellness Visit 65 [facility] 293 [place] [address] 12/25/2023 11:20 AM EDT Office Visit Family Practice 65 [facility] 293 [place] [address] Tova Barrera, DO 293 [facility], [place] [address] 02/24/2024 8:00 AM EDT Office Visit Cardiology, [facility] 132 [facility] [place] [address] Jalen Camilo, DO 132 [facility] [place] [address] Scheduled Procedures Name Priority Associated Diagnoses Date/Ti [...] Additional history exists Zoster Vaccines Completed 09/17/2019, 12/10/2018, 09/24/2012 Lung Cancer Screening Completed 03/03/2020 , [...] this encounter Medical Devices Implanted Type Area Microcomputer Support Specialist Device Identifier Shelf Expiration Date Model / Serial / Lot Lens Intraoc 14.0 - [id number] - [id number] Implanted:Qty: 1 on 07/25/2021 by Amado Nayak MD at OR [facility] [employer] 02/16/2026 [id number] / [id number] / [id number] Lens Intraoc 13.5 - [id number] - [id number] Implanted:Qty: 1 on 08/08/2021 by Amado Nayak MD at OR [facility] Right: Eye [employer]OM[employer] 02/16/2026 [id number] / [id number] / documented as of this encounter Visit Diagnoses Diagnosis COPD, group C, by GOLD 2017 classification (HCC) documented in this encounter Care Teams Storekeeper Steward Relationship Specialty Start Date End Date Tova Barrera DO [address] [place] [address] PCP - General Family Medicine 06/29/22 documented as of this encounter
[2024-02-09 19:05] LABS: Basophils # (auto) 0.04 K/uL (0.00-0.20); Basophils % (auto) 0.4 %; Eosinophils # (auto) 0.28 K/uL (0.00-0.50); Eosinophils % (auto) 3.1 %; Hematocrit (blood only) 45.8 % (42.0-52.0); Hemoglobin 15.8 g/dl (14.0-18.0); Immature Granulocytes # (auto) 0.04 K/uL (0.01-0.20); Immature Granulocytes % (auto) 0.4 %; Lymphocytes # (auto) 1.42 K/uL (1.20-3.40); Lymphocytes % (auto) 15.8 %; Mean Corpuscular Hemoglobin 31.9 pg (25.0-34.0); Mean Corpuscular Hgb Conc 34.5 g/dL (32.0-36.0); Mean Corpuscular Volume 92.3 fL (80.0-100.0); Mean Platelet Volume 8.9 fL (9.4-12.4); Monocytes # (auto) 0.99 K/uL (0.11-0.59); Neutrophils # (auto) 6.21 K/uL (1.40-6.50); Neutrophils % (auto) 69.3 %; Platelet Count 162 K/uL (130-400); RDW Coefficient of Variation 13.8 % (11.5-14.5); RDW Standard Deviation 46.6 fL (36.4-46.3); Red Blood Count 4.96 M/uL (4.70-6.10); White Blood Count 8.98 K/ul (4.8-10.8)
[2024-02-09] MEDS: ASPIRIN CHEW 324 MG PO STA (19:16)
[2024-02-09] MEDS: ALUMINUM/MAGNESIUM SUSP 30 ML UDC PO STA (19:16)
--- NOTE | 2024-02-09 19:16 | Emergency Department Note ---
Impression & Plan Chest pain, ELIZABETH (dyspnea on exertion) ED Provider Note NAME: CLAUDY HULL AGE: 74 SEX: M : 1950 ARRIVES VIA: Walk-In INFORMANT: Patient, ED PROVIDER(S): Kevin Mcarthur DO CHIEF COMPLAINT: Chest pain HPI: The patient is a 74-year-old male who presented to the emergency department for an evaluation of chest discomfort. The patient noticed left-sided chest pain in his axilla going down his left arm. He started noticing shortness of breath with exertion. The patient took nitroglycerin with some relief of his symptoms. The patient denies having any vomiting at this time. He denies having any leg swelling or leg pain. The patient was concerned because he has a history of coronary artery disease and thought this was his heart. ROS: See above HPI for pertinent positives & negatives. A total of 10 systems reviewed and were otherwise negative. PAST MEDICAL HISTORY: See Below PAST SURGICAL HISTORY: See Below FAMILY HISTORY: See Below SOCIAL HISTORY: See Below HOME MEDICATIONS: See Below ALLERGIES: See Below VITALS: See Below PHYSICAL EXAMINATION: GENERAL: Patient is awake alert in no acute distress patient is resting comfortably and showing no signs of anxiety EYES: The conjunctivae are clear. The pupils are round and reactive. EARS, NOSE, MOUTH AND THROAT: The nose is without any evidence of any deformity. NECK: The neck is nontender and supple. RESPIRATORY: Normal respiratory effort is noted there is no evidence of wheezing rhonchi or rales CARDIOVASCULAR: Regular rate and rhythm noted there no murmurs rubs or gallops normal S1 normal S2. GASTROINTESTINAL: The abdomen is soft. Abdomen is nontender. MUSCULOSKELETAL/EXTREMITIES: There is no evidence of gross deformity full range of motion is noted in the hips and shoulders. SKIN: There is no obvious evidence of any rash. There are no petechiae, pallor or cyanosis noted. NEUROLOGIC: Patient is awake alert and oriented x3 MEDICAL DECISION MAKING: The patient is a 74-year-old male who presented to the emergency department for an evaluation of chest discomfort. The patient describes left-sided pain that went to his left arm. He is also noted some shortness of breath with exertion. He does have a history of coronary artery disease as well as stenting. The patient appears to be at higher risk for acute coronary syndrome. I discussed the patient's laboratory and radiographic studies with him. I also discussed the limitations of the emergency part workup for chest pain with him. Ultimately the patient was having significant relief of his discomfort but given his past medical history as well as his use of nitroglycerin I did feel he may be too high risk for outpatient management. For this reason I discussed his condition with the on-call [facility] hospitalist. Triage Nursing notes reviewed. Prior medical records reviewed Vital Signs: reviewed and remarkable for no significant abnormalities Differential diagnosis: Cardiac ischemia, aortic dissection, pulmonary embolism, pneumothorax, pneumonia, pericarditis, myocarditis, esophageal rupture, GERD, cholecystitis, pancreatitis, musculoskeletal, as well as other pathologies. ER treatment provided: See below Diagnostics interpreted by me: ECG: EKG was obtained in the emergency department. My interpretation is normal sinus rhythm at 96 bpm. There is no ectopy. There is no acute ST segment abnormalities noted. This was compared to a tracing from August 31, 2022. No changes were noted. Cardiac Monitoring: An order was placed for continuous cardiac monitoring. The monitor shows a rate of 82 bpm with sinus rhythm. Laboratory studies: As stated above and show below. Imaging studies: See below. Radiographic imaging was reviewed by myself Consultation(s): I discussed this case with Dr. Galaviz who is on-call for the [facility] group. Past Med/Surg History Problem List (Updated 02/09/24 @ 22:25 by Kevin Mcarthur DO) ELIZABETH (dyspnea on exertion) (Acute) Chest pain (Acute) S/P total left hip arthroplasty Arthritis of left hip Pulmonary nodule Encounter for pre-operative examination Allergic reaction (Acute) Angio-edema (Acute) COPD exacerbation (Acute) Hypoxia (Acute) Influenza A (Acute) Hypomagnesemia (Acute) Acute exacerbation of chronic obstructive pulmonary disease (Acute) Failure of outpatient treatment (Acute) Syncope (Acute) Closed head injury (Acute) DVT prophylaxis COPD (chronic obstructive pulmonary disease) Cough Left hip pain Degenerative joint disease of left hip Heart disease Hypertension controlled, stable per pt Medical History GERD (gastroesophageal reflux disease) controlled, stable per pt CAD (coronary artery disease) s/p 2 stents 2008, follows with [facility] cardio Degenerative disc disease Hyperlipidemia History of COVID-19 07/03/22 via HOME TEST--body aches, fever, fatigue was on paxlovid--no symptoms now Herniated disc Myocardial infarction 2009--had heart cath with 2 stents placed--follows with Dr. Camilo COPD (chronic obstructive pulmonary disease) inhaler daily/prn, nebulizer used daily Surgical History History of left knee surgery ligament surgery > 50 yrs ago per pt History of arthroscopy of left knee x2 History of colonoscopy History of tooth extraction all teeth removed History of bilateral cataract extraction H/O cardiac catheterization 2009--with 2 stents done at [facility] Family History Other No family history of adverse response to anesthesia Social History Smoking Status: Unknown if ever smoked Tobacco Type: Cigarettes Second Hand Exposure: No; Do You Dip or Chew Tobacco: No; Hx Alcohol Use: Yes ("1-2 shots a night") Alcohol type: hard liquor Hx Substance Use: No Preferred Language: Vietnamese Communication Ability: Effective 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 Beliefs That Will Affect Care: None marital status: Current Living Situation: Spouse Feels Safe at Home: Yes Assistive Devices: Cane, Denture - Upper, Denture - Lower, Glasses and Nebulizer Allergies Allergies Allergy/AdvReac Type Severity Reaction Status Date / Time Iodinated Contrast Media Allergy Intermediate HIVES WITH Verified 10/05/22 05:28 IV DYE FOR CARDIAC CATH lisinopril Allergy Intermediate ANGIOEDEMA Verified 10/05/22 05:28 Home Meds Home Medications Medication Instructions Recorded Confirmed ezetimibe 10 mg tablet 10 mg PO QAM 06/27/19 10/05/22 losartan 50 mg tablet 50 mg PO QAM 06/27/19 10/05/22 nitroglycerin 0.4 mg sublingual 0.4 mg sublingual UD PRN Chest Pain 06/27/19 10/05/22 tablet omeprazole 20 mg capsule,delayed 20 mg PO Q OTHER DAY 06/27/19 10/05/22 release rosuvastatin 40 mg tablet 40 mg PO QPM 06/27/19 10/05/22 albuterol sulfate 90 mcg/actuation 2 puff inhalation Q4H PRN 06/28/19 10/05/22 aerosol inhaler Shortness Of Breath Or Wheezing diphenhydramine HCl 25 mg tablet 25 mg PO Q4H PRN Angioedema 12/30/19 10/05/22 Prevagen 1 tab PO QAM 08/28/22 10/05/22 fluticasone fur. 100 mcg-umeclid 1 inh inhalation QAM 08/28/22 10/05/22 62.5 mcg-vilant 25 mcg inhalat.powder (Trelegy Ellipta) geriatric multivitamin-min 1 tab PO QAM 08/28/22 10/05/22 metoprolol succinate 25 mg 25 mg PO QAM 08/28/22 10/05/22 tablet,extended release 24 hr Previous Rx's Medication Instructions Recorded albuterol sulfate 2.5 mg/3 mL 2.5 mg (3 mL) inhalation Q8H PRN 09/24/19 (0.083 %) solution for nebulization shortness of breath or wheezing #90 mL acetaminophen 500 mg tablet 500 mg PO TID pain 30 days #90 tabs 10/03/22 (Tylenol Extra Strength) aspirin 81 mg tablet,delayed 81 mg PO BID 45 days #90 tabs 10/03/22 release (Vikas Low Dose Aspirin) ketorolac 10 mg tablet 10 mg PO TID pain 5 days #15 tabs 10/03/22 ondansetron 4 mg disintegrating 4 mg PO Q8 PRN nausea #20 tabs 10/03/22 tablet sennosides 8.6 mg tablet (Senokot) 8.6 mg PO BID prevent constipation 10/03/22 14 days #28 tabs tamsulosin 0.4 mg capsule (Flomax) 0.4 mg PO DAILY #7 caps 10/03/22 tramadol 50 mg tablet 50 - 100 mg (1 - 2 x 50 mg) PO Q6 10/03/22 PRN pain #40 tabs Results & Data (ED) Vital Signs Vital Signs - 24 hr 02/09/24 18:44 02/09/24 19:07 02/09/24 19:09 Temperature 36.5 C Temperature Source Temporal Artery Scan Pulse Rate 96 H 90 90 Pulse Rhythm Respiratory Rate 20 23 Respiratory Effort / Characteristics Non-Labored Spontaneous Respiratory Depth Normal Blood Pressure 123/84 147/88 H Blood Pressure Mean 97 107 Pulse Oximetry 93 96 Oxygen Delivery Method Room Air Sepsis Recent Fever Within 48 Hours No Sepsis New/Unexplained Change in Mental Status No Sepsis Action Taken by Nursing No Action Required 02/09/24 19:24 02/09/24 19:24 02/09/24 19:27 Temperature Temperature Source Pulse Rate 81 87 Pulse Rhythm Regular Respiratory Rate 18 22 Respiratory Effort / Characteristics Respiratory Depth Blood Pressure 129/89 Blood Pressure Mean 102 Pulse Oximetry 100 100 94 Oxygen Delivery Method Room Air Room Air Sepsis Recent Fever Within 48 Hours Sepsis New/Unexplained Change in Mental Status Sepsis Action Taken by Nursing 02/09/24 20:00 02/09/24 20:30 02/09/24 20:54 Temperature Temperature Source Pulse Rate 84 87 83 Pulse Rhythm Respiratory Rate 18 23 13 Respiratory Effort / Characteristics Respiratory Depth Blood Pressure 132/77 132/78 127/93 Blood Pressure Mean 95 96 104 Pulse Oximetry 94 92 96 Oxygen Delivery Method Sepsis Recent Fever Within 48 Hours Sepsis New/Unexplained Change in Mental Status Sepsis Action Taken by Nursing 02/09/24 21:33 Temperature Temperature Source Pulse Rate 82 Pulse Rhythm Respiratory Rate 23 Respiratory Effort / Characteristics Respiratory Depth Blood Pressure 137/77 Blood Pressure Mean 97 Pulse Oximetry 95 Oxygen Delivery Method Sepsis Recent Fever Within 48 Hours Sepsis New/Unexplained Change in Mental Status Sepsis Action Taken by [facility] Medications Current Medication List: was personally reviewed by me Laboratory Data Attestation: I reviewed the patient's lab results. 02/09/24 18:50 02/09/24 18:50 Lab Results 02/09/24 02/09/24 Range/Units 18:50 21:07 WBC 8.98 (4.8-10.8) K/ul RBC 4.96 (4.70-6.10) M/uL Hgb 15.8 (14.0-18.0) g/dl Hct 45.8 (42.0-52.0) % MCV 92.3 (80.0-100.0) fL MCH 31.9 (25.0-34.0) pg MCHC 34.5 (32.0-36.0) g/dL RDW Std Deviation 46.6 H (36.4-46.3) fL RDW Coeff of [place] 13.8 (11.5-14.5) % Plt Count 162 (130-400) K/uL MPV 8.9 L (9.4-12.4) fL Immature Gran % (Auto) 0.4 % Neut % (Auto) 69.3 % Lymph % (Auto) 15.8 % [place] % (Auto) 11.0 % Eos % (Auto) 3.1 % Baso % (Auto) 0.4 % Neut # (Auto) 6.21 (1.40-6.50) K/uL Lymph # (Auto) 1.42 (1.20-3.40) K/uL [place] # (Auto) 0.99 H (0.11-0.59) K/uL Eos # (Auto) 0.28 (0.00-0.50) K/uL Baso # (Auto) 0.04 (0.00-0.20) K/uL Immature Gran # (Auto) 0.04 (0.01-0.20) K/uL PT 10.5 (9.0-12.0) Seconds INR 1.0 (0.9-1.1) APTT 24 (21-31) Seconds PTT Ratio 0.9 Sodium 137 (136-145) mmol/L Potassium 4.1 (3.5-5.1) mmol/L Chloride 104 (98-107) mmol/L Carbon Dioxide 24 (21-32) mmol/L Anion Gap 9 (3-11) BUN 21 (6-23) mg/dl Creatinine 1.29 (0.6-1.4) mg/dl Est Cr Clr Drug Dosing 63.9 ml/min Est GFR ( Amer) 63.8 ml/min Est GFR (Non-Af Amer) 55.0 ml/min BUN/Creatinine Ratio 16.3 (10-20) Glucose 111 H (70-99(Fasting)) mg/dl Calcium 9.8 (8.6-10.3) mg/dl Total Bilirubin 1.1 H (0.2-1.0) mg/dl AST 34 (13-39) U/L ALT 32 (7-52) U/L Alkaline Phosphatase 55 (34-104) U/L Troponin I High Sens 7.2 6.1 (0-20) pg/ml Total Protein 7.4 (6.0-8.3) gm/dl Albumin 4.4 (3.4-5.0) gm/dl Globulin 3.0 (2.5-4.0) gm/dl Albumin/Globulin Ratio 1.5 (0.9-2) Administered Medications Discontinued Medications Al Hydrox/Mg Hydrox/Simethicone (Aluminum/Magnesium Susp 30 Ml Udc) 30 ml PO NOW STA Stop: 02/09/24 19:11 Last Admin: 02/09/24 19:16 Dose: 30 ml Documented By: JARVIS Aspirin (Aspirin Chew 324 Mg) 324 mg PO NOW STA Stop: 02/09/24 19:11 Last Admin: 02/09/24 19:16 Dose: 324 mg Documented By: JARVIS Imaging Data Attestation: I personally reviewed and interpreted this imaging study as follows: My Impression: 1 view chest x-ray was obtained in the emergency department. My interpretation is no free air or definite infiltrate, final report below. Radiologist's Impression: Chest X-Ray 02/09/24 18:46 XR chest 1V portable CLINICAL HISTORY: Chest pain, nonspecific COMPARISON STUDY: Chest CT September 23, 2019. Chest radiograph August 31, 2022. FINDINGS: Lung volumes are normal. Linear lingular density favors atelectasis or scarring. There is no pneumothorax or pleural effusion. Cardiac size is normal. Mediastinal contours are normal. There is no evidence for pulmonary edema. IMPRESSION: No acute cardiopulmonary findings. ACT 112: Negative or not required by law. Electronically signed by: Adis Forrester M.D. 02/09/2024 7:51 PM Discharge Plan Visit Data Chief Complaint: Chest Pain Stated Complaint: L ARM PAIN,TIGHTNESS IN CHEST ED Provider: Kevin Mcarthur Discharge Problem: Chest pain, ELIZABETH (dyspnea on exertion) Patient Disposition: Being Evaluated by Hospitalist Forms Stand Alone Forms: My [facility] Prescriptions Prescriptions: No Action tramadol 50 mg tablet 50 - 100 mg PO Q6 PRN (Reason: pain) Qty: 40 0RF Rx Instructions: Take as needed for pain ondansetron 4 mg tablet,disintegrating 4 mg PO Q8 PRN (Reason: nausea) Qty: 20 1RF Rx Instructions: Take as needed for nausea ketorolac 10 mg tablet 10 mg PO TID 5 Days Qty: 15 0RF Rx Instructions: Take 3 times per day with food for 5 days to lessen pain and swelling. aspirin [Vikas Low Dose Aspirin] 81 mg tablet,delayed release (DR/EC) 81 mg PO BID 45 Days Qty: 90 0RF Rx Instructions: Take to prevent blood clots. acetaminophen [Tylenol Extra Strength] 500 mg tablet 500 mg PO TID 30 Days Qty: 90 0RF Rx Instructions: Take 3 times per day to lessen pain. sennosides [Senokot] 8.6 mg tablet 8.6 mg PO BID 14 Days Qty: 28 0RF Rx Instructions: Take two times a day to prevent/treat constipation tamsulosin [Flomax] 0.4 mg capsule 0.4 mg PO DAILY Qty: 7 0RF Rx Instructions: Begin night BEFORE surgery to prevent urinary retention diphenhydramine HCl 25 mg tablet 25 mg PO Q4H PRN (Reason: Angioedema) losartan 50 mg tablet 50 mg PO QAM ezetimibe 10 mg tablet 10 mg PO QAM rosuvastatin 40 mg tablet 40 mg PO QPM nitroglycerin 0.4 mg tablet, sublingual 0.4 mg sublingual UD PRN (Reason: Chest Pain) omeprazole 20 mg capsule,delayed release(DR/EC) 20 mg PO Q OTHER DAY Patient Comments: takes in the am albuterol sulfate 90 mcg/actuation HFA aerosol inhaler 2 puff INHALATION Q4H PRN (Reason: Shortness Of Breath Or Wheezing) albuterol sulfate 2.5 mg /3 mL (0.083 %) solution for nebulization 2.5 mg INH Q8H PRN (Reason: shortness of breath or wheezing) Qty: 90 1RF metoprolol succinate 25 mg Tablet Extended Release 24 Hr 25 mg PO QAM geriatric multivitamin-min Tablet 1 tab PO QAM Trelegy Ellipta 100-62.5-25 mcg Blister With Device 1 inh INHALATION QAM Prevagen 1 tab PO QAM Referrals Referrals: Tova Muniz DO [Primary Care Provider] - Discharge Problem: Chest pain Qualifiers: Chest pain type: unspecified Qualified Code(s): R07.9 - Chest pain, unspecified
[2024-02-09 19:23] LABS: Albumin Globulin Ratio 1.5 (0.9-2); Albumin Level 4.4 gm/dl (3.4-5.0); BUN Creatinine Ratio 16.3 (10-20); Bilirubin,Total 1.1 mg/dl (0.2-1.0); Calcium 9.8 mg/dl (8.6-10.3); Creatinine Clr Calc Pharmacy 63.9 ml/min; Est GFR (African American) 63.8 ml/min; Potassium 4.1 mmol/L (3.5-5.1); Total Protein 7.4 gm/dl (6.0-8.3)
[2024-02-09 19:29] LABS: Troponin I High Sensitivity 7.2 pg/ml (0-20)
[2024-02-09 19:31] LABS: Partial Thromboplastin Ratio 0.9; Partial Thromboplastin Time 24 Seconds (21-31); Prothrombin Time 10.5 Seconds (9.0-12.0)
--- NOTE | 2024-02-09 19:53 | XRay Report ---
XR chest 1V portable CLINICAL HISTORY: Chest pain, nonspecific COMPARISON STUDY: Chest CT September 23, 2019. Chest radiograph August 31, 2022. FINDINGS: Lung volumes are normal. Linear lingular density favors atelectasis or scarring. There is n o pneumothorax or pleural effusion. Cardiac size is normal. Mediastinal contours are normal. There is no evidence for pulmonary edema. IMPRESSION: No acute cardiopulmonary findings. ACT 112: Negative or not required by law. Electronically signed by: Adis Forrester M.D. 02/09/2024 7:51 PM
--- NOTE | 2024-02-09 22:33 | History & Physical Report ---
Date of Service February 09, 2024 Assessment & Plan (1) Chest pain: Plan: Possibly musculoskeletal given reproducibility on exam Rule out ACS, hx CAD status post stent hypertension, slightly elevated hyperlipidemia, on statin Rx COPD, not in acute exacerbation Hyperglycemia rule out DM past tobacco abuse OBS PCU Continue aspirin, beta-brittni and statin Rx Follow troponin Cardiology consult Re: Chest pain, history CAD N.p.o. in anticipation of ischemic workup Check hemoglobin A1c [facility] Full code Text document was generated using [employer] voice recognition software. It may contain grammatical or spelling errors. Kindly contact undersigned for clarification of any documentation item in question. History of Present Illness Chief Complaint: Chest pain, SOB Primary Care Provider: Tova Muniz DO History obtained from patient and records. Medical history significant for CAD status post stent, hypertension, hyperlipidemia, COPD, GERD, history of angioedema as per records, past tobacco abuse. Last confinement September 2022 under Orthopedics service for elective left hip surgery. Patient experienced substernal discomfort going to the left arm with SOB after installing a carport at his home. Some relief with nitroglycerin intake prior to ER arrival. Patient compliant with home meds. 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 Allergies Allergy/AdvReac Type Severity Reaction Status Date / Time Iodinated Contrast Media Allergy Intermediate HIVES WITH Verified 10/05/22 05:28 IV DYE FOR CARDIAC CATH lisinopril Allergy Intermediate ANGIOEDEMA Verified 10/05/22 05:28 Home Medications Medication Instructions Recorded Confirmed Type ezetimibe 10 mg tablet 10 mg PO QAM 06/27/19 02/09/24 History losartan 50 mg tablet 50 mg PO QAM 06/27/19 02/09/24 History nitroglycerin 0.4 mg sublingual 0.4 mg sublingual UD PRN Chest Pain 06/27/19 02/09/24 History tablet omeprazole 20 mg capsule,delayed 20 mg PO Q OTHER DAY 06/27/19 02/09/24 History release rosuvastatin 40 mg tablet 40 mg PO QPM 06/27/19 02/09/24 History albuterol sulfate 90 mcg/actuation 2 puff inhalation Q4H PRN 06/28/19 02/09/24 History aerosol inhaler Shortness Of Breath Or Wheezing albuterol sulfate 2.5 mg/3 mL 2.5 mg (3 mL) inhalation Q8H PRN 09/24/19 02/09/24 Rx (0.083 %) solution for nebulization shortness of breath or wheezing #90 mL diphenhydramine HCl 25 mg tablet 25 mg PO Q4H PRN Angioedema 12/30/19 02/09/24 History Prevagen 1 tab PO QAM 08/28/22 02/09/24 History geriatric multivitamin-min 1 tab PO QAM 08/28/22 02/09/24 History metoprolol succinate 25 mg 25 mg PO QAM 08/28/22 02/09/24 History tablet,extended release 24 hr acetaminophen 500 mg tablet 500 mg PO TID pain 30 days #90 tabs 10/03/22 02/09/24 Rx (Tylenol Extra Strength) tamsulosin 0.4 mg capsule (Flomax) 0.4 mg PO DAILY #7 caps 10/03/22 02/10/24 Rx tramadol 50 mg tablet 50 - 100 mg (1 - 2 x 50 mg) PO Q6 10/03/22 02/10/24 Rx PRN pain #40 tabs aspirin 81 mg PO DAILY 02/09/24 02/09/24 History Past Med/Surg History Problem List (Updated 02/09/24 @ 22:25 by Kevin Mcarthur DO) ELIZABETH (dyspnea on exertion) (Acute) Chest pain (Acute) S/P total left hip arthroplasty Arthritis of left hip Pulmonary nodule Encounter for pre-operative examination Allergic reaction (Acute) Angio-edema (Acute) COPD exacerbation (Acute) Hypoxia (Acute) Influenza A (Acute) Hypomagnesemia (Acute) Acute exacerbation of chronic obstructive pulmonary disease (Acute) Failure of outpatient treatment (Acute) Syncope (Acute) Closed head injury (Acute) DVT prophylaxis COPD (chronic obstructive pulmonary disease) Cough Left hip pain Degenerative joint disease of left hip Heart disease Hypertension controlled, stable per pt Medical History GERD (gastroesophageal reflux disease) controlled, stable per pt CAD (coronary artery disease) s/p 2 stents 2008, follows with S cardio Degenerative disc disease Hyperlipidemia History of COVID-19 07/03/22 via HOME TEST--body aches, fever, fatigue was on paxlovid--no symptoms now Herniated disc Myocardial infarction 2009--had heart cath with 2 stents placed--follows with Dr. Camilo COPD (chronic obstructive pulmonary disease) inhaler daily/prn, nebulizer used daily Surgical History History of left knee surgery ligament surgery > 50 yrs ago per pt History of arthroscopy of left knee x2 History of colonoscopy History of tooth extraction all teeth removed History of bilateral cataract extraction H/O cardiac catheterization 2009--with 2 stents done at [facility] Family History Other No family history of adverse response to anesthesia Social History Smoking Status: Former smoker Tobacco Type: Cigarettes Second Hand Exposure: No; Do You Dip or Chew Tobacco: No; Hx Alcohol Use: Yes Alcohol type: beer and hard liquor Hx Substance Use: No Preferred Language: Armenian Communication Ability: Effective 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 Beliefs That Will Affect Care: None marital status: Current Living Situation: Spouse Other Information That Helps Us Care for You: No Feels Safe at Home: Yes Safety Concerns: Feels Safe At This Time Assistive Devices: Cane, Denture - Upper, Denture - Lower, Glasses and Nebul izer Review of Systems Review of Systems: As per HPI, all other systems reviewed and negative Physical Exam Physical Exam: GENERAL: Obese, comfortable, pleasant, no respiratory distress SKIN: Normal color, warm HEENT: [place] palpebral conjunctivae, no ptosis, dry buccal mucosa NECK : Supple, no tenderness CHEST : Decreased breath sounds, anterior chest wall tenderness HEART : RRR, no obvious murmurs ABDOMEN: Some distention, nontender EXTREMITIES : Minimal LE swelling, no LE tenderness, no other conspicuous deformities noted NEUROLOGIC : Coherent, no facial asymmetry, no other gross focality Results & Data Results & Data Vital Signs (Past 12 Hours) Vital Signs Temp Pulse Resp BP Pulse Ox O2 Del Method 02/09/24 22:09 83 17 130/76 95 02/09/24 21:33 82 23 137/77 95 02/09/24 20:54 83 13 127/93 96 02/09/24 20:30 87 23 132/78 92 02/09/24 20:00 84 18 132/77 94 02/09/24 19:27 87 22 129/89 94 02/09/24 19:24 81 18 100 Room Air 02/09/24 19:24 100 Room Air 02/09/24 19:09 90 23 147/88 H 96 02/09/24 19:07 90 02/09/24 18:44 36.5 C 96 H 20 123/84 93 Room Air Laboratory Results Laboratory Results WBC 8.98 K/ul (4.8-10.8) 02/09/24 18:50 RBC 4.96 M/uL (4.70-6.10) 02/09/24 18:50 Hgb 15.8 g/dl (14.0-18.0) 02/09/24 18:50 Hct 45.8 % (42.0-52.0) 02/09/24 18:50 MCV 92.3 fL (80.0-100.0) 02/09/24 18:50 MCH 31.9 pg (25.0-34.0) 02/09/24 18:50 MCHC 34.5 g/dL (32.0-36.0) 02/09/24 18:50 RDW Std Deviation 46.6 fL (36.4-46.3) H 02/09/24 18:50 RDW Coeff of [place] 13.8 % (11.5-14.5) 02/09/24 18:50 Plt Count 162 K/uL (130-400) 02/09/24 18:50 MPV 8.9 fL (9.4-12.4) L 02/09/24 18:50 Immature Gran % (Auto) 0.4 % 02/09/24 18:50 Neut % (Auto) 69.3 % 02/09/24 18:50 Lymph % (Auto) 15.8 % 02/09/24 18:50 [place] % (Auto) 11.0 % 02/09/24 18:50 Eos % (Auto) 3.1 % 02/09/24 18:50 Baso % (Auto) 0.4 % 02/09/24 18:50 Neut # (Auto) 6.21 K/uL (1.40-6.50) 02/09/24 18:50 Lymph # (Auto) 1.42 K/uL (1.20-3.40) 02/09/24 18:50 [place] # (Auto) 0.99 K/uL (0.11-0.59) H 02/09/24 18:50 Eos # (Auto) 0.28 K/uL (0.00-0.50) 02/09/24 18:50 Baso # (Auto) 0.04 K/uL (0.00-0.20) 02/09/24 18:50 Immature Gran # (Auto) 0.04 K/uL (0.01-0.20) 02/09/24 18:50 PT 10.5 Seconds (9.0-12.0) 02/09/24 18:50 INR 1.0 (0.9-1.1) 02/09/24 18:50 APTT 24 Seconds (21-31) 02/09/24 18:50 PTT Ratio 0.9 02/09/24 18:50 Sodium 137 mmol/L (136-145) 02/09/24 18:50 Potassium 4.1 mmol/L (3.5-5.1) 02/09/24 18:50 Chloride 104 mmol/L (98-107) 02/09/24 18:50 Carbon Dioxide 24 mmol/L (21-32) 02/09/24 18:50 Anion Gap 9 (3-11) 02/09/24 18:50 BUN 21 mg/dl (6-23) 02/09/24 18:50 Creatinine 1.29 mg/dl (0.6-1.4) 02/09/24 18:50 Est Cr Clr Drug Dosing 63.9 ml/min 02/09/24 18:50 Est GFR ( Amer) 63.8 ml/min 02/09/24 18:50 Est GFR (Non-Af Amer) 55.0 ml/min 02/09/24 18:50 BUN/Creatinine Ratio 16.3 (10-20) 02/09/24 18:50 Glucose 111 mg/dl (70-99(Fasting)) H 02/09/24 18:50 Calcium 9.8 mg/dl (8.6-10.3) 02/09/24 18:50 Total Bilirubin 1.1 mg/dl (0.2-1.0) H 02/09/24 18:50 AST 34 U/L (13-39) 02/09/24 18:50 ALT 32 U/L (7-52) 02/09/24 18:50 Alkaline Phosphatase 55 U/L (34-104) 02/09/24 18:50 Troponin I High Sens 6.1 pg/ml (0-20) 02/09/24 21:07 Total Protein 7.4 gm/dl (6.0-8.3) 02/09/24 18:50 Albumin 4.4 gm/dl (3.4-5.0) 02/09/24 18:50 Globulin 3.0 gm/dl (2.5-4.0) 02/09/24 18:50 Albumin/Globulin Ratio 1.5 (0.9-2) 02/09/24 18:50 Impressions Chest X-Ray 02/09/24 18:46 XR chest 1V portable CLINICAL HISTORY: Chest pain, nonspecific COMPARISON STUDY: Chest CT September 23, 2019. Chest radiograph August 31, 2022. FINDINGS: Lung volumes are normal. Linear lingular density favors atelectasis or scarring. There is no pneumothorax or pleural effusion. Cardiac size is normal. Mediastinal contours are normal. There is no evidence for pulmonary edema. IMPRESSION: No acute cardiopulmonary findings. ACT 112: Negative or not required by law. Electronically signed by: Adis Forrester M.D. 02/09/2024 7:51 PM Diagnostic Findings EKG as per my interpretation : Rate 95, NSR, normal axis, nonspecific T wave abnormalities (1) Chest pain Chest pain type: unspecified Qualified Code(s): R07.9 - Chest pain, unspecified
[2024-02-09 22:50] LABS: Magnesium 1.9 mg/dl (1.7-2.4)
[2024-02-09] MEDS ORDERED: NITROGLYCERIN SL 0.4 MG/TAB TAB SL PRN (23:00)
[2024-02-09] MEDS ORDERED: PROMETHAZINE 6.25 MG/50.25 ML BAG IV PRN (23:00)
[2024-02-09] MEDS ORDERED: MoRPHine SULFATE 4 MG/ML 1 ML CARP\\VIAL IV PRN (23:00)
[2024-02-09] MEDS ORDERED: oxyCODONE HCL IR 5 MG TAB (IMMEDIATE RELEASE) PO PRN (23:00)
[2024-02-09] MEDS ORDERED: LORazepam 0.5 MG TAB PO PRN (23:02)
[2024-02-09] MEDS: ROSUVASTATIN CALCIUM 20 MG TAB PO STA (23:39)
[2024-02-09] MEDS: SODIUM CHLORIDE 0.9% 1,000 ML IV STA (23:39)
[2024-02-10 00:56] VITALS: TEMP 98.4
[2024-02-10 05:21] LABS: Basophils # (auto) 0.04 K/uL (0.00-0.20); Basophils % (auto) 0.6 %; Eosinophils % (auto) 4.3 %; Hematocrit (blood only) 43.5 % (42.0-52.0); Hemoglobin 14.4 g/dl (14.0-18.0); Immature Granulocytes # (auto) 0.04 K/uL (0.01-0.20); Immature Granulocytes % (auto) 0.6 %; Lymphocytes # (auto) 1.18 K/uL (1.20-3.40); Lymphocytes % (auto) 16.8 %; Mean Corpuscular Hemoglobin 31.1 pg (25.0-34.0); Mean Corpuscular Hgb Conc 33.1 g/dL (32.0-36.0); Mean Platelet Volume 8.8 fL (9.4-12.4); Monocytes # (auto) 0.75 K/uL (0.11-0.59); Monocytes % (auto) 10.7 %; Neutrophils # (auto) 4.71 K/uL (1.40-6.50); Platelet Count 128 K/uL (130-400); RDW Coefficient of Variation 14.1 % (11.5-14.5); Red Blood Count 4.63 M/uL (4.70-6.10); White Blood Count 7.02 K/ul (4.8-10.8)
[2024-02-10 05:35] LABS: BUN Creatinine Ratio 18.9 (10-20); Creatinine Clr Calc Pharmacy 74.2 ml/min; Est GFR (African American) 76.5 ml/min; Potassium 3.9 mmol/L (3.5-5.1)
[2024-02-10 05:44] LABS: Partial Thromboplastin Ratio 0.9; Partial Thromboplastin Time 25 Seconds (21-31)
[2024-02-10 07:43] LABS: Estimated Average Glucose 105 mg/dl; Hemoglobin A1C 5.3 % (4.5-5.6)
[2024-02-10] MEDS ORDERED: ASPIRIN 81 MG ECTAB PO SCH (09:00)
[2024-02-10] MEDS: EZETIMIBE 10 MG TAB PO SCH (09:16)
[2024-02-10] MEDS: PANTOprazole 40 MG TAB PO SCH (09:16)
[2024-02-10] MEDS: ASPIRIN 81 MG ECTAB PO SCH (09:16)
[2024-02-10] MEDS: CEROVITE ADV FORMULA TAB PO SCH (09:16)
[2024-02-10] MEDS: LOSARTAN POTASSIUM 50 MG TAB PO SCH (09:16)
[2024-02-10] MEDS: METOPROLOL SUCC 25MG EXT REL TAB PO SCH (09:16)
[2024-02-10] MEDS: ENOXAPARIN INJ 40 MG/0.4 ML SYR SQ SCH (09:19)
--- NOTE | 2024-02-10 12:23 | Cardiology Consultation ---
Date of Consultation February 10, 2024 Assessment & Plan (1) Chest pain: (2) CAD (coronary artery disease), [place] coronary artery: (3) S/P right coronary artery (RCA) stent placement: (4) Hypertension: Plan 74-year-old male admitted secondary to chest discomfort with atypical features. No evidence of acute coronary syndrome with negative high-sensitivity troponin and normal resting ECG. 2D transthoracic echocardiogram pending at this time. Symptoms appear to have been relieved with antacid medication. Will review echocardiogram. If stable from prior imaging, will likely discharge to home with outpatient cardiology follow-up. Blood pressure intermittently elevated since admission. Continue losartan, metoprolol, aspirin, rosuvastatin and Zetia as ordered. History of Present Illness Reason for Consultation: Chest pain Requesting Physician: Dr. Renny Mast Attending Physician: Chance Yancey MD History of Present Illness 74-year-old male present to the emergency department with left axillary discomfort radiating to his fourth and fifth digits. Patient was out with a friend last evening consuming beer and hot wings. While playing a [employer] game he developed acute onset of discomfort in his left axilla radiating to his left fourth and fifth digits. No associated shortness of breath. He became somewhat uneasy and returned home where he noticed significant chest pressure. Took 1 sublingual nitroglycerin without relief. Due to ongoing discomfort he proceeded to the emergency department for further evaluation. In the ER, patient was given 30 cc of Maalox with prompt resolution of symptoms. He has been asymptomatic over the past few hours. High-sensitivity troponin within normal limits. No ischemic ECG changes. Denies any recent exertional chest discomfort or unusual shortness of breath. No orthopnea, PND, lower extremity edema, or claudication. Denies palpitations, lightheadedness, dizziness, syncope, or near syncope. Allergies Allergy/AdvReac Type Severity Reaction Status Date / Time Iodinated Contrast Media Allergy Intermediate HIVES WITH Verified 10/05/22 05:28 IV DYE FOR CARDIAC CATH lisinopril Allergy Intermediate ANGIOEDEMA Verified 10/05/22 05:28 Home Medications Medication Instructions Recorded Confirmed Type ezetimibe 10 mg tablet 10 mg PO QAM 06/27/19 02/09/24 History losartan 50 mg tablet 50 mg PO QAM 06/27/19 02/09/24 History nitroglycerin 0.4 mg sublingual 0.4 mg sublingual UD PRN Chest Pain 06/27/19 02/09/24 History tablet omeprazole 20 mg capsule,delayed 20 mg PO Q OTHER DAY 06/27/19 02/09/24 History release rosuvastatin 40 mg tablet 40 mg PO QPM 06/27/19 02/09/24 History albuterol sulfate 90 mcg/actuation 2 puff inhalation Q4H PRN 06/28/19 02/09/24 History aerosol inhaler Shortness Of Breath Or Wheezing albuterol sulfate 2.5 mg/3 mL 2.5 mg (3 mL) inhalation Q8H PRN 09/24/19 02/09/24 Rx (0.083 %) solution for nebulization shortness of breath or wheezing #90 mL diphenhydramine HCl 25 mg tablet 25 mg PO Q4H PRN Angioedema 12/30/19 02/09/24 History Prevagen 1 tab PO QAM 08/28/22 02/09/24 History geriatric multivitamin-min 1 tab PO QAM 08/28/22 02/09/24 History metoprolol succinate 25 mg 25 mg PO QAM 08/28/22 02/09/24 History tablet,extended release 24 hr acetaminophen 500 mg tablet 500 mg PO TID pain 30 days #90 tabs 10/03/22 02/09/24 Rx (Tylenol Extra Strength) tamsulosin 0.4 mg capsule (Flomax) 0.4 mg PO DAILY #7 caps 10/03/22 02/10/24 Rx tramadol 50 mg tablet 50 - 100 mg (1 - 2 x 50 mg) PO Q6 10/03/22 02/10/24 Rx PRN pain #40 tabs aspirin 81 mg PO DAILY 02/09/24 02/09/24 History Patient History Medical History GERD (gastroesophageal reflux disease) controlled, stable per pt CAD (coronary artery disease) s/p 2 stents 2008, follows with S cardio Degenerative disc disease Hyperlipidemia History of COVID-19 07/03/22 via HOME TEST--body aches, fever, fatigue was on paxlovid--no symptoms now Herniated disc Myocardial infarction 2009--had heart cath with 2 stents placed--follows with Dr. Camilo COPD (chronic obstructive pulmonary disease) inhaler daily/prn, nebulizer used daily Surgical History History of left knee surgery ligament surgery > 50 yrs ago per pt History of arthroscopy of left knee x2 History of colonoscopy History of tooth extraction all teeth removed History of bilateral cataract extraction H/O cardiac catheterization 2009--with 2 stents done at [facility] Family History Other No family history of adverse response to anesthesia Social History Smoking Status: Former smoker Tobacco Type: Cigarettes Second Hand Exposure: No; Do You Dip or Chew Tobacco: No; Hx Alcohol Use: Yes Alcohol type: beer and hard liquor Hx Substance Use: No Preferred Language: Occitan Communication Ability: Effective 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 Beliefs That Will Affect Care: None marital status: Current Living Situation: Spouse Other Information That Helps Us Care for You: No Feels Safe at Home: Yes Safety Concerns: Feels Safe At This Time Assistive Devices: Cane, Denture - Upper, Denture - Lower, Glasses and Nebulizer Review of Systems Review of Systems: All systems reviewed & are unremarkable except as noted in Subjective Physical Exam Constitutional: well nourished and + obese Respiratory: no respiratory distress, no labored breathing and no retractions Auscultation: lungs clear to auscultation bilaterally; no crackles, no rales, no rhonchi and no wheezes Cardiovascular: Rate/Rhythm: regular rate and regular rhythm Heart Sounds: normal S1 and normal S2; no murmur Vessels: no JVD and no carotid bruit Extremities: no edema Gastrointestinal (Abdomen): Inspection/Auscultation: normal bowel sounds; abdomen not distended Percussion/Palpation: abdomen soft; abdomen nontender, no guarding and abdomen not rigid Results & Data Vital Signs (Past 12 Hours) Vital Signs Temp Pulse Pulse Resp BP BP Pulse Ox 02/10/24 09:15 81 18 151/95 H 95 02/10/24 07:13 73 02/10/24 06:21 79 16 130/75 94 02/10/24 02:06 91 H 23 155/104 H 95 02/10/24 01:30 85 21 160/79 H 95 02/10/24 00:57 84 24 147/85 H 93 02/10/24 00:47 02/10/24 00:47 36.9 C 88 20 156/84 H 92 02/10/24 00:27 87 16 156/84 H 94 Pulse Ox O2 Del Method O2 Del Method 02/10/24 09:15 Room Air 02/10/24 07:13 02/10/24 06:21 Room Air 02/10/24 02:06 Room Air 02/10/24 01:30 02/10/24 00:57 02/10/24 00:47 92 Room Air 02/10/24 00:47 Room Air 02/10/24 00:27 Laboratory Results Cardiac Enzymes 02/09/24 02/09/24 02/10/24 Range/Units 18:50 21:07 04:57 AST 34 (13-39) U/L Troponin I High Sens 7.2 6.1 4.0 (0-20) pg/ml Coagulation 02/09/24 02/10/24 Range/Units 18:50 04:57 PT 10.5 (9.0-12.0) Seconds APTT 24 25 (21-31) Seconds CBC 02/09/24 02/10/24 Range/Units 18:50 04:57 WBC 8.98 7.02 (4.8-10.8) K/ul RBC 4.96 4.63 L (4.70-6.10) M/uL Hgb 15.8 14.4 (14.0-18.0) g/dl Hct 45.8 43.5 (42.0-52.0) % Plt Count 162 128 L (130-400) K/uL Neut # (Auto) 6.21 4.71 (1.40-6.50) K/uL Lymph # (Auto) 1.42 1.18 L (1.20-3.40) K/uL [place] # (Auto) 0.99 H 0.75 H (0.11-0.59) K/uL Eos # (Auto) 0.28 0.30 (0.00-0.50) K/uL Baso # (Auto) 0.04 0.04 (0.00-0.20) K/uL Comprehensive Metabolic Panel 02/09/24 02/10/24 Range/Units 18:50 04:57 Sodium 137 138 (136-145) mmol/L Potassium 4.1 3.9 (3.5-5.1) mmol/L Chloride 104 106 (98-107) mmol/L Carbon Dioxide 24 26 (21-32) mmol/L BUN 21 21 (6-23) mg/dl Creatinine 1.29 1.11 (0.6-1.4) mg/dl Glucose 111 H 104 H (70-99(Fasting)) mg/dl Calcium 9.8 9.0 (8.6-10.3) mg/dl AST 34 (13-39) U/L ALT 32 (7-52) U/L Alkaline Phosphatase 55 (34-104) U/L Total Protein 7.4 (6.0-8.3) gm/dl Albumin 4.4 (3.4-5.0) gm/dl Intake and Output 02/09/24 02/10/24 02/10/24 22:59 06:59 14:59 Other: Weight 108.6 kg 108.6 kg Weight Measurement Method Chair Scale (1) Chest pain Chest pain type: unspecified Qualified Code(s): R07.9 - Chest pain, unspecified (4) Hypertension Hypertension type: primary hypertension Qualified Code(s): I10 - Essential (primary) hypertension
[2024-02-10 13:20] VITALS: O2SAT 96
--- NOTE | 2024-02-10 14:32 | Discharge Summary ---
Date of Service February 10, 2024 Admission HPI Per Admitting Provider History obtained from patient and records. Medical history significant for CAD status post stent, hypertension, hyperlipidemia, COPD, GERD, history of angioedema as per records, past tobacco abuse. Last confinement September 2022 under Orthopedics service for elective left hip surgery. Patient experienced substernal discomfort going to the left arm with SOB after installing a carport at his home. Some relief with nitroglycerin intake prior to ER arrival. Patient compliant with home meds. 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 Admission Exam Per Admitting Provider GENERAL: Obese, comfortable, pleasant, no respiratory distress SKIN: Normal color, warm HEENT: [place] palpebral conjunctivae, no ptosis, dry buccal mucosa NECK : Supple, no tenderness CHEST : Decreased breath sounds, anterior chest wall tenderness HEART : RRR, no obvious murmurs ABDOMEN: Some distention, nontender EXTREMITIES : Minimal LE swelling, no LE tenderness, no other conspicuous deformities noted NEUROLOGIC : Coherent, no facial asymmetry, no other gross focality Principal Diagnosis Chest pain rule out ACS Discharge Exam GENERAL: Obese, comfortable, pleasant, no respiratory distress SKIN: Normal color, warm HEENT: [place] palpebral conjunctivae, no ptosis, moist buccal mucosa NECK : Supple, no tenderness CHEST : Decreased breath sounds, anterior chest wall tenderness not present HEART : RRR, no obvious murmurs ABDOMEN: Some distention, nontender EXTREMITIES : Minimal LE swelling, no LE tenderness, no other conspicuous deformities noted NEUROLOGIC : Coherent, no facial asymmetry, no other gross focality Discharge Data Allergies Allergy/AdvReac Type Severity Reaction Status Date / Time Iodinated Contrast Media Allergy Intermediate HIVES WITH Verified 10/05/22 05:28 IV DYE FOR CARDIAC CATH lisinopril Allergy Intermediate ANGIOEDEMA Verified 10/05/22 05:28 Consultations 02/09/24 22:23 ED Decision to Admit Stat 02/10/24 10:41 Consult Cardiology Routine Hospital Course (1) Chest pain: Patient was seen and examined at bedside as a follow-up of chest pain rule out ACS. Patient denies further chest pain after taking simethicone in the hospital. Patient reports improvement in his chest discomfort/pain after simethicone dose. Troponin x 3 negative, EKG without acute ST or T changes. Echo without regional wall motion abnormality, EF of 60 to 65%, discussed with cardiology, plan to follow-up in about 2 weeks time upon discharge. He is being discharged with following instruction at the point of discharge: Follow-up with your primary care physician within a week time and likely you will need labs CBC/CMP/magnesium/phosphorus. You were evaluated for chest pain while in hospital, follow-up with cardiology in about 2 weeks time upon discharge. You can take your omeprazole twice a day on discharge, also you can use OTC Tums as needed if you have burning sensation or reflux. Take your medications as prescribed. Please make sure that you are able to get your medications today by calling your pharmacy before you leave the hospital so that your treatment continuity is not broken. Text document was generated using [employer] voice recognition software. It may contain grammatical or spelling errors. Kindly contact undersigned for clarification of any documentation item in question. Home Health Attestation I certify that this patient is under my care and that I, or a physicians assistant property manager working with me, had a face to-face encounter that meets the home health [id number] encounter requirements with this patient. The encounter with the patient was in whole, or in part, for the following medical condition, which is the primary reason for home health care (list medical condition): I certify that, based on my findings, the following services are medically necessary home health services: My clinical findings support the need for the above services because: Further, I certify that my clinical findings support that this patient is homebound (i.e. absences from home require considerable and taxing effort and are for medical reasons or restorationism services or infrequently or of short duration when for other reasons) because: Certification for Home Health Services: Based on the above findings, I certify that this patient is confined to the home and needs intermittent fpc care, physical therapy and/or speech therapy or continues to need occupational therapy. The patient is under my care, and I have initiated the establishment of the plan of care. This patient will be followed by a physician who will periodically review the plan of care. Total Time Total Time Spent Total Time Spent (In Minutes): 45 Discharge Plan Discharge Items Patient Disposition: Home - Self-Care Reason For Visit: CHEST PAIN Discharge Diagnosis: Chest pain rule out ACS Activity: Resume your previous activity Non-emergency contact: Primary Care Provider Call non-emergency contact if: you have any medication questions, your symptoms worsen and your pain is worsening Follow-up/Referrals: Tova Muniz DO [Primary Care Provider] - Diet: Heart Healthy Addtl Attending Provider Instructions: Follow-up with your primary care physician within a week time and likely you will need labs CBC/CMP/magnesium/phosphorus. You were evaluated for chest pain while in hospital, follow-up with cardiology in about 2 weeks time upon discharge. You can take your omeprazole twice a day on discharge, also you can use OTC Tums as needed if you have burning sensation or reflux. Take your medications as prescribed. Please make sure that you are able to get your medications today by calling your pharmacy before you leave the hospital so that your treatment continuity is not broken. Pending Studies at Discharge: No Stand-Alone Forms: [facility], Smoking Cessation Medications and DC Order Prescriptions: New aspirin 81 mg Tablet,Delayed Release (Dr/Ec) 81 mg PO DAILY Qty: 30 0RF Continued tramadol 50 mg tablet 50 - 100 mg PO Q6 PRN (Reason: pain) Qty: 40 0RF Rx Instructions: Take as needed for pain acetaminophen [Tylenol Extra Strength] 500 mg tablet 500 mg PO TID 30 Days Qty: 90 0RF Rx Instructions: Take 3 times per day to lessen pain. tamsulosin [Flomax] 0.4 mg capsule 0.4 mg PO DAILY Qty: 7 0RF Rx Instructions: Begin night BEFORE surgery to prevent urinary retention diphenhydramine HCl 25 mg tablet 25 mg PO Q4H PRN (Reason: Angioedema) losartan 50 mg tablet 50 mg PO QAM ezetimibe 10 mg tablet 10 mg PO QAM rosuvastatin 40 mg tablet 40 mg PO QPM nitroglycerin 0.4 mg tablet, sublingual 0.4 mg sublingual UD PRN (Reason: Chest Pain) albuterol sulfate 90 mcg/actuation HFA aerosol inhaler 2 puff INHALATION Q4H PRN (Reason: Shortness Of Breath Or Wheezing) albuterol sulfate 2.5 mg /3 mL (0.083 %) solution for nebulization 2.5 mg INH Q8H PRN (Reason: shortness of breath or wheezing) Qty: 90 1RF metoprolol succinate 25 mg Tablet Extended Release 24 Hr 25 mg PO QAM geriatric multivitamin-min Tablet 1 tab PO QAM Prevagen 1 tab PO QAM Changed omeprazole 20 mg capsule,delayed release(DR/EC) 20 mg PO BID Qty: 60 0RF Patient Comments: takes in the am Discontinued aspirin 81 mg PO DAILY Discharge Orders: Discharge Order (Routine); Ordered 02/10/24 Ordered By: Chance Yancey Admission Data Admit Date/Time: 02/09/24 22:34 Attending Provider: Chance Yancey Admit Provider: Renny Mast Primary Care Provider: Tova Muniz Other Providers: Renny Mast; Christine Ramsay; Garett Amato; Alec Alvarado; Jalen Camilo; Kendrick Torres; Demond Ibarra; Lucina Eubanks; Reyna Patel; Stefany Dolan; Christine Law; Da Burrows; Nima Bernardo; Sandrita Cerda; Glenny Jimenez; Bree Mcgee; Jeremiah Borges; Dax Espitia; Keisha Crow
[2024-02-10 15:13] VITALS: BP 151/99; PULSE 85; RESP 13
[2024-02-10] MEDS ORDERED: ROSUVASTATIN CALCIUM 20 MG TAB PO SCH (21:00)
--- NOTE | 2024-02-11 18:48 | Electrocardiogram Report ---
Test Reason : Blood Pressure : */* mmHG Vent. Rate : 96 BPM Atrial Rate : 96 BPM P-R Int : 158 ms QRS Dur : 86 ms QT Int : 348 ms P-R-T Axes : 100 26 67 degrees QTcB Int : 439 ms Normal sinus rhythm Normal ECG When compared with ECG of 31-Aug-2022 13:21, No significant change was found Confirmed by Usama Whitley ([id number]) on 02/11/2024 6:48:03 PM Referred By: Confirmed By: Usama Whitley
== END 2024-02-10 15:00 | disposition home or self-care (01) ==
LOC: EDINP 18:39 → ED 18:39 → EDINP 02-10 00:11